=== PATIENT | male | born 1965 | race Caucasian/White ===

== ENCOUNTER 2023-08-01 09:27 | Outpatient (OUT) | payer BC, SELFPAY ==
[2023-08-01 10:02] LABS: Basophils Percent Auto 0.9 % (0.2-2.0); Eosinophils Absolute Auto 0.1 10^3/uL (0.0-0.7); Eosinophils Percent Auto 2.4 % (0.9-7.0); Hematocrit 45.9 % (42.0-54.0); Hemoglobin 16.3 g/dL (14.0-18.0); Lymphocytes Absolute Auto 1.9 10^3/uL (1.2-3.8); Lymphocytes Percent Auto 40.8 % (20.5-60.0); Mean Corpuscular HGB Conc 35.5 g/dL (29.9-35.2); Mean Corpuscular Hemoglobin 31.9 pg (25.9-34.0); Mean Corpuscular Volume 89.8 fL (80.0-94.0); Mean Platelet Volume 11.8 fL (9.5-13.5); Monocytes Absolute Auto 0.5 10^3/uL (0.3-0.8); Monocytes Percent Auto 11.3 % (1.7-12.0); Neutrophils Percent Auto 44.6 % (43.0-75.0); Platelet Count 307 10^3/uL (150-450); Red Blood Count 5.11 10^6/uL (4.70-6.10); Red Cell Distribution Width 12.3 % (11.0-15.0); White Blood Count 4.5 10^3/uL (4.0-11.0)
[2023-08-01 10:11] LABS: Estimated Average Glucose 108 mg/dL; Glycohemoglobin A1C 5.4 % (4.5-6.2)
[2023-08-01 10:40] LABS: Alanine Aminotransferase 83 U/L (16-63); Albumin Globulin Ratio 1.3; Alkaline Phosphatase 49 U/L (46-116); Anion Gap 11.7; Aspartate Amino Transferase 41 U/L (15-37); BUN Creatinine Ratio 12.7; Bilirubin Total 0.8 mg/dL (0.2-1.0); Carbon Dioxide 28.7 mmol/L (21.0-32.0); Chloride 103 mmol/L (98-107); Chol HDL Ratio 2.6; Cholesterol 109 mg/dL (<=200); Estimated GFR (African America >60 (>=60); Estimated GFR (Non-African Ame >60 (>=60); Glucose 99 mg/dL (74-106); HDL Cholesterol 42 mg/dL (40-60); LDL Cholesterol Calculated 48.4 mg/dL; Potassium 4.4 mmol/L (3.5-5.1); Sodium 139 mmol/L (136-145); Thyroid Stimulating Hormone 1.708 uIU/mL (0.358-3.740); Triglycerides 93 mg/dL (<=150); VLDL CHOLESTEROL 18.6 mg/dL
[2023-08-01 11:01] LABS: Prostate Specific Antigen Scrn 1.42 ng/mL (<=4.00)
[2023-08-02 10:12] LABS: Testosterone 524 ng/dL (264-916)
== END 2023-08-01 09:28 | disposition home or self-care (01) ==
LOC: LAB 09:29
PROVIDERS: PCP Family Medicine; Visit Provider Family Medicine
DX: Z00.00 Encounter for general adult medical examination without abnormal findings (principal); Z12.5 Encounter for screening for malignant neoplasm of prostate
CPT/HCPCS: 36415; 80053; 80061; 83036; 83525; 84403; 84436; 84443; 84481; 85025; G0103

== ENCOUNTER 2023-09-11 12:15 | Outpatient (OUT) | payer BC, SELFPAY | END 2023-09-11 12:16 | disposition home or self-care (01) | LOC: PST 12:15 | PROVIDERS: PCP Family Medicine; Visit Provider Surgery | DX: Z01.818 Encounter for other preprocedural examination (principal); Z12.11 Encounter for screening for malignant neoplasm of colon ==

== ENCOUNTER 2023-09-18 09:05 | Day surgery (SDC) | payer BC, SELFPAY ==
--- NOTE | 2023-09-18 | OP_ITS ---
OPERATION DATE: 09/18/2023 PREOPERATIVE DIAGNOSIS: Colorectal screening. POSTOPERATIVE DIAGNOSIS: Redundant colon. PROCEDURE: Colonoscopy to cecum. SURGEON: Cory Matos M.D. ANESTHESIA: Monitored anesthesia care. ESTIMATED BLOOD LOSS: Zero. INDICATIONS AND CONSENT: Patient is a 58-year-old male presents for colorectal screening. Indications, risks, benefits, alternatives of proceeding with colonoscopy were explained extensively to the patient, including the risks of bleeding, colon perforation or anesthetic complications. All of his questions were answered. Informed consent was obtained. PROCEDURE: Patient brought to the operating room, placed in the left lateral decubitus position. Monitored anesthesia care was provided. Rectal exam was performed which showed no masses or blood. The scope was inserted into the anal canal. Under direct visualization was advanced. With the aid of abdominal compression and positional changes, it was advanced to the cecum, where cecal markings were clearly identified. There was noted to be a good prep. Upon withdrawal of the scope, mucosal surfaces were carefully examined. There were no mass lesions or polyps. No inflammatory changes or ulcerations. No significant diverticulosis. The scope was retroflexed in the anal canal. There was no significant hemorrhoidal disease. Scope was then withdrawn. Patient tolerated procedure well, was sent to recovery room in good condition.f/u screening colonoscopy in 10 years, CC: Martin Bell M.D. PAPITO
[2023-09-18 09:25] VITALS: BP 144/89; PULSE 76; RESP 18; TEMP 36.2; O2SAT 99; BMI 34.4
[2023-09-18] MEDS: LACTATED RINGER'S SOLUTION 1,000 ML 50 ML IV (09:26)
[2023-09-18 12:04] VITALS: BP 125/70; PULSE 71; RESP 16; O2SAT 96
[2023-09-18 12:19] VITALS: BP 125/91; PULSE 69; RESP 16; O2SAT 96
== END 2023-09-18 12:35 | disposition home or self-care (01) ==
PROVIDERS: PCP Family Medicine; Visit Provider Surgery
PROC: (CPT 811; principal; 2023-09-18 10:15)
DX: Z12.11 Encounter for screening for malignant neoplasm of colon (principal); Q43.8 Other specified congenital malformations of intestine; K21.9 Gastro-esophageal reflux disease without esophagitis; E66.01 Morbid (severe) obesity due to excess calories; E78.00 Pure hypercholesterolemia, unspecified; K76.0 Fatty (change of) liver, not elsewhere classified; I73.9 Peripheral vascular disease, unspecified; Z79.82 Long term (current) use of aspirin; Z68.41 Body mass index [BMI] 40.0-44.9, adult
CPT/HCPCS: 45378; J2704

== ENCOUNTER 2024-05-22 09:16 | Outpatient (OUT) | payer BC, SELFPAY ==
[2024-05-22 10:06] LABS: Basophils Absolute Auto 0.1 10^3/uL (0.0-0.1); Basophils Percent Auto 1.1 % (0.2-2.0); Eosinophils Absolute Auto 0.1 10^3/uL (0.0-0.7); Eosinophils Percent Auto 2.2 % (0.9-7.0); Hematocrit 46.8 % (42.0-54.0); Immature Granulocytes Abs Auto 0.01 10^3/uL (0.00-0.03); Immature Granulocytes Pct Auto 0.2 % (0.0-0.5); Lymphocytes Absolute Auto 1.8 10^3/uL (1.2-3.8); Lymphocytes Percent Auto 33.2 % (20.5-60.0); Mean Corpuscular HGB Conc 34.2 g/dL (29.9-35.2); Mean Corpuscular Hemoglobin 31.3 pg (25.9-34.0); Mean Corpuscular Volume 91.6 fL (80.0-94.0); Mean Platelet Volume 10.1 fL (9.5-13.5); Monocytes Absolute Auto 0.5 10^3/uL (0.3-0.8); Monocytes Percent Auto 8.9 % (1.7-12.0); Neutrophils Percent Auto 54.4 % (43.0-75.0); Platelet Count 221 10^3/uL (150-450); Red Blood Count 5.11 10^6/uL (4.70-6.10); Red Cell Distribution Width 12.2 % (11.0-15.0); White Blood Count 5.5 10^3/uL (4.0-11.0)
[2024-05-22 10:48] LABS: Alanine Aminotransferase 106 U/L (16-63); Albumin Globulin Ratio 1.2; Alkaline Phosphatase 53 U/L (46-116); Anion Gap 11.5; Aspartate Amino Transferase 80 U/L (15-37); Bilirubin Total 0.8 mg/dL (0.2-1.0); Calcium 9.3 mg/dL (8.5-10.1); Carbon Dioxide 28.5 mmol/L (21.0-32.0); Chloride 103 mmol/L (98-107); Chol HDL Ratio 2.7; Cholesterol 140 mg/dL (<=200); Estimated GFR (African America >60 (>=60); Estimated GFR (Non-African Ame >60 (>=60); Free T3 3.02 pg/mL (2.18-3.98); Globulin 3.4 g/dL; Glucose 112 mg/dL (74-106); HDL Cholesterol 52 mg/dL (40-60); LDL Cholesterol Calculated 70.8 mg/dL; Sodium 138 mmol/L (136-145); Thyroid Stimulating Hormone 2.006 uIU/mL (0.358-3.740); Total Protein 7.4 g/dL (6.4-8.2); Triglycerides 86 mg/dL (<=150); VLDL CHOLESTEROL 17.2 mg/dL
[2024-05-22 11:16] LABS: Prostate Specific Antigen Scrn 1.43 ng/mL (<=4.00)
[2024-05-22 11:50] LABS: Estimated Average Glucose 105 mg/dL; Glycohemoglobin A1C 5.3 % (4.5-6.2)
== END 2024-05-22 09:17 | disposition home or self-care (01) ==
PROVIDERS: PCP Family Medicine; Visit Provider Family Medicine
DX: Z00.00 Encounter for general adult medical examination without abnormal findings (principal); E78.00 Pure hypercholesterolemia, unspecified; R53.83 Other fatigue; Z12.5 Encounter for screening for malignant neoplasm of prostate; Z12.11 Encounter for screening for malignant neoplasm of colon; E11.9 Type 2 diabetes mellitus without complications; I10 Essential (primary) hypertension; E03.9 Hypothyroidism, unspecified
CPT/HCPCS: 36415; 80053; 80061; 83036; 84436; 84443; 84481; 85025; G0103

== ENCOUNTER 2024-06-11 09:18 | Outpatient (OUT) | payer BC, SELFPAY ==
[2024-06-11 10:51] LABS: Alanine Aminotransferase 96 U/L (16-63); Albumin Globulin Ratio 1.3; Albumin Level 4.1 g/dL (3.4-5.0); Alkaline Phosphatase 57 U/L (46-116); Aspartate Amino Transferase 53 U/L (15-37); Bilirubin Total 0.8 mg/dL (0.2-1.0); Calcium 9.5 mg/dL (8.5-10.1); Carbon Dioxide 29.9 mmol/L (21.0-32.0); Chloride 102 mmol/L (98-107); Estimated GFR (African America >60 (>=60); Estimated GFR (Non-African Ame >60 (>=60); Globulin 3.1 g/dL; Glucose 108 mg/dL (74-106); Potassium 4.9 mmol/L (3.5-5.1); Sodium 140 mmol/L (136-145); Total Protein 7.2 g/dL (6.4-8.2)
[2024-06-11 15:00] LABS: Occult Blood Negative
[2024-06-11 15:02] LABS: Internal Control Within Normal Limits
== END 2024-06-11 09:19 | disposition home or self-care (01) ==
LOC: LAB 09:23
PROVIDERS: PCP Family Medicine; Visit Provider Family Medicine
DX: R79.89 Other specified abnormal findings of blood chemistry (principal)
CPT/HCPCS: 36415; 80053; G0328

== ENCOUNTER 2025-05-28 11:25 | Outpatient (OUT) | payer BC, SELFPAY ==
--- OUTSIDE RECORDS SUMMARY | 2025-05-28 11:29 | XMS_ITS | Encounter Summary ---
Author Organization [facility] Address [address] [place] [address] Care Team Providers Care Claims Coordinator Name Role Phone Martin Bell MD Primary Care Provider [phone] No, Referral Unavailable Unavailable Ayo Lovelace MD Unavailable [phone] Castillo Pereira MD Unavailable Source Comments In the event this information is protected by the Federal Confidentiality of Alcohol and Drug AbusePatient Records regulations: The Federal rules restrict any use of the information to criminally investigate or prosecute any alcohol or drug abuse patient.[facility] Encounter Details Date Type Department Care Team (Late st Contact Info) Description 09/21/2020 Get Medical Advice Cardiology [address] [place] [address] Ayo Lovelace MD [address] [place] [address] RE: Visit Follow Up Question Social History Tobacco Use Types Packs/Day Years Used Date Smoking Tobacco: Never Smokeless Tobacco: Never Alcohol Use Standard Drinks/Week Comments Yes 1 (1 standard drink = 0.6 oz pure alcohol) socially; nrdctubc-7-7 cups per day Area Deprivation Index Answer Date Tucker rded National Score (1-100), lower number is lower ri sk Not on file 09/11/2020 State Score (1-10), lower number is lower risk N ot on file 09/11/2020 Data from: https://www.neighborhoodatlas.[facility]/. Last address used for calculation Not on file 09/11/2020 Sex and Gender Information Value Date Recorded Sex Assigned at Male 09/06/2020 8:18 PM EST Legal Sex Male 7:32 AM EST Gender Identity Male 09/06/2020 8:18 PM EST Sexual Orientation Straight 09/06/2020 8: 18 PM EST COVID-19 Exposure Response Date Recorded In the last month, have you been in contact with someone who was confirmed or suspected to have Coronavirus / COVID-19? Unable to assess 09/19/2020 8:08 AM EST documented as of this encounter Functional Status * Are you deaf or do you have serious difficulty hearing? Answer Date of Assessment Author No 09/17/2014 8:15 AM Valentina Roach RN * Are you blind or do you have serious difficulty seeing, even when wearing glasses? Answer Date of Assessment Author No 09/17/2014 8:15 AM Valentina Roach RN * Do you have serious difficulty walking or climbing stairs? Answer Date of Assessment Author No 09/17/2014 8:15 AM Valentina Roach RN * Do you have difficulty dressing or bathing? Answer Date of Assessment Author No 09/17/2014 8:15 AM Valentina Roach RN * Because of a physical, mental, or emotional condition, do you have difficulty doing errands alone such as visiting a doctor's office or shopping? Answer Date of Assessment Author No 09/17/2014 8:15 AM Valentina Roach RN documented as of this encounter Mental Status * Because of a physical, mental, or emotional condition, do you have serious difficulty concentrating, remembering, or making decisions? Answer Entry Date Author No 09/17/2014 8:15 AM Valentina Roach RN documented in this encounter Miscellaneous Notes * Telephone Encounter - Simi West - 09/22/2020 7:48 AM EST Please contact patient regarding Svpplyhart message. documented in this encounter Plan of Treatment Upcoming Encounters Date Type Department Care Team (Late st Contact Info) Description 08/18/2025 8:30 AM EST Procedure Cardiology [address] [place] [address] established EPS patient- web appt req 08/18/2025 9:00 AM EST Office Visit Cardiology [address] [place] [address] Hanna Arevalo APRN.VIDEOGRAPHER [address] [place], [place] [id number] established EPS patient- web appt req 11/30/2025 8:15 AM EST Procedure Cardiology [address] [place] [address] DX CARDIAC EVALUATION 11/30/2025 9:15 AM EST Office Visit Cardiology [address] [place] [address] Leah Manjarrez MD [address] [place] [address] DX H/O AFIB ( SEES DR LOVELACE) documented as of this encounter Visit Diagnoses Not on filedocumented in this encounter Care Teams Claims Coordinator Relationship Specialty Start Date End Date Martin Bell MD PCP - General Family Medicine 08/07/11 No, Referral Referring 08/08/18 Ayo Lovelace MD [address] [place], [place] [id number] Primary Staff Physician Cardiology 12/23/18 Castillo Pereira MD [address] [place] [address] Primary Staff Physician Cardiology 09/12/21 documented as of this encounter
--- OUTSIDE RECORDS SUMMARY | 2025-05-28 11:29 | XMS_ITS | Encounter Summary ---
Author Organization [facility] Address [address] [place] [address] Care Team Providers Care Disability Case Manager Name Role Phone Martin Bell MD Primary Care Provider [phone] No, Referral Unavailable Unavailable Ayo Lovelace MD Unavailable [phone] Castillo Pereira MD Unavailable Source Comments In the event this information is protected by the Federal Confidentiality of Alcohol and Drug AbusePatient Records regulations: The Federal rules restrict any use of the information to criminally investigate or prosecute any alcohol or drug abuse patient.[facility] Encounter Details Date Type Department Care Team (Late st Contact Info) Description 01/29/2023 Patient Msg Cardiology [address] [place] [address] Ayo Lovelace MD [address] [place] [address] Request an Appointment Social History Tobacco Use Types Packs/Day Years Used Date Smoking Tobacco: Never Smokeless Tobacco: Never Alcohol Use Standard Drinks/Week Comments Yes 0 (1 standard drink = 0.6 oz pur e alcohol) 2-3 drink per week Area Deprivation Index Answer Date Tucker rded National Score (1-100), lower number is lower ri sk Not on file 09/11/2020 State Score (1-10), lower number is lower risk N ot on file 09/11/2020 Data from: https://www.neighborhoodatlas.medicine.[facility]/. Last address used for calculation Not on file 09/11/2020 Sex and Gender Information Value Date Recorded Sex Assigned at Male 09/06/2020 8:18 PM EST Legal Sex Male 7:32 AM EST Gender Identity Male 09/06/2020 8:18 PM EST Sexual Orientation Straight 09/06/2020 8: 18 PM EST documented as of this encounter Functional Status * Are you deaf or do you have serious difficulty hearing? Answer Date of Assessment Author No 08/21/2022 9:13 AM Yumi Mccoy RN * Are you blind or do you have serious difficulty seeing, even when wearing glasses? Answer Date of Assessment Author No 08/21/2022 9:13 AM Yumi Mccoy RN * Do you have serious difficulty walking or climbing stairs? Answer Date of Assessment Author No 08/21/2022 9:13 AM Yumi Mccoy RN * Do you have difficulty dressing or bathing? Answer Date of Assessment Author No 08/21/2022 9:13 AM Yumi Mccoy RN * Because of a physical, mental, or emotional condition, do you have difficulty doing errands alone such as visiting a doctor's office or shopping? Answer Date of Assessment Author No 08/21/2022 9:13 AM Yumi Mccoy RN documented as of this encounter Mental Status * Because of a physical, mental, or emotional condition, do you have serious difficulty concentrating, remembering, or making decisions? Answer Entry Date Author No 08/21/2022 9:13 AM Yumi Mccoy RN documented in this encounter Plan of Treatment Upcoming Encounters Date Type Department Care Team (Late st Contact Info) Description 08/18/2025 8:30 AM EST Procedure Cardiology [address] [place] [address] established EPS patient- web appt req 08/18/2025 9:00 AM EST Office Visit Cardiology [address] [place] [phone] Hanna Arevalo APRN.[facility] [address] [place] [address] established EPS patient- web appt req 11/30/2025 8:15 AM EST Procedure Cardiology [address] [place], [place] [id number] DX CARDIAC EVALUATION 11/30/2025 9:15 AM EST Office Visit Cardiology [address] [place], [place] [phone] Leah Manjarrez MD [address] [place] [address] DX H/O AFIB ( SEES DR LOVELACE) documented as of this encounter Visit Diagnoses Not on filedocumented in this encounter Care Teams Disability Case Manager Relationship Specialty Start Date End Date Martin Bell MD PCP - General Family Medicine 08/07/11 No, Referral Referring 08/08/18 Ayo Lovelace MD [address] [place] [address] Primary Staff Physician Cardiology 12/23/18 Castillo Pereira MD [facility] [place] [phone] Primary Staff Physician Cardiology 09/12/21 documented as of this encounter
--- OUTSIDE RECORDS SUMMARY | 2025-05-28 11:29 | XMS_ITS | Encounter Summary ---
Author Organization [facility] Address [address] [place] [address] Care Team Providers Care Supervisor Steffen House Name Role Phone Martin Bell MD Primary Care Provider [phone], Referral Unavailable Unavailable Ayo Lovelace MD Unavailable [phone] Castillo Pereira MD Unavailable Source Comments In the event this information is protected by the Federal Confidentiality of Alcohol and Drug AbusePatient Records regulations: The Federal rules restrict any use of the information to criminally investigate or prosecute any alcohol or drug abuse patient.[facility] Encounter Details Date Type Department Care Team (Late st Contact Info) Description 01/29/2023 Patient Msg Cardiology [address] [place] [address] Hanna Arevalo APRN.AIRCRAFT MOTOR MECHANIC [address] [place] [address] Appointment Cancellation Request Social History Tobacco Use Types Packs/Day Years [...] N ot on file 09/11/2020 Data from: https://www.neighborhoodatlas.medicine.[facility]/. Last address used for calculation Not [...] 08/18/2025 8:30 AM EST Procedure Cardiology [address] [place] [address] established EPS patient- web appt req 08/18/2025 9:00 AM EST Office Visit Cardiology [address] [place] [id number] Hanna Arevalo APRN.AIRCRAFT MOTOR MECHANIC [address] [place] [id number] established EPS patient- web appt req 11/30/2025 8:15 AM EST Procedure Cardiology [address] [place] [id number] DX CARDIAC EVALUATION 11/30/2025 9:15 AM EST Office Visit Cardiology [address] [place] [address] Leah Manjarrez MD [address] [place] [id number] DX H/O AFIB ( SEES DR LOVELACE) documented as of this encounter Visit Diagnoses Not on filedocumented in this encounter Care Teams Supervisor Steffen House Relationship Specialty Start Date End Date Martin Bell MD PCP - General Family Medicine 08/07/11 No, Referral Referring 08/08/18 Ayo Lovelace MD [address] [place] [address] Primary Staff Physician Cardiology 12/23/18 Castillo Pereira MD [facility] [place] [id number] Primary Staff Physician Cardiology 09/12/21 documented as of this encounter
--- OUTSIDE RECORDS SUMMARY | 2025-05-28 11:29 | XMS_ITS | Encounter Summary ---
Author Organization [facility] Address [address] [place] [address] Care Team Providers Care Ged Tutor Name Role Phone Martin Bell MD Primary Care Provider [phone], Referral Unavailable Unavailable Ayo Lovelace MD Unavailable [phone] Ayo Lovelace MD Unavailable [phone] Castillo Pereira MD Unavailable Source Comments In the event this information is protected by the Federal Confidentiality of Alcohol and Drug AbusePatient Records regulations: The Federal rules restrict any use of the information to criminally investigate or prosecute any alcohol or drug abuse patient.[facility] Encounter Details Date Type Department Care Team (Late st Contact Info) Description 03/10/2018 Patient Msg Cardiology [address] [place] [address] Ayo Lovelace MD [address] [place] [address] RE: Appointment Cancellation Request Social History Tobacco Use Types Packs/Day Years Used Date Smoking Tobacco: Never Smokeless Tobacco: Never Alcohol Use Standard Drinks/Week Comments Yes 1 (1 standard drink = 0.6 oz pure alcohol) socially; ufwfscwm-0-6 cups per day Sex and Gender Information Value Date Recorded [...] Valentina Roach RN documented in this encounter Plan of Treatment Upcoming Encounters Date Type Department Care Team (Late st Contact Info) Description 08/18/2025 8:30 AM EST Procedure Cardiology [address] [place] [id number] established EPS patient- web appt req 08/18/2025 9:00 AM EST Office Visit Cardiology [address] [place] [phone] Hanna Arevalo APRN.CHEMICAL ENGRAVER [address] [place] [address] established EPS patient- web appt req 11/30/2025 8:15 AM EST Procedure Cardiology [address] [place] [id number] DX CARDIAC EVALUATION 11/30/2025 9:15 AM EST Office Visit Cardiology [address] [place] [phone] Leah Manjarrez MD [address] [place] [address] DX H/O AFIB ( SEES DR LOVELACE) documented as of this encounter Visit Diagnoses Not on filedocumented in this encounter Care Teams Ged Tutor Relationship Specialty Start Date End Date Martin Bell MD PCP - General Family Medicine 08/07/11 No, Referral Referring 08/08/18 Ayo Lovelace MD [address] [place] [phone] Primary Staff Physician Cardiology 12/23/18 Ayo Lovelace MD [address] [place] [address] Primary Staff Physician Cardiology 12/23/18 Castillo Pereira MD [address] [place] [address] Primary Staff Physician Cardiology 09/12/21 documented as of this encounter
--- OUTSIDE RECORDS SUMMARY | 2025-05-28 11:29 | XMS_ITS | Encounter Summary ---
Author Organization [facility] Address [address] [place] [address] Care Team Providers Care Form Building Supervisor Name Role Phone Martin Bell MD Primary Care Provider [phone], Referral Unavailable Unavailable Ayo Lovelace MD Unavailable [phone] Castillo Pereira MD Unavailable Source Comments In the event this information is protected by the Federal Confidentiality of Alcohol and Drug AbusePatient Records regulations: The Federal rules restrict any use of the information to criminally investigate or prosecute any alcohol or drug abuse patient.[facility] Encounter Details Date Type Department Care Team (Late st Contact Info) Description 01/29/2023 Patient Msg Cardiology [address] [place] [address] Ayo Lovelace MD [address] [place] [address] Request an Appointment Social History [...] N ot on file 09/11/2020 Data from: https://www.neighborhoodatlas.medicine.[facility]/. Last address used for calculation Not [...] 08/18/2025 8:30 AM EST Procedure Cardiology [address] [place] [address] established EPS patient- web appt req 08/18/2025 9:00 AM EST Office Visit Cardiology [address] [place] [phone] Hanna Arevalo APRN.[facility] [address] [place] [address] established EPS patient- web appt req 11/30/2025 8:15 AM EST Procedure Cardiology [address] [place], [place] [phone] DX CARDIAC EVALUATION 11/30/2025 9:15 AM EST Office Visit Cardiology [address] [place], [place] [phone] Leah Manjarrez MD [address] [place] [address] DX H/O AFIB ( SEES DR LOVELACE) documented as of this encounter Visit Diagnoses Not on filedocumented in this encounter Care Teams Form Building Supervisor Relationship Specialty Start Date End Date Martin Bell MD PCP - General Family Medicine 08/07/11 No, Referral Referring 08/08/18 Ayo Lovelace MD [address] [place] [address] Primary Staff Physician Cardiology 12/23/18 Castillo Pereira MD [facility] [place] [phone] Primary Staff Physician Cardiology 09/12/21 documented as of this encounter
--- OUTSIDE RECORDS SUMMARY | 2025-05-28 11:29 | XMS_ITS | Encounter Summary ---
Author Organization [facility] Address [address] [place] [address] Care Team Providers Care Apparatus Lineman Name Role Phone Martin Bell MD Primary Care Provider [phone], Referral Unavailable Unavailable Ayo Lovelace MD Unavailable [phone] Castillo Pereira MD Unavailable Source Comments In the event this information is protected by the Federal Confidentiality of Alcohol and Drug AbusePatient Records regulations: The Federal rules restrict any use of the information to criminally investigate or prosecute any alcohol or drug abuse patient.[facility] Encounter Details Date Type Department Care Team (Late st Contact Info) Description 01/29/2023 Patient Msg Cardiology [address] [place] [address] Provider, Ccf Appointment Cancellation Request Social History Tobacco Use [...] N ot on file 09/11/2020 Data from: https://www.neighborhoodatlas.medicine.[facility]/. Last address used for calculation Not on [...] 08/18/2025 8:30 AM EST Procedure Cardiology [address] [place] [id number] established EPS patient- web appt req 08/18/2025 9:00 AM EST Office Visit Cardiology [address] [place] [address] Hanna Arevalo, RUBEN.SPORTS REPORTER [address] [place] [address] established EPS patient- web appt req 11/30/2025 8:15 AM EST Procedure Cardiology [address] [place] [address] DX CARDIAC EVALUATION 11/30/2025 9:15 AM EST Office Visit Cardiology [address] [place] [phone] Leah Manjarrez MD [address] [place] [address] DX H/O AFIB ( SEES DR LOVELACE) documented as of this encounter Visit Diagnoses Not on filedocumented in this encounter Care Teams Apparatus Lineman Relationship Specialty Start Date End Date Martin Bell MD PCP - General Family Medicine 08/07/11 No, Referral Referring 08/08/18 Ayo Lovelace MD [address] [place] [address] Primary Staff Physician Cardiology 12/23/18 Castillo Pereira MD [address] [place] [address] Primary Staff Physician Cardiology 09/12/21 documented as of this encounter
--- OUTSIDE RECORDS SUMMARY | 2025-05-28 11:29 | XMS_ITS | Encounter Summary ---
Author Organization [facility] Address [address] [place] [address] Care Team Providers Care Fish Straightener Name Role Phone Martin Bell MD Primary Care Provider [phone], Referral Unavailable Unavailable Ayo Lovelace MD Unavailable [phone] Castillo Pereira MD Unavailable Source Comments In the event this information is protected by the Federal Confidentiality of Alcohol and Drug AbusePatient Records regulations: The Federal rules restrict any use of the information to criminally investigate or prosecute any alcohol or drug abuse patient.[facility] Encounter Details Date Type Department Care Team (Late st Contact Info) Description 10/04/2020 Patient Msg Cardiology [address] [place] [address] Hilda Cano APRN.CONDUCTOR/ENGINEER [address] [facility] [place] [address] Echo and stress test results Social History Tobacco Use Types Packs/Day Years Used Date Smoking Tobacco: Never Smokeless Tobacco: Never Alcohol Use Standard Drinks/Week Comments Yes 1 (1 standard drink = 0.6 oz pure alcohol) socially; agatuvwh-4-5 cups per day Area Deprivation Index Answer Date Tucker rded National Score (1-100), lower number is lower ri sk Not on file 09/11/2020 State Score (1-10), lower number is lower risk N ot on file 09/11/2020 Data from: https://www.neighborhoodatlas.[facility]/. Last address used for calculation Not on [...] or suspected to have Coronavirus / COVID-19? No / Unsure 09/29/2020 9:16 AM EST documented as of this encounter [...] 08/18/2025 8:30 AM EST Procedure Cardiology [address] [place] [address] established EPS patient- web appt req 08/18/2025 9:00 AM EST Office Visit Cardiology [address] [place] [address] Hanna Arevalo APRN.CONDUCTOR/ENGINEER [address] [place] [address] established EPS patient- web appt req 11/30/2025 8:15 AM EST Procedure Cardiology [address] [place] [address] DX CARDIAC EVALUATION 11/30/2025 9:15 AM EST Office Visit Cardiology [address] [place] [address] Leah Manjarrez MD [address] [place] [address] DX H/O AFIB ( SEES DR LOVELACE) documented as of this encounter Visit Diagnoses Not on filedocumented in this encounter Care Teams Fish Straightener Relationship Specialty Start Date End Date Martin Bell MD PCP - General Family Medicine 08/07/11 No, Referral Referring 08/08/18 Ayo Lovelace MD [facility] [place] [address] Primary Staff Physician Cardiology 12/23/18 Castillo Pereira MD [facility] [place] [address] Primary Staff Physician Cardiology 09/12/21 documented as of this encounter
--- OUTSIDE RECORDS SUMMARY | 2025-05-28 11:29 | XMS_ITS | Encounter Summary ---
Author Organization [facility] Address [address] [place] [address] Care Team Providers Care Doctor Of Dental Medicine Name Role Phone Martin Bell MD Primary Care Provider [phone], Referral Unavailable Unavailable Ayo Lovelace MD Unavailable [phone] Castillo Pereira MD Unavailable Source Comments In the event this information is protected by the Federal Confidentiality of Alcohol and Drug AbusePatient Records regulations: The Federal rules restrict any use of the information to criminally investigate or prosecute any alcohol or drug abuse patient.[facility] Encounter Details Date Type Department Care Team (Late st Contact Info) Description 06/20/2022 Get Medical Advice Cardiology [address] [place] [address] Ayo Lovelace MD [address] [place] [address] Valentina Social History Tobacco Use Types Packs/Day Years [...] N ot on file 09/11/2020 Data from: https://www.neighborhoodatlas.medicine.[facility]/. Last address used for calculation Not [...] hearing? Answer Date of Assessment Author No 02/01/2022 8:42 PM Janine Franklin RN * Are you blind or do you have serious difficulty seeing, even when wearing glasses? Answer Date of Assessment Author No 02/01/2022 8:42 PM Janine Franklin RN * Do you have serious difficulty walking or climbing stairs? Answer Date of Assessment Author No 02/01/2022 8:42 PM Janine Franklin RN * Do you have difficulty dressing or bathing? Answer Date of Assessment Author No 02/01/2022 8:42 PM Janine Franklin RN * Because of a physical, mental, or emotional condition, do you have difficulty doing errands alone such as visiting a doctor's office or shopping? Answer Date of Assessment Author No 02/01/2022 8:42 PM Jainne Franklin RN documented as of this encounter Mental Status * Because of a physical, mental, or emotional condition, do you have serious difficulty concentrating, remembering, or making decisions? Answer Entry Date Author No 02/01/2022 8:42 PM Janine Franklin RN documented in this encounter Plan of Treatment Upcoming Encounters Date Type Department Care Team (Late st Contact Info) Description 08/18/2025 8:30 AM EST Procedure Cardiology [address] [place] [address] established EPS patient- web appt req 08/18/2025 9:00 AM EST Office Visit Cardiology [address] [place] [address] Hanna Arevalo APRN.COOLING TOWER OPERATOR [address] [place] [address] established EPS patient- web appt req 11/30/2025 8:15 AM EST Procedure Cardiology [address] [place] [phone] DX CARDIAC EVALUATION 11/30/2025 9:15 AM EST Office Visit Cardiology [address] [place] [phone] Leah Manjarrez MD [address] [place] [address] DX H/O AFIB ( SEES DR LOVELACE) documented as of this encounter Visit Diagnoses Not on filedocumented in this encounter Care Teams Doctor Of Dental Medicine Relationship Specialty Start Date End Date Martin Bell MD PCP - General Family Medicine 08/07/11 No, Referral Referring 08/08/18 Ayo Lovelace MD [address] [place] [address] Primary Staff Physician Cardiology 12/23/18 Castillo Pereira MD [address] [place] [address] Primary Staff Physician Cardiology 09/12/21 documented as of this encounter
--- OUTSIDE RECORDS SUMMARY | 2025-05-28 11:29 | XMS_ITS | Encounter Summary ---
Author Organization [facility] Address [address] [place] [address] Care Team Providers Care Cleaner And Preparer Name Role Phone Martin Bell MD Primary Care Provider [phone], Referral Unavailable Unavailable Ayo Lovelace MD Unavailable [phone] Castillo Pereira MD Unavailable Source Comments In the event this information is protected by the Federal Confidentiality of Alcohol and Drug AbusePatient Records regulations: The Federal rules restrict any use of the information to criminally investigate or prosecute any alcohol or drug abuse patient.[facility] Encounter Details Date Type Department Care Team (Late st Contact Info) Description 05/12/2025 Get Medical Advice Cardiology [address] [place] [address] Ayo Lovelace MD [address] [place] [address] Appointment Social History Tobacco Use Types Packs/Day [...] N ot on file 09/11/2020 Data from: https://www.neighborhoodatlas.medicine.[facility]/. Last address used for calculation Not [...] 08/18/2025 8:30 AM EST Procedure Cardiology [address] [place] [address] established EPS patient- web appt req 08/18/2025 9:00 AM EST Office Visit Cardiology [address] [place] [phone] Hanna Arevalo APRN.CHEMISTRY PROFESSOR [address] [place] [address] established EPS patient- web appt req 11/30/2025 8:15 AM EST Procedure Cardiology [address] [place] [id number] DX CARDIAC EVALUATION 11/30/2025 9:15 AM EST Office Visit Cardiology [address] [place] [phone] Leah Manjarrez MD [address] [place] [address] DX H/O AFIB ( SEES DR LOVELACE) documented as of this encounter Goals Goal Patient Goal Type Associated Problems Recent Progress Patient-Stated? Author Blood Pressure < 130/80 Blood Pressure 136/84( 024 2:50 PM EST) No Ayo Lovelace MD documented as of this encounter Visit Diagnoses Not on filedocumented in this encounter Care Teams Cleaner And Preparer Relationship Specialty Start Date End Date Martin Bell MD PCP - General Family Medicine 08/07/11 No, Referral Referring 08/08/18 Ayo Lovelace MD [address] [place] [address] Primary Staff Physician Cardiology 12/23/18 Castillo Pereira MD [address] [place] [address] Primary Staff Physician Cardiology 09/12/21 documented as of this encounter
--- OUTSIDE RECORDS SUMMARY | 2025-05-28 11:29 | XMS_ITS | Encounter Summary ---
Author Organization [facility] Address [address] [place] [address] Care Team Providers Care Job Training Supervisor Name Role Phone Martin Bell MD Primary Care Provider [phone], Referral Unavailable Unavailable Ayo Lovelace MD Unavailable [phone] Ayo Lovelace MD Unavailable [phone] Castillo Pereira MD Unavailable Source Comments In the event this information is protected by the Federal Confidentiality of Alcohol and Drug AbusePatient Records regulations: The Federal rules restrict any use of the information to criminally investigate or prosecute any alcohol or drug abuse patient.[facility] Encounter Details Date Type Department Care Team (Late st Contact Info) Description 03/10/2018 Patient Msg Cardiology [address] [place] [address] Appointment Cancellation Request Social History Tobacco Use Types Packs/Day Years Used Date Smoking Tobacco: Never Smokeless Tobacco: Never Alcohol Use Standard Drinks/Week Comments Yes 1 (1 standard drink = 0.6 oz pure alcohol) socially; lzhsfvnx-7-8 cups per day Sex and Gender Information [...] 08/18/2025 8:30 AM EST Procedure Cardiology [address] [place] [address] established EPS patient- web appt req 08/18/2025 9:00 AM EST Office Visit Cardiology [address] [place] [address] Hanna Arevalo, UNIVERSITY INTERN.REGIONAL SERVICE MANAGER [address] [place] [address] established EPS patient- web appt req 11/30/2025 8:15 AM EST Procedure Cardiology [address] [place] [address] DX CARDIAC EVALUATION 11/30/2025 9:15 AM EST Office Visit Cardiology [address] [place] [address] Leah Manjarrez MD [address] [place] [address] DX H/O AFIB ( SEES DR LOVELACE) documented as of this encounter Visit Diagnoses Not on filedocumented in this encounter Care Teams Job Training Supervisor Relationship Specialty Start Date End Date Martin Bell MD PCP - General Family Medicine 08/07/11 No, Referral Referring 08/08/18 Ayo Lovelace MD [address] [place] [address] Primary Staff Physician Cardiology 12/23/18 [place] [address] [place] [address] Primary Staff Physician Cardiology 12/23/18 Castillo Pereira MD [address] [place] [address] Primary Staff Physician Cardiology 09/12/21 documented as of this encounter
--- OUTSIDE RECORDS SUMMARY | 2025-05-28 11:29 | XMS_ITS | Encounter Summary ---
Author Organization [facility] Address [facility] [place] [address] Care Team Providers Care Backend Developer Name Role Phone Martin Bell MD Primary Care Provider [phone], Referral Unavailable Unavailable Ayo Lovelace MD Unavailable [phone] Castillo Pereira MD Unavailable Source Comments In the event this information is protected by the Federal Confidentiality of Alcohol and Drug AbusePatient Records regulations: The Federal rules restrict any use of the information to criminally investigate or prosecute any alcohol or drug abuse patient.[facility] Reason for Referral * Outpatient Procedure (Routine) - Authorized Specialty Diagnoses / Procedures Referred By Contac t Referred To [facility] Diagnoses Paroxysmal tachycardia, unspecified (HCC) Procedures ECG COMPLETE ECG ROUTINE ECG W/LEAST 12 LDS W/I&R Ayo Lovelace MD [address] [place] [address] Phone: tel: fax: [facility] [address] [address] Referral ID Status Reason Start Date Expiration Date Visits Requested Visits Authorized [id number] Authorized Auto-Generat ed Referral 05/17/2025 05/17/2026 1 1 Encounter Details Date Type Department Care Team (Late st Contact Info) Description 05/17/2025 Orders Only Cardiology [address] [place] [address] Ayo Lovelace MD [address] [place] [address] Paroxysmal tachycardia, unspecified (HCC) (Primary Dx) Social History Tobacco Use Types Packs/Day Years [...] N ot on file 09/11/2020 Data from: https://www.neighborhoodatlas.medicine.[facility]/. Last address used for calculation Not [...] of Assessment Author No 08/21/2022 9:13 AM EST Yumi Ambrose RN * Are you blind or do [...] 08/18/2025 8:30 AM EST Procedure Cardiology [address] [place] [id number] established EPS patient- web appt req 08/18/2025 9:00 AM EST Office Visit Cardiology [address] [place] [address] Hanna Arevalo, GIS TECHNICIAN.DIRECTOR OF REVENUE [address] [place] [address] established EPS patient- web appt req 11/30/2025 8:15 AM EST Procedure Cardiology [address] [place] [address] DX CARDIAC EVALUATION 11/30/2025 9:15 AM EST Office Visit Cardiology [address] [place] [address] Leah Manjarrez MD [address] [place] [address] DX H/O AFIB ( SEES DR LOVELACE) Scheduled Orders Name Type Priority Associated Diagnoses Orde r Schedule ECG COMPLETE ECG Routine Paroxysmal tachycardia, unspecified (HCC) 1 Occurrences starting 05/17/2025 until 05/17/2026 documented as of this encounter Goals Goal Patient Goal Type Associated Problems Recent Progress Patient-Stated? Author Blood Pressure < 130/80 Blood Pressure 136/84( 024 2:50 PM EST) No Ayo Lovelace MD documented as of this encounter Visit Diagnoses Diagnosis Paroxysmal tachycardia, unspecified (HCC)- Primary Paroxysmal tachycardia, unspecified documented in this encounter Care Teams Backend Developer Relationship Specialty Start Date End Date Martin Bell MD PCP - General Family Medicine 08/07/11 No, Referral Referring 08/08/18 Ayo Lovelace MD [address] [place] [address] Primary Staff Physician Cardiology 12/23/18 Castillo Pereira MD [address] [place] [address] Primary Staff Physician Cardiology 09/12/21 documented as of this encounter
--- OUTSIDE RECORDS SUMMARY | 2025-05-28 11:30 | XMS_ITS | Encounter Summary ---
Author Organization [facility] Address [address] [place] [address] Care Team Providers Care Store Hand Name Role Phone Martin Bell MD Primary Care Provider [phone], Referral Unavailable Unavailable Ayo Lovelace MD Unavailable [phone] Castillo Pereira MD Unavailable Source Comments In the event this information is protected by the Federal Confidentiality of Alcohol and Drug AbusePatient Records regulations: The Federal rules restrict any use of the information to criminally investigate or prosecute any alcohol or drug abuse patient.[facility] Encounter Details Date Type Department Care Team (Late st Contact Info) Description 06/02/2024 Get Medical Advice Cardiology [address] [place] [address] Ayo Lovelace MD [address] [place] [address] Stress Test Social History Tobacco Use Types Packs/Day Years [...] N ot on file 09/11/2020 Data from: https://www.neighborhoodatlas.medicine.[facility]/. Last address used for calculation [...] 08/18/2025 8:30 AM EST Procedure Cardiology [address] [place] [address] established EPS patient- web appt req 08/18/2025 9:00 AM EST Office Visit Cardiology [address] [place] [phone] Hanna Arevalo APRN.[facility] [address] [place] [address] established EPS patient- web appt req 11/30/2025 8:15 AM EST Procedure Cardiology [address] [place], [place] [id number] DX CARDIAC EVALUATION 11/30/2025 9:15 AM EST Office Visit Cardiology [address] [place], [place] [phone] Leah Manjarrez MD [address] [place] [address] DX H/O AFIB ( SEES DR LOVELACE) documented as of this encounter Visit Diagnoses Not on filedocumented in this encounter Care Teams Store Hand Relationship Specialty Start Date End Date Martin Bell MD PCP - General Family Medicine 08/07/11 No, Referral Referring 08/08/18 Ayo Lovelace MD [facility] [place] [address] Primary Staff Physician Cardiology 12/23/18 Castillo Pereira MD [facility] [place] [address] Primary Staff Physician Cardiology 09/12/21 documented as of this encounter
--- OUTSIDE RECORDS SUMMARY | 2025-05-28 11:30 | XMS_ITS | Encounter Summary ---
Author Organization [facility] Address [address] [place] [address] Care Team Providers Care Rent And Housing Investigator Name Role Phone Martin Bell MD Primary Care Provider [phone], Referral Unavailable Unavailable Ayo Lovelace MD Unavailable [phone] Castillo Pereira MD Unavailable Source Comments In the event this information is protected by the Federal Confidentiality of Alcohol and Drug AbusePatient Records regulations: The Federal rules restrict any use of the information to criminally investigate or prosecute any alcohol or drug abuse patient.[facility] Encounter Details Date Type Department Care Team (Late st Contact Info) Description 04/10/2022 Patient Msg Cardiology [address] [place] [address] Hanna Arevalo APRN.[employer] HEL[employer] [address] [place] [address] Request an Appointment Social History [...] ot on file 09/11/2020 Data from: https://www.neighborhoodatlas.medicine.[facility]/. Last address used for calculation Not on [...] 02/01/2022 8:42 PM Janine Franklin RN documented as of this encounter [...] 08/18/2025 8:30 AM EST Procedure Cardiology [address] [place] [address] established EPS patient- web appt req 08/18/2025 9:00 AM EST Office Visit Cardiology [address] [phone] Hanna Arevalo APRN.[employer] [address] [place] [id number] established EPS patient- web appt req 11/30/2025 8:15 AM EST Procedure Cardiology [address] [place] [id number] DX CARDIAC EVALUATION 11/30/2025 9:15 AM EST Office Visit Cardiology [address] [phone] Leah Manjarrez MD [address] [place] [id number] DX H/O AFIB ( SEES DR LOVELACE) documented as of this encounter Visit Diagnoses Not on filedocumented in this encounter Care Teams Rent And Housing Investigator Relationship Specialty Start Date End Date Martin Bell MD PCP - General Family Medicine 08/07/11 No, Referral Referring 08/08/18 [place] [address] [place] [address] Primary Staff Physician Cardiology 12/23/18 Castillo Pereira MD [facility] [place] [id number] Primary Staff Physician Cardiology 09/12/21 documented as of this encounter
--- OUTSIDE RECORDS SUMMARY | 2025-05-28 11:30 | XMS_ITS | Clinical Summary ---
Author Organization [facility] Address [address] [place] [place] [address] Care Team Providers Care Project Developer Name Role Phone Unavailable Primary Care Provider Unavailabl e Allergies Active Allergy Reactions Criticality Noted Date Comments Statins 06/19/2022 Medications metoprolol succinate 25 MG tablet XL 25 mg 2 times daily. 05/27/2022 Active esomeprazole [address] capsule Take by mouth. Active AMIOdarone 200 MG tablet Take 2 tablets by mouth daily. 30 tablet 06/20/2022 Active Active Problems Problem Noted Date Diagnosed Date Elevated troponin 06/20/2022 Assessment & Plan (06/20/2022 8:53 AM EDT): Suspect secondary to SVT/Demand Ischemia No complaints of chest pain Monitor TELE Continue BB/ASA Cardiology consult pending Paroxysmal supraventricular tachycardia 06/19/20 Assessment & Plan (06/20/2022 8:54 AM EDT): Patient with noted history of pSVT - S/p Ablation in the past at [facility] S/p Cardioversion/Adenosine in ED Amiodarone gtt per Cardiology recommendations Resume BB therapy Cardiology consult pending Social History Tobacco Use Types Packs/Day Years Used Date Smoking Tobacco: Never Smokeless Tobacco: Never Alcohol Use Standard Drinks/Week Comments Never 0 (1 standard drink = 0.6 oz pur e alcohol) Sex and Gender Information Value Date Recorded Sex Assigned at Not on file Legal Sex Male 6:19 PM EDT Gender Identity Not on file Sexual Orientation Not on file Last Filed Vital Signs Vital Sign Reading Time Taken Comments Blood Pressure 104/72 06/20/2022 2:30 PM EDT Pulse 62 06/20/2022 2:30 PM EDT Temperature 36.4 C (97.5 F) 06/20/2022 11:15 AM EDT Respiratory Rate 26 06/20/2022 2:30 PM EDT Oxygen Saturation 94% 06/20/2022 2:30 PM EDT Inhaled Oxygen Concentration - - Weight 105.5 kg (232 lb 8 oz) 06/19/2022 9:37 PM EDT Height 175.3 cm (5' 9 ) 06/19/2022 9:37 PM EDT Body Mass Index 34.33 06/19/2022 9:37 PM EDT Plan of Treatment Health Maintenance Due Date Last Done Comments HEPATITIS C VIRUS SCREENING 1965 HIV SCREENING DISCUSSION 1980 LIPID SCREENING 2005 COLORECTAL CANCER SCREENING DISCUSSION 2010 PNEUMOCOCCAL VACCINE SERIES (1 of 1 - PCV) 2015 ZOSTER (SHINGLES) VACCINE (1 of 2) 2015 PROSTATE CANCER SCREENING DISCUSSION 2020 COVID-19 VACCINE (3 - 2023- season) 2024 08/20/2021, 12/23/2020 INFLUENZA VACCINE (#1) 2025 , 07/21/2020, 08/28/2019, Additional history exists TETANUS 08/29/2025 08/29/2015 RSV VACCINE (1 - 1-dose 75+ series) 2040 TDAP (ADULT) Completed 08/29/2015 HEP B VACCINE Aged Out No longer jose wolfe based on patient's age to complete this topic [facility] Advance Directives For more information, please contact: [phone] (7:30 AM - 6PM [facility], Saturday-Saturday) * Full Code (Latest Code Status on File) Date Activated Date Inactivated Comments 06/19/2022 7:56 PM
--- OUTSIDE RECORDS SUMMARY | 2025-05-28 11:30 | XMS_ITS | Encounter Summary ---
Author Organization [facility] Address [facility] [place] [address] Care Team Providers Care Oxygen Tank Filler Name Role Phone Martin Bell MD Primary Care Provider [phone], Referral Unavailable Unavailable Ayo Lovelace MD Unavailable [phone] Castillo Pereira MD Unavailable Source Comments In the event this information is protected by the Federal Confidentiality of Alcohol and Drug AbusePatient Records regulations: The Federal rules restrict any use of the information to criminally investigate or prosecute any alcohol or drug abuse patient.[facility] Reason for Referral * Outpatient Procedure (Routine) - Authorized Specialty Diagnoses / Procedures Referred By Contac t Referred To [facility] Diagnoses Paroxysmal tachycardia, unspecified (HCC) Obesity, Class II, BMI 35-39.9 AVNRT (AV abhay re-entry tachycardia) (HCC) Procedures ECG COMPLETE ECG ROUTINE ECG W/LEAST 12 LDS W/I&R Leah Manjarrez MD [address] [place] [address] Phone: tel: fax: [facility] [place] [address] [place] [address] [place] [address] Referral ID Status Reason Start Date Expiration Date Visits Requested Visits Authorized [id number] Authorized Auto-Generat ed Referral 05/24/2025 05/24/2026 1 1 Encounter Details Date Type Department Care Team (Late st Contact Info) Description 05/24/2025 Orders Only Cardiology [address] [phone] Leah Manjarrez MD [address] [place] [phone] Paroxysmal tachycardia, unspecified (HCC) (Primary Dx); Obesity, Class II, BMI 35-39.9; AVNRT (AV abhay re-entry tachycardia) (HCC) Social History Tobacco Use Types Packs/Day Years [...] N ot on file 09/11/2020 Data from: https://www.neighborhoodatlas.medicine.[facility].edu/. Last address used for calculation Not on [...] 08/18/2025 8:30 AM EST Procedure Cardiology [address] [place] [phone] established EPS patient- web appt req 08/18/2025 9:00 AM EST Office Visit Cardiology [address] [phone] Hanna Arevalo, RUBEN.INSPECTOR [employer] [address] [place] [address] established EPS patient- web appt req 11/30/2025 8:15 AM EST Procedure Cardiology [address] [id number] DX CARDIAC EVALUATION 11/30/2025 9:15 AM EST Office Visit Cardiology [address] [place] [address] Leah Manjarrez MD [address] [place] [address] DX H/O AFIB ( SEES DR LOVELACE) Scheduled Orders Name Type Priority Associated Diagnoses Orde r Schedule ECG COMPLETE ECG Routine Paroxysmal tachycardia, unspecified (HCC) Obesity, Class II, BMI 35-39.9 AVNRT (AV abhay re-entry tachycardia) (HCC) 1 Occurrences starting 05/24/2025 until 05/24/2026 documented as of this encounter Goals Goal Patient Goal Type Associated Problems Recent Progress Patient-Stated? Author Blood Pressure < 130/80 Blood Pressure 136/84( 024 2:50 PM EST) No Ayo Lovelace MD documented as of this encounter Visit Diagnoses Diagnosis Paroxysmal tachycardia, unspecified (HCC)- Primary Paroxysmal tachycardia, unspecified Obesity, Class II, BMI 35-39.9 Obesity, unspecified AVNRT (AV abhay re-entry tachycardia) (HCC) Other specified cardiac dysrhythmias documented in this encounter Care Teams Oxygen Tank Filler Relationship Specialty Start Date End Date Martin Bell MD PCP - General Family Medicine 08/07/11 No, Referral Referring 08/08/18 Ayo Lovelace MD [address] [place], [place] [phone] Primary Staff Physician Cardiology 12/23/18 Castillo Pereira MD [address] [place] [address] Primary Staff Physician Cardiology 09/12/21 documented as of this encounter
--- OUTSIDE RECORDS SUMMARY | 2025-05-28 11:30 | XMS_ITS | Encounter Summary ---
Author Organization [facility] Address [address] [place] [address] Care Team Providers Care Battery Service Technician Name Role Phone Martin Bell MD Primary Care Provider [phone], Referral Unavailable Unavailable Ayo Lovelace MD Unavailable [phone] Castillo Pereira MD Unavailable Source Comments In the event this information is protected by the Federal Confidentiality of Alcohol and Drug AbusePatient Records regulations: The Federal rules restrict any use of the information to criminally investigate or prosecute any alcohol or drug abuse patient.[facility] Encounter Details Date Type Department Care Team (Late st Contact Info) Description 10/16/2021 Patient Msg Cardiology [address] [place] [address] Provider, [facility] Upcoming Pre-Op Appointment for 01/31 Social History Tobacco Use Types Packs/Day Years [...] on file 09/11/2020 Data from: https://www.neighborhoodatlas.medicine.[facility]/. Last address used for calculation Not on [...] have Coronavirus / COVID-19? Unable to assess 10/16/2021 2:58 PM EST documented as of this encounter [...] 08/18/2025 8:30 AM EST Procedure Cardiology [address] [place] [address] established EPS patient- web appt req 08/18/2025 9:00 AM EST Office Visit Cardiology [address] [place] [phone] Hanna Arevalo APRN.[facility] [address] [place] [address] established EPS patient- web appt req 11/30/2025 8:15 AM EST Procedure Cardiology [address] [id number] DX CARDIAC EVALUATION 11/30/2025 9:15 AM EST Office Visit Cardiology [address] [phone] Leah Manjarrez MD [address] [place] [address] DX H/O AFIB ( SEES DR LOVELACE) documented as of this encounter Visit Diagnoses Not on filedocumented in this encounter Care Teams Battery Service Technician Relationship Specialty Start Date End Date Martin Bell MD PCP - General Family Medicine 08/07/11 No, Referral Referring 08/08/18 Ayo Lovelace MD [address] [place] [address] Primary Staff Physician Cardiology 12/23/18 Castillo Pereira MD [address] [place] [phone] Primary Staff Physician Cardiology 09/12/21 documented as of this encounter
--- OUTSIDE RECORDS SUMMARY | 2025-05-28 11:30 | XMS_ITS | Encounter Summary ---
Author Organization [facility] Address [address] [place] [address] Care Team Providers Care Welding Pantograph Operator Name Role Phone Martin Bell MD Primary Care Provider [phone], Referral Unavailable Unavailable Ayo Lovelace MD Unavailable [phone] Castillo Pereira MD Unavailable Source Comments In the event this information is protected by the Federal Confidentiality of Alcohol and Drug AbusePatient Records regulations: The Federal rules restrict any use of the information to criminally investigate or prosecute any alcohol or drug abuse patient.[facility] Encounter Details Date Type Department Care Team (Late st Contact Info) Description 05/27/2025 Get Medical Advice Cardiology [address] [place] [address] Ayo Lovelace MD [address] [place] [address] Medication Question Social History Tobacco Use Types Packs/Day [...] N ot on file 09/11/2020 Data from: https://www.neighborhoodatlas.medicine.[facility]/. Last address used for calculation [...] 08/18/2025 8:30 AM EST Procedure Cardiology [address] [place] [address] established EPS patient- web appt req 08/18/2025 9:00 AM EST Office Visit Cardiology [address] [place] [phone] Hanna Arevalo APRN.ASSOCIATE STORE DIRECTOR [address] [place] [address] established EPS patient- web appt req 11/30/2025 8:15 AM EST Procedure Cardiology [address] [place], [place] [phone] DX CARDIAC EVALUATION 11/30/2025 9:15 AM EST Office Visit Cardiology [address] [place], [place] [phone] Leah Manjarrez MD [address] [place] [address] DX H/O AFIB ( SEES DR LOVELACE) documented as of this encounter Goals Goal Patient Goal Type Associated Problems Recent Progress Patient-Stated? Author Blood Pressure < 130/80 Blood Pressure 136/84( 024 2:50 PM EST) No Ayo Lovelace MD documented as of this encounter Visit Diagnoses Not on filedocumented in this encounter Care Teams Welding Pantograph Operator Relationship Specialty Start Date End Date Martin Bell MD PCP - General Family Medicine 08/07/11 No, Referral Referring 08/08/18 Ayo Lovelace MD [address] [place] [address] Primary Staff Physician Cardiology 12/23/18 Castillo Pereira MD [address] [place] [address] Primary Staff Physician Cardiology 09/12/21 documented as of this encounter
--- OUTSIDE RECORDS SUMMARY | 2025-05-28 11:30 | XMS_ITS | Encounter Summary ---
Author Organization [facility] Address [address] [place] [address] Care Team Providers Care Shape Brick Molder Name Role Phone Martin Bell MD Primary Care Provider [phone], Referral Unavailable Unavailable Ayo Lovelace MD Unavailable [phone] Castillo Pereira MD Unavailable Source Comments In the event this information is protected by the Federal Confidentiality of Alcohol and Drug AbusePatient Records regulations: The Federal rules restrict any use of the information to criminally investigate or prosecute any alcohol or drug abuse patient.[facility] Encounter Details Date Type Department Care Team (Late st Contact Info) Description 06/04/2024 Get Medical Advice Cardiology [address] [place] [address] Ayo Lovelace MD [address] [place] [address] Stress test Social History Tobacco Use Types Packs/Day Years [...] N ot on file 09/11/2020 Data from: https://www.neighborhoodatlas.medicine.[facility]/. Last address used for calculation Not [...] 08/18/2025 8:30 AM EST Procedure Cardiology [address] [place] [address] established EPS patient- web appt req 08/18/2025 9:00 AM EST Office Visit Cardiology [address] [place] [phone] Hanna Arevalo APRN.[facility] [address] [place] [address] established EPS patient- web appt req 11/30/2025 8:15 AM EST Procedure Cardiology [address] [place], [place] [phone] DX CARDIAC EVALUATION 11/30/2025 9:15 AM EST Office Visit Cardiology [address] [place], [place] [phone] Leah Manjarrez MD [address] [place] [address] DX H/O AFIB ( SEES DR LOVELACE) documented as of this encounter Visit Diagnoses Not on filedocumented in this encounter Care Teams Shape Brick Molder Relationship Specialty Start Date End Date Martin Bell MD PCP - General Family Medicine 08/07/11 No, Referral Referring 08/08/18 Ayo Lovelace MD [facility] [place] [address] Primary Staff Physician Cardiology 12/23/18 Castillo Pereira MD [facility]0 [place] [address] Primary Staff Physician Cardiology 09/12/21 documented as of this encounter
--- OUTSIDE RECORDS SUMMARY | 2025-05-28 11:30 | XMS_ITS | Clinical Summary ---
Author Organization [facility] Address [facility] [place] [address] Care Team Providers Care Hot Stick Man Name Role Phone Martin Bell MD Primary Care Provider [phone] No, Referral Unavailable Unavailable Ayo Lovelace MD Unavailable [phone] Castillo Pereira MD Unavailable Allergies Active Allergy Reactions Criticality Noted Date Comments Dwenfyb-Ojx-Gxs Reductase Inhibitors Myalgia 12/03/2017 Medications ASPIRIN 81 MG TAB Take one (1) tablet daily . 0 5 Active multivitamins( MULTIPLE VITAMIN TAB) Take one(1) tablet daily. 0 9 Active Fish Oil-DHA-EPA 1,200-144-216 mg cap Take 1 capsule by mouth once daily. 0 1 Active esomeprazole (NEXIUM) 40 mg capsule Take 40 mg by mouth twice daily as needed. Active EVOLOCUMAB (REPATHA SYRINGE SUBCUTANEOUS) Inject 1 Each subcutaneously every 2 weeks. as directed Active Vitamin E, dl, acetate, (VITAMIN E) 100 unit capsule Take 100 Units by mouth once daily. 1 Active cetirizine (ZYRTEC) 10 mg tablet Take 10 mg by mouth once daily. 0 Active metoprolol succinate ER (TOPROL XL) 50 mg 24 hr tablet Take 1 tablet by mouth twice daily. 3 Active Active Problems Problem Noted Date Diagnosed Date Obesity, Class II, BMI 35-39.9 09/02/2023 Obesity (BMI 30.0-34.9) 09/12/2021 Fatigue 09/12/2020 Gastroesophageal reflux disease 09/07/2015 Preop cardiovascular exam 09/07/2015 Atrial tachycardia 08/07/2011 Other joint derangement, not elsewhere classified, shoulder region 07/18/2005 Paroxysmal tachycardia, unspecified Esophageal reflux Palpitations Chest pain Encounters Date Type Department Care Team Description 05/27/2025 Get Medical Advice Cardiology [address] [place] [address] Ayo Lovelace MD Medication Question 05/24/2025 Orders Only Cardiology [address] [place] [id number] Leah Manjarrez MD Paroxysmal tachycardia, unspecified (HCC) (Primary Dx); Obesity, Class II, BMI 35-39.9; AVNRT (AV abhay re-entry tachycardia) (HCC) 05/17/2025 Orders Only Cardiology [address] [place] [address] Ayo Lovelace MD Paroxysmal tachycardia, unspecified (HCC) (Primary Dx) 05/12/2025 Get Medical Advice Cardiology [address] [place] [address] Ayo Lovelace MD Appointment from Last 3 Months Family History Medical History Relation Comments No Known Problems Daughter 1 No Known Problems Daughter 2 COPD Father Coronary Artery Disease Mother No Known Problems Son Relation Status Comments Daughter 1 Alive Daughter 2 Alive Father Half-brother 1 Alive Half-brother 2 Alive Mother Son Alive Social History Tobacco Use Types Packs/Day Years [...] N ot on file 09/11/2020 Data from: https://www.neighborhoodatlas.medicine.[facility].edu/. Last address used for calculation Not on file 09/11/2020 Sex and Gender Information Value Date Recorded Sex Assigned at Male 09/06/2020 8:18 PM EST Legal Sex Male 7:32 AM EST Gender Identity Male 09/06/2020 8:18 PM EST Sexual Orientation Straight 09/06/2020 8: 18 PM EST Last Filed Vital Signs Vital Sign Reading Time Taken Comments Blood Pressure 136/84 08/17/2024 2:50 PM EST Pulse 71 08/17/2024 2:50 PM EST Temperature 36.7 C (98.1 F) 08/21/2022 5:41 AM EST tele battery changed Respiratory Rate 20 08/21/2022 5:41 AM EST Oxygen Saturation 95% 08/21/2022 5:4 1 AM EST Inhaled Oxygen Concentration - - Weight 108 kg (238 lb) 08/17/2024 2:50 PM EST Height 175.3 cm (5' 9 ) 08/17/2024 2:50 PM EST Body Mass Index 35.15 08/17/2024 2:50 PM EST Plan of Treatment Upcoming Encounters Date Type Department Care Team (Late st Contact Info) Description 08/18/2025 8:30 AM EST Procedure Cardiology [address] [place] [id number] established EPS patient- web appt req 08/18/2025 9:00 AM EST Office Visit Cardiology [address] [id number] Hanna Arevalo APRN.RESTAURANT HOST [address] [place] [address] established EPS patient- web appt req 11/30/2025 8:15 AM EST Procedure Cardiology [address] [place] [address] DX CARDIAC EVALUATION 11/30/2025 9:15 AM EST Office Visit Cardiology [address] [place] [address] Leah Manjarrez MD [address] [place] [address] DX H/O AFIB ( SEES DR LOVELACE) Health Maintenance Due Date Last Done Comments Anxiety Screening 1983 Depression Screening [address] Colonography 2010 Cologuard (FIT-DNA) 2010 Fecal Occult Blood 2010 Sigmoidoscopy 2010 Pneumococcal Vaccine: 50+ (1 of 1 - PCV) 2015 Shingrix Vaccine (1 of 2) 2015 Colonoscopy 09/07/2020 09/07/2015, 09/07/2015 Colorectal Cancer Screening 09/07/2020 Influenza Vaccine (#1) 2025 , 08/06/2022, 08/10/2021, Additional history exists Diabetes Screening 08/20/2025 08/20/2022, 1 10/20/2021, 06/19/2022, Additional history exists DTaP,Tdap,Td Vaccine (2 - Td or Tdap) 08/29/2025 08/29/2015 Lipid Screening 12/08/2026 12/08/2021 Prostate Cancer Screening Discussion 10/30/2027 10/30/2022 RSV Vaccine (1 - 1-dose 75+ series) 2040 Hepatitis C Screening Completed 08/10/2015 Goals Goal Patient Goal Type Associated Problems Recent Progress Patient-Stated? Author Blood Pressure < 130/80 Blood Pressure 136/84( 024 2:50 PM EST) No Ayo Lovelace MD Medical Devices Implanted Type Area Blanket Inspector Device Identifier Shelf Expiration Date Model / Serial / Lot Joint - Knee Joint - Knee Bone - Patella Procedures Procedure Name Priority Date/Time Associated Diagnosis Comments BASIC METABOLIC PANEL STAT 08/20/2022 10:00 AM EST COLONOSCOPY SCRN NOT HIGH RISK Routine 09/07/2015 7:06 AM EST Encounter for screening colonoscopy for sla-vbrm-hudm patient HEP C AB IA BLOOD Routine 08/10/2015 10: 23 AM EST Encounter for screening colonoscopy for [id number] patient from Last 3 Months or Most Recently Relevant to Health Maintenance Results * (ABNORMAL) BASIC METABOLIC PNL (08/20/2022 10:00 AM EST) [facility] Glucose 106(H) 74 - 99 mg/dL 08/20/2022 11:05 AM EST [facility] Comment: The [place] Diabetes Association (ADA) provides guidance for cutoff values for fasting glucose and random glucose. The ADA defines fasting as no caloric intake for at least 8 hours. Fasting plasma glucose results between 100 to 125 mg/dL indicate increased risk for diabetes (prediabetes). Fasting plasma glucose results greater than or equal to 126 mg/dL meet the criteria for diagnosis of diabetes. In the absence of unequivocal hyperglycemia, results should be confirmed by repeat testing. In a patient with classic symptoms of hyperglycemia or hyperglycemic crisis, random plasma glucose results greater than or equal to 200 mg/dL meet the criteria for diagnosis of diabetes. Reference: Standards of Medical Care in Diabetes 2016, [place] Diabetes Association. Diabetes Care. 2016.39(Suppl 1). BUN 14 9 - 24 mg/dL 08/20/2022 11:05 AM [facility] Creatinine 0.92 0.73 - 1.22 mg/dL 08/20/2022 11:05 AM [facility] Sodium 140 136 - 144 mmol/L 08/20/2022 11:05 AM [facility] Potassium 08/20/2022 11:05 AM [facility] Comment:Unable to assay due to interference from hemolysis. Suggest reorder as clinically indicated. Chloride 105 97 - 105 mmol/L 08/20/2022 11:05 AM [facility] CO2 24 22 - 30 mmol/L 08/20/2022 11:05 AM [facility] Anion Gap 11 9 - 18 mmol/L 08/20/2022 11:05 AM [facility] Calcium, Total 9.4 8.5 - 10.2 mg/dL 08/20/2022 11:05 AM [facility] Estimated Glomerular Filtration Rate 97 >=60 mL/min/1.7 3m 08/20/2022 11:05 AM [facility] Comment:Estimated Glomerular Filtration Rate (eGFR) is calculated using the 2020 CKD-EPI creatinine equation. This equation utilizes serum creatinine, sex, and age as parameters. The creatinine assay has traceable calibration to isotope dilution- mass spectrometry. Refer to KDIGO guidelines for clinical interpretation. In patients with unstable renal function, e.g. those with acute kidney injury, the eGFR may not accurately reflect actual GFR. Blood BLOOD SPECIMEN / Unknown Venipuncture / Unknown 08/20/2022 10:00 AM EST 08/20/2022 10:07 AM EST us Ayo Lovelace MD LABORATORY Final Result [facility] [address] [facility] [address] [place] [address], [place] * COLONOSCOPY SCRN NOT HIGH RISK (09/07/2015 7:06 AM EST) [employer] [place] [facility] Gastrointestinal Endoscopy Patient Name: Jose Reese Procedure Date: 09/07/2015 7:06 AM Date of : 1965 Admit Type: Outpatient Age: 50 Gender: Male Note Status: Finalized Procedure: Colonoscopy Indications: Screening for colorectal malignant neoplasm Providers: Karthikeyan Leonard MD Patient Profile: This is a 50 year old male. Refer to note in patient chart for documentation of history and physical. Last Colonoscopy: none. The patient's first colonoscopy is today. Referring Physician: Medicines: Midazolam 9 mg IV, Fentanyl 200 micrograms IV Complications: No immediate complications. Requesting Provider: Procedure: Pre-Anesthesia Assessment: - Prior to the procedure, a History and Physical was performed, and patient medications and allergies were reviewed. The patient is competent. The risks and benefits of the procedure and the sedation options and risks were discussed with the patient. All questions were answered and informed consent was obtained. Patient identification and proposed procedure were verified by the physician and the nurse in the pre-procedure area in the procedure room. Mental Status Examination: alert and oriented. Airway Examination: normal oropharyngeal airway and neck mobility. Respiratory Examination: clear to auscultation. CV Examination: normal. Prophylactic Antibiotics: The patient does not require prophylactic antibiotics. Prior Anticoagulants: The patient has taken no previous anticoagulant or antiplatelet agents. ASA Grade Assessment: II - A patient with mild systemic disease. After reviewing the risks and benefits, the patient was deemed in satisfactory condition to undergo the procedure. The anesthesia plan was to use moderate sedation / analgesia (conscious sedation). Immediately prior to administration of medications, the patient was re-assessed for adequacy to receive sedatives. The heart rate, respiratory rate, oxygen saturations, blood pressure, adequacy of pulmonary ventilation, and response to care were monitored throughout the procedure. The physical status of the patient was re-assessed after the procedure. After I obtained informed consent, the scope was passed under direct vision. Throughout the procedure, the patient's blood pressure, pulse, and oxygen saturations were monitored continuously. The Colonoscope was introduced through the anus and advanced to the cecum, identified by appendiceal orifice and ileocecal valve. The colonoscopy was performed without difficulty. The patient tolerated the procedure well. The quality of the bowel preparation was good. The ileocecal valve, appendiceal orifice, and rectum were photographed. Findings: The perianal and digital rectal examinations were normal. A 3 mm polyp was found in the rectum. The polyp was sessile. The polyp was removed with a cold biopsy forceps. Resection and retrieval were complete. Estimated blood loss was minimal. The exam was otherwise normal throughout the examined colon. Impression: - One 3 mm polyp in the rectum. Resected and retrieved. Recommendation: - Await pathology results. - Repeat colonoscopy in 5-10 years for surveillance based on pathology results. - Continue present medications. - Patient has a contact number available for emergencies. The signs and symptoms of potential delayed complications were discussed with the patient. Return to normal activities tomorrow. Written discharge instructions were provided to the patient. - Resume previous diet today. - Return to GI office PRN. Attending Participation: I personally performed the entire procedure. MD Karthikeyan Ruby MD 09/07/2015 7:49:26 AM This report has been signed electronically by Karthikeyan Leonard MD Number of Addenda: 0 Note Initiated On: 09/07/2015 7:06 AM Procedure Start: 7:26:54 AM Procedure End: 7:46:21 AM [facility] Anatomical Region Laterality Modality Other 09/07/2015 7:06 AM EST [facility] Final Result * HEP C AB IA BLOOD (08/10/2015 10:23 AM EST) Hep C Antibody IA Negative Negative 08/10/2015 11:57 PM EST [facility] Blood specimen (specimen) BLOOD SPECIMEN / Unknown 08/10/2015 10:23 AM EST 08/10/2015 10:25 AM EST us [facility] Final R esult [facility] [address] [place] [address] from Last 3 Months or Most Recently Relevant to Health Maintenance Insurance [employer] Member Subscriber Plan / Payer (Ef fective 2012-Present) Name:Jose Reese Relation to Subscriber:Self Name:Jose Reese Payer ID:Not on file Group ID:Not on file Type:O Address: [address] [place] [id number] Care Teams Hot Stick Man Relationship Specialty Start Date End Date Martin Bell MD PCP - General Family Medicine 08/07/11 No, Referral Referring 08/08/18 Ayo Lovelace MD [address] [place] [address] Primary Staff Physician Cardiology 12/23/18 Castillo Pereira MD [address] [place] [address] Primary Staff Physician Cardiology 09/12/21
--- OUTSIDE RECORDS SUMMARY | 2025-05-28 11:30 | XMS_ITS | Encounter Summary ---
Author Organization [facility] Address [address] [place] [address] Care Team Providers Care Program Review Director Name Role Phone Martin Bell MD Primary Care Provider [phone] No, Referral Unavailable Unavailable Ayo Lovelace MD Unavailable [phone] Castillo Pereira MD Unavailable Source Comments In the event this information is protected by the Federal Confidentiality of Alcohol and Drug AbusePatient Records regulations: The Federal rules restrict any use of the information to criminally investigate or prosecute any alcohol or drug abuse patient.[facility] Encounter Details Date Type Department Care Team (Late st Contact Info) Description 02/01/2022 Patient Msg Orthopaedics [address] [place] [address] Tim Escoto PA-C [address] [address] Vitamin D Social History Tobacco Use Types Packs/Day Years [...] N ot on file 09/11/2020 Data from: https://www.neighborhoodatlas.medicine.[facility]/. Last address used for calculation Not on file 09/11/2020 Sex and Gender Information Value Date Recorded Sex Assigned at Male 09/06/2020 8:18 PM EST Legal Sex Male 7:32 AM EST Gender Identity Male 09/06/2020 8:18 PM EST Sexual Orientation Straight 09/06/2020 8: 18 PM EST COVID-19 Exposure Response Date Recorded In the last 10 days, have yo u been in contact with someone who was confirmed or suspected to have Coronavirus/COVID-19? No / Unsure 01/31/2022 11:37 AM EDT documented as of this encounter Functional Status [...] 08/18/2025 8:30 AM EST Procedure Cardiology [address] [place] [address] established EPS patient- web appt req 08/18/2025 9:00 AM EST Office Visit Cardiology [address] [place] [address] Hanna Arevalo APRN.VEHICLE LEASING AND RENTAL MANAGER [address] [place] [address] established EPS patient- web appt req 11/30/2025 8:15 AM EST Procedure Cardiology [address] [place] [address] DX CARDIAC EVALUATION 11/30/2025 9:15 AM EST Office Visit Cardiology [address] [place] [address] Leah Manjarrez MD [address] [place] [address] DX H/O AFIB ( SEES DR LOVELACE) documented as of this encounter Visit Diagnoses Not on filedocumented in this encounter Care Teams Program Review Director Relationship Specialty Start Date End Date Martin Bell MD PCP - General Family Medicine 08/07/11 No, Referral Referring 08/08/18 Ayo Lovelace MD [address] [place] [address] Primary Staff Physician Cardiology 12/23/18 Castillo Pereira MD [facility] [place] [address] Primary Staff Physician Cardiology 09/12/21 documented as of this encounter
--- OUTSIDE RECORDS SUMMARY | 2025-05-28 11:30 | XMS_ITS | Encounter Summary ---
Author Organization [facility] Address [address] [place] [address] Care Team Providers Care Money Market Clerk Name Role Phone Martin Bell MD Primary Care Provider [phone] No, Referral Unavailable Unavailable Ayo Lovelace MD Unavailable [phone] Castillo Pereira MD Unavailable Source Comments In the event this information is protected by the Federal Confidentiality of Alcohol and Drug AbusePatient Records regulations: The Federal rules restrict any use of the information to criminally investigate or prosecute any alcohol or drug abuse patient.[facility] Encounter Details Date Type Department Care Team (Late st Contact Info) Description 09/05/2020 Patient Msg Cardiology [address] [place] [address] Ayo Lovelace MD [address] [place] [address] Request an Appointment Social History Tobacco Use Types Packs/Day Years Used Date Smoking Tobacco: Never Smokeless Tobacco: Never Alcohol Use Standard Drinks/Week Comments Yes 1 (1 standard drink = 0.6 oz pure alcohol) socially; [id number] cups per day Sex and Gender Information [...] have Coronavirus / COVID-19? Unable to assess 09/06/2020 5:20 PM EST documented as of this encounter [...] Assessment Author No 09/17/2014 8:15 AM Valentina Roahc RN documented as of this encounter Mental [...] 08/18/2025 8:30 AM EST Procedure Cardiology [address] [id number] established EPS patient- web appt req 08/18/2025 9:00 AM EST Office Visit Cardiology [address] [place] [id number] Hanna Arevalo, FOLDER AND NOTCHER.BEAD CUTTER [address] [place] [address] established EPS patient- web appt req 11/30/2025 8:15 AM EST Procedure Cardiology [address] [place] [id number] DX CARDIAC EVALUATION 11/30/2025 9:15 AM EST Office Visit Cardiology [address] [place] [address] Leah Manjarrez MD [facility] [place] [id number] DX H/O AFIB ( SEES DR LOVELACE) documented as of this encounter Visit Diagnoses Not on filedocumented in this encounter Care Teams Money Market Clerk Relationship Specialty Start Date End Date Martin Bell MD PCP - General Family Medicine 08/07/11 No, Referral Referring 08/08/18 Ayo Lovelace MD [address] [place], [place] [id number] Primary Staff Physician Cardiology 12/23/18 Castillo Pereira MD [address] [place], [place] [id number] Primary Staff Physician Cardiology 09/12/21 documented as of this encounter
--- OUTSIDE RECORDS SUMMARY | 2025-05-28 11:30 | XMS_ITS | Clinical Summary ---
Author Organization [facility] Address [address], [address] [place] [address] Care Team Providers Care Fur Finisher Tailor Name Role Phone Martin Bell MD Primary Care Provider [phone] Allergies No known active allergies Medications Diltiazem HCl (CARDIZEM PO) Take by mouth. Active Esomeprazole Magnesium (NEXIUM PO) Take by mouth. Active nitroGLYCERIN (NITROSTAT) 0.[address] 0.4 mg under the tongue every 5 minutes as needed for Chest pain. Active acetaminophen (TYLENOL) 500 MG tablet Take 500 mg by mouth every 6 hours as needed for Pain Active Social History Tobacco Use Types Packs/Day Years Used Date Smoking Tobacco: Never Smokeless Tobacco: Never Alcohol Use Standard Drinks/Week Comments Yes 0 (1 standard drink = 0.6 oz pur e alcohol) socially Sex and Gender Information Value Date Recorded Sex Assigned at Not on file Legal Sex Male 5:07 PM EST Gender Identity Not on file Sexual Orientation Not on file Last Filed Vital Signs Vital Sign Reading Time Taken Comments Blood Pressure 124/73 02/08/2020 7:28 PM EDT Pulse 84 02/08/2020 7:28 PM EDT Temperature 38.9 C (102 F) 02/08/2020 7:28 PM EDT Respiratory Rate 16 02/08/2020 7:28 PM EDT Oxygen Saturation 95% 02/08/2020 7:28 PM EDT Inhaled Oxygen Concentration - - Weight 102.1 kg (225 lb) 09/12/2014 9:20 PM EST Height 175.3 cm (5' 9 ) 09/12/2014 9:20 PM EST Body Mass Index 33.23 09/12/2014 9:20 PM EST Plan of Treatment Not on file Insurance BCBS OUT OF STATE Care Teams Fur Finisher Tailor Relationship Specialty Start Date End Date Martin Bell MD [address] [place] [address] PCP - General 11/05/12
--- OUTSIDE RECORDS SUMMARY | 2025-05-28 11:32 | XMS_ITS | CCD ---
Author Organization [facility]iniSy[facility] Care Team Providers Care Germ Drier Name Role Phone EID, ROSEMARIE Unavailable Unavailable EID, ROSEMARIE Unavailable Unavailable PHYSICIAN, DEFAULT Unavailable Unavailable PHYSICIAN, DEFAULT Unavailable Unavailable Destiny Vela Primary Care Provider MD ATTILA PINEDO Attending Unavailable DESTINY VELA Primary Care Unavailable Yesica FRASER, Charlie Crawford Consulting Peggy vailable DESTINY VELA Primary Care Unavailable DESTINY VELA Consulting Unavailable MD ATTILA PINEDO Attending Unavailable MD ATTILA PINEDO Attending Unavailable DESTINY VELA Primary Care Unavailable DESTINY VELA Primary Care Unavailable DESTINY VELA Consulting Unavailable MD ATTILA PINEDO Attending Unavailable Destiny Vela MD Primary Care Provider Destiny Vela MD Primary Care Provider [phone] No, Referral Unavailable Unavailable Israel Rocha MD Unavailable [phone] Castillo Pereira MD Unavailable DESTINY VELA Referring Unavailable DESTINY VELA Primary Care Unavailable DESTINY VELA Referring Unavailable DESTINY VELA Primary Care Unavailable Destiny Vela MD Primary Care Provider [phone] Israel Rocha MD Unavailable [phone] Castillo Pereira MD Unavailable Destiny Vela MD Primary Care Provider Castillo Pereira MD Unavailable REINA GOLD Attending Unavailable REINA GOLD Admitting Unavailable Destiny Vela MD Primary Care Provider [phone] No, Referral Unavailable Unavailable Israel Rocha MD Unavailable 67 Castillo Pereira MD Unavailable DR DESTINY VELA Attending Unavailable DANE, DR DIXON Consulting Unavailable DANE, DR DIXON Primary Care Unavailable DANE, DR DIXON Admitting Unavailable DANE, DR DIXON Primary Care Unavailable DANE, DR DIXON Admitting Unavailable DANE, DR DIXON Attending Unavailable DANE, DR DIXON Primary Care Unavailable RACHEL, DR RENEE Andrews Admitting Unavailable WALLACE, DR RENEE Andrews Attending Unavailable WALLACE, DR RENEE Andrews Consulting Unavailable DANE, DR DIXON Primary Care Unavailable DANE, DR DIXON Admitting Unavailable DANE, DR DIXON Attending Unavailable DANE, DR DIXON Consulting Unavailable DANE, DR DIXON Primary Care Unavailable DANE, DR DIXON Admitting Unavailable DANE, DR DIXON Attending Unavailable Castillo Pereira MD Unavailable No, Referral Unavailable Unavailable Meryl Caldwell Primary Care Physician UnavailMeryl Sesay Unavailable Unavailable Israel Rocha MD Unavailable 67 Castillo Pereira MD Unavailable Cory STEWART Attending Unavailable Destiny Vela Referring Unavailable Cory STEWART Attending Unavailable Meryl Caldwell Primary Care Physician UnavailDestiny Lim MD Primary Care Provider [phone] ISRAEL ROCHA Attending Unavailable DESTINY VELA Primary Care Unavailable DESTINY VELA M Primary Care Unavailable ISRAEL ROCHA Referring Unavailable DESTINY VELA Primary Care Unavailable DESTINY VELA Primary Care Unavailable ISRAEL ROCHA Referring Unavailable Allergies Allergy Classification Reported Allergen(s) Allergy Type Date of Onset Reaction(s) Facility (20 sources) Hmg-Coa Reductase Inhibitors (Statins); Translations: [[id number] REDUCTASE INHIBITORS] Propensity to adverse reactions to drug (disorder) 7 Myalgia [facility] Other [place] Repository (1 source) [address]27,00 Drug allergy (disorder) 9 [facility] Repository (2 sources) Hmg-Coa Reductase Inhibitors (Statins); Translations: [statins] Propensity to adverse reactions to drug (disorder) [facility] Repository (1 source) Erythromycin Drug Allergy [facility] Repository Medications Current Medications Medication Drug Class(es) Dates Sig (Normalized) Sig (Original) acetaminophen 500 mg oral tablet (2 sources) take 1 tablet by mouth every six hours as needed for pain acetaminophen (TYLENOL) 500 MG tablet Take 500 mg by mouth every 6 hours as needed for Pain 0 Active aspirin 81 mg oral tablet (20 sources) Platelet Aggregation Inhibitor, Nonsteroidal Anti-inflammatory Drug Start: 08-15-2005 ASPIRIN 81 MG TAB Take one (1) tablet daily . 0 08/15/2005 Active Comment on above: Take one (1) tablet daily . cetirizine hydrochloride 10 mg oral tablet (20 sources) Histamine-1 Receptor Antagonist Start: 06-07-2020 take 1 tablet by mouth once daily cetirizine (ZYRTEC) 10 mg tablet Take 10 mg by mouth once daily. 06/07/2020 Active Zyrtec oral Comment on above: Take 10 mg by mouth once daily. esomeprazole 40 mg delayed release oral capsule (20 sources) Proton Pump Inhibitor take 1 capsule by mouth every twelve hours as needed esomeprazole (NEXIUM) 40 mg capsule Take 40 mg by mouth twice daily as needed. Active Nexium oral Esomeprazole Mag nesium (NEXIUM PO) Take by mouth. 0 Active Comment on above: Take 40 mg by mouth twice daily as needed. evolocumab (20 sources) PCSK9 Inhibitor EVOLOCUMAB (REPA DINORAH SYRINGE SUBCUTANEOUS) Inject 1 Each subcutaneously every 2 weeks. as directed Active EVOLOCUMAB (REPA DINORAH SYRINGE SUBCUTANEOUS) Inject 1 Each subcutaneously every 2 weeks. as directed 0 Active EVOLOCUMAB (REPA DINORAH SYRINGE SUBCUTANEOUS) Inject subcutaneously every 2 weeks. as directed 0 Suspended EVOLOCUMAB (REPA DINORAH SYRINGE SUBCUTANEOUS) Inject subcutaneously every 2 weeks. as directed 0 Active Comment on above: Inject subcutaneousl y every 2 weeks. as directed Inject 1 Each subcut aneously every 2 weeks. as directed Fish Oil-DHA-EPA 1,200-144-216 mg cap (20 sources) Start: 1 Fish Oil-DHA-EPA 1,200-144-216 mg cap Take 1 capsule by mouth once daily. 0 08/07/2011 Active Comment on above: Take 1 capsule by [facility] once daily. 24 hr metoprolol succinate 50 mg extended release oral tablet (20 sources) beta-Adrenergic Nida Start: 3 take 1 tablet by mouth twice daily metoprolol succinate ER (TOPROL XL) 50 mg 24 hr tablet Take 1 tablet by mouth twice daily. 02/05/2023 Active Start: 06-21-2022 End: 10-26-2022 take 0.5 tablet by mouth twice daily metoprolol succinate ER (TOPROL XL) 50 mg 24 hr tablet Take 0.5 tablets by mouth twice daily. 0 10/26/2022 Active Start: 02-01-2022 End: 06-21-2022 take 1 tablet by mouth once daily metoprolol succinate ER (TOPROL XL) 50 mg 24 hr tablet Take 1 tablet by mouth once daily. 90 tablet 1 02/01/2022 06/21/2022 Discontinued metoprolol succi lesley oral Comment on above: Take 1 tablet by kelly th once daily. Take 0.5 tablets by mouth twice daily. Take 50 mg by mouth twice daily. Take 1 tablet by kelly th twice daily. multivitamins(MULTIPLE VITAMIN TAB) (20 sources) Start: 12-03-2008 multivitamins(MULTIPLE VITAMIN TAB) Take one(1) tablet daily. 0 12/03/2008 Suspended Start: 12-03-2008 multivitamins( MULTIPLE VITAMIN TAB) Take one(1) tablet daily. 0 12/03/2008 Active Comment on above: Take one(1) tablet d aily. nitroglycerin 0.4 mg sublingual tablet (2 sources) Nitrate Vasodilator nitroGLYCERI N (NITROSTAT) 0.[address] 0.4 mg under the tongue every 5 minutes as needed for Chest pain. 0 Active perflutren lipid microspheres 1.3 mL in NaCl (PF) 0.9% 10 mL injection (DEFINITY) (12 sources) Start: 10-16-2021 End: 01-15-2023 perflutren lipid microspheres 1.3 mL in NaCl (PF) 0.9% 10 mL injection (DEFINITY) Start: 09-12-2020 End: 08-25-2021 perflutren lipid microsphere s 1.3 mL in NaCl (PF) 0.9% 10 mL injection (DEFINITY) 125 ml sodium chloride 9 mg/ ml prefilled syringe (12 sources) Start: 10-16-2021 End: 01-15-2023 sodium chloride 0.9 % (flush ) 10 mL (BD POSIFLUSH) Start: 09-12-2020 End: 08-25-2021 sodium chloride 0.9 % (flush ) 10 mL (BD POSIFLUSH) vitamin e 100 unt oral capsule (20 sources) Start: 11-07-2020 take 1 capsule by mouth once daily Vitamin E, dl, acetate, (VITAMIN E) 100 unit capsule Take 100 Units by mouth once daily. 11/07/2020 Active Start: 11-07-2020 Vitamin E, dl, acetate, (VITAMIN E) 100 unit capsule Comment on above: Take 100 Units by [facility] once daily. Completed/Discontinued Medications Medication Drug Class(es) Dates Sig (Normalized) Sig (Original) amiodarone hydrochloride 200 mg oral tablet (9 sources) Antiarrhythmic Start: 06-21-2022 take 1 tablet by mouth twice daily amiodarone (PACERONE) 200 mg tablet Take 1 tablet by mouth twice daily. 0 06/21/2022 Active Comment on above: Take [address] [facility] twice daily. clobetasol propionate 0.5 mg/ml topical cream (1 source) Corticosteroid Start: 01-07-2024 clobetasol 0.05 % topical cream 01/07/2024 Apply thin layer to affected areas on leg twice daily for up to 2 weeks 24 hr dilTIAZem hydrochloride 180 mg extended release oral capsule (10 sources) Calcium Channel Nida Start: 08-07-2011 End: 08-25-2021 take 1 capsule by mouth once daily diltiazem CD (CARTIA XT) 180 mg ORAL 24 hr capsule Take 1 capsule by mouth once daily. 0 08/07/2011 08/25/2021 Discontinued (Dosage adjustment) End: 02-06-2022 take 1 capsule by mouth once daily, then take 1 capsule by mouth every twenty-four hours dilTIAZem CR (TIAZAC,TAZTIA XT) 240 mg 24 hr capsule Take 240 mg by mouth once daily. 0 02/06/2022 Discontinued Diltiazem HCl (C ARDIZEM PO) Take by mouth. 0 Active Comment on above: Take 240 mg by mouth once daily. Take 1 capsule by [facility] once daily. ergocalciferol 1.25 mg oral capsule (19 sources) Provitamin D2 Compound Start: 02-02-20 End: 05-02-20 take 1 capsule by mouth two times weekly ergocalciferol 50,000 unit capsule (VITAMIN D2, DRISDOL) Take 1 capsule by mouth two times a week. 24 capsule 0 02/01/2022 Active Comment on above: Take 1 capsule by [facility] two times a week. Fish Oil-DHA-EPA (FISH OIL) 1,200-144-216 mg ORAL Cap (11 sources) Start: 08-07-20 11 Fish Oil-DHA-EPA (FISH OIL) 1,200-144-216 mg ORAL Cap Take 1 capsule by mouth once daily. 0 08/07/2011 Suspended Start: 08-07-2011 Fish Oil-DHA-E PA (FISH OIL) 1,200-144-216 mg ORAL Cap Take 1 capsule by mouth once daily. 0 08/07/2011 Active Comment on above: Take 1 capsule by [facility] once daily. meloxicam 15 mg oral tablet (11 sources) Nonsteroidal Anti-inflammatory Drug Start: 01-19-20 22 meloxicam (MOBIC) 15 mg tablet mupirocin 0.02 mg/mg topical ointment (3 sources) RNA Synthetase Inhibitor Antibacterial Start: 06-11-20 23 mupirocin topical ointment 2 % 06/11/2023 Apply thin layer to affected areas 2 times daily until healed. ubidecarenone 100 mg oral capsule (1 source) Start: 09-12-20 End: 08-25-20 21 take 1 capsule by mouth once daily coenzyme Q10 (CO Q-10) 100 mg cap capsule Take 1 capsule by mouth once daily. 0 09/12/2020 08/25/2021 Discontinued (Course of therapy completed) Comment on above: Take 1 capsule by [facility] once daily. VITAMIN A ORAL (20 sources) End: 09-02-20 23 take 1 tablet by mouth once daily VITAMIN A ORAL Take 1 tablet by mouth once daily. 0 09/02/2023 Discontinued take 1 tablet by mouth once ines y VITAMIN A ORAL Take 1 tablet by mouth once daily. 0 Active VITAMIN A ORAL T ant 1 tablet by mouth. 0 Suspended VITAMIN A ORAL T ant 1 tablet by mouth. 0 Active Comment on above: Take 1 tablet by kelly th. Take 1 tablet by kelly th once daily. vitamin b12 1 mg oral tablet (20 sources) Vitamin B12 Start: 11-07-2021 End: 09-02-2023 take 1 tablet by mouth once daily cyanocobalamin (VITAMIN B-12) 1,000 mcg tab Take 1,000 mcg by mouth once daily. 0 11/07/2021 09/02/2023 Discontinued Comment on above: Take 1,000 mcg by [facility] once daily. Problems Active Problems Problem Classification Problem Date Documented Date Episodic/Chronic Allergic reactions (4 sources) Other skin changes due to chronic exposure to nonionizing radiation; Translations: [Other specified dermatitis] Onset: 06-11-2023 Episodic Cardiac dysrhythmias (20 sources) Paroxysmal tachycardia; Translations: [Paroxysmal tachycardia, unspecified] Onset: 08-15-2005 08-15-2005 Chronic Cardiac dysrhythmias (20 sources) Palpitations; Translations: [Palpitations] Onset: 06-19-2022 12-03-2017 Episodic Disorders of lipid metabolism (3 sources) Pure hypercholesterolemia, unspecified Chronic Esophageal disorders (20 sources) Gastroesophageal reflux disease; Translations: [Gastro-esophageal reflux disease without esophagitis] Onset: 09-07-2015 08-15-2005 Chronic Nonspecific chest pain (20 sources) Chest pain; Translations: [Chest pain, unspecified] Onset: 06-13-2022 12-03-2017 Episodic Other and unspecified benign neoplasm (7 sources) Other benign neoplasm of skin, unspecified Onset: 06-11-2023 Episodic Other connective tissue disease (1 source) Unspecified disorder of synovium and tendon, left lower leg; Translations: [Unspecified disorder of synovium and tendon, left lower leg] Onset: 03-17-2018 Episodic Other connective tissue disease (1 source) Iliotibial band friction syndrome of left knee; Translations: [Iliotibial band syndrome, left leg] 2023 Episodic Other lower respiratory disease (2 sources) Dyspnea on exertion; Translations: [Other forms of dyspnea] 06-12-2024 Episodic Other non-traumatic joint disorders (20 sources) Joint derangement; Translations: [Other specific joint derangements of unspecified shoulder, not elsewhere classified] Onset: 07-18-2005 07-18-2005 Chronic Other non-traumatic joint disorders (2 sources) Pain in left knee; Translations: [Pain in joint, lower leg] 04-10-2023 Episodic Other nutritional; endocrine; and metabolic disorders (20 sources) Obese class I; Translations: [Obesity, unspecified] Onset: 09-12-2021 09-12-2021 Chronic Other nutritional; endocrine; and metabolic disorders (10 sources) Obese class II; Translations: [Obesity, unspecified] Onset: 09-02-2023 09-02-2023 Chronic Other screening for suspected conditions (not mental disorders or infectious disease) (1 source) Encounter for screening for malignant neoplasm of prostate; Translations: [ENC SCREEN MALIG NEOPLASM PROSTATE] Onset: 10-31-2022 Episodic Residual codes; unclassified (1 source) Pain; Translations: [Pain, unspecified] 07-06-2021 Episodic Unclassified (1 source) AVNRT (AV abhay re-entry tachycardia) (HCC); Translations: [AVNRT (AV abhay re-entry tachycardia) (HCC)] Onset: 08-17-2024 Unclassified (1 source) Obesity, Class II, BMI 35-39.9; Translations: [Obesity, Class II, BMI 35-39.9] Onset: 09-02-2023 Viral infection (1 source) Viral disease; Translations: [Viral syndrome] Episodic Past or Other Problems Problem Classification Problem Date Documented Da te Episodic/Chronic Malaise and fatigue (20 sources) Fatigue; Translations: [Other fatigue] Onset: 09-12-2020 09-12-2020 Episodic Neoplasms of unspecified nature or uncertain behavior (3 sources) Neoplasm of uncertain behavior of skin Onset: 06-11-2023 Episodic Other aftercare (1 source) prison (current) use of aspirin; Translations: [SKILLED NURSING CURRENT USE OF ASPIRIN] Onset: 05-15-2022 Episodic Other aftercare (1 source) Other terminal operations manager (current) drug therapy; Translations: [OTH SKILLED NURSING CURRENT DRUG THERAPY] Onset: 05-15-2022 Episodic Other and unspecified benign neoplasm (3 sources) Hemangioma of skin and subcutaneous tissue Onset: 06-11-2023 Episodic Other and unspecified benign neoplasm (3 sources) Melanocytic nevi of trunk Onset: 06-11-2023 Episodic Other and unspecified benign neoplasm (3 sources) Melanocytic nevi of right upper limb, including shoulder Onset: 06-11-2023 Episodic Other lower respiratory disease (1 source) Dyspnea, unspecified; Translations: [DYSPNEA UNSPECIFIED] Onset: 06-17-2022 Episodic Other lower respiratory disease (1 source) Other forms of dyspnea; Translations: [WILLETT (dyspnea on exertion)] Onset: 06-16-2024 Episodic Other skin disorders (3 sources) Actinic keratosis Onset: 06-11-2023 Episodic Unclassified (1 source) [id number] astIllness_name_2 Unclassified (1 source) [id number] astIllness_name_2 Unclassified (1 source) [id number] astIllness_name_2 Results Test Name Value Interpretation Reference Range Facility CNOVon 08-17-2024 CNOV Office Visit (CARDMN ) JOSE CHA ([id number]) 1965 M Date Time Provider Department 08/17/24 2:15 PM ISRAEL ROCHA During your visit today, we recorded the following information about you: Pulse Blood pressure Weight Height 71/minute 136/84 108 kg 1.753 m Israel Rocha MD 08/19/2024 8:28 AM [facility] [place] [facility] Department of Cardiovascular Medicine SECTION OF CARDIAC PACING and ELECTROPHYSIOLOGY OUTPATIENT VISIT DATE August 17, 2024 OUTPATIENT VISIT TYPE Established CHIEF COMPLAINT: follow up IMPRESSION/PLAN: Jose Cha is a very pleasant male patient with a 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 SVT: Status post ablation for AVNRT in January, and redo ablation for AVNRT and AT in August, He is doing well. He had some palpitations in the first two weeks, but now feels great. Not on AADs. 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 He has a preserved LV function. He was last seen 09/02/2023. NM stress test from 06/2024 showed no ischemia, EF 72% as he has been experiencing sweating more when using elliptical, feeling lethargic during the day, and shoulder aches. He feels well, denies recent palpitations, chest pains, SOB, lightheadedness, dizziness, syncope. REVIEW OF SYSTEMS Negative in detail except as outlined in the HPI. PHYSICIAL EXAM: BP 136/84 Pulse 71 Ht 175.3 cm (5' 9 ) Wt 108 kg (238 lb) BMI 35.15 kg/m? GEN: Awake, alert, no apparent distress HEAD: Normocephalic, atraumatic EYES: Anicteric sclera. Extraocular movements are intact. LUNGS: Non-labored breathing, normal chest wall movement HEART: Regular rhythm, normal rate ABDOMEN: Non-distended EXTREMITIES: No cyanosis clubbing or edema. MUSCULOSKELETAL: No gross deformities. SKIN: No rashes DATA: (The following studies were reviewed personally) PAST MEDICAL HISTORY Diagnosis Date Atrial tachycardia (HCC) AVNRT (AV abhay re-entry tachycardia) (HCC) Chest pain Complication of anesthesia nausea GERD (gastroesophageal reflux disease) HLD (hyperlipidemia) Palpitations Paroxysmal tachycardia, unspecified (HCC) Snoring SVT (supraventricular tachycardia) (HCC) Current Outpatient Medications Medication Sig metoprolol succinate ER (TOPROL XL) 50 mg 24 hr tablet Take 1 tablet by mouth twice daily. Vitamin E, dl, acetate, (VITAMIN E) 100 unit capsule Take 100 Units by mouth once daily. cetirizine (ZYRTEC) 10 mg tablet Take 10 mg by mouth once daily. EVOLOCUMAB (REPATHA SYRINGE SUBCUTANEOUS) Inject 1 Each subcutaneously every 2 weeks. as directed esomeprazole (NEXIUM) 40 mg capsule Take 40 mg by mouth twice daily as needed. Fish Oil-DHA-EPA 1,200-144-216 mg cap Take 1 capsule by mouth once daily. multivitamins(MULTIPLE VITAMIN TAB) Take one(1) tablet daily. ASPIRIN 81 MG TAB Take one (1) tablet daily . No current facility-administered medications for this visit. ALLERGIES: ALLERGIES Allergen Reactions Rojaluy-Lni-Ort Red* Myalgia Social History Tobacco Use Smoking status: Never Smokeless tobacco: Never Vaping Use Vaping status: Never Used Substance Use Topics Alcohol use: Yes Comment: 2-3 drink per week Drug use: No FAMILY HISTORY Problem Relation Age of Onset Coronary Artery Disease Mother COPD Father No Known Problems Son No Known Problems Daughter No Known Problems Daughter I reviewed old records, obtained relevant HPI and PMH from the pt, examined the patient and created the above report. This note was created using computerized concrete mixer operator helper software and may therefore include some concrete mixer operator helper errors including errors in gender and inappropriate words or phrases. I reviewed old records, obtained relevant HPI and PMH from the pt, examined the patient and created the above report. Valentina Wilson RN August 17, 2024 Note to: Primary Care Physician: Destiny Vela [address] [place] [address] Allergies As of Date: 08/17/2024 Noted Allergy Reaction [id number]-[id number]-HMI REDUCTASE INHIBIT*12/03/2017 17 - Myalgia Date Reviewed: 08/17/2024 Reviewed by: Valentina Wilson, EVELIA - Fully Assessed Primary Visit Diagnosis:Paroxysmal tachycardia, unspecified (HCC) [I47.9] Other Visit Diagnosis:AVNRT (AV abhay re-entry tachycardia) ([facility]) [I47.19] Order(s):CARDIOVASCULAR MEDICINE OP FOLLOW UP APPT ORDER [[id number]] Order #: [id number]: 1 FUTURE (more content not included)... Normal [facility] ECG COMPLETEon 08-17-2024 ECG COMPLETE Ventricular Rate : 7 1 BPM Atrial Rate : 71 BPM P-R Interval : 192 ms QRS Duration : 142 ms Q-T Interval : 434 ms QTC Calculation(Bazett) : 471 ms Calculated P Ravena : 49 degrees Calculated R Ravena : 17 degrees Calculated T Ravena : 2 degrees NORMAL SINUS RHYTHM COMPLETE RIGHT BUNDLE BRANCH BLOCK ABNORMAL ECG Confirmed by MD MANJARREZ TAMANNA ([id number]) on 09/16/2024 12:02:44 PM NAME : JOSE CHA PID : [id number] : 1965 Gender : Male Race : ORD : [id number] Procedure Date : Aug 17 2024 13:17:58 Edit Date : Sep 16 2024 12:02:51 Diagnosis: NORMAL SINUS RHYTHM COMPLETE RIGHT BUNDLE BRANCH BLOCK ABNORMAL ECG Confirmed by MD MANJARREZ TAMANNA ([id number]) on 09/16/2024 12:02:44 PM Test Reason : Location : 314 : J14 Overread By : MD MANJARREZ TAMANNA Edited By : MD MANJARREZ TAMANNA Referred By : , Acquired by : RAMOS MUÑOZ [facility] CARDIAC PERF STRESS/EXERC ISEon 06-16-2024 MT CARDIAC PERF STRESS/EXERCISE * * *Final Report* * * DATE OF EXAM: Jun 16 2024 9:41AM [facility] - [place] CARDIAC PERF STRESS/EXERCISE / PROCEDURE REASON: WILLETT (dyspnea on exertion) * * * * Physician Interpretation * * * * Stress Forms Builder Report: [facility] SHANNA-2 Date of service: 06/16/2024 8:18:51 AM Supervising physician: Scott Manjarrez MD PATIENT: Name: MR. JOSE CHA Age: 59 years Gender: M The supervising physician was in the department and immediately available. * * * Final * * * PATIENT: Name: MR. JOSE CHA Age: 59 years Gender: M CONCLUSIONS: 1. SPECT Perfusion Study: Normal. 2. There is no scintigraphic evidence for inducible ischemia. 3. No evidence of scarred myocardium. 4. Left ventricle is normal in size. The left ventricle systolic function is normal. 5. Right ventricle is normal in size. The right ventricle systolic function is normal. 6. This is a low risk scan. Gated Stress FBP Gated Rest FBP LVEF % 72 72 Prior Study Comparison Prior nuclear cardiology exam was performed on 09/29/2020. Nuclear Med Report:1-Day Gated SPECT Myocardial Perfusion with Exercise Stress: Myocardial perfusion imaging was performed at rest 30 to 60 minutes following the IV injection of the radiotracer. One minute prior to peak exercise, the patient was injected IV with the radiotracer. Gated post stress tomographic imaging was performed 10 to 20 minutes later. See administered radiotracer and doses below. [facility] [place] Date of service: 06/16/2024 8:18:51 AM Ordering Physician: ISRAEL ROCHA. Requesting Physician: ISRAEL ROCHA Indication: Dyspnea Fellow: Deon Mark MD Interpreting physician: Scott Manjarrez MD Previous Cardiovascular Interventions: AVNRT ablation (02/01/2022, 08/20/2022) Height: 175.26 cm BSA: 2.30 m? Weight: 108.41 kg BMI: 35.3 kg/m? Imaging Protocol Limitation Reason Diaphragmatic attenuation and Patient motion. CT Dose-Length Product(DLP): 23.0 mGy * cm. CT Dose Reduction Employed: Yes. Exam Type: Rest Stress Radiopharm: Tc-99m Tetrofosmin Tc-99m Tetrofosmin Dosage(mCi): 16 50.2 Atten Correction: performed Stress Agent: Treadmill Resting Blood Press: 130/80 mmHg Image Quality The overall study imaging quality was deemed to be good. The following technical issues were noted: Diaphragmatic attenuation and Patient motion. FINDINGS: Left Ventricle Wall Motion: Stress IR:3D - All segments are normal. Stress IR:3D Stress IR:3D Gated Stress FBP Gated Rest FBP LVEF: 72 % 72 % ED Volume: 111 ml 123 ml ES Volume: 31 ml 34 ml TID: 0.89 Perfusion Findings Stress IR:3D - Summed Score=0 All segments demonstrate normal perfusion. Rest IR:3D - Summed Score=0 All segments demonstrate normal perfusion. Rest IR:3D:SC - Summed Score=0 All segments demonstrate normal perfusion. Stress IR:3D Rest IR:3D Summed Score=0 Summed Score=0 LEFT VENTRICLE The left ventricle is normal in size. Left ventricular systolic function is normal. Right Ventricle The right ventricle is normal in size. Right ventricle systolic function is normal. Stress Test Findings: There is no scintigraphic evidence for inducible ischemia. There is no evidence of scarring. * * * Final * * * NM CTAC Report: [facility] Date of service: 06/16/2024 8:18:51 AM CTAC interpreting physician: Scott Manjarrez MD PATIENT: Name: MR. JOSE CHA Age: 59 years Gender: M 1. Incidental Findings from limited non-diagnostic CTAC: - Coronary calcifications visualized. * * * Final * * * Stress ECG Report: [place] [address] Date of service: 06/16/2024 8:18:51 AM Ordering physician: ISRAEL ROCHA physical medicine specialist: Lia Nava Fountain Jerk: Serena Sun Fellow: Deon Mark MD Interpreting physician: Scott Manjarrez MD Patient name: MR. JOSE CHA Age: 59 years Gender: M Height: 175.26 cm BSA: 2.30 m? Weight: 108.41 kg BMI: 35.3 kg/m? Indication: Dyspnea on exertion, Chest pressure / Chest tightness and Fatigue Stress ECG Conclusion: Conclusion: Normal with exception due to exercise diastolic hypertension Stress ECG Summary: The patient's resting heart rate was 74 bpm and blood pressure was 130/80 mmHg. The patient exercised according to the Luis protocol. The estimated end-exercise MET level achieved using the FRIEND equation * * * was 8.3, which is within the 25th to 50th percent (more content not included)... Normal [facility] Heart Perfusion W multipl e states of exerciseon 06-16-2024 * * *Final Report* * * DATE OF EXAM: Jun 16 2024 9:41AM [facility] 0004 - [place] CARDIAC PERF STRESS/EXERCISE / PROCEDURE REASON: WILLETT (dyspnea on exertion) * * * * Physician Interpretation * * * * Stress Forms Builder Report: [facility] Date of service: 06/16/2024 8:18:51 AM Supervising physician: Scott Manjarrez MD PATIENT: Name: MR. JOSE CHA Age: 59 years Gender: M The supervising physician was in the department and immediately available. * * * Final * * * PATIENT: Name: MR. JOSE CHA Age: 59 years Gender: M CONCLUSIONS: 1. SPECT Perfusion Study: Normal. 2. There is no scintigraphic evidence for inducible ischemia. 3. No evidence of scarred myocardium. 4. Left ventricle is normal in size. The left ventricle systolic function is normal. 5. Right ventricle is normal in size. The right ventricle systolic function is normal. 6. This is a low risk scan. Gated Stress FBP Gated Rest FBP LVEF % 72 72 Prior Study Comparison Prior nuclear cardiology exam was performed on 09/29/2020. Nuclear Med Report:1-Day Gated SPECT Myocardial Perfusion with Exercise Stress: Myocardial perfusion imaging was performed at rest 30 to 60 minutes following the IV injection of the radiotracer. One minute prior to peak exercise, the patient was injected IV with the radiotracer. Gated post stress tomographic imaging was performed 10 to 20 minutes later. See administered radiotracer and doses below. [facility] Date of service: 06/16/2024 8:18:51 AM Ordering Physician: ISRAEL ROCHA. 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 CT Dose-Length Product(DLP): 23.0 mGy * cm. CT Dose Reduction Employed: Yes. Exam Type: Rest Stress Radiopharm: Tc-99m Tetrofosmin Tc-99m Tetrofosmin Dosage(mCi): 16 50.2 Atten Correction: performed Stress Agent: Treadmill Resting Blood Press: 130/80 mmHg Image Quality The overall study imaging quality was deemed to be good. The following technical issues were noted: Diaphragmatic attenuation and Patient motion. FINDINGS: Left Ventricle Wall Motion: Stress IR:3D - All segments are normal. Stress IR:3D Stress IR:3D Gated Stress FBP Gated Rest FBP LVEF: 72 % 72 % ED Volume: 111 ml 123 ml ES Volume: 31 ml 34 ml TID: 0.89 Perfusion Findings Stress IR:3D - Summed Score=0 All segments demonstrate normal perfusion. Rest IR:3D - Summed Score=0 All segments demonstrate normal perfusion. Rest IR:3D:SC - Summed Score=0 All segments demonstrate normal perfusion. Stress IR:3D Rest IR:3D Summed Score=0 Summed Score=0 LEFT VENTRICLE The left ventricle is normal in size. Left ventricular systolic function is normal. Right Ventricle The right ventricle is normal in size. Right ventricle systolic function is normal. Stress Test Findings: There is no scintigraphic evidence for inducible ischemia. There is no evidence of scarring. * * * Final * * * NM CTAC Report: [facility] Date of service: 06/16/2024 8:18:51 AM CTAC interpreting physician: Scott Manjarrez MD PATIENT: Name: MR. JOSE CHA Age: 59 years Gender: M 1. Incidental Findings from limited non-diagnostic CTAC: - Coronary calcifications visualized. * * * Final * * * Stress ECG Report: [facility] Date of service: 06/16/2024 8:18:51 AM Ordering physician: ISRAEL ROCHA physical medicine specialist: Lia Nava Fountain Jerk: Serena Sun Fellow: Deon Mark MD Interpreting physician: Scott Manajrrez MD Patient name: MR. JOSE CHA Age: 59 years Gender: M Height: 175.26 cm BSA: 2.30 m Weight: 108.41 kg BMI: 35.3 kg/m Indication: Dyspnea on exertion, Chest pressure / Chest tightness and Fati (more content not included)... DIVISION OF RADIOLOGY Provider, [facility] - 06/16/2024 * * *Final Report* * * DATE OF EXAM: Jun 16 2024 9:41AM [facility] 0004 - [place] CARDIAC PERF STRESS/EXERCISE / PROCEDURE REASON: IWLLETT (dyspnea on exertion) * * * * Physician Interpretation * * * * Stress Forms Builder Report: [facility] Date of service: 06/16/2024 8:18:51 AM Supervising physician: Scott Manjarrez MD PATIENT: Name: MR. JOSE CHA Age: 59 years Gender: M The supervising physician was in the department and immediately available. * * * Final * * * PATIENT: Name: MR. JOSE CHA Age: 59 years Gender: M CONCLUSIONS: 1. SPECT Perfusion Study: Normal. 2. There is no scintigraphic evidence for inducible ischemia. 3. No evidence of scarred myocardium. 4. Left ventricle is normal in size. The left ventricle systolic function is normal. 5. Right ventricle is normal in size. The right ventricle systolic function is normal. 6. This is a low risk scan. Gated Stress FBP Gated Rest FBP LVEF % 72 72 Prior Study Comparison Prior nuclear cardiology exam was performed on 09/29/2020. Nuclear Med Report:1-Day Gated SPECT Myocardial Perfusion with Exercise Stress: Myocardial perfusion imaging was performed at rest 30 to 60 minutes following the IV injection of the radiotracer. One minute prior to peak exercise, the patient was injected IV with the radiotracer. Gated post stress tomographic imaging was performed 10 to 20 minutes later. See administered radiotracer and doses below. [facility] [place] Date of service: 06/16/2024 8:18:51 AM Ordering Physician: ISRAEL ROCHA. 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 CT Dose-Length Product(DLP): 23.0 mGy * cm. CT Dose Reduction Employed: Yes. Exam Type: Rest Stress Radiopharm: Tc-99m Tetrofosmin Tc-99m Tetrofosmin Dosage(mCi): 16 50.2 Atten Correction: performed Stress Agent: Treadmill Resting Blood Press: 130/80 mmHg Image Quality The overall study imaging quality was deemed to be good. The following technical issues were noted: Diaphragmatic attenuation and Patient motion. FINDINGS: Left Ventricle Wall Motion: Stress IR:3D - All segments are normal. Stress IR:3D Stress IR:3D Gated Stress FBP Gated Rest FBP LVEF: 72 % 72 % ED Volume: 111 ml 123 ml ES Volume: 31 ml 34 ml TID: 0.89 Perfusion Findings Stress IR:3D - Summed Score=0 All segments demonstrate normal perfusion. Rest IR:3D - Summed Score=0 All segments demonstrate normal perfusion. Rest IR:3D:SC - Summed Score=0 All segments demonstrate normal perfusion. Stress IR:3D Rest IR:3D Summed Score=0 Summed Score=0 LEFT VENTRICLE The left ventricle is normal in size. Left ventricular systolic function is normal. Right Ventricle The right ventricle is normal in size. Right ventricle systolic function is normal. Stress Test Findings: There is no scintigraphic evidence for inducible ischemia. There is no evidence of scarring. * * * Final * * * NM CTAC Report: [facility] Date of service: 06/16/2024 8:18:51 AM CTAC interpreting physician: Scott Manjarrez MD PATIENT: Name: MR. JOSE CHA Age: 59 years Gender: M 1. Incidental Findings from limited non-diagnostic CTAC: - Coronary calcifications visualized. * * * Final * * * Stress ECG Report: [facility] Date of service: 06/16/2024 8:18:51 AM Ordering physician: ISRAEL ROCHA physical medicine specialist: Lia Nava Fountain Jerk: Serena Sun Fellow: Deon Mark MD Interpreting physician: Scott Manjarrez MD Patient name: MR. JOSE CHA Age: 59 years Gender: M Height: 175.26 cm BSA: 2.30 m Weight: 108.41 kg BMI: 35.3 kg/m Indication: Dyspnea on exertion, Chest pressure / Chest tightness and Fatigue Stress ECG Conclusion: Conclusion: Normal with exception due to exercise diastolic hypertension Stress ECG Summary: The patient's resting heart rate was 74 bpm and blood pressure was 130/80 mmHg. The patient e (more content not included)... [facility] Radiology Study observation (narrative) [facility] [place] Heart Perfusion W multipl e states of exerciseOrdered By: [facility] Provider on 06-16-2024 [facility] Outside Colonoscopyon 2022 Outside Colonoscopy [id number]#1.00TIFF Normal [facility] Reminderson 09-19-2023 Reminders - From: Viktoria Heart LPN To: N - Clinical; Sent: 09/19/2023 08:55:34 EST Show up: 08/19/2033 07:00:00 EST Subject: colonoscopy recall Due Date/Time: 09/18/2033 07:00:00 EST Reminder/Recall Patient due for screening colonoscopy 09/18/2033. Normal [facility] No Panel Informationon 09-18 Colonoscopy Invalid Interpretation Code [employer] Work Phone: Consent for Procedure/Surger yon 09-05-2023 Consent for Procedure/Surgery [id number]#1.00TIFF [facility] Facesheeton 09-05-2023 Facesheet [id number]#1.00TIFF [facility] Ambulatory Visit Summaryon 1 11-04-2022 Ambulatory Visit Summary JOSE CHA :1965 Visit Date:09/04/2023 Ambulatory Visit Instructions Your Care Team Attending Physician - PAT PONCE, Cory Andrews Primary Care Physician - Destiny Vela MD Referring Physician - Destiny Vela MD This Is Your Medications List Contact prescribing physician if questions or concerns aspirin (aspirin 81 mg Oral EC Tab) cetirizine (cetirizine 10 mg Tab) esomeprazole (esomeprazole 20 mg Dyllan-DR) evolocumab (Repatha SureClick 140 mg/mL subcutaneous solution) metoprolol (metoprolol 50 mg ER Tab) multivitamin (Multi Vitamins oral tablet) omega-3 polyunsaturated fatty acids (Fish Oil) Procedures Performed Arthroplasty of left knee, Arthroscopy of shoulder, Cardiac ablation using fluoroscopy guidance, Closed fracture of left wrist, Colonoscopy, EGD - esophagogastroduodenoscopy. Discharge Vitals Heart Rate (Peripheral) 72 Respiratory Rate 16 Blood Pressure 136/90 Height 175.2 cm Height 69 in Weight 108 kg Weight 237.6 lb BMI 35.18 Medications What How Much When Instructions Unchanged aspirin (aspirin 81 mg Oral EC Tab) 1 Tablets By Mouth Every day Contact prescribing physician if questions or concerns Unchanged cetirizine (cetirizine 10 mg Tab) 1 Tablets By Mouth Every day Contact prescribing physician if questions or concerns Unchanged esomeprazole (esomeprazole 20 mg Cap-DR) 1 Capsules By Mouth Every day Contact prescribing physician if questions or concerns Unchanged evolocumab (Repatha SureClick 140 mg/ mL subcutaneous solution) 140 Milligram Subcutaneous Every other week 0 Refill(s) Contact prescribing physician if questions or concerns Unchanged metoprolol (metoprolol 50 mg ER Tab) 1 Tablets By Mouth 2 times a day Contact prescribing physician if questions or concerns Unchanged multivitamin (Multi Vitamins oral tablet) 1 Tablets By Mouth Every day Contact prescribing physician if questions or concerns Unchanged omega-3 polyunsaturated fatty acids (Fish Oil) Contact prescribing physician if questions or concerns Medications and Immunizations Administered Not Given influenza virus vaccine, inactivated, Patient Refuses Allergies statins (Myalgia) Problems Ongoing - Any problem that you are currently receiving treatment for. Atrial tachycardia BMI 35.0-35.9,adult Gastroesophageal reflux disease Intermittent claudication Morbid obesity Paroxysmal tachycardia Pure hypercholesterolemia Screening for colorectal cancer Steatosis of liver Supraventricular tachycardia Venous varices Patient Survey You may receive a survey via text or e-mail asking about your office visit. Please share your experience with us by completing your survey. We appreciate your feedback and thank you for choosing us for your care. [facility] Insurance Correspondenceon 11-04-2022 Insurance Correspondence [id number]#1.00TIFF [facility] Consultation Noteon 08-07-20 23 Consultation Note [id number]#1.00TIFF [facility] Physician Referralon 023 Physician Referral [id number]#1.00TIFF [facility] No Panel Informationon 06-11 Tobacco smoking status Non-Smoker Invalid Interpretation Code [employer] Work Phone: - Invalid Interpretation Code [employer] Work Phone: [phone] Invalid Interpretation Code [employer] Work Phone: JOSE CHA Invalid Interpretation Code [facility] [employer] Work Phone: XR LEG FRONTAL HIP TO ANKLE MECHANICAL AXISon 2023 [facility] BILIRUBIN CONJUGATED (DIRECT )on 10-30-2022 BILI, CONJUGATED 0.1 mg/dL Normal 0.0-0.2 [facility] Comment on above: Performed By: #### D LEONARDO, FT3, LIPID, TSH, T4, CMP #### [facility] [address] [place] [address] Dr. Adam Royal CBC AUTO DIFFon 10-30-2022 BASO # 0.0 103/ul Normal 0.0-0.1 [facility] Comment on above: Performed By: #### H STROPN, CMP #### [facility] [address] [place] [address] Dr. Adam Royal Basophils/100 WBC (Bld) 0.3 % Normal 0.2-2.0 [facility] Comment on above: Performed By: #### H KARTHIKEYANPN, CMP #### [facility] [address] [place] [address] Dr. Adam Royal EO # 0.1 103/ul Normal 0.0-0.7 [facility] Comment on above: Performed By: #### H STROPN, CMP #### [facility] [address] [place] [address] Dr. Adam Royal Eosinophils/100 WBC (Bld) 1.4 % Normal 0.9-7.0 [facility] Comment on above: Performed By: #### H STROPN, CMP #### [facility] [address] [place] [address] Dr. Adam Royal Erythrocyte distribution width (RBC) [Ratio] 12.5 % Normal 11.0-15.0 [facility] Comment on above: Performed By: #### H STROPN, CMP #### [facility] [address] [place] [address] Dr. Adam Royal Hematocrit (Bld) [Volume fraction] 45.6 % Normal 42.0-54.0 [facility] Comment on above: Performed By: #### H STROPN, CMP #### [facility] [address] [place] [address] [address] Adam Royal Hemoglobin (Bld) [Mass/Vol] 15.6 g/dL Normal 14.0-18.0 [facility] Comment on above: Performed By: #### H STROPN, CMP #### [facility] [address] [place] [address] [address] Adam Royal IG # 0.06 10e3/ul Critically high 0.00-0.03 [facility] Comment on above: Performed By: #### H STROPN, CMP #### [facility] [address] [place] [address] Dr. Adam Royal IG % 0.7 % Critically high 0.0-0.5 [facility] Comment on above: Performed By: #### H STROPN, CMP #### [facility] [address] [place] [address] Dr. Adam Royal LYMPH # 1.6 103/ul Normal 1.2-3.8 [facility] Comment on above: Performed By: #### H STROPN, CMP #### [facility] [address] [place] [address] Dr. Adam Royal Lymphocytes/100 WBC (Bld) 17.9 % Critically low 20.5-60.0 [facility] Comment on above: Performed By: #### H STROPN, CMP #### [facility] [address] [place] [address] Dr. Adam Royal MANUAL DIFF REQ NO Normal [facility] Comment on above: Performed By: #### H STROPN, CMP #### [facility] [address] [place] [address] Dr. Adam Royal MCH (RBC) [Entitic mass] 30.1 pg Normal 25.9-34.0 [facility] Comment on above: Performed By: #### H STROPN, CMP #### [facility] [address] [place] [address] Dr. Adam Royal MCHC (RBC) [Mass/Vol] 34.2 g/dL Normal 29.9-35.2 [facility] Comment on above: Performed By: #### H STROPN, CMP #### [facility] [address] [place] [address] [address] Adam Royal MCV (RBC) [Entitic vol] 87.9 fL Normal 80.0-94.0 [facility] Comment on above: Performed By: #### H STROPN, CMP #### [facility] [address] [place] [address] [address] Adam Royal MONO # 0.5 103/ul Normal 0.3-0.8 [facility] Comment on above: Performed By: #### H STROPN, CMP #### [facility] [address] [place] [address] [address] Adam Royal Monocytes/100 WBC (Bld) 5.7 % Normal 1.7-12.0 [facility] Comment on above: Performed By: #### H STROPN, CMP #### [facility] [address] [place] [address] Dr. Adam Royal NEUT # 6.5 103/ul Normal 1.4-6.5 [facility] Comment on above: Performed By: #### H STROPN, CMP #### [facility] [address] [place] [address] Dr. Adam Royal Neutrophils/100 WBC (Bld) 74.0 % Normal 43.0-75.0 [facility] Comment on above: Performed By: #### H STROPN, CMP #### [facility] [address] [place] [address] Dr. Adam Royla Platelet mean volume (Bld) [Entitic vol] 9.6 fL Normal 9.5-13.5 [facility] Comment on above: Performed By: #### H STROPN, CMP #### [facility] [address] [place] [address] Dr. Adam Royal PLT 269 103/ul Normal 150-450 [facility] Comment on above: Performed By: #### H STROPN, CMP #### [facility] [address] [place] [address] Dr. Adam Royal RBC 5.19 106/ul Normal 4.70-6.10 [facility] Comment on above: Performed By: #### H STROPN, CMP #### [facility] [address] [place] [address] [address] Adam Royal WBC 8.8 103/ul Normal 4.0-11.0 [facility] Comment on above: Performed By: #### H STROPN, CMP #### [facility] [address] [place] [address] [address] Adam Royal FREE T3on 10-30-2022 FREE T3 2.77 pg/mlL Normal 2.18-3.98 [facility] Comment on above: Performed By: #### D LEONARDO, FT3, LIPID, TSH, T4, CMP #### [facility] [address] [place] [address] Dr. Adam Royal GLYCOHEMOGLOBIN A1Con 2022 ADA RECOMMENDATION SEE BELOW Normal [facility] Comment on above: Result Comment: ADA RECOMMENDED LIMIT 4.0 - 6.0 ADA THERAPEUTIC TARGET < 7.0 ACTION SUGGESTED > 7.0 Performed By: #### A 1C #### [facility] [address] [place] [address] Dr. Adam Royal Glucose [Mass/Vol] 117 mg/dL Normal [facility] Comment on above: Performed By: #### A 1C #### [facility] [address] [place] [address] Dr. Adam Royal HbA1c (Bld) [Mass fraction] 5.7 % Normal 4.5-6.2 [facility] Comment on above: Performed By: #### A 1C #### [facility] [address] [place] [address] Dr. Adam Royal LIPID PROFILEon 10-30-2022 CHOL-HDL RATIO NORM SEE BELOW Normal [facility] Comment on above: Result Comment: 3.3 - 4.4 LOW RISK 4.4 - 7.1 AVERAGE RISK 7.1 - 11.0 MODERATE RISK >11.0 HIGH RISK Performed By: #### D LEONARDO, FT3, LIPID, TSH, T4, CMP #### [facility] [address] [place] [address] Dr. Adam Royal Cholesterol [Mass/Vol] 194 mg/dL Normal <=200 [facility] Comment on above: Performed By: #### D LEONARDO, FT3, LIPID, TSH, T4, CMP #### [facility] [address] [address] [address] Adam Royal Cholesterol in HDL [Mass/Vol] 49 mg/dL Normal 40-60 [facility] Comment on above: Performed By: #### D LEONARDO, FT3, LIPID, TSH, T4, CMP #### [facility] [address] [address] [address] Adam Royal Cholesterol in LDL [Mass/Vol] 122.6 mg/dL Normal [facility] Comment on above: Performed By: #### D LEONARDO, FT3, LIPID, TSH, T4, CMP #### [facility] [address] [place] [address] Dr. Adam Royal Cholesterol.total/C holesterol in HDL [Mass ratio] 4.0 {ratio} Normal [facility] Comment on above: Performed By: #### D LEONARDO, FT3, LIPID, TSH, T4, CMP #### [facility] [address] [address] [address] Adam Royal HDL NORMAL > or = 60 mg/dl - LO W CARDIOVASCULAR RISK <40 mg/dl - HIGH CARDIOVASCULAR RISK Normal [facility] Comment on above: Performed By: #### D LEONARDO, FT3, LIPID, TSH, T4, CMP #### [facility] [address] [address] [address] Adam Royal LDL CALC NORMAL SEE BELOW Normal [facility] Comment on above: Result Comment: <100 mg/dl OPTIMAL 100 - 129 mg/dl NEAR OR ABOVE OPTIMAL 130 - 159 mg/dl BORDERLINE HIGH 160 - 189 mg/dl HIGH >190 mg/dl VERY HIGH Performed By: #### D LEONARDO, FT3, LIPID, TSH, T4, CMP #### [facility] [address] [address] [address] Adam Royal Triglyceride [Mass/Vol] 112 mg/dL Normal <=150 [facility] Comment on above: Performed By: #### D LEONARDO, FT3, LIPID, TSH, T4, CMP #### [facility] [address] [place] [address] Dr. Adam Royal VLDL CALC 22.4 mg/dL Normal [facility] Comment on above: Performed By: #### D LEONARDO, FT3, LIPID, TSH, T4, CMP #### [facility] [address] [place] [address] Dr. Adam Royal PROF 14(COMP METB)on 023 Albumin [Mass/Vol] 3.9 g/dL Normal 3.4-5.0 [facility] Comment on above: Performed By: #### D LEONARDO, FT3, LIPID, TSH, T4, CMP #### [facility] [address] [place] [address] Dr. Adam Royal Albumin/Globulin [Mass ratio] 1.0 {ratio} Normal [facility] Comment on above: Performed By: #### D LEONARDO, FT3, LIPID, TSH, T4, CMP #### [facility] [address] [place] [address] Dr. Adam Royal ALP [Catalytic activity/Vol] 62 U/L Normal 46-116 [facility] Comment on above: Performed By: #### D LEONARDO, FT3, LIPID, TSH, T4, CMP #### [facility] [address] [place] [address] Dr. Adam Royal ALT [Catalytic activity/Vol] 43 U/L Normal 16-63 [facility] Comment on above: Performed By: #### D LEONARDO, FT3, LIPID, TSH, T4, CMP #### [facility] [address] [place] [address] Dr. Adam Royal Anion gap [Moles/Vol] 15.0 mmol/L Normal [facility] Comment on above: Performed By: #### D LEONARDO, FT3, LIPID, TSH, T4, CMP #### [facility] [address] [place] [address] Dr. Adam Royal AST [Catalytic activity/Vol] 33 U/L Normal 15-37 [facility] Comment on above: Performed By: #### D LEONARDO, FT3, LIPID, TSH, T4, CMP #### [facility] [address] [place] [address] Dr. Adam Royal Bilirubin [Mass/Vol] 0.4 mg/dL Normal 0.2-1.0 [facility] Comment on above: Performed By: #### D LEONARDO, FT3, LIPID, TSH, T4, CMP #### [facility] [address] [place] [address] Dr. Adam Royal Calcium [Mass/Vol] 9.8 mg/dL Normal 8.5-10.1 [facility] Comment on above: Performed By: #### D LEONARDO, FT3, LIPID, TSH, T4, CMP #### [facility] [address] [place] [address] Dr. Adam Royal Chloride [Moles/Vol] 101 mmol/L Normal 98-107 [facility] Comment on above: Performed By: #### D LEONARDO, FT3, LIPID, TSH, T4, CMP #### [facility] [address] [place] [address] Dr. Adam Royal CO2 [Moles/Vol] 26.8 mmol/L Normal 21.0-32.0 [facility] Comment on above: Performed By: #### D LEONARDO, FT3, LIPID, TSH, T4, CMP #### [facility] [address] [place] [address] Dr. Adam Royal Creatinine [Mass/Vol] 1.01 mg/dL Normal 0.70-1.30 [facility] Comment on above: Performed By: #### D LEONARDO, FT3, LIPID, TSH, T4, CMP #### [facility] [address] [place] [address] Dr. Adam Royal EGFR-AF FRENCH >60 Normal >=60 [facility] Comment on above: Performed By: #### D LEONARDO, FT3, LIPID, TSH, T4, CMP #### [facility] [address] [place] [address] Dr. Adam Royal EGFR-NON AF FRENCH >60 Normal >=60 [facility] Comment on above: Performed By: #### D LEONARDO, FT3, LIPID, TSH, T4, CMP #### [facility] [address] [place] [address] Dr. Adam Royal Globulin (S) [Mass/Vol] 3.9 g/dL Normal [facility] Comment on above: Performed By: #### D LEONARDO, FT3, LIPID, TSH, T4, CMP #### [facility] [address] [place] [address] Dr. Adam Royal Glucose [Mass/Vol] 119 mg/dL Critically high 74-106 [facility] Comment on above: Performed By: #### D LEONARDO, FT3, LIPID, TSH, T4, CMP #### [facility] [address] [place] [address] Dr. Adam Royal Potassium [Moles/Vol] 4.8 mmol/L Normal 3.5-5.1 [facility] Comment on above: Performed By: #### D LEONARDO, FT3, LIPID, TSH, T4, CMP #### [facility] [address] [place] [address] Dr. Adam Royal Protein [Mass/Vol] 7.8 g/dL Normal 6.4-8.2 [facility] Comment on above: Performed By: #### D LEONARDO, FT3, LIPID, TSH, T4, CMP #### [facility] [address] [place] [address] Dr. Adam Royal Sodium [Moles/Vol] 138 mmol/L Normal 136-145 [facility] Comment on above: Performed By: #### D LEONARDO, FT3, LIPID, TSH, T4, CMP #### [facility] [address] [place] [address] Dr. Adam Royal Urea nitrogen [Mass/Vol] 24.0 mg/dL Critically high 7.0-18.0 [facility] Comment on above: Performed By: #### D LEONARDO, FT3, LIPID, TSH, T4, CMP #### [facility] [address] [place] [address] Dr. Adam Royal Urea nitrogen/Creatinine [Mass ratio] 23.8 mg/mg Normal [facility] Comment on above: Performed By: #### D LEONARDO, FT3, LIPID, TSH, T4, CMP #### [facility] [address] [place], [place] [address] Dr. Adam Royal T4on 10-30-2022 T4 [Mass/Vol] 7.00 ug/dL Normal 4.50-12.10 [facility] Comment on above: Performed By: #### D LEONARDO, FT3, LIPID, TSH, T4, CMP #### [facility] [id number] Adam Royal TSHon 10-30-2022 TSH 1.140 uIU/mL Normal 0.358-3.740 [facility] Comment on above: Performed By: #### D LEONARDO, FT3, LIPID, TSH, T4, CMP #### [facility] [address] [address] [address] Adam Royal CBC(NO DIFF)on 06-20-2022 Erythrocyte distribution width (RBC) [Ratio] 13.0 % Normal 11.5-14.5 [facility] Hematocrit (Bld) [Volume fraction] 44.6 % Normal 42.0-52.0 [facility] Hemoglobin (Bld) [Mass/Vol] 15.2 g/dL Normal 14.0-18.0 [facility] MCH (RBC) [Entitic mass] 31.1 pg Normal 26.0-35.0 [facility] MCHC (RBC) [Mass/Vol] 34.2 g/dL Normal 27.0-37.0 [facility] MCV (RBC) [Entitic vol] 90.9 fL Normal 80.0-100.0 [facility] Platelet mean volume (Bld) [Entitic vol] 8.2 fL Normal 7.4-11.0 [facility] Platelets (Bld) [#/Vol] 162 10*3/uL Normal 130.0-400.0 [facility] RBC (Bld) [#/Vol] 4.90 10*6/uL Normal 4.0-6.1 [facility] WBC (Bld) [#/Vol] 6.7 10*3/uL Normal 3.6-11.0 [facility] FREE T4on 06-20-2022 Free T4 [Mass/Vol] 0.92 ng/dL Normal 0.78-2.19 [facility] MAGNESIUMon 06-20-2022 Magnesium [Mass/Vol] 2.1 mg/dL Normal 1.6-2.3 [facility] MRSA SCREENon 06-20-2022 MRSA DNA JOYCE+probe Ql (Unsp spec) Not detected Normal NOT DETECTED [facility] Comment on above: Performed By: #### M RSAST #### [place] [address] STAPH AUREUS SCREEN Not detected Normal NOT DETECTED [facility] Comment on above: Result Comment: Test ing performed at [place] [address] Performed By: #### M RSAST #### [place] [address] RENAL PANEL,FASTINGon 2021 ALBUMIN 4.1 G/dl Normal 3.5-5.0 [facility] Calcium [Mass/Vol] 8.6 mg/dL Normal 8.4-10.2 [facility] Chloride [Moles/Vol] 105 mmol/L Normal 98-107 [facility] Comment on above: Result Comment: Matias monroe note: Triglyceride levels of 600mg/dL or higher may positively bias chloride results by approximately 2.1 mmol CO2 [Moles/Vol] 27 mmol/L Normal 22-30 [facility] Creatinine [Mass/Vol] 1.07 mg/dL Normal 0.7-1.2 [facility] EST. GFR, 92 ml/min/1.73sq.m Normal [facility] EST. GFR,Non 76 ml/min/1.73sq.m [facility] GFR Information Average GFR for 50-5 9 years old = 93. 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 Kidney failure, GFR = <15. The GFR estimate is not adjusted for extreme body surface area or acute process, nor has it been validated for women or ethnic groups other than and . Glucose [Mass/Vol] 113 mg/dL High 70-100 [facility] Comment on above: Result Comment: NORMAL <100 mg/dL PREDIABETES 101-126 mg/dL DIABETES 126 mg/dL or higher PHOSPHOROUS 3.6 MG/DL Normal 2.5-4.5 [facility] Potassium [Moles/Vol] 5.0 mmol/L Normal 3.5-5.1 [facility] Sodium [Moles/Vol] 138 mmol/L Normal 137-145 [facility] Urea nitrogen [Mass/Vol] 17 mg/dL Normal 7-20 [facility] TROPONIN I, HIGH SENSITIVITY on 06-20-2022 TROPONIN I, HIGH SENSITIVITY 91 pg/mL High 0-20 [facility] Comment on above: Result Comment: Indeterminant: >12 to 100 pg/mL female >20 to 100 pg/mL male Indicative of myocardial injury. Serial sampling is recommended, a change of greater than or equal to 20 pg/mL is indicative of acute coronary syndrome. CALLED TO AND READ BACK BY QUANG ON [email or web address] ON 06.20.22 BY CARMEL TSH,REFLEX FREE T4on 022 TSH,REFLEX FREE T4 <0.015 Low 0.46-4.68 [facility] CBCon 06-19-2022 ABSOLUTE BAS 0.0 10*3/uL Normal 0.0-0.2 [facility] Comment on above: Performed By: #### A CBC #### Testing performed at [address] [address] ABSOLUTE EOS 0.20 10*3/uL Normal 0.0-0.7 [facility] Comment on above: Performed By: #### A CBC #### Testing performed at [address] [address] ABSOLUTE NEUTROPHIL COUNT 2.7 10*3/uL Normal 1.4-6.5 [facility] Comment on above: Performed By: #### A CBC #### Testing performed at [address] [address] Basophils/100 WBC (Bld) 1.0 % Normal 0.0-2.0 [facility] Comment on above: Performed By: #### A CBC #### Testing performed at [address] [place] [address] DTYPE AUTO DIFF Normal [facility] Comment on above: Performed By: #### A CBC #### Testing performed at [place] [address] [place] [address] Eosinophils/100 WBC (Bld) 3.5 % Normal 0.0-11.0 [facility] Comment on above: Performed By: #### A CBC #### Testing performed at [address] [address] Lymphocytes (Bld) [#/Vol] 1.40 10*3/uL Normal 1.2-3.4 [facility] Comment on above: Performed By: #### A CBC #### Testing performed at [address] [address] Lymphocytes/100 WBC (Bld) 29.2 % Normal 20.0-55.0 [facility] Comment on above: Performed By: #### A CBC #### Testing performed at [address] [address] Monocytes (Bld) [#/Vol] 0.4 10*3/uL Normal 0.0-0.7 [facility] Comment on above: Performed By: #### A CBC #### Testing performed at [address] [address] Monocytes/100 WBC (Bld) 8.3 % Normal 0.0-10.0 [facility] Comment on above: Performed By: #### A CBC #### Testing performed at [address] [address] Neutrophils/100 WBC (Bld) 58.0 % Normal 37.0-75.0 [facility] Comment on above: Performed By: #### A CBC #### Testing performed at [address] [address] Erythrocyte distribution width (RBC) [Ratio] 12.9 % Normal 11.5-14.5 [facility] Comment on above: Performed By: #### A CBC #### Testing performed at [address] [address] Hematocrit (Bld) [Volume fraction] 43.7 % Normal 42.0-52.0 [facility] Comment on above: Performed By: #### A CBC #### Testing performed at [address] [address] Hemoglobin (Bld) [Mass/Vol] 15.2 g/dL Normal 14.0-18.0 [facility] Comment on above: Performed By: #### A CBC #### Testing performed at [address] [address] MCH (RBC) [Entitic mass] 31.5 pg Normal 26.0-35.0 [facility] Comment on above: Performed By: #### A CBC #### Testing performed at [address] [address] MCHC (RBC) [Mass/Vol] 34.8 g/dL Normal 27.0-37.0 [facility] Comment on above: Performed By: #### A CBC #### Testing performed at [address] [address] MCV (RBC) [Entitic vol] 90.5 fL Normal 80.0-100.0 [facility] Comment on above: Performed By: #### A CBC #### Testing performed at [address] [address] Platelet mean volume (Bld) [Entitic vol] 8.2 fL Normal 7.4-11.0 [facility] Comment on above: Performed By: #### A CBC #### Testing performed at [address] [address] Platelets (Bld) [#/Vol] 165 10*3/uL Normal 130.0-400.0 [facility] Comment on above: Performed By: #### A CBC #### Testing performed at [address] [address] RBC (Bld) [#/Vol] 4.83 10*6/uL Normal 4.0-6.1 [facility] Comment on above: Performed By: #### A CBC #### Testing performed at [address] [address] WBC (Bld) [#/Vol] 4.7 10*3/uL Normal 3.6-11.0 [facility] Comment on above: Performed By: #### A CBC #### Testing performed at [address] [address] CHEM 7 FASTINGon 06-19-2022 Chloride [Moles/Vol] 103 mmol/L Normal 98-107 [facility] Comment on above: Result Comment: Matias monroe note: Triglyceride levels of 600mg/dL or higher may positively bias chloride results by approximately 2.1 mmol Performed By: #### A CBC #### Testing performed at [address] [address] CO2 [Moles/Vol] 28 mmol/L Normal 22-30 [facility] Comment on above: Performed By: #### A CBC #### Testing performed at [address] [address] Creatinine [Mass/Vol] 1.03 mg/dL Normal 0.7-1.2 [facility] Comment on above: Performed By: #### A CBC #### Testing performed at [address] [address] EST. GFR, 96 ml/min/1.73sq.m Normal [facility] Comment on above: Performed By: #### A CBC #### Testing performed at [address] [address] EST. GFR,Non 79 ml/min/1.73sq.m Normal [facility] Comment on above: Performed By: #### A CBC #### Testing performed at [address] [address] GFR Information Average GFR for 50-5 9 years old = 93. 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 Kidney failure, GFR = <15. The GFR estimate is not adjusted for extreme body surface area or acute process, nor has it been validated for women or ethnic groups other than and . Performed By: #### A CBC #### Testing performed at [place] [id number] Glucose [Mass/Vol] 116 mg/dL High 70-100 [facility] Comment on above: Result Comment: NORMAL <100 mg/dL PREDIABETES 101-126 mg/dL DIABETES 126 mg/dL or higher Performed By: #### A CBC #### Testing performed at [place] [id number] Potassium [Moles/Vol] 4.1 mmol/L Normal 3.5-5.1 [facility] Comment on above: Performed By: #### A CBC #### Testing performed at [place] [id number] Sodium [Moles/Vol] 139 mmol/L Normal 137-145 [facility] Comment on above: Performed By: #### A CBC #### Testing performed at [address] [address] Urea nitrogen [Mass/Vol] 18 mg/dL Normal 7-20 [facility] Comment on above: Performed By: #### A CBC #### Testing performed at [address] [address] MAGNESIUMon 06-19-2022 Magnesium [Mass/Vol] 1.7 mg/dL Normal 1.6-2.3 [facility] NOVEL CORONAVIRUSon 06-19-20 22 NARRATIVE This test was perfor med using isothermal JOYCE and has been approved as Emergency Use Authorization (EUA) for the qualitative detection [id number] nucleic acid. Normal [facility] SARS-CoV-2 (COVID-19) RNA JOYCE+probe Ql (Unsp spec) Not detected Normal NOT DETECTED [facility] Comment on above: Result Comment: Nega tive results do not preclude SARS-CoV-2 infection and should not be used as the sole basis for treatment or other patient management decisions. Optimum specimen types and timing for peak viral levels during infections caused by SARS-CoV-2 has not been determined. The possibility of a false negative result should especially be considered if the patient's recent exposures or clinical presentation suggest that SARS-CoV-2 infection is probable, and diagnostic tests for other causes of illness (e.g., other respiratory illness) are negative. Collection of a new specimen and re-testing may be necessary if the patient is critically ill or clinically deteriorating. TROPONIN I, HIGH SENSITIVITY on 06-19-2022 TROPONIN I, HIGH SENSITIVITY 4 pg/mL Normal 0-20 [facility] Comment on above: Result Comment: Indeterminant: >12 to 100 pg/mL female >20 to 100 pg/mL male Indicative of myocardial injury. Serial sampling is recommended, a change of greater than or equal to 20 pg/mL is indicative of acute coronary syndrome. XR CHEST AP PORTABLEon 06-19 XR CHEST AP PORTABLE EXAM: XR CHEST AP PORTABLE HISTORY: Tachycardia COMPARISON: 09/21/2020 TECHNIQUE: AP upright portable view the chest was obtained at 1933 hours. FINDINGS: The heart does not appear significantly enlarged. The trachea is satisfactory. Aorta is normal in caliber. I do not see mediastinal hilar mass or adenopathy. Both hemidiaphragms are well seen. I do not see any large pleural effusion. No major air bronchograms are seen. Minor accentuation of the basilar markings are seen but appears nonspecific. IMPRESSION: 1. There is a minor accentuation of the central zone markings identified but otherwise not definitely identifying any acute chest finding. Normal [facility] CBC AUTO DIFFon 05-12-2022 BASO # 0.1 103/ul Normal 0.0-0.1 [facility] Comment on above: Performed By: #### C BC #### [facility] [address] [place] [address] Dr. Adam Royal Basophils/100 WBC (Bld) 0.9 % Normal 0.2-2.0 [facility] Comment on above: Performed By: #### C BC #### [facility] [address] [place] [address] Dr. Adam Royal EO # 0.2 103/ul Normal 0.0-0.7 [facility] Comment on above: Performed By: #### C BC #### [facility] [address] [place] [address] Dr. Adam Royal Eosinophils/100 WBC (Bld) 2.7 % Normal 0.9-7.0 [facility] Comment on above: Performed By: #### C BC #### [facility] [address] [place] [address] Dr. Adam Royal Erythrocyte distribution width (RBC) [Ratio] 12.7 % Normal 11.0-15.0 [facility] Comment on above: Performed By: #### C BC #### [facility] [address] [place] [address] Dr. Adam Royal Hematocrit (Bld) [Volume fraction] 50.1 % Normal 42.0-54.0 [facility] Comment on above: Performed By: #### C BC #### [facility] [address] [place] [address] Dr. Adam Royal Hemoglobin (Bld) [Mass/Vol] 17.0 g/dL Normal 14.0-18.0 [facility] Comment on above: Performed By: #### C BC #### [facility] [address] [place] [address] Dr. Adam Royal IG # 0.01 10e3/ul Normal 0.00-0.03 [facility] Comment on above: Performed By: #### C BC #### [facility] [address] [place] [address] Dr. Adam Royal IG % 0.2 % Normal 0.0-0.5 [facility] Comment on above: Performed By: #### C BC #### [facility] [address] [place] [address] Dr. Adam Royal LYMPH # 3.2 103/ul Normal 1.2-3.8 [facility] Comment on above: Performed By: #### C BC #### [facility] [address] [place] [address] Dr. Adam Royal Lymphocytes/100 WBC (Bld) 47.3 % Normal 20.5-60.0 [facility] Comment on above: Performed By: #### C BC #### [facility] [address] [place] [address] Dr. Adam Royal MANUAL DIFF REQ NO Normal [facility] Comment on above: Performed By: #### C BC #### [facility] [address] [place] [address] Dr. Adam Royal MCH (RBC) [Entitic mass] 30.6 pg Normal 25.9-34.0 [facility] Comment on above: Performed By: #### C BC #### [facility] [address] [place] [address] Dr. Adam Royal MCHC (RBC) [Mass/Vol] 33.9 g/dL Normal 29.9-35.2 [facility] Comment on above: Performed By: #### C BC #### [facility] [address] [place] [address] Dr. Adam Royal MCV (RBC) [Entitic vol] 90.3 fL Normal 80.0-94.0 [facility] Comment on above: Performed By: #### C BC #### [facility] [address] [place] [address] Dr. Adam Royal MONO # 0.9 103/ul Critically high 0.3-0.8 [facility] Comment on above: Performed By: #### C BC #### [facility] [address] [place] [address] Dr. Adam Royal Monocytes/100 WBC (Bld) 14.1 % Critically high 1.7-12.0 [facility] Comment on above: Performed By: #### C BC #### [facility] [address] [place] [address] Dr. Adam Royal NEUT # 2.3 103/ul Normal 1.4-6.5 [facility] Comment on above: Performed By: #### C BC #### [facility] [address] [place] [address] Dr. Adam Royal Neutrophils/100 WBC (Bld) 34.8 % Critically low 43.0-75.0 [facility] Comment on above: Performed By: #### C BC #### [facility] [address] [place] [address] Dr. Adam Royal Platelet mean volume (Bld) [Entitic vol] 10.0 fL Normal 9.5-13.5 [facility] Comment on above: Performed By: #### C BC #### [facility] [address] [place] [address] Dr. Adam Royal PLT 214 103/ul Normal 150-450 [facility] Comment on above: Performed By: #### C BC #### [facility] [address] [place] [address] Dr. Adam Royal RBC 5.55 106/ul Normal 4.70-6.10 [facility] Comment on above: Performed By: #### C BC #### [facility] [address] [place] [address] Dr. Adam Royal WBC 6.7 103/ul Normal 4.0-11.0 [facility] Comment on above: Performed By: #### C BC #### [facility] [address] [place] [address] Dr. Adam Royal PROF 14(COMP METB)on 022 Albumin [Mass/Vol] 4.1 g/dL Normal 3.4-5.0 [facility] Comment on above: Performed By: #### H MARIE, CMP #### [facility] [address] [place] [address] Dr. Adam Royal Albumin/Globulin [Mass ratio] 1.2 {ratio} Normal [facility] Comment on above: Performed By: #### H MARIE, CMP #### [facility] [address] [place] [address] Dr. Adam Royal ALP [Catalytic activity/Vol] 76 U/L Normal 46-116 [facility] Comment on above: Performed By: #### H STROPN, CMP #### [facility] [address] [address] [address] Adam Royal ALT [Catalytic activity/Vol] 86 U/L Critically high 16-63 [facility] Comment on above: Performed By: #### H STROPN, CMP #### [facility] [address] [address] [address] Adam Royal Anion gap [Moles/Vol] 17.2 mmol/L Normal [facility] Comment on above: Performed By: #### H STROPN, CMP #### [facility] [address] [address] [address] Adam Royal AST [Catalytic activity/Vol] 51 U/L Critically high 15-37 [facility] Comment on above: Performed By: #### H STROPN, CMP #### [facility] [address] [address] [address] Adam Royal Bilirubin [Mass/Vol] 0.3 mg/dL Normal 0.2-1.0 [facility] Comment on above: Performed By: #### H STROPN, CMP #### [facility] [address] [place] [address] Dr. Adam Royal Calcium [Mass/Vol] 9.4 mg/dL Normal 8.5-10.1 [facility] Comment on above: Performed By: #### H STROPN, CMP #### [facility] [address] [address] [address] Adam Royal Chloride [Moles/Vol] 104 mmol/L Normal 98-107 The [facility] Comment on above: Performed By: #### H STROPN, CMP #### [facility] [address] [address] [address] Adam Royal CO2 [Moles/Vol] 25.7 mmol/L Normal 21.0-32.0 [facility] Comment on above: Performed By: #### H STROPN, CMP #### [facility] [address] [address] [address] Adam Royal Creatinine [Mass/Vol] 1.03 mg/dL Normal 0.70-1.30 [facility] Comment on above: Performed By: #### H STROPN, CMP #### [facility] [address] [address] [address] Adam Royal EGFR-AF FRENCH >60 Normal >=60 [facility] Comment on above: Performed By: #### H STROPN, CMP #### [facility] [address] [address] [address] Adam Royal EGFR-NON AF FRENCH >60 Normal >=60 [facility] Comment on above: Performed By: #### H STROPN, CMP #### [facility] [address] [place] [address] Dr. Adam Royal Globulin (S) [Mass/Vol] 3.4 g/dL Normal [facility] Comment on above: Performed By: #### H STROPN, CMP #### [facility] [address] [address] [address] Adam Royal Glucose [Mass/Vol] 118 mg/dL Critically high 74-106 [facility] Comment on above: Performed By: #### H STROPN, CMP #### [facility] [address] [place] [address] Dr. Adam Royal Potassium [Moles/Vol] 3.9 mmol/L Normal 3.5-5.1 [facility] Comment on above: Performed By: #### H STROPN, CMP #### [facility] [address] [place] [address] Dr. Adam Royal Protein [Mass/Vol] 7.5 g/dL Normal 6.4-8.2 [facility] Comment on above: Performed By: #### H STROPN, CMP #### [facility] [address] [place] [address] Dr. Adam Royal Sodium [Moles/Vol] 143 mmol/L Normal 136-145 [facility] Comment on above: Performed By: #### H STROPN, CMP #### [facility] [address] [place] [address] Dr. Adam Royal Urea nitrogen [Mass/Vol] 18.0 mg/dL Normal 7.0-18.0 [facility] Comment on above: Performed By: #### H MARIE, CMP #### [facility] [address] [place] [address] Dr. Adam Royal Urea nitrogen/Creatinine [Mass ratio] 17.5 mg/mg Normal [facility] Comment on above: Performed By: #### H MARIE, CMP #### [facility] [address] [place] [address] Dr. Adam Royal TROPONIN, HIGH SENSITIVITYon 05-12-2022 HSTROP 22.3 pg/mL Normal 4.0-76.1 [facility] Comment on above: Result Comment: CUT- OFF POINTS HAVE BEEN ESTABLISHED BASED ON THE FOURTH UNIVERSAL DEFINITIONS OF MYOCARDIAL INFARCTION. THE UPPER REFERENCE LIMIT (URL) OF TROPONIN, DEFINED THE 99TH PERCENTILE OF cTnI DISTRIBUTION IN A REFERENCE POPULATION, HAS BEEN CONFIRMED THE DECISION THRESHOLD FOR IA DIAGNOSIS. Performed By: #### H MARIE, CMP #### [facility] [address] [place] [address] Dr. Adam Royal Stool PCR [place] 05-01-20 Campylobacter sp PCR NEGATIVE: No Campylobacter spp. (jejuni or coli) DNA Detected Normal [facility] Comment on above: Performed By: #### S TLPCR #### [address] [address] Child Welfare Social Worker: Sandro Ortega MD [facility] [address] [place] [address] [address] [id number] Child Welfare Social Worker: Андрей Conde MD E coli enterotox PCR NEGATIVE: No Enterotoxigenic E. coli (ETEC) Heat-labile and heat-stable (LT/ST) [facility] Comment on above: Result Comment: DNA Detected Performed By: #### S TLPCR #### [address] [address] Child Welfare Social Worker: Sandro Ortega MD [facility] [address] [place] [address] [place] [address] Child Welfare Social Worker: Андрей Conde MD Plesiomonas sp PCR Negative [facility] Comment on above: Performed By: #### S TLPCR #### [facility] [address] [place] [address] Child Welfare Social Worker: Sandro Ortega MD [facility] [address] [place] [address] Dr. [place], [place] [id number] Child Welfare Social Worker: Андрей Conde MD Salmonella sp PCR Negative Normal [facility] Comment on above: Performed By: #### S TLPCR #### [address] [address] Child Welfare Social Worker: Sandro Ortega MD [facility] [address] [place] [address] [place] [address] Child Welfare Social Worker: Андрей Conde MD Shigatoxin gene PCR Negative [facility] Comment on above: Performed By: #### S TLPCR #### [address] [address] Child Welfare Social Worker: Sandro Ortega MD [facility] [address] [place] [address] [place] [address] Child Welfare Social Worker: Андрей Conde MD Shigella sp PCR Negative Normal [facility] Comment on above: Performed By: #### S TLPCR #### [address] [address] Child Welfare Social Worker: Sandro Ortega MD [facility] [address] [place] [address] [place] [address] Child Welfare Social Worker: Андрей Conde MD Vibrio sp PCR NEGATIVE: No Vibrio (V. vulnificus, V, parahaemolyticus and V. cholerae) DNA [facility] Comment on above: Result Comment: Dete cted Performed By: #### S TLPCR #### [address] [address] Child Welfare Social Worker: Sandro Ortega MD [facility] [address] [place] [address] Dr. [place], [place] [phone] Child Welfare Social Worker: Андрей Conde MD Yersinia gene PCR Negative Normal [facility] Comment on above: Performed By: #### S TLPCR #### [address] [address] Child Welfare Social Worker: Sandro Ortega MD [address] [place], [place] [id number] Child Welfare Social Worker: Андрей Conde MD Stool PCR [place] 04-30-20 Specimen Description .FECES Normal [facility] Comment on above: Performed By: #### S TLPCR #### [address] [address] Child Welfare Social Worker: Sandro Ortega MD [address] [place], [place] [id number] Child Welfare Social Worker: Андрйе Conde MD Lipid Profileon 12-09-2021 Cholesterol [Mass/Vol] 145 mg/dL Normal <200 [facility] Comment on above: Result Comment: Cholesterol Guidelines: <200 Desirable 200-240 Borderline >240 Undesirable Performed By: #### L IVP #### [address] [place], [place] [phone] Child Welfare Social Worker: Андрей Conde MD #### LIPR #### [address] [address] Child Welfare Social Worker: Sandro Ortega MD Cholesterol in HDL [Mass/Vol] 44 mg/dL Normal >40 [facility] Comment on above: Result Comment: HDL Guidelines: <40 Undesirable 40-59 Borderline >59 Desirable Performed By: #### L IVP #### [address] [place], [place] [id number] Child Welfare Social Worker: Андрей Conde MD #### LIPR #### [address] [address] Child Welfare Social Worker: Sandro Ortega MD Cholesterol in LDL [Mass/Vol] 70 mg/dL Normal 0-130 [facility] Comment on above: Result Comment: LDL Guidelines: <100 Desirable 100-129 Near to/above Desirable 130-159 Borderline >159 Undesirable Direct (measured) LDL and calculated LDL are not interchangeable tests. Performed By: #### L IVP #### [facility] [address] [place], [place] [phone] Child Welfare Social Worker: Андрей Conde MD #### LIPR #### [address] [place], [place] [phone] Child Welfare Social Worker: Sandro Ortega MD Cholesterol.total/C holesterol in HDL [Mass ratio] 3.3 {ratio} Normal <5 [facility] Comment on above: Performed By: #### L IVP #### [facility] [address] [place] [address] Child Welfare Social Worker: Андрей Conde MD #### LIPR #### [address] [place], [place] 1474008 Child Welfare Social Worker: Sandro Ortega MD Triglyceride [Mass/Vol] 156 mg/dL High <150 [facility] Comment on above: Result Comment: Triglyceride Guidelines: <150 Desirable 150-199 Borderline 200-499 High >499 Very high Based on AHA Guidelines for fasting triglyceride, July 2012. Performed By: #### L IVP #### [facility] [address] [place] [address] [place] [address] Child Welfare Social Worker: Андрей Conde MD #### LIPR #### [address] [address] [place], [place] [phone] Child Welfare Social Worker: Sandro Ortega MD Hepatic Function Panelon Albumin [Mass/Vol] 4.7 g/dL 3.5 - 5.2 g/dL [facility] Albumin/Globulin [Mass ratio] 2.2 {ratio} [facility] ALP (Bld) [Catalytic activity/Vol] 66 U/L 40 - 129 U/L [facility] ALT [Catalytic activity/Vol] 44 U/L High 5 - 41 U/L [facility] AST [Catalytic activity/Vol] 31 U/L <40 [facility] Bilirubin [Mass/Vol] 0.56 mg/dL 0.3 - 1.2 mg/dL [facility] Bilirubin, Indirect Can not be calculated 0.00 - 1.00 mg/dL [facility] Bilirubin.indirect [Mass/Vol] mg/dL <0.31 mg/dL [facility] Free PSA/Total PSA [Mass fraction] 6.8 g/dL 6.4 - 8.3 g/dL [facility] Interpretation and review of laboratory results Abnormal [facility] Liver Profileon 12-08-2021 Albumin [Mass/Vol] 4.7 g/dL Normal 3.5-5.2 [facility] Comment on above: Performed By: #### L IVP #### [facility] [address] [place], [place] [phone] Child Welfare Social Worker: Андрей Conde MD #### LIPR #### [address] [place], [place] [phone] Child Welfare Social Worker: Sandro Ortega MD Albumin/Glob Ratio 2.2 Normal 1.0-2.5 [facility] Comment on above: Performed By: #### L IVP #### [facility] [address] [place], [place] [phone] Child Welfare Social Worker: Андрей Conde MD #### LIPR #### [facility] [address] [place] [address] Child Welfare Social Worker: Sandro Ortega MD Alkaline Phos 66 U/L Normal 40-129 [facility] Comment on above: Performed By: #### L IVP #### [facility] [address] [place], [place] [phone] Child Welfare Social Worker: Андрей Conde MD #### LIPR #### [facility] [address] [place], [place] [phone] Child Welfare Social Worker: Sandro Ortega MD ALT [Catalytic activity/Vol] 44 U/L High 5-41 [facility] Comment on above: Performed By: #### L IVP #### [facility] [address] [place], [place] [phone] Child Welfare Social Worker: Андрей Conde MD #### LIPR #### [address] [address] Child Welfare Social Worker: Sandro Ortega MD AST [Catalytic activity/Vol] 31 U/L Normal <40 [facility] Comment on above: Performed By: #### L IVP #### [facility] [address] [place], [place] [phone] Child Welfare Social Worker: Андрей Conde MD #### LIPR #### [address] [address] Child Welfare Social Worker: Sandro Ortega MD Bilirubin [Mass/Vol] 0.56 mg/dL Normal 0.3-1.2 [facility] Comment on above: Performed By: #### L IVP #### [facility] [address] [place] [address] Child Welfare Social Worker: Андрей Conde MD #### LIPR #### [address] [address] Child Welfare Social Worker: Sandro Ortega MD Bilirubin, Indirect Can not be calculated Normal 0.00- 1.00 [facility] Comment on above: Performed By: #### L IVP #### [facility] [address] [place] [address] Child Welfare Social Worker: Андрей Conde MD #### LIPR #### [address] [address] Child Welfare Social Worker: Sandro Ortega MD Bilirubin.indirect [Mass/Vol] mg/dL Normal <0.31 [facility] Comment on above: Performed By: #### L IVP #### [facility] [address] [place], [place] [phone] Child Welfare Social Worker: Андрей Conde MD #### LIPR #### [facility] [address] [place] [address] Child Welfare Social Worker: Sandro Ortega MD Protein [Mass/Vol] 6.8 g/dL Normal 6.4-8.3 [facility] Comment on above: Performed By: #### L IVP #### [facility] [address] [place], [place] [phone] Child Welfare Social Worker: Андрей Conde MD #### LIPR #### [facility] [address] [place], [place] [address]49[address] Child Welfare Social Worker: Sandro Ortega MD XR Knee 1 or 2 Views Lefton 09-16-2021 XR Knee 1 or 2 Views Left EXAM: XR Knee 1 or 2 Views Left HISTORY: Other (please specify) COMPARISON: 05/31/2021 TECHNIQUE: AP and lateral views FINDINGS: Satisfactory alignment and positioning of the prosthetic components of the total knee arthroplasty. There is fluid and gas in the anterior joint. There are no acute osseous findings. IMPRESSION: Expected postoperative appearance. Final Dictated by: Kodak Cruz MD Dictated DT/TM: 09/16/2021 5:52 pm Signed by: Kodak Cruz MD Signed (Electronic Signature): 09/16/2021 5:53 pm (If Report Is Signed, Electronically Signed in Other Vendor System) [facility] Comment on above: Order Comment: AP & Lateral, Portable in PACU Operative Reporton Operative Report DATE OF SURGERY: 07/27 PRE-OP DIAGNOSIS: Left knee primary osteoarthritis POST-OP DIAGNOSIS: Same PROCEDURE: Left total knee arthroplasty SURGEON: Attila Pinedo M.D. ACTIVITIES LEADER: Last Robert ([place]k was needed for help with positioning of the extremity, retraction of soft tissues, instrumentation, and wound closure.) ANESTHESIA: Spinal with NELLIE COMPLICATIONS: None EBL: 100 mL TOURNIQUET TIME: 29 minutes at 250 mm Hg DISPOSITION: Stable to the recovery room IMPLANTS: [employer] size 7 left Legion CR Oxinium femur, size 6 left tibia, 9 mm CR High Flex XLPE polyethylene, 38 mm oval patellar button. INDICATIONS: Patient presented with chronic, progressive knee pain that failed to improve with non-surgical measures. Patient had pain that limited quality of life and elected to undergo total knee replacement. Informed consent was obtained following discussion of risks and benefits. DESCRIPTION OF PROCEDURE: The patient was identified in the preoperative holding area. With the patient's agreement, the operative knee was marked as for the site of surgery. The patient was taken to the operating room and placed supine on the operating room table. General anesthesia was induced. Prophylactic IV antibiotics were administered. A well-padded tourniquet was applied to the patient's operative thigh. The operative extremity was then prepped and draped in the usual sterile fashion. Preoperative timeout was taken to ensure the proper patient, surgical site and procedure. After all parties in agreement, we began by creating a longitudinal incision over the anterior aspect of the knee. Sharp dissection was carried down through the skin and subcutaneous fat. Hemostasis was secured with electrocautery. Medial parapatellar arthrotomy was then created. A portion of the fat pad was excised to allow for lateral visualization. The ACL was then excised. The intramedullary canal of the femur was then opened distally and the intramedullary alignment milly was placed. The distal femoral cutting block was then secured to the distal femur in 5 degrees valgus and the distal femoral cut was completed with soft tissue retractors in place. The PCL retractor was placed behind the tibia. Collateral retractors were placed medially and laterally. The extramedullary alignment milly for the proximal tibial cutting guide was then applied to the tibia. The tibial cutting guide was then secured to the proximal tibia matching the patient's hoopa slope and perpendicular to the longitudinal axis of the tibia in the coronal plane. The proximal tibial cut was then completed with soft tissue retractors in place. The patient was then brought out to extension. The knee was provisionally balanced in the coronal plane using extension blocks. Alignment imlly was used to confirm coronal plane alignment. The knee was then placed in 90 degrees of flexion and the flexion gap was balanced using soft-tissue tension, Eusebio's line and the transepicondylar axis as references. Drill holes were made through the sizing guide and the femur was sized. The posterior reference cutting block was then applied and the distal femoral cuts were then completed with soft tissue retractors in place. The medial and lateral menisci were then removed along with osteophytes from the posterior condyle. The appropriately-sized tibial trial was then pinned into place and the femoral trial was implanted. Polyethylene trial was then placed within the knee joint. The patient was able to reach full extension to gravity flexion to 130 degrees. The knee was well-balanced in flexion, mid-flexion and extension. We then cut and prepared the patella, leaving a minimum thickness of 14 mm. The trial button was then placed. The patient was again taken through full range of motion. The knee was noted to be well-balanced. There was no patellar maltracking. The extremity was then exsanguinated with an Esmarch bandage and the tourniquet was inflated. We then completed preparation of the femur and tibia. The knee was copiously irrigated with sterile saline impregnated with Ancef and gentamicin antibiotic. Local anesthetic solution was then injected around the posterior capsule and into the periosteum around the femur. Cement was then mixed on the back table under vacuum pressurization. The tibial, femoral and patellar components were then cemented into place, and the knee was held in extension with a polyethylene trial in place as the cement cured. Remaining solution of local anesthetic was then injected along anterior arthrotomy and subcutaneously along the incision. After the cement hardened the knee was again taken through range of motion. The patient was noted to have full extension, flexion to greater than 130 degrees. The knee was well-balanced throughout motion. Therefore, the final polyethylene component was placed within the knee joint. The tourniquet was then released. Hemostasis was secured with electrocautery. The knee was again copiously irrigated. T (more content not included)... Normal [facility] CoV2 Agon 09-14-2021 Employed in healthcare? Unknown [facility] Comment on above: Performed By: #### C [id number] #### [place] [address] Group care resident? Unknown [facility] Comment on above: Performed By: #### C [id number] #### [address] [id number] In ICU? No Normal [facility] Comment on above: Performed By: #### C [id number] #### [address] [address] status? Not Applicable Normal [facility] Comment on above: Performed By: #### C [id number] #### [address] [address] SARS-CoV-2 (COVID-19) RNA JOYCE+probe Ql (Unsp spec) Negative Normal Negative [facility] Comment on above: Result Comment: Nega tive results from patients with symptom onset outside of one to six days should be treated as presumptive. A false-negative test result may occur if the level of viral antigen in a sample is below the detection limit of the test or if the sample was collected or transported improperly; therefore, a negative test result does not eliminate the possibility of SARS-CoV-2 infection. Negative results should not be used as the sole basis for treatment or patient management decisions, including infection control decisions. Negative results should be considered in the context of a patient?s recent exposures, history and the presence of clinical signs and symptoms consistent with COVID-19. ADDITIONAL INFORMATION: Testing performed on the [employer] [facility] using the SARS-CoV-2 Antigen test. Results are for the identification of SARS-CoV-2 nucleocapsid antigen. The VITROS SARS-CoV-2 Antigen test can detect both viable and non-viable SARS-CoV-2 material. The VITROS SARS-CoV-2 Antigen test performance depends on antigen load and may not correlate with other diagnostic methods performed on the same specimen. The performance of this test has not been evaluated for use in patients without signs and symptoms of respiratory infection. Test results should be considered in the context of all available clinical and diagnostic information, including patient history and other test results. In the [place], the VITROS SARS-CoV-2 Antigen test is only for use under the Food and Drug Administration?s Emergency Use Authorization. HCP Fact Sheet: https://www.fda.gov/media/736211/download Patient Fact Sheet: https://www.fda.gov/media/007698/download Performed By: #### C [id number] #### [address] [place] [address] SARS-CoV-2 (COVID-19) RNA JOYCE+probe Ql (Unsp spec) No Normal [facility] Comment on above: Performed By: #### C [id number] #### [address] [address] SARS-CoV-2 (COVID-19) RNA JOYCE+probe Ql (Unsp spec) Unknown Normal [facility] Comment on above: Performed By: #### C [id number] #### [address] [address] Symptomatic as defined by CDC? No Normal [facility] Comment on above: Performed By: #### C [id number] #### [address] [address] .eGFRon 09-06-2021 eGFR AA >60 Normal >=60 [facility] Comment on above: Result Comment: See comment. Performed By: #### E GFR #### [address] [address] eGFR Non-AA >60 Normal >=60 [facility] Comment on above: Result Comment: Stag es of Chronic Kidney Disease GFR Stage 3a Mild to moderate loss of kidney function 59 to 45 Stage 3b Moderate to severe loss of kidney function 44 to 33 Stage 4 Severe loss of kidney function 29 to 15 Stage 5 Kidney failure Less than 15 GFR calculated using the CKD-EPI Creatinine Equation (2009): eGFR = 141 X min(SCr/?, 1)? X max(SCr /?, 1)-1.209 X 0.993Age X 1.018 [if female] X 1.159 [if Black] Abbreviations/Units: eGFR (estimated glomerular filtration rate) = mL/min/1.73 m2 SCr (standardized serum creatinine) = mg/dL ? = 0.7 (females) or 0.9 (males) ? = -0.329 (females) or -0.411 (males) min = indicates the minimum of SCr/? or 1 max = indicates the maximum of SCr/? or 1 age = years Performed By: #### E GFR #### [address] [address] Basic Metabolic Profileon Anion gap [Moles/Vol] 12 mmol/L Normal 7-17 [facility] Comment on above: Performed By: #### C [id number] #### [address] [address] Calcium [Mass/Vol] 9.5 mg/dL Normal 8.5-10.3 [facility] Comment on above: Performed By: #### C [id number] #### [address] [address] Chloride [Moles/Vol] 100 mmol/L Normal 98-110 [facility] Comment on above: Performed By: #### C [id number] #### [address] [address] CO2 [Moles/Vol] 29 mmol/L Normal 22-32 [facility] Comment on above: Performed By: #### C [id number] #### [address] [address] Creatinine [Mass/Vol] 1.02 mg/dL Normal 0.61-1.24 [facility] Comment on above: Performed By: #### C [id number] #### [address] [address] Glucose [Mass/Vol] 104 mg/dL High 70-99 [facility] Comment on above: Performed By: #### C [id number] #### [address] [address] Potassium [Moles/Vol] 4.4 mmol/L Normal 3.4-4.8 [facility] Comment on above: Performed By: #### C [id number] #### [address] [address] Sodium [Moles/Vol] 137 mmol/L Normal 133-142 [facility] Comment on above: Performed By: #### C [id number] #### [address] [address] Urea nitrogen [Mass/Vol] 18 mg/dL Normal 8-26 [facility] Comment on above: Performed By: #### C [id number] #### [address] [address] Urea nitrogen/Creatinine [Mass ratio] 17.6 mg/mg Normal 10.0-20.0 [facility] Inc Comment on above: Performed By: #### C D:[id number] #### [address] [address] CBC w/ Diffon 09-06-2021 Erythrocyte distribution width (RBC) [Ratio] 12.8 % Normal 11.6-14.8 [facility] Comment on above: Performed By: #### C BC #### [address] [address] Hematocrit (Bld) [Volume fraction] 49.3 % Normal 41.0-53.0 [facility] Comment on above: Performed By: #### C BC #### [address] [address] Hemoglobin (Bld) [Mass/Vol] 16.8 g/dL Normal 13.5-17.5 [facility] Comment on above: Performed By: #### C BC #### [address] [address] MCH (RBC) [Entitic mass] 31.3 pg Normal 27.0-35.0 [facility] Comment on above: Performed By: #### C BC #### [address] [address] MCHC 34.0 % Normal 31.0-37.0 [facility] Comment on above: Performed By: #### C BC #### [address] [address] MCV (RBC) [Entitic vol] 92.0 fL Normal 80.0-100.0 [facility] Comment on above: Performed By: #### C BC #### [address] [address] Platelet 203 x10*3/mcL Normal 150-350 [facility] Comment on above: Performed By: #### C BC #### [address] [address] Platelet mean volume (Bld) [Entitic vol] 7.9 fL Normal 6.7-10.6 [facility] Comment on above: Performed By: #### C BC #### [address] [address] RBC 5.36 x10*6/mcL Normal 4.30-5.80 [facility] Comment on above: Performed By: #### C BC #### [address] [address] WBC 4.7 x10*3/mcL Normal 4.5-11.0 [facility] Comment on above: Performed By: #### C BC #### [address] [address] Diff Autoon 09-06-2021 Baso Absolute 0.1 x10*3/mcL Normal 0.0-0.2 [facility] Comment on above: Performed By: #### . Automated Diff #### [address] [address] Basophils/100 WBC (Bld) 1.1 % Normal 0.0-1.2 [facility] Comment on above: Performed By: #### . Automated Diff #### [address] [address] Eos Absolute 0.1 x10*3/mcL Normal 0.0-0.4 [facility] Comment on above: Performed By: #### . Automated Diff #### [address] [address] Eosinophils/100 WBC (Bld) 3.0 % Normal 0.0-6.1 [facility] Comment on above: Performed By: #### . Automated Diff #### [address] [place] [address] Lymph Absolute 1.8 x10*3/mcL Normal 1.0-4.8 [facility] Comment on above: Performed By: #### . Automated Diff #### [address] [address] Lymphocytes/100 WBC (Bld) 38.6 % Normal 27.2-40.8 [facility] Comment on above: Performed By: #### . Automated Diff #### [place] [id number] [place] Absolute 0.6 x10*3/mcL Normal 0.3-1.1 [facility] Comment on above: Performed By: #### . Automated Diff #### [address] [address] Monocytes/100 WBC (Bld) 12.2 % Normal 4.7-13.9 [facility] Comment on above: Performed By: #### . Automated Diff #### [address] [address] Neutro Absolute 2.1 x10*3/mcL Normal 1.8-7.7 [facility] Comment on above: Performed By: #### . Automated Diff #### [place] [id number] Neutro Auto 45.1 % Low 47.2-70.8 [facility] Comment on above: Performed By: #### . Automated Diff #### [address] [address] MRSA, PCRon 09-06-2021 Methicillin Resistant Staph aurus(MRSA) Negative Normal [facility] Comment on above: Result Comment: The CepFST21 Xpert MRSA Assay is a qualitative in vitro diagnostic test designed for rapid detection of Methicillin-Resistant Staphylococcus aureus (MRSA) from nasal swabs in patients at risk for nasal colonization.The test utilizes automated real-time polymerase chain reaction (PCR) to detect MRSA DNA,because the detection of MRSA is dependent on the number of organisms present. A positive test result does not necessarily indicate the presence of viable organism. It is however,presumptive for the presence of MRSA.Test results might be affected by concurrent antibiotic therapy. Therefore, therapeutic success or failure cannot be assessed using this test because DNA might persist following antimicrobial therapy. Mutations or polymorphisms in primer or probe binding regions may affect detection of new or unknown MRSA variants resulting in a false negative result. Results from the Xpert MRSA Assay should be interpreted in conjunction with other laboratory and clinical data available to the clinician. Performed By: #### M [facility] #### [facility] [address] [place] [address] No Panel Informationon 07-06 [facility] XR knee LT 2Von 06-05-2021 XR knee LT 2V [facility] [place] [address] [place] [address] XRay Report Signed Patient: Jose Cha MR#: [id number] 5 : 1965 Acct:[id number] Age/Sex: 56 / M ADM Date: 06/05/21 [place] [facility] [place] Type: [facility] Attending Dr: Israel Arevalo MD Ordering Provider: Israel Arevalo MD Date of Service: 06/05/21 XR/XR knee LT 2V: Acute pain of left knee Copies to: Israel Arevalo MD 2 views LEFT knee plain film COMPARISON:None HISTORY:LEFT knee pain for months. Moderate suprapatellar joint effusion noted. No fracture or dislocation. Medial compartment joint space narrowing. 1 cm medial femoral osteochondral defect present. Marginal spurring. The vascular clips. XR/XR knee LT 2V IMPRESSION:Medial compartment degeneration with medial femoral condyle osteochondral defect. Moderate suprapatellar effusion. Impression dictated by: Wicho Martinez M.D.06/05/2021 4:13 PM Dictation Location: [place] [address] Transcribed By: [facility] 06/05/21 1613 Dictated By: Wicho Martinez DO 06/05/21 1608 Signed By: 06/05/21 1613 [facility] XR CHEST PORTABLEon 02-08-20 20 No acute abnormality. [facility] [place] [place] EXAMINATION: ONE XRA Y VIEW OF THE CHEST 02/08/2020 8:11 pm COMPARISON: 09/12/2014 HISTORY: ORDERING SYSTEM PROVIDED HISTORY: cough, fever TECHNOLOGIST PROVIDED HISTORY: cough, fever FINDINGS: Trachea is essentially midline. No lung infiltrate or consolidation. No pneumothorax or pleural effusion. Heart size is normal. [facility] Incoming R adiant Results From [facility]Pacs - 02/08/2020 8:19 PM EDT EXAMINATION: ONE XRAY VIEW OF THE CHEST 02/08/2020 8:11 pm COMPARISON: 09/12/2014 HISTORY: ORDERING SYSTEM PROVIDED HISTORY: cough, fever TECHNOLOGIST PROVIDED HISTORY: cough, fever FINDINGS: Trachea is essentially midline. No lung infiltrate or consolidation. No pneumothorax or pleural effusion. Heart size is normal. IMPRESSION: No acute abnormality. [facility] VU AVENDANO ANES Veronica 03-17-2018 ANES POST HNO ID: [id number] thor: Charu Damonervice: AnesthesiologyAuthor Type: AnesthesiologistType: Anesthesia PostOpFiled: 03/17/2018 2:33 PMNote Text:POST ANESTHESIA EVALUATION NOTESERVICE DATE: 03/17/2018SERVICE TIME: 2:33 PMDOB: 1965Vitals: 03/17/1814Temp: 36.6 ?C (97.9 ?F) 36 ?C (96.8 ?F) 03/17/1814BP: 142/91 143/85 163/85 03/17/1814Pulse: 84 92 90 03/17/1814Resp: 16 20 18 03/17/1814SpO2: 98% 96% 96%Validated Vital Signs: YesPOST ANES STATUS: No apparent anesthetic complications. The patient isappropriately hydrated with stable respiratory and cardiovascular status.Patient has safe and adequate airway control. The patient has appropriatepain relief and no significant post operative nausea or vomiting. Thepatient has achieved baseline mental status.Further assessment by Anesthesia Service: NoneOther Remarks:SIGNATURE: Charu Sin MD PATIENT NAME: Jose ChaDATE: March 17, 2018 : 2:33 PM PAGER/CONTACT #: Chelsi [facility] ANEMarisol PREOPon 03-17-2018 ANES PREOP HNO ID: [id number] thor: Charu NiBeaver Valley Hospitalervice: AnesthesiologyAuthor Type: AnesthesiologistType: Anesthesia PreOpFiled: 03/17/2018 11:01 AMNote Text:REGIONAL ANESTHESIOLOGY DAY OF SURGERY NOTEPATIENT NAME: Jose MooreN: [id number]: 1965Procedure(s) (LRB):RELEASE TENDON EXTREMITY LOWER (Left)Surgeon(s):Rosemarie EidEstimated body mass index is 33.52 kg/m? as calculated from the following: Height as of 03/11/18: 175.3 cm (5' 9 ). Weight as of this encounter: 103 kg (227 lb).ASA Class: 2Adequate NPO status: YesAllergies:ALLERGIESAller gen Reactions- Fiqbgwq-Vez-Spy Red* MyalgiaAirway Assessment: MP 2; Neck ROM: Full ROM without neurologic symptoms;Airway Evaluation: Whyte PresentDentition: Teeth intactSymptoms of Sleep Apnea: DeniesMost recent lab results:Hemoglobin 16.4 08/10/2015Hematocrit 47.7 08/10/2015Potassium 4.5 08/10/2015Platelet Count 209 08/10/2015Creatinine 1.07 08/10/2015EKG:Diagnosis:NORM AL SINUS RHYTHMNONSPECIFIC INTRAVENTRICULAR CONDUCTION DELAYABNORMAL ECG?Vitals: 055BP: 142/91Pulse: 84Resp: 16Temp: 36.6 ?C (97.9 ?F)TempSrc: Temporal ArterySpO2: 98%Weight: 103 kg (227 lb)Previous Anesthesia: No history of adverse event Family history ofanesthetic problems: NoneAdditional Physical Exam:Lungs: Lungs clear to auscultation. Good diaphragmatic excursion.Cardiac: Normal S1 and S2; no rubs, no murmurs and no gallopsAdditional pertinent findings: N/AOther Medical Problems/ Important Considerations:Denies chest pain and SOB with exertion.Chronic Beta Nida medication administered within 24 hours: N/AAnesthetic risks, benefits, alternatives, personnel and consent discussed:YesPatient agrees to proceed: YesBlood Products: Not anticipated for this procedureAnesthetic Plan: General ETT; Standard ASA MonitorsPain Management Plan: Parenteral or Oral and Peripheral Nerve BlockEPIC Chart ReviewACTIVE PROBLEM LISTOther Joint Derangement, Not Elsewhere Classified, Shoulder RegionParoxysmal Tachycardia, Unspecified (Hcc)Esophageal RefluxSvt (Supraventricular Tachycardia) (Hcc)Gastroesophageal reflux diseaseEncounter for screening colonoscopy for rql-lezn-hteq patientPalpitationsChest PainPAST MEDICAL HISTORYDiagnosis Date- Arrhythmia SVT- Chest pain- Complication of anesthesia nausea- Esophageal reflux- Palpitations- Paroxysmal tachycardia, unspecified (HCC)- Snoring- SVT (supraventricular tachycardia) (HCC)PAST SURGICAL HISTORYProcedure Laterality Date- COLONOSCOPY 09/07/15 /Rpt in 5 years- EGD 09/07/15 Dr. Leonard- HERNIA REPAIR HX- PAST SURGICAL HISTORY OF 2005 [facility]- PAST SURGICAL HISTORY OF L leg vein stripping- REPAIR ROTATOR CUFF,ACUTE 08/24/05 right shoulder arthroscopy, labrum tearFAMILY HISTORYProblem Relation Age of Onset- COPD Father- Coronary Artery Disease MotherSocial History:Social HistorySubstance Use Topics- Smoking status: Never Smoker- Smokeless tobacco: Never Used- Alcohol use 1.5 oz/week 1 Cans of Beer (12oz) per week Comment: socially; dtybggmy-2-4 cups per dayNo current facility-administered medications on file prior to encounter.Current Outpatient Prescriptions on File Prior to Encounter:EVOLOCUMAB (REPATHA SYRINGE SUBCUTANEOUS) Inject subcutaneously every 2weeks. as directedesomeprazole (NEXIUM) 40 mg capsule Take 40 mg by mouth twice daily asneeded.diltiazem CD (CARTIA XT) 180 mg ORAL 24 hr capsule Take 1 capsule by mouthonce daily.Fish Oil-DHA-EPA (FISH OIL) 1,200-144-216 mg ORAL Cap Take 1 capsule bymouth once daily.multivitamins(MULTIPL E VITAMIN TAB) Take one(1) tablet daily.ASPIRIN 81 MG TAB Take one (1) tablet daily .Inpatient medications reviewed in [facility].I have interviewed and examined the patient. I have reviewed the medicalrecord and/or the pre-anesthesia evaluation, pertinent labs, and testresults.Significant changes in the patient's condition since the History andPhysical, not otherwise documented in primary service progress notes: [facility] contains updated information obtained within 48 hours ofSurgery/Procedure.SIGNATU RE: Charu Sin MD PATIENT NAME: Jose KhanTE: March 17, 2018 : 10:59 AM PAGER/CONTACT #: [facility] BRIEF OP NOTon 03-17-2018 BRIEF OP NOT HNO ID: [id number] thor: Rosemarie Damon: PodiatryAuthor Type: PhysicianType: Brief Op NoteFiled: 03/17/2018 1:52 PMNote Text:PODIATRIC SURGERYBRIEF OPERATIVE / PROCEDURE NOTELOG ID: [id number]/Procedure Date: 03/17/2018Incision/Procedure Start Time: 12:42 PMIncision Close/Procedure End Time: 1:33 PMSurgeon(s)/Proceduralist( s) and Fountain Jerk(s):Surgeon(s) and Role: * Rosemarie Eid - Primary * Kodak Bates - Resident - AssistingProcedure(s): Open debridement of Achilles tendon with Tenex andapplication of PRP, Left foot.Anesthesia: GeneralFindings: Consistent with pre-operative diagnosisEstimated Blood Loss: Less than 5 mlsSpecimens: NoneComplications: NonePre-Op/Pre-Procedure Diagnosis: Unspecified disorder of synovium andtendon, left lower leg [M67.962]Post-Op/Post-Proce dure Diagnosis: Unspecified disorder of synovium andtendon, left lower leg [M67.962]SIGNATURE: Rosemarie Eid DPM PATIENT NAME: Jose KhanTE: March 17, 2018 : 1:51 PM PAGER/CONTACT #:[phone] (Electronic Parts Salesperson Resident) [facility] HISTORY PHYSICALon 8 HISTORY PHYSICAL HNO ID: [id number] thor: Kodak Tenorio: PodiatryAuthor Type: ResidentType: HANDPFiled: 03/17/2018 11:31 AMNote Text:PODIATRIC HISTORY AND PHYSICAL UPDATEEVALUATION DATE: 03/17/2018EVALUATION TIME: 11:30 AMThe documented History and Physical (completed in the past 30 days) hasbeen reviewed and the patient had a confirmatory musculoskeletal examperformed. The contents of the pre-operative assesment accurately reflectthe patient's condition with the following additions or revisions sincethe HANDP was completed:No changes.This HANDP can be found in the record dated 03/11/18.SIGNATURE: Kodak Bates, DPM PGY-II PATIENT NAME: Jose ChaDATE: March 17, 2018 : 11:30 AM [facility] NURSING PROGon 03-17-2018 NURSING PROG HNO ID: [id number] thor: Denia (Rn) DUNIA Coronaervice: NursingAuthor Type: Registered NurseType: Nursing Progress NoteFiled: 03/18/2018 12:45 PMNote Text:Nursing Progress Note Topic of Note:Post op phone callCharjose [id number] doing well. NWB LLE. Nerve block still working, starting to feel likefoot is falling asleep . Pt started taking pain meds.Pt states breathing feels good. Using incentive spirometry every hours upto 2000 now. Yesterday pt was only able to get to 1500 with a lot ofeffort.This note was completed by: Denia Corona RN [facility] INR Coag RelTime (Bld) HNO ID: [id number]: Kayla (Rn) DUNIA Myerservice: NursingAuthor Type: Registered NurseType: Nursing Progress NoteFiled: 03/17/2018 4:01 PMNote Text:Pt doing well/no complaints of pain, no GI complaints, taking po well,noted vss with pox remaining 91-93 %, with home instructions pt and wifeinstructed in IS use, demonstrating easily, lungs are clear t/o did Shayyr Saurabh on pt pox trend as it were, Dr. Wiley also examined , lungsclear. Spoke to pt and on resp status and home instructions/ ptremains alert/appropriate, denies any pain or SOB, follow with home goinginstructions. Also noting pain block care as well./ Normal [facility] OPERATIVE NOon 03-17-2018 OPERATIVE NO HNO ID: [id number] thor: Rosemarie Damon: PodiatryAuthor Type: PhysicianType: Operative ReportFiled: 03/18/2018 7:54 AMNote Text:PODIATRIC SURGERYOPERATIVE REPORTLOG ID: [id number]/Procedure Date: 03/17/2018Incision/Procedure Start Time: 12:42 PMIncision Close/Procedure End Time: 1:33 PMSurgeon(s)/Proceduralist( s) and Fountain Jerk(s):Surgeon(s) and Role: * Rosemarie Eid - Primary * Kodak (Res) Walker - Resident - AssistingNo Additional StaffProcedure(s): Open debridement of Achilles tendon with Tenex andapplication of PRP, Left foot.Anesthesia: GeneralPre-Op/Pre-Procedure Diagnosis: Unspecified disorder of synovium andtendon, left lower leg [M67.962]Post-Op/Post-Proce dure Diagnosis: Unspecified disorder of synovium andtendon, left lower leg [M67.962]Estimated Blood Loss: Less than 5mLHemostasis: Thigh tourniquet @ 300mmHgSpecimens: NoneImplantable Devices: NoneDrains: NoneComplications: NoneOPERATIVE PROCEDUREINDICATIONS: Please see the previous progress note. All risks, benefits,complications and alternatives of the procedure were discussed in fullwith the patient. The patient appears to understand and wishes to proceed.Consent was signed and placed in the patient's chart. No guarantees weregiven. Patient has exhausted prior conservative care therapies of physicaltherapy, anti-inflammatories, and boot immobilization.PROCEDURE:Af ter having received preoperative antibiotics and anticoagulant therapy,the patient was taken to the operating room and placed on the table in aprone position, where he underwent successful general anesthesia. Blooddraw was performed for PRP to be used later in the case. A thightourniquet was applied. The leg was prepped and draped in the usualsterile manner. Tourniquet was inflated to 300mmHg.Attention was directed to the posterior calf and Achilles tendon of theleft leg, where palpable hypertrophy was appreciated approximately 4cmfrom the insertion. An approximately 2 cm slightly medialized incision wasmade directly overlying this area, first sharply and then bluntly.Bleeders cauterized where appropriate. Dissection was carried down to thelevel of visible paratenon, and a centralized linear incision was madethrough this. Dissection was completed bluntly to gently separate theparatenon from underlying Achilles tendon. Once the Achilles tendon wasidentified, it was palpated and noted to be generally fibrotic andmoderately calcific at the area of visible hypertrophy. The Tenexultrasound probe was used to identify areas of intra-substance thickening.The Tenex probe was then inserted parallel to the fibers of the Achillestendon and used per log peeler's guidelines for a total of five minutes.This instrumentation was successful at debridement of intra-substancefibrosis and able to remove some bulk of the hypertrophied portion of theAchilles tendon. Following use of the Tenex, there was still appreciablebulk in an anterior-posterior direction and decision was made to reducethis sharply with a #15 blade on the anterior aspect of the Achillestendon. Approximately 10% of the A-P diameter of the Achilles was debulkedin this manner in the area of appreciable hypertrophy. Following, theAchilles was palpably flush along it's entire length posteriorly.The surgical site was then irrigated with copious amounts of saline. Theparatenon was closed with 3-0 Vicryl. Following this, 3cc of PPP wasapplied along the Achilles. Few subcutaneous interrupted sutures were thenplaced also with 3-0 Vicryl, and subcuticular closure was performed withrunning 4-0 monocryl followed by overlying simple interrupted sutures with4-0 nylon. The tourniquet was then deflated and capillary refill time wasappreicated to all incision edges and digits, and no active bleeding wasseen. A total of 3cc of PRP was injected into the Achilles underlying theskin closure. Dry sterile dressing and a well-padded posterior splint inslight equinus was applied.The patient tolerated the procedure well and without complications. Aftera period of postoperative monitoring, the patient will be discharged homeper same-day criteria with instructions for post operative care and rxpain medication. The patient will follow-up in a period of one week orless should any problems or questions arise. The prognosis forpostoperative healing is very good. All emergency contact numbers andresident pager numbers have been made available to the patient should anyproblems or questions arise.Rosemarie Eid DPM, AACFASSIGNATURE: Rosemarie Eid DPM PATIENT NAME: Jose ChaDATE: March 17, 2018 : 1:49 PM PAGER/CONTACT #:[phone] (Electronic Parts Salesperson Resident) [facility] PROGRESSon 03-17-2018 PROGRESS HNO ID: [id number] thor: Kodak BatesService: PodiatryAuthor Type: ResidentType: Progress NotesFiled: 03/17/2018 11:30 AMNote Text:PODIATRIC PRE-OPERATIVE NOTESERVICE DATE: 03/17/2018SERVICE TIME: 11:30 AMDIAGNOSIS:I. Achilles tendinopathy, left.PROCEDURE(S):I. Achilles tendon debridement using Tenex and application of PRP, left.Consent on chart: YesLABS:CBC:WBC 4.68 08/10/2015Hemoglobin 16.4 08/10/2015Hematocrit 47.7 08/10/2015Platelet Count 209 08/10/2015CMP:Sodium 139 08/10/2015Potassium 4.5 08/10/2015BUN 16 08/10/2015Creatinine 1.07 08/10/2015Glucose 102 08/10/2015COAGS:No results found for this basename: aptt,inrURINALYSIS:No results found for this basename:uket,nitrites,spgr ,uprot,leukest,uwbc,ubacter iaType AND cross: NoMedical Clearance: YesCXR/EK/23 ECG, no CXRMedications/Preop Antibiotics: AncefALLERGIESAllergen Reactions- Rqdlral-Lmt-Fxe Red* MyalgiaSurgical site identified: YesNPO: YesIV Fluids: Per anesthesiaRisks and benefits, complications, treatment options, expected outcome andrehabilitation explained, patient understands. All questions wereentertained and answered. Patient wishes to proceed with aboveprocedure(s).SIGNATURE : Kodak Bates DPM PGY-II PATIENT NAME: Jose ChaDATE: March 17, 2018 : 11:30 AM [facility] NURSING PROGon 03-13-2018 NURSING PROG HNO ID: [id number] thor: Archana Sears, RNService: NeurosurgeryAuthor Type: Registered NurseType: Nursing Progress NoteFiled: 03/13/2018 10:06 AMNote Text:PACC Nurse Progress NoteHistory AND Physical:PACC Visit Date: 6-0-40O[place]ypdu HANDP Date: N/AED visit Date: N/AOutside HANDP Scanned Date: N/ALabs Within Last 6 Months:N/AImaging Within Last 12 Months:N/ACardiac Testing:EKG in last 12 Months: Yes: Date: 12-03-17, Comment: epicBMI Percentile (PEDS):N/ARisk Assessment:N/AAnesthesia Review:N/ANarrative:N/APre- op Considerations:N/AChart Check:Gustavo Sears RNJunpablo 2017 10:05 AM [facility] HOSPon 03-05-2018 HOSP Patient:Shamir Cha WMRN: Height:5' 9 (1.753 m)Weight:227 lb (102.967 kg)Outpatient Medications as of 03/17/18:EVOLOCUMAB (REPATHA SYRINGE SUBCUTANEOUS)esomeprazole (NEXIUM) 40 mg capsulediltiazem CD (CARTIA XT) 180 mg ORAL 24 hr capsuleFish Oil-DHA-EPA (FISH OIL) 1,200-144-216 mg ORAL Capmultivitamins(MULTIPLE VITAMIN TAB)ASPIRIN 81 MG TABAdmission/Clinic Administered Medications as of 03/17/18:lactated ringers infusionlidocaine 10 mg/mL (1 %) 1-2 mg injection (XYLOCAINE)lactated ringers infusionceFAZolin iv piggyback 2 g in D5W (iso-osmotic) 100 mL (ANCEF)Problem List:Other joint derangement, not elsewhere classified, shoulder region [M24.819]Paroxysmal tachycardia, unspecified (HCC) [I47.9]Esophageal reflux [K21.9]SVT (supraventricular tachycardia) (HCC) [I47.1]Gastroesophageal reflux disease [K21.9]Encounter for screening colonoscopy for tls-foav-nqps patient [Z12.11]Palpitations [R00.2]Chest pain [R07.9]Allergies:Statins-Hm g-Coa Reductase InhibitorsDate Verified: 03/17/18Lab ValuesNo results within the last 30 days for the following basenames: K,HCTProgress Notes ():Archana Sears, RN, RN 03/13/2018 10:06 AM SignedPACC Nurse Progress NoteHistory AND Physical:PACC Visit Date: 3-5-01Jblwpfez HANDP Date: N/AED visit Date: N/AOutside HANDP Scanned Date: N/ALabs Within Last 6 Months:N/AImaging Within Last 12 Months:N/ACardiac Testing:EKG in last 12 Months: Yes: Date: 12-03-17, Comment: epicBMI Percentile (PEDS):N/ARisk Assessment:N/AAnesthesia Review:N/ANarrative:N/APre- op Considerations:N/AChart Check:Gustavo Sears RNJune 2017 10:05 Talia Bates DPM 03/17/2018 11:31 AM Cosign Needed AddendumPODIATRIC HISTORY AND PHYSICAL UPDATEEVALUATION DATE: 03/17/2018EVALUATION TIME: 11:30 AMThe documented History and Physical (completed in the past 30 days) has beenreviewed and the patient had a confirmatory musculoskeletal exam performed. Thecontents of the pre-operative assesment accurately reflect the patient'scondition with the following additions or revisions since the HANDP was completed:No changes.This HANDP can be found in the record dated 03/11/18.SIGNATURE: Kodak Bates DPM PGY-II PATIENT NAME: Jose ChaDATE: March 17, 2018 : 11:30 AMPrevious Aaron Bates DPM 03/17/2018 11:30 AM Cosign Needed AddendumPODIATRIC PRE-OPERATIVE NOTESERVICE DATE: 03/17/2018SERVICE TIME: 11:30 AMDIAGNOSIS:I. Achilles tendinopathy, left.PROCEDURE(S):I. Achilles tendon debridement using Tenex and application of PRP, left.Consent on chart: YesLABS:CBC:WBC 4.68 08/10/2015Hemoglobin 16.4 08/10/2015Hematocrit 47.7 08/10/2015Platelet Count 209 08/10/2015CMP:Sodium 139 08/10/2015Potassium 4.5 08/10/2015BUN 16 08/10/2015Creatinine 1.07 08/10/2015Glucose 102 08/10/2015COAGS:No results found for this basename: aptt,inrURINALYSIS:No results found for this basename:uket,nitrites,spgr ,uprot,leukest,uwbc,ubacter iaType AND cross: NoMedical Clearance: YesCXR/EK/23 ECG, no CXRMedications/Preop Antibiotics: AncefALLERGIESAllergen Reactions- Ltzadvz-Plm-Woe Red* MyalgiaSurgical site identified: YesNPO: YesIV Fluids: Per anesthesiaRisks and benefits, complications, treatment options, expected outcome andrehabilitation explained, patient understands. All questions were entertainedand answered. Patient wishes to proceed with above procedure(s).SIGNATURE: Kodak Bates DPM PGY-II PATIENT NAME: Jose ChaDATE: March 17, 2018 : 11:30 AMPrevious Luis Daniel Sin MD 03/17/2018 11:01 AM SignedREGIONAL ANESTHESIOLOGY DAY OF SURGERY NOTEPATIENT NAME: Jose GoodmanRN: [id number]: 1965Procedure(s) (LRB):RELEASE TENDON EXTREMITY LOWER (Left)Surgeon(s):Rosemarie Mohanated body mass index is 33.52 kg/m? as calculated from the following: Height as of 03/11/18: 175.3 cm (5' 9 ). Weight as of this encounter: 103 kg (227 lb).ASA Class: 2Adequate NPO status: YesAllergies:ALLERGIESAller gen Reactions- Jsuydtm-Slc-Utm Red* MyalgiaAirway Assessment: MP 2; Neck ROM: Full ROM without neurologic symptoms; AirwayEvaluation: Whyte PresentDentition: Teeth intactSymptoms of Sleep Apnea: DeniesMost recent lab results:Hemoglobin 16.4 08/10/2015Hematocrit 47.7 08/10/2015Potassium 4.5 08/10/2015Platelet Count 209 08/10/2015Creatinine 1.07 08/10/2015EKG:Diagnosis:NORM AL SINUS RHYTHMNONSPECIFIC INTRAVENTRICULAR CONDUCTION DELAYABNORMAL ECG?Vitals: 055BP: 142/91Pulse: 84Resp: 16Temp: 36.6 ?C (97.9 ?F)TempSrc: Temporal ArterySpO2: 98%Weight: 103 kg (227 lb)Previous Anesthesia: No history of adverse event Family history of anestheticproblems: NoneAdditional Physical Exam:Lungs: Lungs clear to auscultation. Good diaphragmatic excursion.Cardiac: Normal S1 and S2; no rubs, no murmurs and no gallopsAdditional pertinent findings: N/AOther Medical Problems/ Important Considerations:Denies chest pain and SOB with exertion.Chronic Beta Nida medication administered within 24 hours: N/AAnesthetic risks, benefits, alternatives, personnel and consent discussed: YesPatient agrees to proceed: YesBlood Products: Not anticipated for this procedureAnesthetic Plan: General ETT; Standard ASA MonitorsPain Management Plan: Parenteral or Oral and Peripheral Nerve BlockEPIC Chart ReviewACTIVE PROBLEM LISTOther Joint Derangement, Not Elsewhere Classified, Shoulder RegionParoxysmal Tachycardia, Unspecified (Hcc)Esophageal RefluxSvt (Supraventricular Tachycardia) (Hcc)Gastroesophageal reflux diseaseEncounter for screening colonoscopy for cpy-tahg-kxmg patientPalpitationsChest PainPAST MEDICAL HISTORYDiagnosis Date- Arrhythmia SVT- Chest pain- Complication of anesthesia nausea- Esophageal reflux- Palpitations- Paroxysmal tachycardia, unspecified (HCC)- Snoring- SVT (supraventricular tachycardia) (HCC)PAST SURGICAL HISTORYProcedure Laterality Date- COLONOSCOPY 09/07/15 /Rpt in 5 years- EGD 09/07/15 Dr. Leonard- HERNIA REPAIR HX- PAST SURGICAL HISTORY OF 2005 RI- PAST SURGICAL HISTORY OF L leg vein stripping- REPAIR ROTATOR CUFF,ACUTE 08/24/05 right shoulder arthroscopy, labrum tearFAMILY HISTORYProblem Relation Age of Onset- COPD Father- Coronary Artery Disease MotherSocial History:Social HistorySubstance Use Topics- Smoking status: Never Smoker- Smokeless tobacco: Never Used- Alcohol use 1.5 oz/week 1 Cans of Beer (12oz) per week Comment: socially; yuoehprc-1-5 cups per dayNo current facility-administered medications on file prior to encounter.Current Outpatient Prescriptions on File Prior to Encounter:EVOLOCUMAB (REPATHA SYRINGE SUBCUTANEOUS) Inject subcutaneously every 2 weeks.as directedesomeprazole (NEXIUM) 40 mg capsule Take 40 mg by mouth twice daily as needed.diltiazem CD (CARTIA XT) 180 mg ORAL 24 hr capsule Take 1 capsule by mouth oncedaily.Fish Oil-DHA-EPA (FISH OIL) 1,200-144-216 mg ORAL Cap Take 1 capsule by mouthonce daily.multivitamins(MULTIPL E VITAMIN TAB) Take one(1) tablet daily.ASPIRIN 81 MG TAB Take one (1) tablet daily .Inpatient medications reviewed in [facility].I have interviewed and examined the patient. I have reviewed the medical recordand/or the pre-anesthesia evaluation, pertinent labs, and test results.Significant changes in the patient's condition since the History and Physical,not otherwise documented in primary service progress notes: NoThis contains updated information obtained within 48 hours of Surgery/Procedure.SIGNATURE : Charu Sin MD PATIENT NAME: Jose ChaDATE: March 17, 2018 : 10:59 AM PAGER/CONTACT #: [facility] Vital Signs Date Time Vital Sign Value Performing Clinician Pascuali bhaskar 08-17-2024 14:50-0500 Body height 175.3 cm Israel Rocha MD Work Phone: [facility] 08-17-2024 14:50-0500 Body mass index (BMI) [Ratio] 35.15 kg/m2 Israel Rocha MD Work Phone: [facility] 08-17-2024 14:50-0500 Body weight 107.96 kg Israel Rocha MD Work Phone: [facility] 08-17-2024 14:50-0500 Diastolic blood pressure 84 mm[Hg] Israel Rocha MD Work Phone: [facility] 08-17-2024 14:50-0500 Heart rate 71 /min Israel Rocha MD Work Phone: [facility] 08-17-2024 14:50-0500 Systolic blood pressure 136 mm[Hg] Israel Rocha MD Work Phone: [facility] 09-02-2023 09:02-0500 Body height 175.3 cm Israel Rocha MD Work Phone: [facility] 09-02-2023 09:02-0500 Body weight 108.41 kg Israel Rocha MD Work Phone: [facility] 09-02-2023 09:02-0500 Diastolic blood pressure 76 mm[Hg] Israel Rocha MD Work Phone: [facility] 09-02-2023 09:02-0500 Heart rate 65 /min Israel Rocha MD Work Phone: [facility] 09-02-2023 09:02-0500 Systolic blood pressure 128 mm[Hg] Israel Rocha MD Work Phone: [facility] 10-26-2022 10:22-0500 Body height 175.3 cm Israel Rocha MD Work Phone: [facility] 10-26-2022 10:22-0500 Body weight 106.59 kg Israel Rocha MD Work Phone: [facility] 10-26-2022 10:22-0500 Diastolic blood pressure 78 mm[Hg] Israel Rocha MD Work Phone: [facility] 10-26-2022 10:22-0500 Heart rate 61 /min Israel Rocha MD Work Phone: [facility] 10-26-2022 10:22-0500 Systolic blood pressure 128 mm[Hg] Israel Rocha MD Work Phone: [facility] 01-31-2022 14:14-0400 Body height 175.3 cm Hanna Mickey NUCLEAR MEDICINE PHYSICIAN.SUPERVISOR DENTURE DEPARTMENT Work Phone: [facility] 01-31-2022 14:14-0400 Body weight 102.97 kg Hanna Mickey NUCLEAR MEDICINE PHYSICIAN.SUPERVISOR DENTURE DEPARTMENT Work Phone: [facility] 01-31-2022 14:14-0400 Diastolic blood pressure 98 mm[Hg] Hanna Mickey NUCLEAR MEDICINE PHYSICIAN.SUPERVISOR DENTURE DEPARTMENT Work Phone: [facility] 01-31-2022 14:14-0400 Heart rate 80 /min Hanna Mickey NUCLEAR MEDICINE PHYSICIAN.SUPERVISOR DENTURE DEPARTMENT Work Phone: [facility] 01-31-2022 14:14-0400 Systolic blood pressure 156 mm[Hg] Hanna Mickey APRN.CNP Work Phone: [facility] 02-08-2020 19:28-0400 Body Temperature 102 [degF] Rosemarie VegaLavish Skate [facility] [place] 02-08-2020 19:28-0400 BP Diastolic 73 mm[Hg] Rosemarie VegaLavish Skate [facility] [place] , [place] 02-08-2020 19:28-0400 BP Systolic 124 mm[Hg] [facility] , [place] 02-08-2020 19:28-0400 Pulse (Heart Rate) 84 /min Rosemarie Lucky Pai [facility], [place] 02-08-2020 19:28-0400 Pulse Oximetry 95 % Rosemarie VegaLavish [employer] [facility] , [place] 02-08-2020 19:28-0400 Respiratory Rate 16 /min Rosemarie VegaLavish Skate [facility] Encounters Encounter Date Encounter Type Care Provider Facility Start: 05-24-2025 End: 05-24-2025 Orders Only Leah Manjarrez MD Work Phone: Cardiology Comment on above: Paroxysmal tachycard ia, unspecified (HCC) (Primary Dx); Obesity, Class II, BMI 35-39.9; AVNRT (AV abhay re-entry tachycardia) (HCC) Start: 05-17-2025 End: 05-17-2025 Orders Only Israel Rocha MD Work Phone: Cardiology Comment on above: Paroxysmal tachycard ia, unspecified (HCC) (Primary Dx) Start: 08-17-2024 End: 08-17-2024 Patient encounter procedure Israel Rocha MD Work Phone: Cardiology Comment on above: Paroxysmal tachycard ia, unspecified (HCC) (Primary Dx); AVNRT (AV abhay re-entry tachycardia) (HCC) Start: 08-17-2024 End: 08-17-2024 ambulatory ISRAEL ROCHA Facility:[facility] Start: 06-16-2024 End: 06-16-2024 ambulatory DESTINY VELA Facility:[facility] Start: 06-16-2024 End: 06-16-2024 Subsequent hospital visit by physician Card Injection Molecular Imaging Comment on above: WILLETT (dyspnea on exer tion) [R06.09] Start: 06-12-2024 End: 06-12-2024 Orders Only Israel Rocha MD Work Phone: Cardiology Comment on above: WILLETT (dyspnea on exer tion) (Primary Dx) Start: 06-04-2024 End: 06-04-2024 Orders Only Israel Rocha MD Work Phone: Cardiology Comment on above: Atrial tachycardia ( HCC) (Primary Dx); Paroxysmal tachycardia, unspecified (HCC); Chest pain, unspecified type Start: 01-07-2024 Office outpatient vi sit 15 minutes Meryl Caldwell Other [facility] Office Start: 09-18-2023 End: 09-19-2023 ambulatory Cory STEWART Facility:CD:[id number] Start: 09-04-2023 End: 09-05-2023 ambulatory Cory STEWART Facility:[facility] Start: 09-02-2023 End: 09-02-2023 Patient encounter procedure Israel Rocha MD Work Phone: Cardiology Comment on above: Paroxysmal tachycard ia, unspecified (HCC) (Primary Dx); Obesity, Class II, BMI 35-39.9 Start: 08-08-2023 ambulatory Cory MADRIDL Facility:[facility] Start: 08-01-2023 ambulatory Cory STEWART Facility:[facility] Start: 06-11-2023 Office outpatient ne w 20 minutes Meryl Caldwell Other [facility] Office Start: 2023 End: 2023 Patient encounter procedure Karthikeyan Cano DO Work Phone: Orthopaedics Comment on above: Left knee pain, unsp ecified chronicity (Primary Dx); Status post knee surgery; Iliotibial band syndrome of left side Start: 02-06-2023 Orders Only Israel barfield MD Work Phone: Cardiology Comment on above: SVT (supraventricula r tachycardia) (HCC) (Primary Dx) Start: 02-05-2023 End: 02-05-2023 ambulatory Arrhythm[facility] Monitoring [facility] Work Phone: Cardiology Comment on above: Event (14 days Zio) Start: 10-31-2022 Encounter for genera l adult medical examination without abnormal findings DR DESTINY VELA [facility] Start: 10-30-2022 End: 10-31-[address] DESTINY VELA Facility:[facility] Start: 10-30-2022 End: 10-31-2022 Encounter for general adult medical examination without abnormal findings DR DESTINY VELA Facility:[facility] Start: 10-26-2022 End: 10-26-2022 Patient encounter procedure Israel Rocha MD Work Phone: Cardiology Comment on above: 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) (Primary Dx); Atrial tachycardia (HCC); Palpitations Start: 09-06-2022 Orders Only Hilda Motley nd NUCLEAR MEDICINE PHYSICIAN.SUPERVISOR DENTURE DEPARTMENT Work Phone: Cardiology Comment on above: SVT (supraventricula r tachycardia) (HCC) (Primary Dx) Start: 08-17-2022 ambulatory Emily manjarrez Comment on above: Patient Education Start: 07-15-2022 ambulatory Israel barfield MD Work Phone: Cardiology Comment on above: Ablation Start: 07-11-2022 Orders Only Israel barfield MD Work Phone: Cardiology Comment on above: SVT (supraventricula r tachycardia) (HCC) (Primary Dx) Covid SelfCheck Inst ructions Prior to Surgery Start: 07-02-2022 Telephone encounter Israel thao MD Work Phone: Cardiology Comment on above: Received Outside Med [facility] Records Start: 06-29-2022 Telephone encounter Israel thao MD Work Phone: Cardiology Comment on above: Schedule Surgery (SV T RFA) Start: 06-26-2022 End: 06-26-2022 ambulatory Israel Rocha MD Work Phone: Cardiology Comment on above: SVT (supraventricula r tachycardia) (HCC) (Primary Dx) Start: 06-26-2022 End: 06-26-2022 Telemedicine consultation with patient Israel Rocha MD Work Phone: [facility] Start: 06-26-2022 Telephone encounter Israel thao MD Work Phone: Cardiology Comment on above: Received Outside Med ical Records Start: 06-25-[address] DESTINY VELA Facility :[facility] Start: 06-21-2022 ambulatory Israel barfield MD Work Phone: Cardiology Comment on above: Valentina H Start: 06-20-2022 ambulatory Israel barfield MD Work Phone: Cardiology Comment on above: SVT (2) Start: 06-19-2022 End: 06-20-2022 ambulatory Israel Rocha MD Work Phone: Cardiology Comment on above: SVT / Monika Start: 06-13-2022 End: 06-14-2022 ambulatory Israel Rocha MD Work Phone: Cardiology Comment on above: Palpitations Start: 06-12-2022 ambulatory Israel barfield MD Work Phone: Cardiology Comment on above: Palpitations Start: 05-14-2022 ambulatory Israel barfield MD Work Phone: [facility] Start: 05-14-2022 Patient encounter procedure Israel Rocha MD Work Phone: Cardiology Comment on above: Appointment Valentina Start: 05-12-2022 End: 05-12-[address] DESTINY VELA Facility:[facility] Start: 04-30-2022 End: 05-01-2022 ambulatory DESTINY VELA [facility] Start: 04-18-2022 Orders Only Israel barfield MD Work Phone: Cardiology Comment on above: SVT (supraventricula r tachycardia) (HCC) (Primary Dx) Start: 04-12-2022 ambulatory Israel barfield MD Work Phone: Cardiology Comment on above: Medication Interacti on Start: 02-19-2022 Orders Only Hilda Motley nd NUCLEAR MEDICINE PHYSICIAN.SUPERVISOR DENTURE DEPARTMENT Work Phone: Cardiology Comment on above: SVT (supraventricula r tachycardia) (HCC) (Primary Dx) Start: 02-06-2022 ambulatory Israel barfield MD Work Phone: Cardiology Comment on above: Diltiazem CR Dilitazem CR Start: 02-05-2022 ambulatory Israel barfield MD Work Phone: Cardiology Comment on above: After Ablation Start: 02-02-2022 Telephone encounter Israel thao MD Work Phone: Cardiology Comment on above: Post Dc Program Call - Needs Attn Start: 02-01-2022 Orders Only Tim Escoto PA-C Work Phone: Orthopaedics Start: 01-31-2022 End: 01-31-2022 Patient encounter procedure Hanna Arevalo NUCLEAR MEDICINE PHYSICIAN.SUPERVISOR DENTURE DEPARTMENT Work Phone: Cardiology Comment on above: SVT (supraventricula r tachycardia) (HCC) (Primary Dx); Palpitations Start: 01-31-2022 ambulatory Emily Toussaint RN [facility] Comment on above: Patient Education Start: 12-15-[address] DESTINY VELA Facility : Start: 12-08-2021 End: 12-09-2021 ambulatory DESTINY VELA [facility] Start: 12-08-2021 End: 12-08-2021 Subsequent hospital visit by physician Destiny Vela MD Work Phone: [facility] Start: 09-15-2021 End: 09-15-2021 ambulatory MD ATTILA ASTUDILLO SHAHIDA Facility:[facility] Start: 09-14-2021 End: 09-15-2021 ambulatory DESTINY VELA Facility:[facility] Start: 09-12-2021 Patient encounter status Emily Toussaint RN [facility] Work Phone: Start: 09-08-2021 End: 09-09-2021 ambulatory MD ATTILA ASTUDILLO SHAHIDA Facility:[facility] Start: 09-06-2021 End: 09-07-2021 ambulatory DESTINY VELA Facility:[facility] Start: 07-06-2021 End: 07-06-2021 Subsequent hospital visit by physician Xr [facility] Comment on above: Pain [R52] Start: 02-08-2020 End: 02-08-2020 Emergency department patient visit Rosemarie Vega Work Phone: [facility] Comment on above: Viral syndrome (Prim teo Dx) Start: 03-17-2018 Ambulatory ROSEMARIE PRATT [facility] Start: 07-01-2017 End: 07-02-2017 Ambulatory DEFAULT PHYSICIAN Facility:[facility] Procedures Date Procedure Procedure Detail Performing Clinician Start: 06-16-2024 Myocardial spect multiple studies Israel Rocha MD Work Phone: Start: 01-07-2024 Docrev cur meds by e lig clin Meryl Caldwell Start: 06-11-2023 Docrev cur meds by e lig clin [facility] Start: 10-30-[address] MANDI VELA Comment on above: Performed By: #### H STROPN, CMP #### [facility] [address] [address] [address] Adam Royal Start: 12-08-2021 Hepatic function panel Destiny Vela MD Work Phone: Start: 12-08-2021 Lipid 1996 panel - S sandrita or Plasma Israel Rocha MD Work Phone: Start: 07-06-2021 Radiologic exam knee complete 4/more views Karthikeyan Cano DO Work Phone: Start: 02-08-2020 Radiologic exam ches t single view Rosemarie Vega Work Phone: Start: 02-08-2020 Ecg routine ecg w/le ast 12 lds w/i&r Rosemarie Vega Work Phone: Start: 09-07-2015 Colonoscopy Emily Ra scan RN History of operative procedure on knee Status post knee surgery Karthikeyan Cano DO Work Phone: Plan of Treatment Date Care Activity Detail Author Start: 2040 RSV Vaccine (1 - 1-d ose 75+ series) RSV Vaccine (1 - 1-dose 75+ series) [facility] Start: 10-30-2027 PROSTATE CANCER SCREENING DISCUSSION PROSTATE CANCER SCREENING DISCUSSION [facility] Start: 10-30-2027 Prostate specific antigen measurement Prostate Cancer Screening Discussion [facility] Start: 12-08-2026 Lipid 1996 panel - S sandrita or Plasma Lipid Screening [facility] Start: 12-08-2026 Lipid panel Lipid Screening [facility] Start: 11-30-2025 End: 11-30-2025 Patient encounter procedure 11/30/2025 9:15 AM EST Office Visit Cardiology [address] [place] [address] Leah Manjarrez MD [address] [place], [place] [id number] DX H/O AFIB ( SEES DR ROCHA) Cardiology Comment on above: DX H/O AFIB ( SEES Mirian ROCHA) Start: 11-30-2025 End: 11-30-2025 ambulatory 11/30/2025 8:15 AM EST Procedure Cardiology [address] [id number] DX CARDIAC EVALUATION Cardiology Comment on above: DX CARDIAC EVALUATIO N Start: 08-29-2025 DTaP/Tdap/Td vaccine (2 - Td or Tdap) DTaP/Tdap/Td vaccine (2 - Td or Tdap) [facility] Start: 08-29-2025 Urine microalbumin profile DTaP,Tdap,Td Vaccine (2 - Td or Tdap) [facility] Start: 08-20-2025 DIABETES SCREEN DIABETES SCREEN [facility] Start: 08-20-2025 Diabetes Screening Diabetes Screenin g [facility] Start: 08-18-2025 End: 08-18-2025 Patient encounter procedure 08/18/2025 9:00 AM EST Office Visit Cardiology [address] [place] [address] Hanna Arevalo APRN.SUPERVISOR DENTURE DEPARTMENT [address] [place] [address] established EPS patient- web appt req Cardiology Comment on above: established EPS bhupinder ent- web appt req Start: 08-18-2025 End: 08-18-2025 ambulatory 08/18/2025 8:30 AM EST Procedure Cardiology [address] [id number] established EPS patient- web appt req Cardiology Comment on above: established EPS bhupinder ent- web appt req Start: 06-07-2025 Influenza vaccination Influenza Vacc ine (#1) [facility] Start: 01-31-2025 DIABETES SCREEN DIABETES SCREEN [facility] Start: 08-17-2024 End: 08-17-2024 Patient encounter procedure 08/17/2024 2:15 PM EST Office Visit Cardiology [address] [id number] Israel Rocha MD [address] [place] [address] Dx: SVT (supraventricular tachycardia) Cardiology Comment on above: Dx: SVT (supraventri cular tachycardia) Start: 08-17-2024 End: 08-17-2024 ambulatory 08/17/2024 1:15 PM EST Results Only Cardiology [address] [place] [address] Dx: SVT (supraventricular tachycardia) Cardiology Comment on above: Dx: SVT (supraventri cular tachycardia) Start: 06-16-2024 End: 06-16-2024 Patient encounter procedure Molecular Imaging Comment on above: Dx: WILLETT (dyspnea on exertion) [R06.09] Start: 06-07-2024 Covid-19 Vaccine () Covid-19 Vaccine () [facility] Start: 06-07-2024 Covid-19 Vaccine () Covid-19 Vaccine () [facility] Start: 06-07-2024 Influenza vaccination Influenza Vacc ine (#1) [facility] Start: 06-07-2023 Covid-19 Vaccine () Covid-19 Vaccine () [facility] Start: 09-01-2023 Influenza vaccination C [facility] Start: 10-07-2022 DEPRESSION ASSESSMENT DEPRESSION ASS ESSMENT [facility] Start: 06-07-2022 Influenza vaccination INFLUENZA (#1) [facility] Start: 12-18-2021 COVID-19 VACCINE (3 - Booster for Edwin series) COVID-19 VACCINE (3 - Booster for Edwin series) [facility] Start: 10-15-2021 COVID-19 VACCINE (3 - Booster for Edwin series) COVID-19 VACCINE (3 - Booster for Edwin series) [facility] Start: 10-07-2021 DEPRESSION ASSESSMENT [facility] Start: 06-07-2021 Influenza vaccination Flu vaccine (# 1) [facility] Start: 09-07-2020 Colonoscopy COLONOSCOPY [facility] Start: 09-07-2020 COLORECTAL CANCER SCREENING COLORECTAL CANCER SCREENING [facility] Start: 09-07-2020 Screening for malign ant neoplasm of colon [facility] Start: 06-07-2020 Influenza vaccination Flu vacc ine (Season Ended) [place], [place] Start: 2020 PROSTATE CANCER SCREENING DISCUSSION PROSTATE CANCER SCREENING DISCUSSION [facility] Start: 05-14-2018 Lipid panel Lipid screen [facility] Start: 2015 Pneumococcal Vaccine : 50+ (1 of 1 - PCV) Pneumococcal Vaccine: 50+ (1 of 1 - PCV) [facility] Start: 2015 Screening for malign ant neoplasm of colon Colon cancer screen colonoscopy [place], [place] Start: 2015 Shingles Vaccine (1 of 2) Shingles Vaccine (1 of 2) [facility] Start: 2015 SHINGRIX VACCINE (1 of 2) SHINGRIX VACCINE (1 of 2) [facility] Start: 2010 COLOGUARD (FIT-DNA) COLOGUARD (FIT-D NA) [facility] Start: [address] COLONOGRAPHY [facility] Start: 2010 FECAL OCCULT BLOOD FECAL OCCULT BLOO D [facility] Start: 2010 Screening for malign ant neoplasm of colon [facility] Start: 2010 SIGMOIDOSCOPY SIGMOIDOSCOPY [facility] Start: 2000 Lipid 1996 panel - S sandrita or Plasma Lipid Screening [facility] Start: 2000 LIPID SCREEN LIPID SCREEN [facility] Start: 1984 DTaP/Tdap/Td vaccine (1 - Tdap) DTaP/Tdap/Td vaccine (1 - Tdap) [place], [place] Start: 1984 Urine microalbumin profile DTAP,TDAP,TD (1 - Tdap) [facility] Start: 1983 Anxiety Screening Anxiety Screening [facility] Start: 1983 Depression Screening Depression Scre ening [facility] Start: 1983 HIV SCREENING HIV SCREENING [facility] Start: 1983 HIV screening HIV Screening [facility] Start: 1980 HIV screening HIV screen [facility] Start: 1977 Adult depression screening assessment DEPRESSION SCREENING [facility] Start: 1977 Depression Screen Depression Screen [facility] Start: 1970 COVID-19 Vaccine (1) COVID-19 Vaccin e (1) [facility] Start: 1965 HEPATITIS B (1 of 3 - 3-dose series) HEPATITIS B (1 of 3 - 3-dose series) [facility] Start: 1965 Hepatitis B Vaccine (1 of 3 - 3-dose series) Hepatitis B Vaccine (1 of 3 - 3-dose series) [facility] Start: 1965 Hepatitis C screening Hepatitis C sc reen [facility] End: 02-08-2020 COVID-19 COVID-19 Lab Routine One Time for 1 Occurrences starting 02/08/2020 until 02/08/2020 [place], [place] Comment on above: One Time for 1 Occur rences starting 02/08/2020 until 02/08/2020 COVID-19 COVID-19 Lab STA T 02/08/2020 8:36 PM EDT [place] End: 02-19-2023 ECG COMPLETE ECG COMPLETE ECG Routine SVT (supraventricular tachycardia) (HCC) 1 Occurrences starting 02/19/2022 until 02/19/2023 [facility] Work Phone: Comment on above: 1 Occurrences starti ng 02/19/2022 until 02/19/2023 End: 04-18-2023 ECG COMPLETE ECG COMPLETE ECG Routine SVT (supraventricular tachycardia) (HCC) 1 Occurrences starting 04/18/2022 until 04/18/2023 [facility] Work Phone: Comment on above: 1 Occurrences starti ng 04/18/2022 until 04/18/2023 End: 09-06-2023 ECG COMPLETE ECG COMPLETE ECG Routine SVT (supraventricular tachycardia) (HCC) 1 Occurrences starting 09/06/2022 until 09/06/2023 [facility] Work Phone: Comment on above: 1 Occurrences starti ng 09/06/2022 until 09/06/2023 End: 02-07-2024 ECG COMPLETE ECG COMPLETE ECG Routine SVT (supraventricular tachycardia) (HCC) 1 Occurrences starting 02/06/2023 until 02/07/2024 [facility] Work Phone: Comment on above: 1 Occurrences starti ng 02/06/2023 until 02/07/2024 End: 09-02-2024 ECG COMPLETE ECG COMPLETE ECG Routine Paroxysmal tachycardia, unspecified (HCC) Obesity, Class II, BMI 35-39.9 1 Occurrences starting 09/02/2023 until 09/02/2024 [facility] Work Phone: Comment on above: 1 Occurrences starti ng 09/02/2023 until 09/02/2024 End: 05-17-2026 ECG COMPLETE ECG COMPLETE ECG Routine Paroxysmal tachycardia, unspecified (HCC) 1 Occurrences starting 05/17/2025 until 05/17/2026 [facility] Work Phone: Comment on above: 1 Occurrences starti ng 05/17/2025 until 05/17/2026 End: 05-24-2026 ECG COMPLETE ECG COMPLETE ECG Routine Paroxysmal tachycardia, unspecified (HCC) Obesity, Class II, BMI 35-39.9 AVNRT (AV abhay re-entry tachycardia) (HCC) 1 Occurrences starting 05/24/2025 until 05/24/2026 [facility] Work Phone: Comment on above: 1 Occurrences starti ng 05/24/2025 until 05/24/2026 EKG 12 Lead EKG 12 Lead ECG Routine 02/08/2020 7:54 PM EDT [facility] [place], [place] End: 12-08-2021 Lipid panel [facility] Work Phone: Comment on above: Once for 1 Occurrenc es starting 12/08/2021 until 12/08/2021 End: 07-12-2025 NM Heart Perfusion W multiple states of exercise NM CARDIAC PERF STRESS/EXERCISE Radiology Routine WILLETT (dyspnea on exertion) 1 Occurrences starting 06/12/2024 until 07/12/2025 [facility] Work Phone: Comment on above: 1 Occurrences starti ng 06/12/2024 until 07/12/2025 SARS-CoV-2 (COVID-19 ) RNA [Presence] in Respiratory specimen by JOYCE with probe detection SELF CHECK COVID Microbiology Routine SVT (supraventricular tachycardia) (HCC) Ordered: 07/11/2022 [facility] Work Phone: Comment on above: Ordered: 07/11/2022 [facility] Immunizations Immunization Date Immunization Notes Care Provider [facility] 07-24-2024 influenza virus vacc ine, unspecified formulation Israel Rocha MD Work Phone: [facility] 08-06-2022 influenza virus vacc ine, unspecified formulation Xr Twin [facility] Payers Date Payer Category Payer [facility] BLUE ACCE SS PPO [id number] 2020 Unknown [employer] BLUE ACCE SS PPO [id number] 2020-Present [phone] [address] [place] [address] PPO [id number] 2014 Unknown [employer] [address] xxxxxxxxxxxx 2014-Present [phone] [address] [place] [address] xxxxxxxxxxxx [id number] 2012 Unknown 1965 Unknown [id number] [id number]. 196 1965 Unknown [id number] 2.16.840.1.719709.3.579.2. 196 1965 Unknown [id number] 2.16.840.1.415652.3.579.2. 196 1965 Unknown [id number] 2.16840.1.999437.3.579.2. 196 1965 Unknown [id number] 2.16.840.1.610164.3.579.2. 173 1965 Unknown [id number] 2.16.840.1.776609.3.579.2. 173 1965 Unknown [id number] 2.16.840.1.487930.3.579.2. 983 1965 Unknown [id number] 2.16.840.1.305794.3.579.2. 593 1965 Unknown [id number] 2.16.840.1.256792.3.579.2. 593 1965 Unknown [id number] 2.16.840.1.061035.3.579.2. 593 1965 Unknown [id number] 2.16.840.1.492292.3.579.2. 593 1965 Unknown [id number] 2.16.840.1.855066.3.579.2. 593 1965 Unknown [id number] 2.16.840.1.290086.3.579.2. 727 1965 Unknown [id number] 2.16.840.1.222248.3.579.2. 727 1965 Unknown [id number] 2.16.840.1.798501.3.579.2. 727 1965 Unknown [id number] 2.16.840.1.888221.3.579.2. 727 1959 Self-pay [id number] 1959 Unknown [id number]. [id number] Unknown [id number] Social History Date Type Detail Facility Start: 09-12-2014 End: 02-08-2020 Tobacco smoking status NHIS Never smoker [place] Start: 02-08-2020 End: 08-17-2024 Alcohol intake Current drinker of alcohol (finding) [place] Start: 09-12-2014 Alcohol Comment socially [place] Start: 1965 Sex Assigned At Not on file [place] Start: 01-30-2022 End: 04-18-2022 Exposure to SARS-CoV-2 (event) Unable to assess [place] Start: 09-12-2014 Tobacco use and exposure Smokeless tobacco non-user [facility] Work Phone: Start: 09-12-2021 History SDOH Alcohol Comment 2-3 drink per week [facility] Start: 1965 Sex Assigned At Male [facility] Start: 01-21-2022 End: 08-20-2022 Exposure to SARS-CoV-2 (event) Not sure [facility] Start: 09-11-2020 End: 10-26-2022 History of Social function [facility] Start: 09-11-2020 End: 10-26-2022 Tobacco use panel [facility] Start: 09-07-2012 National Score (1-100), lower number is lower risk Not on file [facility] Start: 09-06-2020 Gender identity Identifies as male gender (finding) [facility] Start: 09-06-2020 Sexual orientation Heterosexual (finding) [facility] Start: *Tob[facility] [employer] Start: 12-03-2017 Alcohol Comment socially; atyuncqy-4-4 cups per day [facility] Goals Date Patient Goal Desired Activity /State Personal health goal Functional Status Date Assessment Result Facility 08-21-2022 Are you deaf, or do you have serious difficulty hearing No 08/21/2022 9:13 AM Yumi Mccoy RN No [facility] 08-21-2022 Are you blind, or do you have serious difficulty seeing, even when wearing glasses No 08/21/2022 9:13 AM Yumi Mccoy RN [facility] 08-21-2022 Do you have serious difficulty walking or climbing stairs No 08/21/2022 9:13 AM Yumi Mccoy RN [facility] 08-21-2022 Do you have difficul ty dressing or bathing No 08/21/2022 9:13 AM Yumi Mccoy RN [facility] 08-21-2022 Because of a physica l, mental, or emotional condition, do you have difficulty doing errands alone such as visiting a physician's office or shopping No 08/21/2022 9:13 AM uYmi Mccoy RN [facility] Mental Status Date Assessment Result Facility 08-21-2022 Because of a physica l, mental, or emotional condition, do you have serious difficulty concentrating, remembering, or making decisions No 08/21/2022 9:13 AM Yumi Mccoy RN No [facility] Clinical Notes 07-06-2021 to 08-17-2024 Israel Rocha MD - 08/17/2024 2:19 PM Mario Dyson RT(R) - 06/16/2024 8:00 AM Israel Nicole MD - 09/02/2023 8:43 AM Karthikeyan Worthy DO - 2023 8:32 AM EDT Note Date & Type Note Facility 08-17-2024 Note HNO ID: [id number] Author: ISRAEL ROCHA MD Service: ? 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 SVT: Status post ablation for AVNRT in January, and redo ablation for AVNRT and AT in August, He is doing well. He had some palpitations in the first two weeks, but now feels great. Not on AADs. 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 He has a preserved LV function. He was last seen 09/02/2023. NM stress test from 06/2024 showed no ischemia, EF 72% as he has been experiencing sweating more when using elliptical, feeling lethargic during the day, and shoulder aches. He feels well, denies recent palpitations, chest pains, SOB, lightheadedness, dizziness, syncope. REVIEW OF SYSTEMS Negative in detail except as outlined in the HPI. PHYSICIAL EXAM: BP 136/84 Pulse 71 Ht 175.3 cm (5' 9 ) Wt 108 kg (238 lb) BMI 35.15 kg/m? GEN: Awake, alert, no apparent distress HEAD: Normocephalic, atraumatic EYES: Anicteric sclera. Extraocular movements are intact. LUNGS: Non-labored breathing, normal chest wall movement HEART: Regular rhythm, normal rate ABDOMEN: Non-distended EXTREMITIES: No cyanosis clubbing or edema. MUSCULOSKELETAL: No gross deformities. SKIN: No rashes DATA: (The following studies were reviewed personally) PAST MEDICAL HISTORY Diagnosis Date Atrial tachycardia (HCC) AVNRT (AV abhay re-entry tachycardia) (HCC) Chest pain Complication of anesthesia nausea GERD (gastroesophageal reflux disease) HLD (hyperlipidemia) Palpitations Paroxysmal tachycardia, unspecified (HCC) Snoring SVT (supraventricular tachycardia) (HCC) Current Outpatient Medications Medication Sig metoprolol succinate ER (TOPROL XL) 50 mg 24 hr tablet Take 1 tablet by mouth twice daily. Vitamin E, dl, acetate, (VITAMIN E) 100 unit capsule Take 100 Units by mouth once daily. cetirizine (ZYRTEC) 10 mg tablet Take 10 mg by mouth once daily. EVOLOCUMAB (REPATHA SYRINGE SUBCUTANEOUS) Inject 1 Each subcutaneously every 2 weeks. as directed esomeprazole (NEXIUM) 40 mg capsule Take 40 mg by mouth twice daily as needed. Fish Oil-DHA-EPA 1,200-144-216 mg cap Take 1 capsule by mouth once daily. multivitamins(MULTIPLE VITAMIN TAB) Take one(1) tablet daily. ASPIRIN 81 MG TAB Take one (1) tablet daily . No current facility-administered medications for this visit. ALLERGIES: ALLERGIES Allergen Reactions Lgqbzds-Afx-Vuq Red* Myalgia Social History Tobacco Use Smoking status: Never Smokeless tobacco: Never Vaping Use Vaping status: Never Used Substance Use Topics Alcohol use: Yes Comment: 2-3 drink per week Drug use: No FAMILY HISTORY Problem Relation Age of Onset Coronary Artery Disease Mother COPD Father No Known Problems Son No Known Problems Daughter No Known Problems Daughter I reviewed old records, obtained relevant HPI and PMH from the pt, examined the patient and created the above report. This note was created using computerized concrete mixer operator helper software and may therefore include some concrete mixer operator helper errors including errors in gender and inappropriate words or phrases. I reviewed old records, obtained relevant HPI and PMH from the pt, examined the patient and created the above report. Valentina Wilson RN August 17, 2024 Note to: Primary Care Physician: Destiny Vela [address] [place] [address] [facility] 08-17-2024 History of Present illness Narrative Images from the original note were not included. 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 SVT: Status post ablation for AVNRT in January, and redo ablation for AVNRT and AT in August, He is doing well. He had some palpitations in the first two weeks, but now feels great. Not on AADs. 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 He has a preserved LV function. He was last seen 09/02/2023. NM stress test from 06/2024 showed no ischemia, EF 72% as he has been experiencing sweating more when using elliptical, feeling lethargic during the day, and shoulder aches. He feels well, denies recent palpitations, chest pains, SOB, lightheadedness, dizziness, syncope. REVIEW OF SYSTEMS Negative in detail except as outlined in the HPI. PHYSICIAL EXAM: BP 136/84 Pulse 71 Ht 175.3 cm (5' 9 ) Wt 108 kg (238 lb) BMI 35.15 kg/m GEN: Awake, alert, no apparent distress HEAD: Normocephalic, atraumatic EYES: Anicteric sclera. Extraocular movements are intact. LUNGS: Non-labored breathing, normal chest wall movement HEART: Regular rhythm, normal rate ABDOMEN: Non-distended EXTREMITIES: No cyanosis clubbing or edema. MUSCULOSKELETAL: No gross deformities. SKIN: No rashes DATA: (The following studies were reviewed personally) PAST MEDICAL HISTORY Diagnosis Date Atrial tachycardia (HCC) AVNRT (AV abhay re-entry tachycardia) (HCC) Chest pain Complication of anesthesia nausea GERD (gastroesophageal reflux disease) HLD (hyperlipidemia) Palpitations Paroxysmal tachycardia, unspecified (HCC) Snoring SVT (supraventricular tachycardia) (HCC) Current Outpatient Medications Medication Sig metoprolol succinate ER (TOPROL XL) 50 mg 24 hr tablet Take 1 tablet by mouth twice daily. Vitamin E, dl, acetate, (VITAMIN E) 100 unit capsule Take 100 Units by mouth once daily. cetirizine (ZYRTEC) 10 mg tablet Take 10 mg by mouth once daily. EVOLOCUMAB (REPATHA SYRINGE SUBCUTANEOUS) Inject 1 Each subcutaneously every 2 weeks. as directed esomeprazole (NEXIUM) 40 mg capsule Take 40 mg by mouth twice daily as needed. Fish Oil-DHA-EPA 1,200-144-216 mg cap Take 1 capsule by mouth once daily. multivitamins(MULTIPLE VITAMIN TAB) Take one(1) tablet daily. ASPIRIN 81 MG TAB Take one (1) tablet daily . No current facility-administered medications for this visit. ALLERGIES: ALLERGIES Allergen Reactions Imulqnt-Mlh-Lmc Red* Myalgia Social History Tobacco Use Smoking status: Never Smokeless tobacco: Never Vaping Use Vaping status: Never Used Substance Use Topics Alcohol use: Yes Comment: 2-3 drink per week Drug use: No FAMILY HISTORY Problem Relation Age of Onset Coronary Artery Disease Mother COPD Father No Known Problems Son No Known Problems Daughter No Known Problems Daughter I reviewed old records, obtained relevant HPI and PMH from the pt, examined the patient and created the above report. This note was created using computerized concrete mixer operator helper software and may therefore include some concrete mixer operator helper errors including errors in gender and inappropriate words or phrases. I reviewed old records, obtained relevant HPI and PMH from the pt, examined the patient and created the above report. Valentina Wilson RN August 17, 2024 Note to: Primary Care Physician: Destiny Vela [facility] [place] [address] documented in this encounter [facility] 06-16-2024 History of Present illness Narrative RADIOLOGY SERVICE PROGRESS NOTE SERVICE DATE: 06/16/2024 SERVICE TIME: 8:05 AM PATIENT IDENTITY VERIFICATION COMPLETED USING TWO (2) STANDARD IDENTIFIERS: Name and Date of confirmed by patient verbally FALL SCREENING: Has the patient had 2 falls in the last year or 1 fall with injury or currently using an Ambulatory Assistive Device (Walker, Cane, Wheelchair, Crutches, etc.)? No PATIENT GENDER DATA: .male ALLERGIES: Reviewed and unchanged MEDICATIONS REVIEWED: No PATIENT RELEVANT IMPLANT DATA REVIEWED: Not Applicable PATIENT PRESENTS WITH AN IMPLANTABLE OR ATTACHED HUMIDIFIER ATTENDANT: No CREATININE: Creatinine Date Value Ref Range Status 08/20/2022 1.01 0.73 - 1.22 mg/dL Final 08/20/2022 0.92 0.73 - 1.22 mg/dL Final 01/31/2022 0.93 0.73 - 1.22 mg/dL Final Estimated Glomerular Filtration Rate Date Value Ref Range Status 08/20/2022 87 >=60 mL/min/1.73m Final Comment: Estimated Glomerular Filtration Rate (eGFR) is calculated using the 2020 CKD-EPI creatinine equation. This equation utilizes serum creatinine, sex, and age as parameters. The creatinine assay has traceable calibration to isotope dilution-mass spectrometry. Refer to KDIGO guidelines for clinical interpretation. In patients with unstable renal function, e.g. those with acute kidney injury, the eGFR may not accurately reflect actual GFR. eGFR- Date Value Ref Range Status 08/10/2015 >60 Final P.O.C.T. RESULTS: N/A June 16, [address] PERFORMED: No IV SITE: Ambulatory: A peripheral IV was started in the Right antecubital site with a Angio cath: 22 gauge. POST EXAM PIV STATUS: Discontinued PROCEDURE TYPE: NM Stress: 16.0 mCi [id number] was administered IV for Rest Imaging at 805 by ifrah. 50.2 mCi [id number] was administered IV for Stress Imaging at 0911 by woodrow. ADMINISTRATION TIME: 805 PATIENT DISCHARGED TO: Ambulatory patient, left [place] department area. A Diagnostic radioactive procedure has taken place, with no further precautions necessary other than routine body substance precautions. More information regarding radiation safety can be found using this link: [email or web address] %[email or web address] SIGNATURE: RT Danny(Juliana) PATIENT NAME: Jose Cha DATE: June 16, 2024 TIME: 8:05 AM PAGER/CONTACT #: documented in this encounter [facility] 06-16-2024 Note HNO ID: [id number] Author: EMA, MARIO, RT(R) Service: ? Author Type: Technologist Type: Progress Notes Filed: 06/16/2024 09:12 Note Text: RADIOLOGY SERVICE PROGRESS NOTE SERVICE DATE: 06/16/2024 SERVICE TIME: 8:05 AM PATIENT IDENTITY VERIFICATION COMPLETED USING TWO (2) STANDARD IDENTIFIERS: Name and Date of confirmed by patient verbally FALL SCREENING: Has the patient had 2 falls in the last year or 1 fall with injury or currently using an Ambulatory Assistive Device (Walker, Cane, Wheelchair, Crutches, etc.)? No PATIENT GENDER DATA: .male ALLERGIES: Reviewed and unchanged MEDICATIONS REVIEWED: No PATIENT RELEVANT IMPLANT DATA REVIEWED: Not Applicable PATIENT PRESENTS WITH AN IMPLANTABLE OR ATTACHED HUMIDIFIER ATTENDANT: No CREATININE: Creatinine Date Value Ref Range Status 08/20/2022 1.01 0.73 - 1.22 mg/dL Final 08/20/2022 0.92 0.73 - 1.22 mg/dL Final 01/31/2022 0.93 0.73 - 1.22 mg/dL Final Estimated Glomerular Filtration Rate Date Value Ref Range Status 08/20/2022 87 >=60 mL/min/1.73m? Final Comment: Estimated Glomerular Filtration Rate (eGFR) is calculated using the 2020 CKD-EPI creatinine equation. This equation utilizes serum creatinine, sex, and age as parameters. The creatinine assay has traceable calibration to isotope dilution-mass spectrometry. Refer to KDIGO guidelines for clinical interpretation. In patients with unstable renal function, e.g. those with acute kidney injury, the eGFR may not accurately reflect actual GFR. eGFR- Date Value Ref Range Status 08/10/2015 >60 Final P.O.C.T. RESULTS: N/A June 16, [address] PERFORMED: No IV SITE: Ambulatory: A peripheral IV was started in the Right antecubital site with a Angio cath: 22 gauge. POST EXAM PIV STATUS: Discontinued PROCEDURE TYPE: NM Stress: 16.0 mCi [id number] was administered IV for Rest Imaging at 805 by ifrah. 50.2 mCi [id number]-Nfymles was administered IV for Stress Imaging at 0911 by woodrow. ADMINISTRATION TIME: 805 PATIENT DISCHARGED TO: Ambulatory patient, left [place] department area. A Diagnostic radioactive procedure has taken place, with no further precautions necessary other than routine body substance precautions. More information regarding radiation safety can be found using this link: [email or web address] 20Diagnostic%20Nuclear%20Medicine% 20Procedures.[email or web address] SIGNATURE: RT Danny(R) PATIENT NAME: Jose Cha DATE: June 16, 2024 TIME: 8:05 AM PAGER/CONTACT #: [facility] 09-04-2023 Note Chief Complaint consultation for colonoscopy HPI Staff 58 year old male presents on consultation from Dr. Vela for screening colonoscopy. Denies abdominal or rectal pain. No rectal bleeding or change in bowel habits. Denies nausea or vomiting. No unexplained weight loss. Last colonoscopy completed greater than 10 years ago for GI complaints; normal per patient. No known family history of colon cancer. History of Present Illness 58 yo male with h/o atrial tachycardia, hypercholesterolemia; GERD, claudication, referred for colorectal screening; denies change in bms or blood in stools; no abdominal complaints; on baby asa daily, no NSAID use, no SBE prophylaxis; no abdominal operations, last colonoscopy 18 years ago, reportedly wnl; no fmhx of GI malignancy or IBD; no tobacco use. Review of Systems PHQ Score Initial Depression Screen Score: 0 SCORE ROS - Provider Constitutional: no fever, no sweats, no weight loss. Eyes: no glasses, no blurred vision, no visual loss. ENMT: no dentures, no hoarseness, no swallowing difficulties, no hearing loss, no ear infection(s), no nose bleeds. Cardiovascular: normal blood pressure, no chest pain, regular heartbeat, no heart murmur. Respiratory: no shortness of breath, no cough, no asthma, no wheezing. Gastrointestinal: no nausea, no vomiting, no diarrhea, no constipation, no blood in stool, no change in bowel habits, no abdominal pain, no hepatitis. Genitourinary: no kidney stones, no urine infection, no dysuria. Musculoskeletal: no pain, no weakness. Skin: no changing moles, no rash, no skin lumps. Neurologic: no seizures, no epilepsy, no headache. Psychiatric: no emotional or psychiatric problem. Heme/Lymph: no bleeding problems, no anemia, no blood clots, no transfusions. Allergy/Immunologic: no swollen lymph nodes/glands, no IV drug abuse. Other: Additional ROS info: Except as noted in the above Review of Systems and in the History of Present Illness, all other systems have been reviewed and are negative or noncontributory. Physical Exam Vitals & Measurements HR: 72(Peripheral) RR: 16 BP: 136/90 HT: 69 in HT: 175.2 cm WT: 108 kg WT: 237.6 lb BMI: 35.18 HEENT: normal conjunctiva, sclera clear, no scleral icterus, EOM intact, PERRLA, oral mucosa moist without lesions. Neck: trachea midline, no mass, symmetric, no thyromegaly or nodules, no adenopathy Respiratory: lungs CTA, respirations non labored. Cardiovascular: regular rate and rhythm, no murmur, no pedal edema or varicosities. Gastrointestinal: obese, soft, non distended, no tenderness, no masses, no palpable hernias, diastasis recti no, no hepatosplenomegaly; normal bs Lymphatic: no cervical adenopathy, no supraclavicular adenopathy. Musculoskeletal: normal gait, digits and nails without infection, nodes, cyanosis, clubbing. Skin: no rashes, no lesions, no ulcers, no subcutaneous nodules, induration. Psychiatric/Neuro: oriented to time, place, person, judgement normal, affect appropriate for age, insight intact, no focal deficits. Tests: , review of old records completed , Discussed surgical options, risks, and possible complications with patient. Assessment/Plan 1. Screening for malignant neoplasm of colon (Z12.11: Encounter for screening for malignant neoplasm of colon) plan colonoscopy under anesthesia, informed consent obtained. Follow-up No qualifying data available Problem List/Past Medical History Ongoing Atrial tachycardia BMI 35.0-35.9,adult Gastroesophageal reflux disease Intermittent claudication Morbid obesity Paroxysmal tachycardia Pure hypercholesterolemia Screening for colorectal cancer Screening for malignant neoplasm of colon Steatosis of liver Supraventricular tachycardia Venous varices Historical No qualifying data Procedure/Surgical History Arthroplasty of left knee, Arthroscopy of shoulder, Cardiac ablation using fluoroscopy guidance, Closed fracture of left wrist, Colonoscopy, EGD - esophagogastroduodenoscopy. Medications aspirin 81 mg Oral EC Tab, 81 mg= 1 tab(s), Oral, Daily cetirizine 10 mg Tab, 10 mg= 1 tab(s), Oral, Daily esomeprazole 20 mg Cap-DR, 20 mg= 1 cap(s), Oral, Daily Fish Oil metoprolol 50 mg ER Tab, 50 mg= 1 tab(s), Oral, BID Multi Vitamins oral tablet, 1 tab(s), Oral, Daily Repatha SureClick 140 mg/mL subcutaneous solution, 140 mg, SubCutaneous, q2wk Allergies statins (Myalgia) Social History Alcohol Current, Beer, Wine, 1-2 times per week, 09/04/2023 Substance Abuse - Denies Substance Abuse, 09/04/2023 Tobacco Never (less than 100 in lifetime) Tobacco Use:. Never Smokeless Tobacco Use:., 09/04/2023 Family History Heart disease: Mother and Father. Leukemia: Brother. Immunizations Vaccine Date Status Comments influenza virus vaccine, inactivated - Not Given Patient Refuses influenza virus vaccine, inactivated 08/06/2022 Recorded SARS-CoV-2 (COVID-19) mRNA BNT-162b2 vax 08/20/2021 Recorded 2023-08-21: TPV50 (more content not included)... [facility] Comment on above: Result Comment: Elec tronically Signed By: PAT PONCE, Cory [email or web address]\Date and Time Signed: 09/04/23 15:00 EST 09-02-2023 History of Present illness Narrative Images from the original note were not included. 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 SVT: Status post ablation for AVNRT in January, and redo ablation for AVNRT and AT in August, He is doing well. He had some palpitations in the first two weeks, but now feels great. Not on AADs. RBBB: Stable HPI: The patient reports he is doing well. He did try to come off of metoprolol recently. When he did, he experienced some palpitations and chest tightness. This did not go away after several days so he resumed the metoprolol and all symptoms resolved. He is doing well with metoprolol. He experiences just mild fatigue while on it but this has been tolerable. He does sedate that he sleeps better while on metoprolol. 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 He was last seen 02/05/2023 by DUAL RATE DEALER, monitor was unrevealing. He has a preserved LV function. He has been feeling well, he tried to cut back slightly on BB and began to note chest aches, resumed and symptoms resolved. He denies recent palpitations, chest pains, SOB, lightheadedness, dizziness, syncope. He is overall fatigued with BB, does exercise daily with elliptical and weight lifting. 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 Leonard HERNIA REPAIR HX OPEN REPAIR OF ROTATOR CUFF ACUTE 08/24/2005 right shoulder arthroscopy, labrum tear PAST SURGICAL HISTORY OF 2005 [facility] PAST SURGICAL HISTORY OF L leg vein stripping SOCIAL HISTORY Social History Tobacco Use Smoking status: Never Smokeless tobacco: Never Vaping Use Vaping Use: Never used Substance Use Topics Alcohol use: Yes Comment: 2-3 drink per week Drug use: No FAMILY HISTORY Problem Relation Age of Onset Coronary Artery Disease Mother COPD Father No Known Problems Son No Known Problems Daughter No Known Problems Daughter ALLERGIES: ALLERGIES Allergen Reactions Grfekvx-Trc-Fkf Red* Myalgia MEDICATIONS: metoprolol succinate ER (TOPROL XL) 50 mg 24 hr tablet Take 1 tablet by mouth twice daily. Vitamin E, dl, acetate, (VITAMIN E) 100 unit capsule Take 100 Units by mouth once daily. cetirizine (ZYRTEC) 10 mg tablet Take 10 mg by mouth once daily. EVOLOCUMAB (REPATHA SYRINGE SUBCUTANEOUS) Inject 1 Each subcutaneously every 2 weeks. as directed esomeprazole (NEXIUM) 40 mg capsule Take 40 mg by mouth twice daily as needed. Fish Oil-DHA-EPA 1,200-144-216 mg cap Take 1 capsule by mouth once daily. multivitamins(MULTIPLE VITAMIN TAB) Take one(1) tablet daily. ASPIRIN 81 MG TAB Take one (1) tablet daily . Valentina Wilson RN PHYSICAL EXAMINATION: BP 128/76 Pulse 65 Ht 175.3 cm (5' 9 ) Wt 108.4 kg (239 lb) BMI 35.29 kg/m Physical Exam Constitutional: Appearance: Normal appearance. He is well-developed. HENT: Head: Normocephalic and atraumatic. Eyes: General: No scleral icterus. Neck: Vascular: No JVD. Cardiovascular: Rate and Rhythm: Normal rate and regular rhythm. Pulmonary: Effort: Pulmonary effort is normal. Musculoskeletal: General: No deformity. Skin: General: Skin is warm and dry. DATA: (The following studies were reviewed personally) EKG TODAY FOLLOW UP: No follow-ups on file. This note was created using computerized concrete mixer operator helper software and may therefore include some concrete mixer operator helper errors including errors in gender and inappropriate words or phrases. I reviewed old records, obtained relevant HPI and PMH from the pt, examined the patient and created the above report. Israel Rcoha MD September 02, 2023 Note to: Primary Care Physician Destiny Vela [address] [place] [address] documented in this encounter [facility] 2023 History of Present illness Narrative CONSULT ORTHOPAEDIC: KNEE PRIMARY CARE PHYSICIAN: Destiny Vela MD REFERRING PROVIDER: No referring provider defined for this encounter. ASSESSMENT & PLAN Impression: Patient has well fixed left total knee arthroplasty components however he is symptomatic at the distal IT band where he is having some friction and crepitus over the lateral femoral condyle and lateral tibial tray. He also has some subtle flexion laxity that may contribute to his symptoms when his knee is flexed. We discussed with him doing focal physical therapy to work on IT band syndrome. If physical therapy fails to alleviate his symptoms, we could consider intra-articular IT band release with modular poly swap in 6 months however this would subject him to increased risk of infection and this condition would be better addressed with nonoperative measures. Would not recommend full component revision. After discussion with Jose Cha, continued non-operative management of physical therapy was chosen. The patient has been ordered: Physical therapy CONSULTS: Patient does not require consults for optimization at this time. ACTIVE PROBLEM LIST Other Joint Derangement, Not Elsewhere Classified, Shoulder Region Paroxysmal Tachycardia, Unspecified (Hcc) Esophageal Reflux Atrial Tachycardia (Hcc) Gastroesophageal reflux disease Preop Cardiovascular Exam Palpitations Chest Pain Fatigue Obesity (Bmi 30.0-34.9) SUBJECTIVE CHIEF COMPLAINT: Knee Pain HPI: Jose Cha is a 58 year old patient here for evaluation and management of left knee pain. The patient was seen by Dr. Cano in 2020 and was scheduled for left knee replacement however he ended up getting left knee replacement done by a local surgeon in [facility] due to travel times. The patient reports that ever since surgery he has had a sensation of grinding and pain over the lateral aspect of his knee. He reports this does cause him issues that required a steroid taper as well as anti-inflammatories over the last year and a half. He is currently not on anti-inflammatories due to interactions with his cardiac medications. His knee pain is not debilitating but it is annoying to him and causes him to alter his gait. He feels it with every cycle of range of motion of the knee. He denies any fevers chills or night sweats and had no wound complications postoperatively. REVIEW OF SYSTEMS: PAIN ASSESSMENT: See HPI. MUSCULOSKELETAL: See HPI. Risk Factors for Total Joint Arthroplasty (TJA) Obesity Moderate Risk High: BMI > 40 Moderate: BMI 30-40 Normal: BMI < 30 Diabetes normal High: A1C > 8 Moderate: A1C 7-8 Normal: A1C < 7 Smoking normal High: Current smoker Normal: Non smoker Anemia normal High: Hgb < 13 (men) N/A: Hgb >= 13 (men) Nutritional Status normal High: Alb<3.4, or prealb<15, or serum transferrin<200, or total lymphocyte count<1500 Normal: normal labs COPD normal High: dx of COPD Normal: no dx of COPD MRSA normal High: dx of MRSA or positive lab test Normal: no MRSA CKD normal High: eGFR<60 Moderate: eGFR 60-89 Normal: eGFR>90 Hx of DVT / PE normal High: dx of DVT / PE Normal: no dx of DVT / PE Narcotics Use normal High:NarxCare >=300 Moderate: 100-299 Normal: 0-99 REGINA normal High: dx of REGINA N/A: no dx of REGINA Coagulation normal High:PT Sec>13, or PT INR>1.3, or APTT>32.4, or Plt ct<150k Moderate: on anticoag but none of the above Normal: none Obesity: weight management recommended BMI Readings from Last 3 Encounters: 02/05/23 : 34.41 kg/m 10/26/22 : 34.70 kg/m 08/21/22 : 33.65 kg/m Other Risk Factors None PAST MEDICAL HISTORY Diagnosis Date Atrial tachycardia (HCC) AVNRT (AV abhay re-entry tachycardia) (HCC) Chest pain Complication of anesthesia nausea GERD (gastroesophageal reflux disease) HLD (hyperlipidemia) Palpitations Paroxysmal tachycardia, unspecified (HCC) Snoring SVT (supraventricular tachycardia) (HCC) PAST SURGICAL HISTORY Procedure Laterality Date CATHETER, ABLATION 01/2022 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 Leonard HERNIA REPAIR HX OPEN REPAIR OF ROTATOR CUFF ACUTE 08/24/2005 right shoulder arthroscopy, labrum tear PAST SURGICAL HISTORY OF 2005 [facility] PAST SURGICAL HISTORY OF L leg vein stripping FAMILY HISTORY Problem Relation Age of Onset Coronary Artery Disease Mother COPD Father No Known Problems Son No Known Problems Daughter No Known Problems Daughter Social History Tobacco Use Smoking status: Never Smokeless tobacco: Never Vaping Use Vaping Use: Never used Substance Use Topics Alcohol use: Yes Comment: 2-3 drink per week Drug use: No ALLERGIES: Kdeevnj-Obq-Viw Reductase Inhibitors MEDICATIONS: metoprolol succinate ER (TOPROL XL) 50 mg 24 hr tablet Take 1 tablet by mouth twice daily. Vitamin E, dl, acetate, (VITAMIN E) 100 unit capsule Take 100 Units by mouth once daily. cetirizine (ZYRTEC) 10 mg tablet Take 10 mg by mouth once daily. cyanocobalamin (VITAMIN B-12) 1,000 mcg tab Take 1,000 mcg by mouth once daily. VITAMIN A ORAL Take 1 tablet by mouth once daily. EVOLOCUMAB (REPATHA SYRINGE SUBCUTANEOUS) Inject 1 Each subcutaneously every 2 weeks. as directed esomeprazole (NEXIUM) 40 mg capsule Take 40 mg by mouth twice daily as needed. Fish Oil-DHA-EPA 1,200-144-216 mg cap Take 1 capsule by mouth once daily. multivitamins(MULTIPLE VITAMIN TAB) Take one(1) tablet daily. ASPIRIN 81 MG TAB Take one (1) tablet daily . PHYSICAL EXAM: There were no vitals taken for this visit. All other systems deferred. GENERAL: Obese HABITUS: Obese GAIT: Antalgic to the left KNEE EXAM: Left: Alignment: Neutral Range of motion is 0 degrees in extension and 130 degrees of flexion. Extension La degrees Pain with ROM: No Effusion: None Tender to the palpation of lateral femoral condyle with crepitus over the distal IT band through passive range of motion Pain with patellar compression: No Stability: Anterior/Posterior stable and Varus/Valgus stable but with some increased laxity in flexion Hip Exam: flexion to 100+ degrees, full extension, internal/external rotation adequate and no pain with log roll Neurovascular Status: Sensation Intact and Moves foot and ankle up & down DATA: Diagnostic tests reviewed for today's visit: Radiographs of the left knee demonstrate Wallace [employer] Nephew components that seem to be well aligned. There is no evidence of loosening. His tibial tray is slightly translated lateral relative to the tibial plateau The following conditions were addressed during the office visit today: Obesity - Weight management strategies were discussed including diet and exercise. A Consult to Weight Management will be completed to follow up on the plan of care. SIGNATURE: Karthikeyan Cano DO PATIENT NAME: Jose Cha DATE: 2023 TIME: 8:45 AM documented in this encounter [facility] 02-05-2023 History of Present illness Narrative EVENT MONITOR DISPOSABLE PATCH INSTRUCTIONS Patient Name: Jose Cha Clinic Number: [id number] Skin prepped and cleansed with alcohol Patch secured to prepped area Monitor Activated Serial #: [id number] Patient Instructed: Prescribed order timeframe Bathing guidelines Usage of event button and diary documentation Return of monitor at the end of prescribed order Call with problems [phone] or [phone]. [phone] Patient expresses a good understanding of instructions HERNANDEZ BRIGGSG Tech documented in this encounter [facility] 10-26-2022 History of Present illness Narrative Images from the original note were not included. 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 SVT: Status post ablation for AVNRT in January, and redo ablation for AVNRT and AT in August, He is doing well. He had some palpitations in the first two weeks, but now feels great. Not on AADs. HPI: On 08/20/22 he underwent repeat EP study and ablation of AV abhay reentrant tachycardia and atrial tachycardia. He had palpitations and tachycardia in the 2 weeks post ablation that has since gone away. He denies recent palpitations, chest pains, SOB, lightheadedness, dizziness, syncope. NURSING INTAKE HISTORY: He has a past history of HPL, HTN, SVT s/p slow pathway modification 01/2022. Notably had bel atrial tachycardia during prior EP study; however, due to proximity to the phrenic nerve this was not ablated. PAST MEDICAL HISTORY Diagnosis Date Atrial tachycardia (HCC) AVNRT (AV abhay re-entry tachycardia) (HCC) Chest pain Complication of anesthesia nausea GERD (gastroesophageal reflux disease) HLD (hyperlipidemia) Palpitations Paroxysmal tachycardia, unspecified (HCC) Snoring SVT (supraventricular tachycardia) (HCC) PAST SURGICAL HISTORY Procedure Laterality Date CATHETER, ABLATION 01/2022 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 Leonard HERNIA REPAIR HX OPEN REPAIR OF ROTATOR CUFF ACUTE 08/24/2005 right shoulder arthroscopy, labrum tear PAST SURGICAL HISTORY OF 2006 [facility] PAST SURGICAL HISTORY OF L leg vein stripping SOCIAL HISTORY Social History Tobacco Use Smoking status: Never Smokeless tobacco: Never Vaping Use Vaping Use: Never used Substance Use Topics Alcohol use: Yes Comment: 2-3 drink per week Drug use: No FAMILY HISTORY Problem Relation Age of Onset Coronary Artery Disease Mother COPD Father No Known Problems Son No Known Problems Daughter No Known Problems Daughter ALLERGIES: ALLERGIES Allergen Reactions Rrjlxwt-Gam-Alr Red* Myalgia MEDICATIONS: metoprolol succinate ER (TOPROL XL) 50 mg 24 hr tablet Take 50 mg by mouth twice daily. Vitamin E, dl, acetate, (VITAMIN E) 100 unit capsule Take 100 Units by mouth once daily. cetirizine (ZYRTEC) 10 mg tablet Take 10 mg by mouth once daily. cyanocobalamin (VITAMIN B-12) 1,000 mcg tab Take 1,000 mcg by mouth once daily. VITAMIN A ORAL Take 1 tablet by mouth once daily. EVOLOCUMAB (REPATHA SYRINGE SUBCUTANEOUS) Inject 1 Each subcutaneously every 2 weeks. as directed esomeprazole (NEXIUM) 40 mg capsule Take 40 mg by mouth twice daily as needed. Fish Oil-DHA-EPA 1,200-144-216 mg cap Take 1 capsule by mouth once daily. multivitamins(MULTIPLE VITAMIN TAB) Take one(1) tablet daily. ASPIRIN 81 MG TAB Take one (1) tablet daily . Valentina Wilson RN PHYSICAL EXAMINATION: BP 128/78 Pulse 61 Ht 175.3 cm (5' 9 ) Wt 106.6 kg (235 lb) BMI 34.70 kg/m Physical Exam Constitutional: Appearance: Normal appearance. He is well-developed. HENT: Head: Normocephalic and atraumatic. Eyes: General: No scleral icterus. Neck: Vascular: No JVD. Cardiovascular: Rate and Rhythm: Normal rate and regular rhythm. Pulmonary: Effort: Pulmonary effort is normal. Musculoskeletal: General: No deformity. Skin: General: Skin is warm and dry. DATA: (The following studies were reviewed personally) Last ECHO Result Conclusion ECHO Collected: 01/31/2022 12:20 PM (Final result) Impression: CONCLUSIONS: - Exam indication: Palpitations - The left ventricle is normal in size. Left ventricular systolic function is normal. - The right ventricle is normal in size. Right ventricular systolic function is normal. - Mild bordering moderate aortic insufficiency. Pressure half time ~ 358ms. - Mild mitral and tricuspid regurgitation. - Exam was compared with the prior echocardiographic exam performed on 09/29/2020. AI appears more prominent today, particularly on parasternal imaging. * * * Final * * * EKG TODAY FOLLOW UP: No follow-ups on file. This note was created using computerized concrete mixer operator helper software and may therefore include some concrete mixer operator helper errors including errors in gender and inappropriate words or phrases. I reviewed old records, obtained relevant HPI and PMH from the pt, examined the patient and created the above report. Israel Rocha MD November 01, 2022 Note to: Destiny Vela MD [address] [place] [address] documented in this encounter [facility] 08-17-2022 Nurse Note THE FOLLOWING WAS EVALUATED Motivation To Learn: Eager Family/Significant Other Support: Unable to assess - Family not present Cognitive Ability: Alert and oriented Patient Learns Best By: Individual Instruction The Following Influencing Factors Were Barriers To This Education Session: None The Following Physical Limitations Were Barriers To This Education Session: None Instruction Provided To: Patient Procedure: Electrophysiology Study Radio Frequency Ablation Pre-procedure information reviewed: Patient ID verified Procedure verified Physician verified Explanation of procedure Sedation level during procedure medication instructions from EP lab request Hold Metoprolol the night prior and morning of the procedure Travel instructions/restrictions Scheduling information Possible same day discharge versus overnight hospital stay Check out time Family waiting area Physician contact with family after procedure Post Procedure Expectations reviewed: Inpatient hospital stay Post procedure antiarrhythmics and anticoagulation will be discussed with Physician, nurse practitioner or Physician pharmaceutical assistant upon discharge Instructions for transmitting EKG to Monitoring Center 3 month follow up instructions Contact number for information and questions Patient Evaluation: Verbalizes understanding Follow Up Plan: Follow up as directed by . Supplemental Material Given: Written Material Patient education regarding radiation exposure. Instructed By Emily Toussaint RN. In Department of CARDIOLOGY. documented in this encounter [facility] 07-02-2022 Miscellaneous Notes Received outside records - uploaded to ep shared drive Appointment on 10/26/2022 Last appointment with this provider 06/29/2022 Last OV in this dept 01/31/2022 Makayla Silva documented in this encounter [facility] 06-29-2022 Miscellaneous Notes The date of 08/20/[address] Rocha offered & accepted by patient's . Instructed to hold Metoprolol the night prior and morning of procedure. Pt will need Labs and Covid prior to procedure. Emily Toussaint RN ----- Message from Israel Rocha MD sent at 06/27/2022 7:29 PM EDT ----- Patient: Jose Cha EP Lab Procedure requested: Ablations SVT ablation CPT 49705 Anticoagulation Status: Not anticoagulated Requesting Physician: Israel Rocha IV, MD Procedural Physician: Israel Rocha IV, MD Date of last H&P or Date of upcoming H&P: 06/27/22 Indications for procedure: PSVT Procedure time frame: Patient convenience Current Meds: Current Outpatient Medications: metoprolol succinate ER (TOPROL XL) 50 mg 24 hr tablet amiodarone (PACERONE) 200 mg tablet ergocalciferol 50,000 unit capsule (VITAMIN D2, DRISDOL) Vitamin E, dl, acetate, (VITAMIN E) 100 unit capsule cetirizine (ZYRTEC) 10 mg tablet cyanocobalamin (VITAMIN B-12) 1,000 mcg tab VITAMIN A ORAL EVOLOCUMAB (REPATHA SYRINGE SUBCUTANEOUS) esomeprazole (NEXIUM) 40 mg capsule Fish Oil-DHA-EPA 1,200-144-216 mg cap multivitamins(MULTIPLE VITAMIN TAB) ASPIRIN 81 MG TAB MD input Section Potential Research Patient: No General anesthesia needed: No Moderate anesthesia needed: No Patient a candidate of same day discharge: Yes Mapping Ablation:Biosense Wheat (CARTO) CT Scan needed pre-procedure: No ECHO needed pre-procedure:None Anticoagulation: N/A Stop Antiarrhythmic: No Stop Beta Nida/ Calcium Channel Nida: Yes metoprolol tartrate/ Lopressor night prior and morning of procedure ASA: N/A Additional instructions:None Irsael Rocha MD June 27, 2022 7:29 PM documented in this encounter [facility] 06-26-2022 History of Present illness Narrative [facility] [place] Department of Cardiovascular Medicine VIRTUAL VIDEO VISIT ESTABLISHED OUTPATIENT VISIT SERVICE DATE: 06/26/2022 Patient: Jose Cha SERVICE TIME: 3:44 PM : 1965 This is a virtual video visit. It required patient-provider interaction for the medical decision making as documented below. Jose Cha has consented to this video encounter. Jose Cha is a 57 year old male seen for follow up. CHIEF COMPLAINT: follow up IMPRESSION/PLAN: Jose Cha is a very pleasant male patient with a 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 SVT: Status post ablation for AVNRT in January,. He is doing well. He also had an atrial tachycardia from the high bel terminalis which was very close to the phrenic nerve. That was not ablated. He has had recurrences of SVT requiring ER visits and DC cardioversion. We discussed treatment options as well as goals of therapy. I recommended repeat EP study to define the SVT that is causing the current problems. If we have a recurrence of his AVNRT we should be able to address that with catheter ablation. If atrial tachycardia is again seen, we will plan to remap it, but if close to the phrenic nerve, we would not ablate and instead pursue antiarrhythmic therapy. He was started on amiodarone during his recent ER visit but is having considerable side effects. I recommended that he discontinue that and double his metoprolol dose about 4 to 5 days after stopping amiodarone if his heart rates are above 60 bpm. HPI: He has had several recurrences of SVT with rapid heart rates approaching 200 bpm since his ablation. Review of outside records shows a very regular SVT. He required DC cardioversion during the last ER visit but has responded to adenosine in the past including a visit 6 weeks ago. Unfortunately, with the cardioversion he was still awake. He was started on amiodarone with a loading oral dose but has been having considerable side effects including nausea and diarrhea. HISTORY OF PRESENT ILLNESS Jose Cha is a 57 year old male with a past history of AVNRT status post ablation in January, and atrial tachycardia which was unable to be ablated secondary 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 He was last seen virtually 06/06/2022. He has been experiencing palpitations, was seen by local physician. He had an episode of SVT 06/19/22 that failed to convert with Adenosine and he was cardioverted. He was treated with IV Amiodarone, then discharged on Amiodarone and BB adjusted. PAST MEDICAL HISTORY Diagnosis Date Arrhythmia SVT Chest pain Complication of anesthesia nausea GERD (gastroesophageal reflux disease) HLD (hyperlipidemia) Palpitations Paroxysmal tachycardia, unspecified (HCC) Snoring SVT (supraventricular tachycardia) (HCC) PAST SURGICAL HISTORY Procedure Laterality Date CATHETER, ABLATION 01/2022 AVNRT status post ablation in January, and atrial tachycardia which was unable to be ablated secondary to proximity to the phrenic nerve on the high bel terminalis COLONOSCOPY 09/07/2015 /Rpt in 5 years EGD 09/07/2015 Dr. Leonard HERNIA REPAIR HX OPEN REPAIR OF ROTATOR CUFF ACUTE 08/24/2005 right shoulder arthroscopy, labrum tear PAST SURGICAL HISTORY OF 2005 [place] PAST SURGICAL HISTORY OF L leg vein stripping FAMILY HISTORY Problem Relation Age of Onset Coronary Artery Disease Mother COPD Father No Known Problems Son No Known Problems Daughter No Known Problems Daughter Social History Tobacco Use Smoking status: Never Smokeless tobacco: Never Vaping Use Vaping Use: Never used Substance Use Topics Alcohol use: Yes Comment: 2-3 drink per week Drug use: No ALLERGIES Allergen Reactions Qmbaxvu-Dnw-Kyg Red* Myalgia CURRENT MEDICATIONS metoprolol succinate ER (TOPROL XL) 50 mg 24 hr tablet Take 0.5 tablets by mouth twice daily. amiodarone (PACERONE) 200 mg tablet Take 1 tablet by mouth twice daily. ergocalciferol 50,000 unit capsule (VITAMIN D2, DRISDOL) Take 1 capsule by mouth two times a week. Vitamin E, dl, acetate, (VITAMIN E) 100 unit capsule Take 100 Units by mouth once daily. cetirizine (ZYRTEC) 10 mg tablet Take 10 mg by mouth once daily. cyanocobalamin (VITAMIN B-12) 1,000 mcg tab Take 1,000 mcg by mouth once daily. VITAMIN A ORAL Take 1 tablet by mouth once daily. EVOLOCUMAB (REPATHA SYRINGE SUBCUTANEOUS) Inject 1 Each subcutaneously every 2 weeks. as directed esomeprazole (NEXIUM) 40 mg capsule Take 40 mg by mouth twice daily as needed. Fish Oil-DHA-EPA 1,200-144-216 mg cap Take 1 capsule by mouth once daily. multivitamins(MULTIPLE VITAMIN TAB) Take one(1) tablet daily. ASPIRIN 81 MG TAB Take one (1) tablet daily . PHYSICAL EXAMINATION: VIDEO EXAM: (if completed, performed via video enabled technology) GENERAL: alert and appropriate, in no distress, well-hydrated, well nourished, and happy, smiling, interactive SKIN: no rash noted HEAD: normocephalic, no abnormality or lesion noted EYES: no injection and visual acuity is grossly normal I personally spent 25 minutes in total time involved in the management and care of this patient. Valentina Wilson RN June 26, 2022 3:35 PM documented in this encounter [facility] 06-26-2022 Miscellaneous Notes Outside medical records received- uploaded in the [employer] shared drive. Appointment on 06/26/2022 Last appointment on 06/06/2022 Meg Elizondo documented in this encounter [facility] 05-17-2022 Miscellaneous Notes Images from the original note were not included. Israel Rocha MD You 2 days ago Let's have him try splitting the metop and taking bid. TC Please contact patient regarding MyChart message. documented in this encounter [facility] 02-06-2022 Miscellaneous Notes . documented in this encounter [facility] 02-02-2022 Miscellaneous Notes [facility] Contact Center Inbound Phone Encounter DATE of SERVICE: 02/02/2022 TIME of SERVICE: 6:11 PM Status: Non-urgent, needs attention Service/Provider: EP/ROSIO Rocha IV, M.D. Reason for call: Follow-up Appointment Contact information: [phone] Resolution: Sent to [employer] Comments: Pt wants to know when/if he needs to follow up with Dr Rocha? Please call to discuss. Cherelle Arzate RN Date of Resolution: 02/02/2022 Time of Resolution 6:11 PM documented in this encounter [facility] 01-31-2022 Nurse Note THE FOLLOWING WAS EVALUATED Motivation To Learn: Interested Family/Significant Other Support: Unable to assess - Family not present Cognitive Ability: Alert and oriented Patient Learns Best By: Individual Instruction The Following Influencing Factors Were Barriers To This Education Session: None The Following Physical Limitations Were Barriers To This Education Session: None Instruction Provided To: Patient Procedure: Electrophysiology Study Pre-procedure information reviewed: Patient ID verified Procedure verified Physician verified Explanation of procedure Sedation level during procedure medication instructions from EP lab request Hold Diltiazem x 2 days Travel instructions/restrictions Scheduling information Possible same day discharge versus overnight hospital stay Check out time Family waiting area Physician contact with family after procedure Post Procedure Expectations reviewed: Inpatient hospital stay Post procedure antiarrhythmics and anticoagulation will be discussed with Physician, nurse practitioner or Physician pharmaceutical assistant upon discharge Instructions for transmitting EKG to Monitoring Center 3 month follow up instructions Contact number for information and questions Patient Evaluation: Verbalizes understanding Follow Up Plan: Follow up as directed by MD. Supplemental Material Given: Written Material Patient education regarding radiation exposure. Instructed By Emily Toussaint RN. In Department of CARDIOLOGY. documented in this encounter [facility] 01-31-2022 Instructions Hanna Arevalo APRN.JERRI - 01/31/2022 2:05 PM EDT You may take all your regular medications the day prior to the procedure except for Diltiazem. Nothing to eat or drink from midnight the night prior to the procedure You can take Nexium with a Small sip of water. Arrive at 11 am to J1-1 the day of the procedure then proceed to J2-1 for your procedure. If you experience groin pain, oozing, or growing hematoma, you should notify the office. For one week after the procedure 10 lbs lifting, pushing, pulling restriction. No regular exercise for one week, then start slow back into exercise program. documented in this encounter [facility] 01-31-2022 History of Present illness Narrative Images from the original note were not included. [facility] [place] [facility] Department of Cardiovascular Medicine SECTION OF CARDIAC PACING and ELECTROPHYSIOLOGY OUTPATIENT VISIT DATE January 31, 2022 OUTPATIENT VISIT TYPE ESTABLISHED PRIMARY CARE PHYSICIAN: Destiny Vela MD [address] [place] [address] REFERRING PHYSICIAN: Israel Rocha [address] [place] [facility] [address] CHIEF COMPLAINT: Palpitations and SVT HISTORY OF PRESENT ILLNESS: Mr. Cha is a 56 year old male who presents today for follow-up visit for SVT. Patient is established with Dr. Rocha, seen last in 08/2021 virtually. Mr. Cha has past medical history of HLD, GERD, and SVT managed on Diltiazem and vagal maneuvers. In September patient had SVT episode. ECG was reviewed by Dr. Rocha- SVT with RBBB, possibly AFL. He had at least 6 episodes of SVT since the last visit. Patient is scheduled for EP study and ablation on 02/01/2022. He denies chest pain, shortness of breath, orthopnea, cough, edema, palpitations, PND, lightheadedness or syncope. PAST CARDIAC HISTORY: PAST MEDICAL HISTORY Diagnosis Date Arrhythmia SVT Chest pain Complication of anesthesia nausea GERD (gastroesophageal reflux disease) HLD (hyperlipidemia) Palpitations Paroxysmal tachycardia, unspecified (HCC) Snoring SVT (supraventricular tachycardia) (HCC) PAST SURGICAL HISTORY Procedure Laterality Date COLONOSCOPY 09/07/15 /Rpt in 5 years EGD 09/07/15 Dr. Leonard HERNIA REPAIR HX PAST SURGICAL HISTORY OF 2005 [facility] PAST SURGICAL HISTORY OF L leg vein stripping REPAIR ROTATOR CUFF,ACUTE 08/24/05 right shoulder arthroscopy, labrum tear SOCIAL HISTORY Social History Tobacco Use Smoking status: Never Smoker Smokeless tobacco: Never Used Substance Use Topics Alcohol use: Yes Comment: 2-3 drink per week Drug use: No FAMILY HISTORY Problem Relation Age of Onset Coronary Artery Disease Mother COPD Father No Known Problems Son No Known Problems Daughter No Known Problems Daughter ALLERGIES: ALLERGIES Allergen Reactions Bjsgvmg-Vmm-Xdp Red* Myalgia MEDICATIONS: VITAMIN A ORAL Take 1 tablet by mouth. dilTIAZem CR (TIAZAC,TAZTIA XT) 240 mg 24 hr capsule Take 240 mg by mouth once daily. EVOLOCUMAB (REPATHA SYRINGE SUBCUTANEOUS) Inject subcutaneously every 2 weeks. as directed esomeprazole (NEXIUM) 40 mg capsule Take 40 mg by mouth twice daily as needed. Fish Oil-DHA-EPA (FISH OIL) 1,200-144-216 mg ORAL Cap Take 1 capsule by mouth once daily. multivitamins(MULTIPLE VITAMIN TAB) Take one(1) tablet daily. ASPIRIN 81 MG TAB Take one (1) tablet daily . REVIEW OF SYSTEMS: General, constitutional: Weight loss or gain- No, Fever or chills-No, Weakness-No, Trouble sleeping-No. Head, Eyes, Ears, Mouth: Headache, head injury-No, Glasses or contact lenses-No, Pain-No, Impaired vision-No, Decreased hearing-No, Ringing in ears-No, Nose bleeds-No, Dental difficulties-No, Bleeding gums-No, Dentures-No. Neck: Swelling-No, Pain-No, Stiffness-No. Respiratory: Cough-No, Spitting up blood-No, Shortness of breath-No, Wheezing or asthma-No. Musculoskeletal: Muscle or joint pain or stiffness-No, Joint swelling-No. Gastrointestinal: Difficulty swallowing-No, Heartburn-No, Change in bowel habits-No, Blood in stool, Dark black stools-No. Neurological/Psychiatric: Weakness, paralysis-No, Numbness-No, Tingling-No, Tremor-No, Nervousness or anxiety-No, Depressed mood-No, Memory loss-No. Skin: Rash-No, Itching-No. Hematological: Easy bruising-No, Easy bleeding-No. Endocrine: Heat or cold intolerance-No, Excessive sweating-No, Frequent urination-No, Frequent thirst-No. PHYSICAL EXAMINATION: BP 156/98 Pulse 80 Ht 175.3 cm (5' 9 ) Wt 103 kg (227 lb) BMI 33.52 kg/m General: Well appearing, in no acute distress, speaking in complete sentences. Neck: No jugular venous distention, no carotid bruits, carotids have a normal upstroke, no palpable thyromegaly. Lungs: Clear to auscultation bilaterally, no wheezing or rhonchi. Heart: Regular rhythm, PMI not displaced, S1, S2 normal, no S3, no S4, no heaves, no rub and no murmur. Abdomen: Soft, nontender, bowel sounds normal, no palpable organomegaly, no bruits. Extremities: No peripheral edema . Grade 2/4 distal pulses bilaterally. Neuro: Oriented to person, place and time, alert, cooperative, gait coordinated. CARDIOVASCULAR MEDICINE TESTING: Component Latest Ref Rng & Units 01/31/2022 WBC 3.70 - 11.00 k/uL 4.98 RBC 4.20 - 6.00 m/uL 5.32 Hemoglobin 13.0 - 17.0 g/dL 15.8 Hematocrit 39.0 - 51.0 % 46.4 MCV 80.0 - 100.0 fL 87.2 MCH 26.0 - 34.0 pg 29.7 MCHC 30.5 - 36.0 g/dL 34.1 RDW-CV 11.5 - 15.0 % 13.3 Platelet Count 150 - 400 k/uL 218 MPV 9.0 - 12.7 fL 10.4 Absolute nRBC <0.01 k/uL <0.01 Last EKG Result Conclusion ECG COMPLETE Collected: 01/31/2022 11:41 AM (Preliminary result) Impression: NORMAL SINUS RHYTHM COMPLETE RIGHT BUNDLE BRANCH BLOCK ABNORMAL ECG Complete Results TTE 01/31/22 CONCLUSIONS: - Exam indication: Palpitations - The left ventricle is normal in size. Left ventricular systolic function is normal. - The right ventricle is normal in size. Right ventricular systolic function is normal. - Mild bordering moderate aortic insufficiency. Pressure half time ~ 358ms. - Mild mitral and tricuspid regurgitation. - Exam was compared with the prior echocardiographic exam performed on 09/29/2020. AI appears more prominent today, particularly on parasternal imaging. IMPRESSION: Mr. Cha is a 56 year old male who presents today for follow-up visit for SVT. Patient is established with Dr. Rocha, seen last in 08/2021 virtually. Past medical history of HLD, GERD, and SVT. History of SVT-previously only had one SVT episode in 1-2 years. Lately has had multiple episodes,. Able to convert with vagal maneuvers and at times had to get Adenosine in ED. He is managed with Diltiazem. In September patient had SVT episode. ECG was reviewed by Dr. Rocha- SHAWN with RBBB, possibly AFL. Patient is scheduled for EP study and ablation on 02/01/2022. Procedure was discussed And questions answered. We reviewed expectation after the procedure: If you experience groin pain, oozing, or growing hematoma, you should notify the office. For one week after the procedure 10 lbs lifting, pushing, pulling restriction. No regular exercise for one week, then start slow back into exercise program. PLAN AND RECOMMENDATIONS: EP study and ablation on 02/01/[address] Rocha. You may take all your regular medications the day prior to the procedure except for Diltiazem. Nothing to eat or drink from midnight the night prior to the procedure You can take Nexium with a Small sip of water. Arrive at 11 am to J1-1 the day of the procedure then proceed to J2-1 for your procedure. Follow up 6-8 weeks post ablation. CONTACT INFORMATION: Hanna Arevalo APRN.CNP documented in this encounter [facility] 07-06-2021 History of Present illness Narrative Radiology Service Progress Note PATIENT NAME: Jose Cha DATE OF SERVICE: July 06, 2021 TIME: 9:07 AM PATIENT IDENTITY VERIFICATION COMPLETED USING TWO (2) IDENTIFIERS: Name and Date of confirmed by patient verbally. FALL SCREENING: Has the patient had 2 falls in the last year or 1 fall with injury or currently using an Ambulatory Assistive Device (Walker, Cane, Wheelchair, Crutches, etc.)? Yes, Patient High Risk for Falls What interventions were put in place to prevent falls during this visit? Increased Observations by Caregivers PATIENT GENDER DATA: Male PATIENT RELEVANT IMPLANT DATA REVIEWED: Not Applicable RADIOLOGY DEPARTMENT: General X-ray: Exam(s) Completed: Lower Extremity X-Ray(s): Knee, AP / Lat / Tunne / Merchant Left and Wt. Bearing and Leg Length PERIPHERAL IV DATA: Not applicable SIGNED BY: Luisana Ross July 06, 2021 9:07 AM documented in this encounter [facility] Evaluation note Diagnosis SVT (supraventricular tachycardia) (HCC)- Primary Other specified cardiac dysrhythmias Palpitations SVT (supraventricular tachycardia) (HCC) Other specified cardiac dysrhythmias [facility] Diagnosis SVT (supraventricular tachycardia) (HCC)- Primary Other specified cardiac dysrhythmias [facility] Diagnosis SVT (supraventricular tachycardia) (HCC)- Primary Other specified cardiac dysrhythmias [facility] Diagnosis SVT (supraventricular tachycardia) (HCC)- Primary Other specified cardiac dysrhythmias [facility] Diagnosis SVT (supraventricular tachycardia) (HCC)- Primary Other specified cardiac dysrhythmias [facility]T (supraventricular tachycardia) (HCC)- Primary Other specified cardiac dysrhythmias [facility] Diagnosis 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 Other specified cardiac dysrhythmias Atrial tachycardia (HCC) Other specified cardiac dysrhythmias Palpitations [facility] Diagnosis SVT (supraventricular tachycardia) (HCC)- Primary Other specified cardiac dysrhythmias [facility] Diagnosis SVT (supraventricular tachycardia) (HCC)- Primary Other specified cardiac dysrhythmias [facility] Diagnosis Left knee pain, unspecified chronicity- Primary Status post knee surgery Other postprocedural status Iliotibial band syndrome of left side Other disorder of muscle, ligament, and fascia [facility] Diagnosis Pain Generalized pain Left knee pain, unspecified chronicity [facility] Diagnosis Paroxysmal tachycardia, unspecified (HCC)- Primary Paroxysmal tachycardia, unspecified Obesity, Class II, BMI 35-39.9 Obesity, unspecified [facility] Diagnosis Atrial tachycardia (HCC)- Primary Other specified cardiac dysrhythmias Paroxysmal tachycardia, unspecified (HCC) Paroxysmal tachycardia, unspecified Chest pain, unspecified type documented in this encounter [facility] note* Diagnosis WILLETT (dyspnea on exertion)- Primary Other dyspnea and respiratory abnormality documented in this encounter [facility] note* Diagnosis WILLETT (dyspnea on exertion) Other dyspnea and respiratory abnormality documented in this encounter [facility] note* Diagnosis Paroxysmal tachycardia, unspecified (HCC)- Primary Paroxysmal tachycardia, unspecified AVNRT (AV abhay re-entry tachycardia) (HCC) Other specified cardiac dysrhythmias documented in this encounter [facility] note* Diagnosis Paroxysmal tachycardia, unspecified (HCC)- Primary Paroxysmal tachycardia, unspecified documented in this encounter [facility] note* Diagnosis Paroxysmal tachycardia, unspecified (HCC)- Primary Paroxysmal tachycardia, unspecified Obesity, Class II, BMI 35-39.9 Obesity, unspecified AVNRT (AV abhay re-entry tachycardia) (HCC) Other specified cardiac dysrhythmias documented in this encounter [facility] for referral (narrative)* Outpatient Procedure (Routine) - Pending Review Specialty Diagnoses / Procedures Referred By Contac t Referred To Contact [facility] Diagnoses SVT (supraventricular tachycardia) (HCC) Procedures ECG COMPLETE ECG ROUTINE ECG W/LEAST 12 LDS W/I&R Hilda Cano APRN.CNP [address] [facility] [place] [address] [facility] [place] [address] [place] [address] Referral ID Status Reason Start Date Expiration Date Visits Requested Visits Authorized [id number] Pending Review Auto-Generat ed Referral 02/19/2022 02/19/2023 1 1 [facility] for referral (narrative)* Outpatient Procedure (Routine) - Authorized Specialty Diagnoses / Procedures Referred By Contac t Referred To Contact [facility] Diagnoses SVT (supraventricular tachycardia) (HCC) Procedures ECG COMPLETE ECG ROUTINE ECG W/LEAST 12 LDS W/I&R Israel Rocha MD [address] [place] [address] [facility] [address] [place] [address] Referral ID Status Reason Start Date Expiration Date Visits Requested Visits Authorized [id number] Authorized Auto-Generat ed Referral 04/18/2022 04/18/2023 1 1 [facility] for referral (narrative)* Outpatient Procedure (Routine) - Pending Review Specialty Diagnoses / Procedures Referred By Contac t Referred To Contact [facility] Diagnoses SVT (supraventricular tachycardia) (HCC) Procedures ECG COMPLETE ECG ROUTINE ECG W/LEAST 12 LDS W/I&R Hilda Cano APRN.CNP [address] [place] [address] [facility] [place] [address] [place] [address] Referral ID Status Reason Start Date Expiration Date Visits Requested Visits Authorized [id number] Pending Review Auto-Generat ed Referral 09/06/2022 09/06/2023 1 1 [facility] for referral (narrative)* Outpatient Procedure (Routine) - Authorized Specialty Diagnoses / Procedures Referred By Contac t Referred To Contact [facility] Diagnoses SVT (supraventricular tachycardia) (HCC) Procedures ECG COMPLETE ECG ROUTINE ECG W/LEAST 12 LDS W/I&R Israel Rocha MD [address] [place] [address] [facility] [address] [place] [address] Referral ID Status Reason Start Date Expiration Date Visits Requested Visits Authorized [id number] Authorized Auto-Generat ed Referral 02/06/2023 02/06/2024 1 1 [facility] for referral (narrative)* Diagnostic Procedure Only (Routine) - Closed Specialty Diagnoses / Procedures Referred By Contac t Referred To Contact [facility] IMAGING Diagnoses Left knee pain, unspecified chronicity Procedures XR LEG FRONTAL HIP TO ANKLE MECHANICAL AXIS BONE LENGTH STUDIES Karthikeyan Cano, DO [address] [place] [address] [place] [address] Referral ID Status Reason Start Date Expiration Date V isits Requested Visits Authorized [id number] Closed Auto-Generate d Referral 06/30/2021 07/30/2022 1 1 * Diagnostic Procedure Only (Routine) - Closed Specialty Diagnoses / Procedures Referred By Contac t Referred To Contact XR IMAGING Diagnoses Pain Procedures XR KNEE GENERAL 4V AP BOTH/PA BOTH/LAT/MERC LT KNEE AP-WGT/LAT/MERCHANT Karthikeyan Cano DO [address] [place] [address] [place] [address] Referral ID Status Reason Start Date Expiration Date V isits Requested Visits Authorized [id number] Closed Auto-Generate d Referral 06/29/2021 07/29/2022 1 1 [facility] for referral (narrative)* Outpatient Procedure (Routine) - Pending Review Specialty Diagnoses / Procedures Referred By Waltac t Referred To Contact [facility] Diagnoses Paroxysmal tachycardia, unspecified (HCC) Obesity, Class II, BMI 35-39.9 Procedures ECG COMPLETE ECG ROUTINE ECG W/LEAST 12 LDS W/I&R Israel Rocha MD [address] [place] [address] [facility] [address] [place], [place] [id number] Referral ID Status Reason Start Date Expiration Date Visits Requested Visits Authorized [id number] Pending Review Auto-Generat ed Referral 3 09/01/2024 1 1 * Transition of Care (Routine) - Ref Not Required Specialty Diagnoses / Procedures Referred By Contac t Referred To Contact Procedures CARDIOVASCULAR MEDICINE OP FOLLOW UP APPT ORDER Israel Rocha MD [address] [place] [address] Referral ID Status Reason Start Date Expiration Date Visits Requested Visits Authorized [id number] Ref Not Required PCP Requested Referral 3 09/01/2024 1 1 [facility] for referral (narrative)* Diagnostic Procedure Only (Routine) - Authorized Specialty Diagnoses / Procedures Referred By Yaw la Referred To Contact [facility]LECULAR [facility] FUNCTIONAL IMAGING Diagnoses WILLETT (dyspnea on exertion) Procedures NM CARDIAC PERF STRESS/EXERCISE MYOCARDIAL SPECT MULTIPLE STUDIES Israel Rocha MD [address] [id number] Molecular & Functional Imaging [address] [place] [address] Referral ID Status Reason Start Date Expiration Date Visits Requested Visits Authorized [id number] Authorized Auto-Generat ed Referral 06/16/2024 10/06/2024 2 2 [facility] for referral (narrative)* Diagnostic Procedure Only (Routine) - Closed Specialty Diagnoses / Procedures Referred By Yaw la Referred To Contact [facility]LECULAR [facility] FUNCTIONAL IMAGING Diagnoses WILLETT (dyspnea on exertion) Procedures NM CARDIAC PERF STRESS/EXERCISE MYOCARDIAL SPECT MULTIPLE STUDIES Israel Rocha MD [address] [id number] Molecular & Functional Imaging [address] [place] [address] Referral ID Status Reason Start Date Expiration Date V isits Requested Visits Authorized [id number] Closed Auto-Generate d Referral 06/16/2024 10/06/2024 2 2 [facility] Summary Purpose Family History No Family History Records FoundNo Family History Records FoundNo Family History Records FoundNo Family History Records FoundNo Family History Records FoundNo Family History Records FoundNo Family History Records FoundNo Family History Records FoundNo Family History Records Found Advance Directives Documents on File Type Date Recorded Patient Lamp Cleaner Street Light Expl anation Advance Directives and Living Will Power of Academic Affairs Coordinator Documents on File Type Date Recorded Patient Lamp Cleaner Street Light Expl anation ACP-Advance Directive ACP-Power of Academic Affairs Coordinator Documents on File Type Date Recorded Patient Lamp Cleaner Street Light Expl anation Advance Directive(s) 01/29/2022 9:41 AM JOYCE DOBSON WILL Documents on File Type Date Recorded Patient Lamp Cleaner Street Light Expl anation Advance Directive(s) 01/29/2022 9:41 AM JOYCE DOBSON WILL Discharge Instructions * Instructions* Rosemarie Vega, DO - 02/[birth year]2020 Return to the Emergency Department immediately if you develop worsening shortness of breath, fatigue, chest pain, or passing out. Follow up with your primary care doctor by calling the office tomorrow Prevention steps for People with confirmed or suspected COVID-19 (including persons under investigation) who do not needto be hospitalized and People with confirmed COVID-19 who were hospitalized and determined to be medically stable to go home Your healthcare provider and public health staff will evaluate whether you can be cared for at home. If it is determined that you do not need to be hospitalized and can be isolated at home, you will be monitored by staff from your local or state health department. You should follow the prevention steps below until a healthcare provider or local or state health department says you can return to your normal activities. Stay home except to get medical care People who are mildly ill with COVID-19 are able to isolate at home during their illness. You should restrict activities outside your home, except for getting medical care. Do not go to work, school,or public areas. Avoid using public transportation, ride-sharing, or taxis. Separate yourself from other people and animals in your home People: As much as possible, you should stay in a specific room and away from other people in your home. Also, you should use a separate bathroom, if available. Animals: You should restrict contact with pets and other animals while you are sick with COVID-19, just like you would around other people. Although there have not been reports of pets or other animals becoming sick with COVID-19, it is still recommended that people sick with COVID-19 limit contactwith animals until more information is known about the virus. When possible, have another member ofyour household care for your animals while you are sick. If you are sick with COVID-19, avoid contact with your pet, including petting, snuggling, being kissed or licked, and sharing food. If you must care for your pet or be around animals while you are sick, wash your hands before and after you interact with pets and wear a facemask. See COVID-19 and Animals for more information. Call ahead before visiting your doctor If you have a medical appointment, call the healthcare provider and tell them that you have or may have COVID-19. This will help the healthcare provider s office take steps to keep other people from getting infected or exposed. Wear a facemask You should wear a facemask when you are around other people (e.g., sharing a room or vehicle) or pets and before you enter a healthcare provider s office. If you are not able to wear a facemask (for example, because it causes trouble breathing), then people who live with you should not stay in the same room with you, or they should wear a facemask if they enter your room. Cover your coughs and sneezes Cover your mouth and nose with a tissue when you cough or sneeze. Throw used tissues in a lined trash can. Immediately wash your hands with soap and water for at least 20 seconds or, if soap and water are not available, clean your hands with an alcohol-based hand assistant research scientist that contains at least 60% alcohol. Clean your hands often Wash your hands often with soap and water for at least 20 seconds, especially after blowing your nose, coughing, or sneezing; going to the bathroom; and before eating or preparing food. If soap and water are not readily available, use an alcohol-based hand assistant research scientist with at least 60% alcohol, covering all surfaces of your hands and rubbing them together until they feel dry. Soap and water are the best option if hands are visibly dirty. Avoid touching your eyes, nose, and mouth with unwashed hands. Avoid sharing personal household items You should not share dishes, drinking glasses, cups, eating utensils, towels, or bedding with otherpeople or pets in your home. After using these items, they should be washed thoroughly with soap and water. Clean all high-touch surfaces everyday High touch surfaces include counters, tabletops, doorknobs, bathroom fixtures, toilets, phones, keyboards, tablets, and bedside tables. Also, clean any surfaces that may have blood, stool, or body fluids on them. Use a household cleaning spray or wipe, according to the label instructions. Labels contain instructions for safe and effective use of the cleaning product including precautions you should take when applying the product, such as wearing gloves and making sure you have good ventilation during use of the product. Monitor your symptoms Seek prompt medical attention if your illness is worsening (e.g., difficulty breathing). Before seeking care, call your healthcare provider and tell them that you have, or are being evaluated for, COVID-19. Put on a facemask before you enter the facility. These steps will help the healthcare provider s office to keep other people in the office or waiting room from getting infected or exposed. Askyour healthcare provider to call the local or [facility] health department. Persons who are placed underactive monitoring or facilitated self- monitoring should follow instructions provided by their localhealth department or occupational health professionals, as appropriate. When working with your local health department check their available hours. If you have a medical emergency and need to call 911, notify the dispatch personnel that you have, or are being evaluated for COVID-19. If possible, put on a facemask before emergency medical services arrive. Discontinuing home isolation Patients with confirmed COVID-19 should remain under home isolation precautions until the risk of secondary transmission to others is thought to be low. The decision to discontinue home isolation precautions should be made on a [id number] basis, in consultation with healthcare providers and [facility] health departments. https://www.cdc.gov/coronavirus/2019-ncov/hcp/vksbsjpn-mmvfozu-ajxcvp.htmlReg[facility] departments: Luke [phone] Webster [phone] Uri [phone] Neisha [phone] Pacheco [phone] Cayey [phone] Brayden [phone] Greg [phone] Willie [phone] Posey [phone] documented in this encounter Assessments Diagnosis Viral syndrome Unspecified viral infection, in conditions classified elsewhere and of unspecified site Reason for Referral Specialty Diagnoses / Procedures Referred By Contac t Referred To Contact [facility] Diagnoses Status post knee surgery Iliotibial band syndrome of left side Procedures CONSULT TO PHYSICAL THERAPY PHYSICAL THERAPY EVALUATION HIGH COMPLEX 45 MINS Karthikeyan Cano, [address] [place] [address] [facility] [address] [address] Referral ID Status Reason Start Date Expiration Date Visits Requested Visits Authorized [id number] Pending Review Auto-Generat ed Referral 2023 04/24/2024 1 1 Specialty Diagnoses / Procedures Referred By Contac t Referred To Contact XR IMAGING Diagnoses Left knee pain, unspecified chronicity Procedures XR LEG FRONTAL HIP TO ANKLE MECHANICAL AXIS BONE LENGTH STUDIES Karthikeyan Cano, [address] [place] [address] Xr Imaging Referral ID Status Reason Start Date Expiration Date V isits Requested Visits Authorized [id number] Closed Auto-Generate d Referral 04/10/2023 05/09/2024 1 1 Specialty Diagnoses / Procedures Referred By Contac t Referred To Contact [facility] Procedures CARDIOVASCULAR MEDICINE OP FOLLOW UP APPT ORDER Israel Rocha MD [address] [place] [address] [facility] [address] [address] Referral ID Status Reason Start Date Expiration Date Visits Requested Visits Authorized [id number] Ref Not Required PCP Requested Referral 11/15/2025 1 1 Additional Source Comments (unrecognized sect ion and content) No Status Records FoundNo Status Records FoundNo Status Records FoundNo Status Records FoundNo Status Records FoundNo Status Records FoundNo Status Records FoundNo Status Records FoundNo Status Records Found INFORMATION SOURCE (unrecogn ized section and content) DATE CREATED AUTHOR 03/25/2018 [facility] DATE CREATED AUTHOR AUTHOR'S ORGANIZ ATION 04/02/2018 [facility] DATE CREATED AUTHOR AUTHOR'S ORGANIZ ATION 09/17/2021 [facility] DATE CREATED AUTHOR AUTHOR'S ORGANIZ ATION 10/30/2021 [facility] DATE CREATED AUTHOR AUTHOR'S ORGANIZ ATION 05/01/2022 [facility] DATE CREATED AUTHOR AUTHOR'S ORGANIZ ATION 08/24/2022 [facility] DATE CREATED AUTHOR AUTHOR'S ORGANIZ ATION 10/31/2022 [facility] DATE CREATED AUTHOR AUTHOR'S ORGANIZ ATION 09/24/2023 Vincent Nascimento [facility] DATE CREATED AUTHOR AUTHOR'S ORGANIZ ATION 09/19/2024 [facility] Reason for Visit (unrecogniz ed section and content) Reason Comments Fever symptoms started yes terday Cough Shortness of Breath Reason Comments Patient Education Reason Comments Palpitations SVT Reason Comments Post Dc Program Call - Needs Attn Reason Comments Received Outside Medical Records Reason Comments Arrhythmia Reason Comments Schedule Surgery SVT RFA Reason Comments Event 14 days Zio Reason Comments Swelling Pain on the outside of the knee Knee Pain Pain on the outside of the knee Reason Comments Radio Gen RMP Specialty Diagnoses / Procedures Referred By Contac t Referred To Contact XR IMAGING Diagnoses Pain Procedures XR KNEE GENERAL 4V AP BOTH/PA BOTH/LAT/MERC LT KNEE AP-WGT/LAT/MERCHANT Karthikeyan Cano, DO [address] [place] [address] [place] [address] Referral ID Status Reason Start Date Expiration Date V isits Requested Visits Authorized [id number] Closed Auto-Generate d Referral 06/29/2021 07/29/2022 1 1 Reason Comments Radiology NM Specialty Diagnoses / Procedures Referred By Contac t Referred To Contact [facility]CULAR [facility] FUN[facility] Diagnoses WILLETT (dyspnea on exertion) Procedures NM CARDIAC PERF STRESS/EXERCISE MYOCARDIAL SPECT MULTIPLE STUDIES Israel Rocha MD [address] [place] [address] Molecular & Functional Imaging [address] [place] [address] Referral ID Status Reason Start Date Expiration Date V isits Requested Visits Authorized [id number] Closed Auto-Generate d Referral 06/16/2024 10/06/2024 2 2 Care Teams (unrecognized sec tion and content) Germ Drier Relationship Specialty Start Date End Date Destiny Veal MD [address] [id number] PCP - General 11/05/12 Germ Drier Relationship Specialty Start Date End Date Destiny Vela MD PCP - General Family Practice 08/07/11 No, Referral Referring 08/08/18 [place] [address] [place] [address] Primary Staff Physician Cardiology 12/23/18 [place] [address] [place] [address] Primary Staff Physician Cardiology 09/12/21 Germ Drier Relationship Specialty Start Date End Date Destiny Vela MD PCP - General Family Practice 08/07/11 No, Referral Referring 08/08/18 [place] [address] [place] [address] Primary Staff Physician Cardiology 12/23/18 Castillo Pereira MD [address] [place] [address] Primary Staff Physician Cardiology 09/12/21 Germ Drier Relationship Specialty Start Date End Date Destiny Vela MD PCP - General Family Practice 08/07/11 No, Referral Referring 08/08/18 [place] [address] [place] [address] Primary Staff Physician Cardiology 12/23/18 Castillo Pereira MD [address] [place] [address] Primary Staff Physician Cardiology 09/12/21 Germ Drier Relationship Specialty Start Date End Date Destiny Vela MD PCP - General Family Practice 08/07/11 No, Referral Referring 08/08/18 Israel Rocha MD [address] [place] [address] Primary Staff Physician Cardiology 12/23/18 Castillo Pereira MD [address] [place] [address] Primary Staff Physician Cardiology 09/12/21 Germ Drier Relationship Specialty Start Date End Date Destiny Vela MD PCP - General Family Practice 08/07/11 No, Referral Referring 08/08/18 Israel Rocha MD [address] [place] [address] Primary Staff Physician Cardiology 12/23/18 Castillo Pereira MD [address] [place] [address]1241 Primary Staff Physician Cardiology 09/12/21 Germ Drier Relationship Specialty Start Date End Date Destiny Vela MD PCP - General Family Practice 08/07/11 No, Referral Referring 08/08/18 [place] [address] [place] [address] Primary Staff Physician Cardiology 12/23/18 [place] [address] [place] [address]68 Primary Staff Physician Cardiology 09/12/21 Germ Drier Relationship Specialty Start Date End Date Destiny Vela MD PCP - General Family Practice 08/07/11 No, Referral Referring 08/08/18 Israel Rocha MD [address] [place] [address]24 Primary Staff Physician Cardiology 12/23/18 Castillo Pereira MD [address] [place] [address] 73393 Primary Staff Physician Cardiology 09/12/21 Germ Drier Relationship Specialty Start Date End Date Destiny Vela MD PCP - General Family Practice 08/07/11 No, Referral Referring 08/08/18 Israel Rocha MD [address] [place] [address] 12088 Primary Staff Physician Cardiology 12/23/18 Castillo Pereira MD [address] [place] [address]455 Primary Staff Physician Cardiology 09/12/21 Germ Drier Relationship Specialty Start Date End Date Destiny Vela MD PCP - General Family Practice 08/07/11 No, Referral Referring 08/08/18 Israel Rocha MD [address] [place] [address] 27835 Primary Staff Physician Cardiology 12/23/18 [place] [address] [place] [address] 59698 Primary Staff Physician Cardiology 09/12/21 Germ Drier Relationship Specialty Start Date End Date Destiny Vela MD PCP - General Family Practice 08/07/11 No, Referral Referring 08/08/18 Israel Rocha MD [address] [place] [address]329 Primary Staff Physician Cardiology 12/23/18 Castillo Pereira MD [address] [place] [address] Primary Staff Physician Cardiology 09/12/21 Germ Drier Relationship Specialty Start Date End Date Destiny Vela MD PCP - General Family Practice 08/07/11 No, Referral Referring 08/08/18 Israel Rocha MD [address] [place] [address]7615 Primary Staff Physician Cardiology 12/23/18 Castillo Pereira MD [address] [place] [address] 76813 Primary Staff Physician Cardiology 09/12/21 Germ Drier Relationship Specialty Start Date End Date Destiny Vela MD PCP - General Family Medicine 08/07/11 No, Referral Referring 08/08/18 Israel Rocha MD [address] [place] [address]3319 Primary Staff Physician Cardiology 12/23/18 Castillo Pereira MD [address] [place] [address] 36484 Primary Staff Physician Cardiology 09/12/21 Germ Drier Relationship Specialty Start Date End Date Destiny Vela MD PCP - General Family Medicine 08/07/11 No, Referral Referring 08/08/18 [place] [address] [place] [address] Primary Staff Physician Cardiology 12/23/18 [place] [address] [place] [address] 26248 Primary Staff Physician Cardiology 09/12/21 Germ Drier Relationship Specialty Start Date End Date Destiny Vela MD PCP - General Family Medicine 08/07/11 No, Referral Referring 08/08/18 [place] [address] [place] [address] Primary Staff Physician Cardiology 12/23/18 Castillo Pereira MD [address] [place] [address] 64389 Primary Staff Physician Cardiology 09/12/21 Germ Drier Relationship Specialty Start Date End Date Destiny Vela MD PCP - General Family Medicine 08/07/11 No, Referral Referring 08/08/18 Israel Rocha MD [address] [place] [address]5824 Primary Staff Physician Cardiology 12/23/18 Castillo Pereira MD [address] [place] [address] 41208 Primary Staff Physician Cardiology 09/12/21 Germ Drier Relationship Specialty Start Date End Date Destiny Vela MD PCP - General Family Medicine 08/07/11 No, Referral Referring 08/08/18 [place] [address] [place] [address]78 Primary Staff Physician Cardiology 12/23/18 [place] [address] [place] [address] Primary Staff Physician Cardiology 09/12/21 Germ Drier Relationship Specialty Start Date End Date Destiny Vela MD PCP - General Family Medicine 08/07/11 No, Referral Referring 08/08/18 [place] [address] [place] [address] Primary Staff Physician Cardiology 12/23/18 [place] [address] [place] [address]87 Primary Staff Physician Cardiology 09/12/21 Germ Drier Relationship Specialty Start Date End Date Destiny Vela MD PCP - General Family Medicine 08/07/11 No, Referral Referring 08/08/18 [place] [address] [place] [address] Primary Staff Physician Cardiology 12/23/18 [place] [address] [place] [address] 88796 Primary Staff Physician Cardiology 09/12/21 Germ Drier Relationship Specialty Start Date End Date Destiny Vela MD PCP - General Family Medicine 08/07/11 No, Referral Referring 08/08/18 [place] [address] [place] [address] Primary Staff Physician Cardiology 12/23/18 [place] [address] [place] [address] 56971 Primary Staff Physician Cardiology 09/12/21 Germ Drier Relationship Specialty Start Date End Date Destiny Vela MD PCP - General Family Medicine 08/07/11 No, Referral Referring 08/08/18 [place] [address] [place] [address] Primary Staff Physician Cardiology 12/23/18 [place] [address] [place] [address]10 Primary Staff Physician Cardiology 09/12/21 Germ Drier Relationship Specialty Start Date End Date Destiny Vela MD PCP - General Family Medicine 08/07/11 No, Referral Referring 08/08/18 Israel Rocha MD [address] [place] [address] Primary Staff Physician Cardiology 12/23/18 Castillo Pereira MD [address] [place] [address] Primary Staff Physician Cardiology 09/12/21 Germ Drier Relationship Specialty Start Date End Date Destiny Vela MD PCP - General Family Medicine 08/07/11 No, Referral Referring 08/08/18 Israel Rocha MD [address] [place] [address] Primary Staff Physician Cardiology 12/23/18 Castillo Pereira MD [address] [place] [address] Primary Staff Physician Cardiology 09/12/21 Germ Drier Relationship Specialty Start Date End Date Destiny Vela MD PCP - General Family Medicine 08/07/11 No, Referral Referring 08/08/18 Israel Rocha MD [address] [place] [address] Primary Staff Physician Cardiology 12/23/18 Germ Drier Relationship Specialty Start Date End Date Destiny Vela MD PCP - General Family Medicine 08/07/11 No, Referral Referring 08/08/18 Israel Rocha MD [address] [place] [address] Primary Staff Physician Cardiology 12/23/18 Castillo Pereira MD [address] [place] [address] Primary Staff Physician Cardiology 09/12/21 Germ Drier Relationship Specialty Start Date End Date Destiny Vela MD PCP - General Family Medicine 08/07/11 No, Referral Referring 08/08/18 Israel Rocha MD [address] [place] [address] Primary Staff Physician Cardiology 12/23/18 Castillo Pereira MD [address] [place] [address] Primary Staff Physician Cardiology 09/12/21 Germ Drier Relationship Specialty Start Date End Date Destiny Vela MD PCP - General Family Medicine 08/07/11 No, Referral Referring 08/08/18 Israel Rocha MD [address] [place] [address] Primary Staff Physician Cardiology 12/23/18 Castillo Pereira MD [address] [place] [address] Primary Staff Physician Cardiology 09/12/21 Germ Drier Relationship Specialty Start Date End Date Destiny Vela MD PCP - General Family Medicine 08/07/11 No, Referral Referring 08/08/18 Israel Rocha MD [address] [place] [address] Primary Staff Physician Cardiology 12/23/18 Castillo Pereira MD [address] [place] [address] Primary Staff Physician Cardiology 09/12/21 Germ Drier Relationship Specialty Start Date End Date Destiny Vela MD PCP - General Family Medicine 08/07/11 No, Referral Referring 08/08/18 Israel Rocha MD [address] [place] [address] Primary Staff Physician Cardiology 12/23/18 Castillo Pereira MD [address] [place] [address] Primary Staff Physician Cardiology 09/12/21 Source Comments (unrecognize d section and content) In the event this informatio n is protected by the Federal Confidentiality of Alcohol and Drug Abuse Patient Records regulations: The Federal rules restrict any use of the information to criminally investigate or prosecute any alcohol or drug abuse patient.[facility] SouthIn the event this information is protected by the Federal Confidentiality of Alcohol and Drug Abuse Patient Records regulations: The Federal rules restrict any use of the information to criminally investigate or prosecute any alcohol or drug abuse patient.[facility] SouthIn the event this information is protected by the Federal Confidentiality of Alcohol and Drug Abuse Patient Records regulations: The Federal rules restrict any use of the information to criminally investigate or prosecute any alcohol or drug abuse patient.[facility]In the event this information is protected by the Federal Confidentiality of Alcohol and Drug Abuse Patient Records regulations: The Federal rules restrict any use of the information to criminally investigate or prosecute any alcohol or drug abuse patient.[facility] SouthIn the event this information is protected by the Federal Confidentiality of Alcohol and Drug Abuse Patient Records regulations: The Federal rules restrict any use of the information to criminally investigate or prosecute any alcohol or drug abuse patient.[facility] SouthIn the event this information is protected by the Federal Confidentiality of Alcohol and Drug Abuse Patient Records regulations: The Federal rules restrict any use of the information to criminally investigate or prosecute any alcohol or drug abuse patient.[facility] SouthIn the event this information is protected by the Federal Confidentiality of Alcohol and Drug Abuse Patient Records regulations: The Federal rules restrict any use of the information to criminally investigate or prosecute any alcohol or drug abuse patient.[facility] SouthIn the event this information is protected by the Federal Confidentiality of Alcohol and Drug Abuse Patient Records regulations: The Federal rules restrict any use of the information to criminally investigate or prosecute any alcohol or drug abuse patient.[facility] SouthIn the event this information is protected by the Federal Confidentiality of Alcohol and Drug Abuse Patient Records regulations: The Federal rules restrict any use of the information to criminally investigate or prosecute any alcohol or drug abuse patient.[facility] SouthIn the event this information is protected by the Federal Confidentiality of Alcohol and Drug Abuse Patient Records regulations: The Federal rules restrict any use of the information to criminally investigate or prosecute any alcohol or drug abuse patient.[facility] SouthIn the event this information is protected by the Federal Confidentiality of Alcohol and Drug Abuse Patient Records regulations: The Federal rules restrict any use of the information to criminally investigate or prosecute any alcohol or drug abuse patient.[facility] SouthIn the event this information is protected by the Federal Confidentiality of Alcohol and Drug Abuse Patient Records regulations: The Federal rules restrict any use of the information to criminally investigate or prosecute any alcohol or drug abuse patient.[facility] SouthIn the event this information is protected by the Federal Confidentiality of Alcohol and Drug Abuse Patient Records regulations: The Federal rules restrict any use of the information to criminally investigate or prosecute any alcohol or drug abuse patient.[facility] SouthIn the event this information is protected by the Federal Confidentiality of Alcohol and Drug Abuse Patient Records regulations: The Federal rules restrict any use of the information to criminally investigate or prosecute any alcohol or drug abuse patient.[facility] SouthIn the event this information is protected by the Federal Confidentiality of Alcohol and Drug Abuse Patient Records regulations: The Federal rules restrict any use of the information to criminally investigate or prosecute any alcohol or drug abuse patient.[facility] SouthIn the event this information is protected by the Federal Confidentiality of Alcohol and Drug Abuse Patient Records regulations: The Federal rules restrict any use of the information to criminally investigate or prosecute any alcohol or drug abuse patient.[facility] SouthIn the event this information is protected by the Federal Confidentiality of Alcohol and Drug Abuse Patient Records regulations: The Federal rules restrict any use of the information to criminally investigate or prosecute any alcohol or drug abuse patient.[facility] SouthIn the event this information is protected by the Federal Confidentiality of Alcohol and Drug Abuse Patient Records regulations: The Federal rules restrict any use of the information to criminally investigate or prosecute any alcohol or drug abuse patient.[facility] SouthIn the event this information is protected by the Federal Confidentiality of Alcohol and Drug Abuse Patient Records regulations: The Federal rules restrict any use of the information to criminally investigate or prosecute any alcohol or drug abuse patient.[facility] SouthIn the event this information is protected by the Federal Confidentiality of Alcohol and Drug Abuse Patient Records regulations: The Federal rules restrict any use of the information to criminally investigate or prosecute any alcohol or drug abuse patient.[facility] SouthIn the event this information is protected by the Federal Confidentiality of Alcohol and Drug Abuse Patient Records regulations: The Federal rules restrict any use of the information to criminally investigate or prosecute any alcohol or drug abuse patient.[facility] SouthIn the event this information is protected by the Federal Confidentiality of Alcohol and Drug Abuse Patient Records regulations: The Federal rules restrict any use of the information to criminally investigate or prosecute any alcohol or drug abuse patient.[facility] SouthIn the event this information is protected by the Federal Confidentiality of Alcohol and Drug Abuse Patient Records regulations: The Federal rules restrict any use of the information to criminally investigate or prosecute any alcohol or drug abuse patient.[facility] SouthIn the event this information is protected by the Federal Confidentiality of Alcohol and Drug Abuse Patient Records regulations: The Federal rules restrict any use of the information to criminally investigate or prosecute any alcohol or drug abuse patient.[facility] SouthIn the event this information is protected by the Federal Confidentiality of Alcohol and Drug Abuse Patient Records regulations: The Federal rules restrict any use of the information to criminally investigate or prosecute any alcohol or drug abuse patient.[facility]In the event this information is protected by the Federal Confidentiality of Alcohol and Drug Abuse Patient Records regulations: The Federal rules restrict any use of the information to criminally investigate or prosecute any alcohol or drug abuse patient.[facility]In the event this information is protected by the Federal Confidentiality of Alcohol and Drug Abuse Patient Records regulations: The Federal rules restrict any use of the information to criminally investigate or prosecute any alcohol or drug abuse patient.[facility]In the event this information is protected by the Federal Confidentiality of Alcohol and Drug Abuse Patient Records regulations: The Federal rules restrict any use of the information to criminally investigate or prosecute any alcohol or drug abuse patient.[facility]In the event this information is protected by the Federal Confidentiality of Alcohol and Drug Abuse Patient Records regulations: The Federal rules restrict any use of the information to criminally investigate or prosecute any alcohol or drug abuse patient.[facility] SouthIn the event this information is protected by the Federal Confidentiality of Alcohol and Drug Abuse Patient Records regulations: The Federal rules restrict any use of the information to criminally investigate or prosecute any alcohol or drug abuse patient.[facility] SouthIn the event this information is protected by the Federal Confidentiality of Alcohol and Drug Abuse Patient Records regulations: The Federal rules restrict any use of the information to criminally investigate or prosecute any alcohol or drug abuse patient.[facility] SouthIn the event this information is protected by the Federal Confidentiality of Alcohol and Drug Abuse Patient Records regulations: The Federal rules restrict any use of the information to criminally investigate or prosecute any alcohol or drug abuse patient.[facility] SouthIn the event this information is protected by the Federal Confidentiality of Alcohol and Drug Abuse Patient Records regulations: The Federal rules restrict any use of the information to criminally investigate or prosecute any alcohol or drug abuse patient.[facility] SouthIn the event this information is protected by the Federal Confidentiality of Alcohol and Drug Abuse Patient Records regulations: The Federal rules restrict any use of the information to criminally investigate or prosecute any alcohol or drug abuse patient.[facility] SouthIn the event this information is protected by the Federal Confidentiality of Alcohol and Drug Abuse Patient Records regulations: The Federal rules restrict any use of the information to criminally investigate or prosecute any alcohol or drug abuse patient.[facility] SouthIn the event this information is protected by the Federal Confidentiality of Alcohol and Drug Abuse Patient Records regulations: The Federal rules restrict any use of the information to criminally investigate or prosecute any alcohol or drug abuse patient.[facility] SouthIn the event this information is protected by the Federal Confidentiality of Alcohol and Drug Abuse Patient Records regulations: The Federal rules restrict any use of the information to criminally investigate or prosecute any alcohol or drug abuse patient.[facility] SouthIn the event this information is protected by the Federal Confidentiality of Alcohol and Drug Abuse Patient Records regulations: The Federal rules restrict any use of the information to criminally investigate or prosecute any alcohol or drug abuse patient.[facility] FOR RECORDS PERTAINING TO PATIENTS WHO ARE OR HAVE BEEN ENROLLED IN A CHEMICAL DEPENDENCY/SUBSTANCEABUSE PROGRAM, SOME INFORMATION MAY BE OMITTED. This clinical summary was aggregated from multiple sources. Caution should be exercised in using it in the provision of clinical care. This summary normalizes information from multiple sources, and as a consequence, information in this document may materially change the coding, format and clinical context of patient data. In addition, data may be omitted in some cases. CLINICAL DECISIONS SHOULD BE BASED ON THE PRIMARY CLINICAL RECORDS. [facility]. provides no warranty or guarantee of the accuracy or completeness of information in this document.
[2025-05-28 12:19] LABS: Alanine Aminotransferase 98 U/L (16-63); Albumin Globulin Ratio 1.2; Albumin Level 4.4 g/dL (3.4-5.0); Alkaline Phosphatase 62 U/L (46-116); Anion Gap 11.5; Aspartate Amino Transferase 45 U/L (15-37); Blood Urea Nitrogen 22.0 mg/dL (7.0-18.0); Calcium 9.2 mg/dL (8.5-10.1); Carbon Dioxide 29.5 mmol/L (21.0-32.0); Chloride 103 mmol/L (98-107); Cholesterol 221 mg/dL (<=200); Estimated GFR (African America >60 (>=60 mL/min/1.73m^2); Estimated GFR (Non-African Ame >60 (>=60 mL/min/1.73m^2); Free T3 2.35 pg/mL (2.18-3.98); Globulin 3.6 g/dL; Glucose 106 mg/dL (74-106); HDL Cholesterol 43 mg/dL (40-60); Potassium 5.0 mmol/L (3.5-5.1); Sodium 139 mmol/L (136-145); Thyroid Stimulating Hormone 2.015 uIU/mL (0.358-3.740); Total Protein 8.0 g/dL (6.4-8.2); Triglycerides 192 mg/dL (<=150); VLDL CHOLESTEROL 38.4 mg/dL
[2025-05-28 12:24] LABS: Hematocrit 48.5 % (42.0-54.0); Hemoglobin 16.8 g/dL (14.0-18.0); Immature Granulocytes Abs Auto 0.04 10^3/uL (0.00-0.03); Immature Granulocytes Pct Auto 0.8 % (0.0-0.5); Lymphocytes Absolute Auto 1.9 10^3/uL (1.2-3.8); Mean Corpuscular HGB Conc 34.6 g/dL (29.9-35.2); Mean Corpuscular Hemoglobin 31.6 pg (25.9-34.0); Mean Corpuscular Volume 91.2 fL (80.0-94.0); Platelet Count 206 10^3/uL (150-450); Red Blood Count 5.32 10^6/uL (4.70-6.10); White Blood Count 4.8 10^3/uL (4.0-11.0)
== END 2025-05-28 11:26 | disposition home or self-care (01) ==
LOC: LAB 11:27
PROVIDERS: PCP Family Medicine; Visit Provider Family Medicine
DX: Z00.00 Encounter for general adult medical examination without abnormal findings (principal); Z12.5 Encounter for screening for malignant neoplasm of prostate
CPT/HCPCS: 36415; 80053; 80061; 83036; 84436; 84443; 84481; 85025; G0103

== ENCOUNTER 2025-05-31 02:46 | Emergency (ER) | payer BC, SELFPAY ==
--- OUTSIDE RECORDS SUMMARY | 2025-05-28 06:15 | XMS_ITS ---
Author Organization The [facility] in [place] Address [address] [place] [address] Care Team Providers Care Census Taker Name Role Phone Johnny Bell Primary Care Provider [phone] Allergies Allergen (clinical drug ingredient) Drug/Non Drug Allergy documented on EMR Reaction Allergy Type Onset Date Status Substance with 7-guuoqoq-1-methylgluta ryl-coenzyme A reductase inhibitor mechanism of action (substance) Statins Myalgia Drug Allergy Active REASON FOR VISIT Presents to office with for Wellness Medications Medication SIG (Take, Route, Frequency, Duration) Notes Start Date End Date Status Esomeprazole Magnesium 20 MG 1 capsule Orally twice daily for 30 days Active Metoprolol Succinate ER 50 MG 1 tablet Orally tid for 90 days 1 in am and 2 at hs Active Praluent 150 MG/ML Inject 300mg Subcuta neous ever 4 weeks for 90 days 04/27/2025 Active ALPRAZolam 0.25 MG 1 tablet Orally Twic e a day 05/28/2025 Active tiZANidine HCl 4 MG 2 tabs Orally qhs fo r 30 days 09/10/2024 Active Diclofenac Sodium 75 MG 1 tablet as need ed Orally Twice a day for 30 days 09/10/2024 Active Cetirizine HCl 10 MG TAKE ONE TABLET BY MOUTH DAILY for 90 Active Social History Tobacco Use: Social History Observation Description Date Details (start date - stop date) Never Smoker NA - NA Tobacco Use/Smoking Question Answer Notes Patient is a nonsmoker AUDIT-C (Standard) Question Answer Notes Did you have a drink containing alcohol in the p ast year? No Points 0 Interpretation Negative Vital Signs Weight 240.0 lbs 05/28/2025 Height 69 in 05/28/2025 Blood pressure systolic 148 mm Hg 05/28/20 25 Blood pressure diastolic 96 mm Hg 025 BMI 35.44 kg/m2 05/28/2025 Procedures Procedure Date Ordered Date Performed Result Body Sit e Sleep study - Diagnostic Polysonogram 05/28/2025 N/A Encounters Encounter Location Date Provider Diagnosis [facility] [address] [place] [address] 05/28/2025 Johnny Bell Well adult Z00.00 an d Fatigue R53.83 Assessments Encounter Date Diagnosis (ICD Code) Assessment Notes Treatment Notes Treatment Clinical Notes Section Notes 05/28/2025 Well adult (ICD-10 - Z00.00) 05/28/2025 Fatigue (ICD-10 - R53.83) Plan Of Treatment Medication Medication Name Sig Start Date Stop Date Notes Metoprolol Succinate ER 50 MG 1 tablet O rally tid for 90 days ALPRAZolam 0.25 MG 1 tablet Orally Twice a day 05/28/2025 Pending Test Test Name Order Date HEMOGLOBIN A1C (GLYCO) 05/28/2025 LIPID PANEL (CHOL/TRIG/HDL/LDL) 05/28/20 25 Sleep study - Diagnostic Polysonogram THYROID PANEL (T4/TSH/FREE T3) PSA, SCREENING 05/28/2025 CMP (COMP MET AYALA) w/eGFR CKD-EPI 2024 CBC WITH DIFF 05/28/2025 Progress Notes * Jose REESEDOB:1965 (60 yo M)Acc No.[id number]:05/28/2025 UNLOCKED PROGRESS NOTE Progress Note Patient: Jose KERNS Provider: Mirian Bell (TOMAS)MD :1965 A ge:60 Y S ex:Male Date:05/28/2025 Address:[address] [place], [place] [id number] Check In:10:07 AM ESTCheck O ut:11:10 AM EST Subjective: * Chief Complaints: * 1 . Presents to office with for Wellness. * HPI: G eneral: HTN bp - some worl stress - BP up at home - disucssed cafeine and salt had episode f chest p ain -. * ROS: E ENT: hearing changes d enies. v isual changes d enies.?non-healing mouth sores d enies. s wollen glands or neck lumps d enies. h oarseness d enies. s ore throat d enies. d ifficulty swallowing d enies. n ose bleeds d enies. n maye congestion d enies. e ar ache d enies. e ar discharge?denies. r inging in ears d enies. l ight sensitivity d enies. e ye pain d enies. b lurring d enies. e ye irritation d enies. d ouble vision d enies.?vision loss d enies. G eneral/Constitutional: Sweats: D enies. F atigue d enies. S leep problems d enies. A norexia d enies. M alaise d enies. W eight loss d enies.?Fatigue or Weakness d enies. F ever or Chills d enies. C ardiovascular: Shortness of Breath w/lying flat d enies. L ightheadedness/dizziness d enies. C hest tightness/ heavy pressure d enies. S welling of legs, ankles, or feet d enies. W aking up with shortness of breath d enies. C hest pain denies. P alpitations d enies. W eight gain d enies. R espiratory: Chronic or frequent cough d enies. C oughing up blood?denies. D ifficulty breathing d enies. P roductive cough d enies. S noring?denies. S hortness of breath that awakens from sleep (PND) d enies. C hest pain d enies. S putum production d enies. W heezing d enies. M usculoskeletal: Joint pain d enies. J oint Fluid d enies. B ack pain d enies. K nee pain d enies. N melina pain d enies. J oint Stiffness d enies. M uscle cramps d enies. W eakness of muscles d enies. A rthritis d enies. M uscle aches d enies. P ain in shoulder(s) d enies. S wollen joints d enies. * Medical History: O steoarthritis, Over weight, Hypercholesteremia, Fatty liver, Claudication, Low back pain, Supraventricular tachycardia, Varicose veins, GERD (gastroesophageal reflux disease), Degenerative disc disease, lumbar. * Surgical History: L eft TKA 09/2021, SVT Ablation 11/06/21. * Family History: F ather: , diagnosed with Unspecified heart disease. M other: , diagnosed with Unspecified heart disease. B rother(s): alive, leukemia, diagnosed with Other malignant neoplasm of unspecified site. S on(s): alive. D melly(s): alive. 3 brother(s) . 1 son(s) , 2 daughter(s) - healthy. . Brothers: 1 , 2 Living. * Social History: T obacco Use: T obacco Use/Smoking P atient is a n onsmoker D rug/Alcohol: A ANNA-C (Standard) D id you have a drink containing alcohol in the past year? N o P oints 0 I nterpretation N egative * Medications: T aking ALPRAZolam 0.25 MG Tablet 1 tablet Orally Twice a day , Taking Cetirizine HCl 10 MG Tablet TAKE ONE TABLET BY MOUTH DAILY , Taking Diclofenac Sodium 75 MG Tablet Delayed Release 1 tablet as needed Orally Twice a day , Taking Esomeprazole Magnesium 20 MG Capsule Delayed Release 1 capsule Orally twice daily , Taking Metoprolol Succinate ER 50 MG Tablet Extended Release 24 Hour 1 tablet Orally twice daily , Taking Praluent(Alirocumab) 150 MG/ML Solution Auto-injector Inject 300mg Subcutaneous ever 4 weeks , Taking tiZANidine HCl 4 MG Tablet 2 tabs Orally qhs , Medication List reviewed and reconciled with the patient * Allergies: S tatins: Myalgia. Objective: * Vitals: W t:240.0lbs, Ht: 69 in, BP:148/96mm Hg, BMI:35.44Index, Ht-cm: 175.26 cm, Wt-k.86 kg. * Examination: P hysical Exam: GENERAL: w ell developed, well nourished, in no acute distress. HEAD: n ormocephalic/atraumatic. EYES: p upils equal, round and reactive to light, conjunctivae and sclerae normal. EARS: n o deformity or lesion of external ear, canals and TM appear normal bilaterally, TM's intact, not inflamed with normal light reflex, hearing grossly normal to conversational speech. NOSE: n o deformity, discharge, inflammation, or lesions.? MOUTH: m ucous membranes moist, normal oropharynx and posterior pharynx without lesions or exudates, tongue normal, dentition normal. NECK: n melina supple, no masses or palpable cervical nodes, trachea midline, thyroid without nodules, masses, tenderness, or enlargement. CHEST: n o chest wall deformity, no chest wall tenderness.? LUNGS: n ormal respiratory effort and clear to auscultation, no wheezes, rales, or rhonchi, good air exchange. CARDIO: r egular rate and rhythm, normal S1 and S2, nor murmur, rub, or gallop. PULSES: n ormal capillary refill. ABDOMEN: s oft, non-distended, non-tender, no masses. MUSCULOSKELETAL: n o deformity or scoliosis noted, normal range of motion, joints normal, no erythema, edema, effusion, or ecchymosis. EXTREMITY: n o clubbing, cyanosis, edema, or deformity with normal ROM in both upper and lower bilateral extremities. NEUROLOGIC: g rossly normal. SKIN: n o rashes, ulcerations, or suspicious lesions. LYMPH NODES: n o cervical adenopathy, nodes normal. MENTAL STATUS: a lert and oriented x3, normal mood and affect. Assessment: * Assessment: 1. W ell adult - Z00.00 (Primary) 2 . F atigue - R53.83 Plan: * Treatment: * Preventive Medicine: Screenings/Counseling: B [place] ACTION PLAN Above Normal BMI Follow-up D ietary management education, guidance, and counseling See treatment section of progress note for complete details of management plan. * * Electronic signature of Johnny Bell MD, [phone] on 05/31/2025 at 03:07 AM EDT Sign off status: Pending Visit Status: C BENSON (Check Out) * Provider: Mirian Bell (TTC)MD Date: 0 05/28/2025 Generated for Printi ng/Faxing/eTransmitting on: 0 05/31/2025 03:07 AM EDT History and Physical Notes * HPI (History of Present Illness) Category Sub-Category Detail Notes Category Not es General HTN bp - some worl stress - BP up at home - disucssed cafeine and salt had episode f chest p ain - Examination Category Sub-Category Detail Notes Category Not es Physical Exam GENERAL: well developed, well nourished, in no acute distress HEAD: normocephalic/atraum atic EYES: pupils equal, round and reactive to light, conjunctivae and sclerae normal EARS: no deformity or lesi on of external ear, canals and TM appear normal bilaterally, TM's intact, not inflamed with normal light reflex, hearing grossly normal to conversational speech NOSE: no deformity, discha rge, inflammation, or lesions MOUTH: mucous membranes sandra st, normal oropharynx and posterior pharynx without lesions or exudates, tongue normal, dentition normal NECK: neck supple, no mass es or palpable cervical nodes, trachea midline, thyroid without nodules, masses, tenderness, or enlargement CHEST: no chest wall deform ity, no chest wall tenderness LUNGS: normal respiratory e ffort and clear to auscultation, no wheezes, rales, or rhonchi, good air exchange CARDIO: regular rate and rhy thm, normal S1 and S2, nor murmur, rub, or gallop PULSES: normal capillary ref ill ABDOMEN: soft, non-distended, non-tender, no masses RECTAL: MUSCULOSKELETAL: no deformity or scol iosis noted, normal range of motion, joints normal, no erythema, edema, effusion, or ecchymosis EXTREMITY: no clubbing, cyanosi s, edema, or deformity with normal ROM in both upper and lower bilateral extremities NEUROLOGIC: grossly normal SKIN: no rashes, ulceratio ns, or suspicious lesions LYMPH NODES: no cervical adenopat hy, nodes normal MENTAL STATUS: alert and oriented x 3, normal mood and affect
--- OUTSIDE RECORDS SUMMARY | 2025-05-28 06:52 | XMS_ITS ---
Author Organization The [facility] in [place] Address [address] [place] [address] Care Team Providers Care Pewter Finisher Name Role Phone Johnny Bell Primary Care Provider REASON FOR VISIT stress test Procedures Procedure Date Ordered Date Performed Result Body Sit e CARDIO Stress Test - Cardiolite 05/28/2025 N/A Encounters Encounter Location Date Provider Diagnosis [facility] [address] [place] [address] 05/28/2025 Johnny Bell Chest pain R07.9 and Diaphoresis R61 Assessments Encounter Date Diagnosis (ICD Code) Assessment Notes Treatment Notes Treatment Clinical Notes Section Notes 05/28/2025 Chest pain (ICD-10 - R07.9) 05/28/2025 Diaphoresis (ICD-10 - R61) Plan Of Treatment Pending Test Test Name Order Date CARDIO Stress Test - Cardiolite 05/28/20 Progress Notes * REESEJose COBURNDOB:1965 (60 yo M)Acc No.[id number]:05/28/2025 Patient: Jose KERNS :1965 A ge:60 Y S ex:Male Address:[address] [place] [address], [id number] Subjective: * Chief Complaints: * S tress test * Medical History: * Surgical History: * Hospitalization/Major Diagno stic Procedure: * Medications: Objective: * Vitals: * Physical Examination: Assessment: * Assessment: 1. C hest pain - R07.9 (Primary) 2 . D iaphoresis - R61 Plan: * Treatment: 2. D iaphoresis P rocedure: CARDIO Stress Test - Cardiolite * Procedure Codes: * true * Date: Generated for Sharda miranda/Catarino/[place] on: 0 05/31/2025 03:08 AM EDT
--- OUTSIDE RECORDS SUMMARY | 2025-05-28 08:31 | XMS_ITS ---
Author Organization The [facility] in [place] Address [address] [place] [address] Care Team Providers Care Electrical Inspector Name Role Phone Johnny Bell Primary Care Provider REASON FOR VISIT labs Encounters Encounter Location Date Provider Diagnosis [facility] [address] [place] [address] 05/28/2025 Johnny Bell Plan Of Treatment No Information Progress Notes * REESEJose COBURNDOB:1965 (60 yo M)Acc No.[id number]:05/28/2025 Patient: Jose KERNS :1965 A ge:60 Y S ex:Male Address:[address] [place] [phone] * true * Date: Generated for Oscari ruth/Orestesg/eTransmitting on: 0 05/31/2025 03:08 AM EDT
[2025-05-31] VITALS (26 sets, daily range): BP systolic 123–182; BP diastolic 59–99; PULSE 55–74; TEMP 36.8; O2SAT 92–100; BMI 34.4
--- NOTE | 2025-05-31 02:55 | ECG_ITS ---
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
--- OUTSIDE RECORDS SUMMARY | 2025-05-31 03:07 | XMS_ITS | Encounter Summary ---
Author Organization [facility] Address [address] [place] [address] Care Team Providers Care Career Center Advisor Name Role Phone Martin Bell MD Primary Care Provider [phone], Referral Unavailable Unavailable Ayo Lovelace MD Unavailable [phone] Ayo Lovelace MD Unavailable [phone] Castillo Pereira MD Unavailable Source Comments In the event this information is protected by the Federal Confidentiality of Alcohol and Drug AbusePatient Records regulations: The Federal rules restrict any use of the information to criminally investigate or prosecute any alcohol or drug abuse patient.[facility] Encounter Details Date Type Department Care Team (Late st Contact Info) Description 03/10/2018 Patient Msg Cardiology [address] [place] [address] Ayo Lovelace MD [address] [place] [address] RE: Appointment Cancellation Request Social History Tobacco Use Types Packs/Day Years Used Date Smoking Tobacco: Never Smokeless Tobacco: Never Alcohol Use Standard Drinks/Week Comments Yes 1 (1 standard drink = 0.6 oz pure alcohol) socially; yrtisova-8-3 cups per day Sex and Gender Information [...] 08/18/2025 8:30 AM EST Procedure Cardiology [address] [id number] established EPS patient- web appt req 08/18/2025 9:00 AM EST Office Visit Cardiology [address] [id number] Hanna Arevalo APRN.SUPERVISOR REMELT [address] [place] [address] established EPS patient- web appt req 11/30/2025 8:15 AM EST Procedure Cardiology [address] [id number] DX CARDIAC EVALUATION 11/30/2025 9:15 AM EST Office Visit Cardiology [address] [id number] Leah Manjarrez MD [address] [place] [address] DX H/O AFIB ( SEES DR LOVELACE) documented as of this encounter Visit Diagnoses Not on filedocumented in this encounter Care Teams Career Center Advisor Relationship Specialty Start Date End Date Martin Bell MD PCP - General Family Medicine 08/07/11 No, Referral Referring 08/08/18 Ayo Lovelace MD [address] [place] [id number] Primary Staff Physician Cardiology 12/23/18 Ayo Lovelace MD [address] [place] [address] Primary Staff Physician Cardiology 12/23/18 Castillo Pereira MD [address] [place] [address] Primary Staff Physician Cardiology 09/12/21 documented as of this encounter
--- OUTSIDE RECORDS SUMMARY | 2025-05-31 03:08 | XMS_ITS | Clinical Summary ---
Author Organization [facility] Address [address] [place] [address] Care Team Providers Care Automatic Pilot Mechanic Name Role Phone Unavailable Primary Care Provider Unavailabl e Social History Tobacco Use Types Packs/Day Years Used Date Smoking Tobacco: Never Assessed Sex and Gender Information Value Date Recorded Sex Assigned at Not on file Legal Sex Male 8:15 PM EDT Gender Identity Not on file Sexual Orientation Not on file Last Filed Vital Signs Vital Sign Reading Time Taken Comments Blood Pressure 134/98 11/27/2017 12:00 PM EST Pulse - - Temperature - - Respiratory Rate - - Oxygen Saturation - - Inhaled Oxygen Concentration - - Weight 104 kg (230 lb) 12/25/2017 12:00 PM EDT Height 177.8 cm (5' 10 ) 12/25/2017 12:00 PM EDT Body Mass Index 33 12/25/2017 12:00 PM EDT Plan of Treatment Not on file
--- OUTSIDE RECORDS SUMMARY | 2025-05-31 03:08 | XMS_ITS | Encounter Summary ---
Author Organization [facility] Address [facility] [place] [address] Care Team Providers Care Internet Specialist Name Role Phone Martin Bell MD Primary Care Provider [phone], Referral Unavailable Unavailable Ayo Lovelace MD Unavailable [phone] Castillo Pereira MD Unavailable Source Comments In the event this information is protected by the Federal Confidentiality of Alcohol and Drug AbusePatient Records regulations: The Federal rules restrict any use of the information to criminally investigate or prosecute any alcohol or drug abuse patient.[facility] Reason for Referral * Outpatient Procedure (Routine) - Authorized Specialty Diagnoses / Procedures Referred By Contac t Referred To [facility] Diagnoses Paroxysmal tachycardia, unspecified (HCC) Procedures ECG COMPLETE ECG ROUTINE ECG W/LEAST 12 LDS W/I&R Ayo Lovelace MD [address] [place] [id number] Phone: tel: fax: [facility] [address] [address] Referral ID Status Reason Start Date Expiration Date Visits Requested Visits Authorized [id number] Authorized Auto-Generat ed Referral 05/17/2025 05/17/2026 1 1 Encounter Details Date Type Department Care Team (Late st Contact Info) Description 05/17/2025 Orders Only Cardiology [address] [place] [address] Ayo Lovelace MD [address] [place] [address] Paroxysmal tachycardia, unspecified (HCC) (Primary [...] N ot on file 09/11/2020 Data from: [email or web address] Last address used for calculation [...] 08/18/2025 8:30 AM EST Procedure Cardiology [address] [id number] established EPS patient- web appt req 08/18/2025 9:00 AM EST Office Visit Cardiology [address] [place] [address] Hanna Arevalo, MICROFILM TECHNICIAN.TREE DRILLER [address] [place] [address] established EPS patient- web appt req 11/30/2025 8:15 AM EST Procedure Cardiology [address] [place] [address] DX CARDIAC EVALUATION 11/30/2025 9:15 AM EST Office Visit Cardiology [address] [place] [address] Leah Manjarrez MD [address] [place] [address] DX H/O AFIB ( SEES DR LOVELACE) [...] unspecified documented in this encounter Care Teams Internet Specialist Relationship Specialty Start Date End Date Martin Bell MD PCP - General Family Medicine 08/07/11 No, Referral Referring 08/08/18 Ayo Lovelace MD [address] [place] [address] Primary Staff Physician Cardiology 12/23/18 Castillo Pereira MD [address] [place] [address] Primary Staff Physician Cardiology 09/12/21 documented as of this encounter
--- OUTSIDE RECORDS SUMMARY | 2025-05-31 03:08 | XMS_ITS | Encounter Summary ---
Author Organization [facility] Address [address] [place] [address] Care Team Providers Care In Store Marketer Name Role Phone Martin Bell MD Primary Care Provider [phone], Referral Unavailable Unavailable Ayo Lovelace MD Unavailable [phone] Castillo Pereira MD Unavailable Source Comments In the event this information is protected by the Federal Confidentiality of Alcohol and Drug AbusePatient Records regulations: The Federal rules restrict any use of the information to criminally investigate or prosecute any alcohol or drug abuse patient.[facility] Encounter Details Date Type Department Care Team (Late st Contact Info) Description 09/05/2020 Patient Msg Cardiology [address] [place] [address] Ayo Lovelace MD [address] [place] [address] Request an Appointment Social History Tobacco Use Types Packs/Day Years Used Date Smoking Tobacco: Never Smokeless Tobacco: Never Alcohol Use Standard Drinks/Week Comments Yes 1 (1 standard drink = 0.6 oz pure alcohol) socially; miennalf-6-2 cups per day Sex and Gender Information [...] 08/18/2025 8:30 AM EST Procedure Cardiology [address] [phone] established EPS patient- web appt req 08/18/2025 9:00 AM EST Office Visit Cardiology [address] [phone] Hanna Arevalo, LIQUID SUGAR MELTER.SCRAP KETTLE TENDER [address] [place] [address] established EPS patient- web appt req 11/30/2025 8:15 AM EST Procedure Cardiology [address] [id number] DX CARDIAC EVALUATION 11/30/2025 9:15 AM EST Office Visit Cardiology [address] [phone] Leah Manjarrez MD [facility] [place] [id number] DX H/O AFIB ( SEES DR LOVELACE) documented as of this encounter Visit Diagnoses Not on filedocumented in this encounter Care Teams In Store Marketer Relationship Specialty Start Date End Date Martin Bell MD PCP - General Family Medicine 08/07/11 No, Referral Referring 08/08/18 Aoy Lovelace MD [address] [place], [place] [phone] Primary Staff Physician Cardiology 12/23/18 Castillo Pereira MD [address] [place], [place] [id number] Primary Staff Physician Cardiology 09/12/21 documented as of this encounter
--- OUTSIDE RECORDS SUMMARY | 2025-05-31 03:08 | XMS_ITS | Encounter Summary ---
Author Organization [facility] Address [address] [place] [address] Care Team Providers Care Rails Developer Name Role Phone Martin Bell MD Primary Care Provider [phone], Referral Unavailable Unavailable Ayo oLvelace MD Unavailable [phone] Castillo Pereira MD Unavailable Source Comments In the event this information is protected by the Federal Confidentiality of Alcohol and Drug AbusePatient Records regulations: The Federal rules restrict any use of the information to criminally investigate or prosecute any alcohol or drug abuse patient.[facility] Encounter Details Date Type Department Care Team (Late st Contact Info) Description 04/10/2022 Patient Msg Cardiology [address] [place] [address] Hanna Arevalo APRN.YARN BLEACHING MACHINE OPERATOR [address] [place] [address] Request an Appointment Social History [...] N ot on file 09/11/2020 Data from: [email or web address] Last address used for calculation Not on [...] 08/18/2025 8:30 AM EST Procedure Cardiology [address] [place] [address] established EPS patient- web appt req 08/18/2025 9:00 AM EST Office Visit Cardiology [address] [phone] Hanna Arevalo APRN.YARN BLEACHING MACHINE OPERATOR [address] [place] [phone] established EPS patient- web appt req 11/30/2025 8:15 AM EST Procedure Cardiology [address] [id number] DX CARDIAC EVALUATION 11/30/2025 9:15 AM EST Office Visit Cardiology [address] [phone] Leah Manjarrez MD [address] [place] [phone] DX H/O AFIB ( SEES DR LOVELACE) documented as of this encounter Visit Diagnoses Not on filedocumented in this encounter Care Teams Rails Developer Relationship Specialty Start Date End Date Martin Bell MD PCP - General Family Medicine 08/07/11 No, Referral Referring 08/08/18 [place] [address] [place] [address] Primary Staff Physician Cardiology 12/23/18 Castillo Pereira MD [facility] [place] [id number] Primary Staff Physician Cardiology 09/12/21 documented as of this encounter
--- OUTSIDE RECORDS SUMMARY | 2025-05-31 03:08 | XMS_ITS | Encounter Summary ---
Author Organization [facility] Address [address] [place] [address] Care Team Providers Care Policy Writer Typist Name Role Phone Martin Bell MD Primary Care Provider [phone], Referral Unavailable Unavailable Ayo Lovelace MD Unavailable [phone] Castillo Pereira MD Unavailable Source Comments In the event this information is protected by the Federal Confidentiality of Alcohol and Drug AbusePatient Records regulations: The Federal rules restrict any use of the information to criminally investigate or prosecute any alcohol or drug abuse patient.[facility] Encounter Details Date Type Department Care Team (Late st Contact Info) Description 02/01/2022 Patient Msg Orthopaedics [address] [place] [address] Tim Escoto PA-C [address] [address] Vitamin D Social History Tobacco [...] N ot on file 09/11/2020 Data from: https://www.neighborhoodatlas.medicine.[facility]/. Last address used for [...] 08/18/2025 8:30 AM EST Procedure Cardiology [address] [place] [address] established EPS patient- web appt req 08/18/2025 9:00 AM EST Office Visit Cardiology [address] [place] [address] Hanna Arevalo APRN.OPTICIAN APPRENTICE DISPENSING [address] [place] [address] established EPS patient- web appt req 11/30/2025 8:15 AM EST Procedure Cardiology [address] [place] [address] DX CARDIAC EVALUATION 11/30/2025 9:15 AM EST Office Visit Cardiology [address] [place] [address] Leah Manjarrez MD [address] [place] [address] DX H/O AFIB ( SEES DR LOVELACE) documented as of this encounter Visit Diagnoses Not on filedocumented in this encounter Care Teams Policy Writer Typist Relationship Specialty Start Date End Date Martin Bell MD PCP - General Family Medicine 08/07/11 No, Referral Referring 08/08/18 Ayo Lovelace MD [address] [place] [address] Primary Staff Physician Cardiology 12/23/18 Castillo Pereira MD [facility] [place] [address] Primary Staff Physician Cardiology 09/12/21 documented as of this encounter
--- OUTSIDE RECORDS SUMMARY | 2025-05-31 03:08 | XMS_ITS | Encounter Summary ---
Author Organization [facility] Address [address] [place] [address] Care Team Providers Care Dog Barber Name Role Phone Martin Bell MD Primary Care Provider [phone], Referral Unavailable Unavailable Ayo Lovelace MD Unavailable [phone] Castillo Pereira MD Unavailable Source Comments In the event this information is protected by the Federal Confidentiality of Alcohol and Drug AbusePatient Records regulations: The Federal rules restrict any use of the information to criminally investigate or prosecute any alcohol or drug abuse patient.[facility] Encounter Details Date Type Department Care Team (Late st Contact Info) Description 06/04/2024 Get Medical Advice Cardiology [address] [place] [address] Ayo Lovelace MD [address] [place] [address] Stress test Social History Tobacco Use Types Packs/Day Years Used Date Smoking Tobacco: Never Smokeless Tobacco: Never Alcohol Use Standard Drinks/Week Comments Yes 0 (1 standard drink = 0.6 oz pur e alcohol) 2-3 drink per week Area Deprivation Index Answer Date Tucekr rded National Score (1-100), lower number is lower ri sk Not on file 09/11/2020 State Score (1-10), lower number is lower risk N ot on file 09/11/2020 Data from: https://www.neighborhoodatlas.medicine.[facility]/. Last address used for calculation Not on [...] 08/18/2025 8:30 AM EST Procedure Cardiology [address] [place] [address] established EPS patient- web appt req 08/18/2025 9:00 AM EST Office Visit Cardiology [address] [place] [phone] Hanna Arevalo APRN.[facility] [address] [place] [address] established EPS patient- web appt req 11/30/2025 8:15 AM EST Procedure Cardiology [address] [place], [place] [id number] DX CARDIAC EVALUATION 11/30/2025 9:15 AM EST Office Visit Cardiology [address] [place], [place] [id number] eLah Manjarrez MD [address] [place] [address] DX H/O AFIB ( SEES DR LOVELACE) documented as of this encounter Visit Diagnoses Not on filedocumented in this encounter Care Teams Dog Barber Relationship Specialty Start Date End Date Martin Bell MD PCP - General Family Medicine 08/07/11 No, Referral Referring 08/08/18 Ayo Lovelace MD [facility] [place] [address] Primary Staff Physician Cardiology 12/23/18 Castillo Pereira MD [facility] [place] [address] Primary Staff Physician Cardiology 09/12/21 documented as of this encounter
--- OUTSIDE RECORDS SUMMARY | 2025-05-31 03:08 | XMS_ITS | Encounter Summary ---
Author Organization [facility] Address [address] [place] [address] Care Team Providers Care Senior Market Research Analyst Name Role Phone Martin Bell MD Primary Care Provider [phone], Referral Unavailable Unavailable Ayo Lovelace MD Unavailable [phone] Castillo Pereira MD Unavailable Source Comments In the event this information is protected by the Federal Confidentiality of Alcohol and Drug AbusePatient Records regulations: The Federal rules restrict any use of the information to criminally investigate or prosecute any alcohol or drug abuse patient.[facility] Encounter Details Date Type Department Care Team (Late st Contact Info) Description 05/27/2025 Get Medical Advice Cardiology [address] [place] [address] Ayo Lovelace MD [address] [place] [address] Medication Question Social History Tobacco [...] N ot on file 09/11/2020 Data from: https://www.neighborhoodatlas.medicine.[facility]/. Last address used for calculation Not on [...] 08/18/2025 8:30 AM EST Procedure Cardiology [address] [place] [address] established EPS patient- web appt req 08/18/2025 9:00 AM EST Office Visit Cardiology [address] [place] [phone] Hanna Arevalo APRN.CARPENTER ASSISTANT [address] [place] [address] established EPS patient- web appt req 11/30/2025 8:15 AM EST Procedure Cardiology [address] [place], [place] [phone] DX CARDIAC EVALUATION 11/30/2025 9:15 AM EST Office Visit Cardiology [address] [place], [place] [phone] Leah Manjarrez MD [address] [place] [address] DX H/O AFIB ( SEES DR LOVELACE) documented as of this encounter Goals Goal Patient Goal Type Associated Problems Recent Progress Patient-Stated? Author Blood Pressure < 130/80 Blood Pressure 136/84( 024 2:50 PM EST) No Ayo Lovelace MD documented as of this encounter Visit Diagnoses Not on filedocumented in this encounter Care Teams Senior Market Research Analyst Relationship Specialty Start Date End Date Martin Bell MD PCP - General Family Medicine 08/07/11 No, Referral Referring 08/08/18 Ayo Lovelace MD [address] [place] [address] Primary Staff Physician Cardiology 12/23/18 Castillo Pereira MD [address] [place] [address] Primary Staff Physician Cardiology 09/12/21 documented as of this encounter
--- OUTSIDE RECORDS SUMMARY | 2025-05-31 03:08 | XMS_ITS | Encounter Summary ---
Author Organization [facility] Address [address] [place] [address] Care Team Providers Care Finance Analyst Name Role Phone Martin Bell MD Primary Care Provider [phone], Referral Unavailable Unavailable Ayo Lovelace MD Unavailable [phone] Ayo Lovelace MD Unavailable [phone] Castillo Pereira MD Unavailable Source Comments In the event this information is protected by the Federal Confidentiality of Alcohol and Drug AbusePatient Records regulations: The Federal rules restrict any use of the information to criminally investigate or prosecute any alcohol or drug abuse patient.[facility] Encounter Details Date Type Department Care Team (Late st Contact Info) Description 03/10/2018 Patient Msg Cardiology [address] [place] [address] Appointment Cancellation Request Social History Tobacco Use Types Packs/Day Years Used Date Smoking Tobacco: Never Smokeless Tobacco: Never Alcohol Use Standard Drinks/Week Comments Yes 1 (1 standard drink = 0.6 oz pure alcohol) socially; [id number]-[id number] cups per day Sex and Gender Information [...] 08/18/2025 8:30 AM EST Procedure Cardiology [address] [place] [address] established EPS patient- web appt req 08/18/2025 9:00 AM EST Office Visit Cardiology [address] [place] [address] Hanna Arevalo, SERVICE AGENT.SCREENING NURSE [address] [place] [address] established EPS patient- web appt req 11/30/2025 8:15 AM EST Procedure Cardiology [address] [place] [address] DX CARDIAC EVALUATION 11/30/2025 9:15 AM EST Office Visit Cardiology [address] [place] [address] Leah Manjarrez MD [address] [place] [address] DX H/O AFIB ( SEES DR LOVELACE) documented as of this encounter Visit Diagnoses Not on filedocumented in this encounter Care Teams Finance Analyst Relationship Specialty Start Date End Date Martin Bell MD PCP - General Family Medicine 08/07/11 No, Referral Referring 08/08/18 Ayo Lovelace MD [address] [place] [address] Primary Staff Physician Cardiology 12/23/18 [place] [address] [place] [address] Primary Staff Physician Cardiology 12/23/18 Castillo Pereira MD [address] [place] [address] Primary Staff Physician Cardiology 09/12/21 documented as of this encounter
--- OUTSIDE RECORDS SUMMARY | 2025-05-31 03:08 | XMS_ITS | Clinical Summary ---
Author Organization [facility] Address [address] [address] Care Team Providers Care Unhairing Machine Operator Name Role Phone Unavailable Primary Care Provider [...] - S/p Ablation in the past at [facility] S/p Cardioversion/Adenosine in ED Amiodarone gtt [...] patient's age to complete this topic [facility] Advance Directives For more information, please contact: [phone] (7:30 AM - 6PM [facility], Saturday-Saturday) * Full Code (Latest Code Status on File) Date Activated Date Inactivated Comments 06/19/2022 7:56 PM
--- OUTSIDE RECORDS SUMMARY | 2025-05-31 03:08 | XMS_ITS | Encounter Summary ---
Author Organization [facility] Address [address] [place] [address] Care Team Providers Care Physician Coding Specialist Name Role Phone Martin Bell MD Primary Care Provider [phone], Referral Unavailable Unavailable Ayo Lovelace MD Unavailable [phone] Castillo Pereira MD Unavailable Source Comments In the event this information is protected by the Federal Confidentiality of Alcohol and Drug AbusePatient Records regulations: The Federal rules restrict any use of the information to criminally investigate or prosecute any alcohol or drug abuse patient.[facility] Encounter Details Date Type Department Care Team (Late st Contact Info) Description 01/29/2023 Patient Msg Cardiology [address] [place] [address] Hanna Arevalo APRN.[employer] [address] [place] [address] Appointment Cancellation Request Social History [...] N ot on file 09/11/2020 Data from: https://www.neighborhoodatlas.medicine.[facility]/. Last address used for calculation Not [...] 08/18/2025 8:30 AM EST Procedure Cardiology [address] [place] [address] established EPS patient- web appt req 08/18/2025 9:00 AM EST Office Visit Cardiology [address] [place] [phone] Hanna Arevalo APRN.[employer] [address] [place] [id number] established EPS patient- web appt req 11/30/2025 8:15 AM EST Procedure Cardiology [address] [place] [id number] DX CARDIAC EVALUATION 11/30/2025 9:15 AM EST Office Visit Cardiology [address] [place] [address] Leah Manjarrez MD [address] [place] [id number] DX H/O AFIB ( SEES DR LOVELACE) documented as of this encounter Visit Diagnoses Not on filedocumented in this encounter Care Teams Physician Coding Specialist Relationship Specialty Start Date End Date Martin Bell MD PCP - General Family Medicine 08/07/11 No, Referral Referring 08/08/18 Ayo Lovelace MD [address] [place] [address] Primary Staff Physician Cardiology 12/23/18 Castillo Pereira MD [facility] [place] [id number] Primary Staff Physician Cardiology 09/12/21 documented as of this encounter
--- OUTSIDE RECORDS SUMMARY | 2025-05-31 03:08 | XMS_ITS | CCD ---
Author Organization [facility] CliniSymd Care Team Providers Care Dairy Scientist Name Role Phone EID, ROSEMARIE Unavailable Unavailable EID, ROSEMARIE Unavailable Unavailable PHYSICIAN, DEFAULT Unavailable Unavailable PHYSICIAN, DEFAULT Unavailable Unavailable Destiny Vela Primary Care Provider [phone] MD ATTILA PINEDO Attending Unavailable DESTINY VELA [...] Referral Unavailable Unavailable Israel Rocha MD Unavailable [phone] Castillo Pereira MD Unavailable DESTINY VELA Referring Unavailable DESTINY VELA Primary Care Unavailable DESTINY VELA Referring Unavailable DESTINY VELA Primary Care Unavailable Destiny Vela MD Primary Care Provider [phone] Israel Rocha MD Unavailable Castillo Pereira MD Unavailable Destiny Vela MD [...] Physician UnavailDestiny Lim MD Primary Care Provider [phone] ISRAEL ROCHA Attending Unavailable DESTINY VELA Primary Care Unavailable DESTINY VELA M Primary Care Unavailable ISRAEL ROCHA Referring Unavailable DESTINY VELA Primary Care Unavailable DESTINY VELA Primary Care Unavailable ISRAEL ROCHA Referring Unavailable Allergies Allergy Classification Reported Allergen(s) Allergy Type Date of Onset Reaction(s) Facility (20 sources) Hmg-Coa Reductase Inhibitors (Statins); Translations: [[id number] REDUCTASE INHIBITORS] Propensity to adverse reactions to drug (disorder) 7 Myalgia [facility] Other [place] Repository (1 source) [address],00 Drug allergy (disorder) 9 [facility] Repository (2 sources) Hmg-Coa Reductase Inhibitors (Statins); Translations: [statins] Propensity to adverse reactions to drug (disorder) [facility] Repository (1 source) Erythromycin Drug Allergy [facility] Repository Medications Current Medications Medication Drug Class(es) [...] Comment on above: Take 1 capsule by [facility] once daily. 24 hr metoprolol succinate 50 [...] Comment on above: Take 100 Units by [facility] once daily. Completed/Discontinued Medications Medication Drug Class(es) Dates Sig (Normalized) Sig (Original) amiodarone hydrochloride 200 mg oral tablet (9 sources) Antiarrhythmic Start: 06-21-2022 take 1 tablet by mouth twice daily amiodarone (PACERONE) 200 mg tablet Take 1 tablet by mouth twice daily. 0 06/21/2022 Active Comment on above: Take 1 tablet by [place] twice daily. clobetasol propionate 0.5 mg/ml topical [...] mouth once daily. Take 1 capsule by [facility] once daily. ergocalciferol 1.25 mg oral capsule (19 sources) Provitamin D2 Compound Start: 02-02-20 End: 05-02-20 take 1 capsule by mouth two times weekly ergocalciferol 50,000 unit capsule (VITAMIN D2, DRISDOL) Take 1 capsule by mouth two times a week. 24 capsule 0 02/01/2022 Active Comment on above: Take 1 capsule by [facility] two times a week. Fish Oil-DHA-EPA (FISH OIL) 1,200-144-216 mg ORAL Cap (11 sources) Start: 08-07-20 11 Fish Oil-DHA-EPA (FISH OIL) 1,200-144-216 mg ORAL Cap Take 1 capsule by mouth once daily. 0 08/07/2011 Suspended Start: 08-07-2011 Fish Oil-DHA-E PA (FISH OIL) 1,200-144-216 mg ORAL Cap Take 1 capsule by mouth once daily. 0 08/07/2011 Active Comment on above: Take 1 capsule by [facility] once daily. meloxicam 15 mg oral tablet [...] Comment on above: Take 1 capsule by [facility] once daily. VITAMIN A ORAL (20 sources) [...] on above: Take 1,000 mcg by mo [facility] once daily. Problems Active Problems Problem Classification [...] Onset: 06-11-2023 Episodic Other aftercare (1 source) senior living (current) use of aspirin; Translations: [JAIL CURRENT USE OF ASPIRIN] Onset: 05-15-2022 Episodic Other aftercare (1 source) Other computer terminal operator (current) drug therapy; Translations: [OTH JAIL CURRENT DRUG THERAPY] Onset: 05-15-2022 Episodic Other [...] [id number] astIllness_name_2 Unclassified (1 source) [id number] astIllness_name_2 Unclassified (1 source) [id number] astIllness_name_2 Results Test Name Value Interpretation Reference Range Facility CNOVon 08-17-2024 CNOV Office Visit (CARDMN ) JOSE CHA ([id number]) 1965 M Date Time Provider Department 08/17/24 2:15 PM ISRAEL ROCHA During your visit today, we recorded the following information about you: Pulse Blood pressure Weight Height 71/minute 136/84 108 kg 1.753 m Israel Rocha MD 08/19/2024 8:28 AM [facility] [place] [facility] Department of Cardiovascular Medicine SECTION [...] for this visit. ALLERGIES: ALLERGIES Allergen Reactions Kjskgwb-Tsk-Fop Red* Myalgia Social History Tobacco Use Smoking [...] report. This note was created using computerized linotype operator software and may therefore include some linotype operator errors including errors in gender and inappropriate words or phrases. I reviewed old records, obtained relevant HPI and PMH from the pt, examined the patient and created the above report. 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 Normal [facility] ECG COMPLETEon 08-17-2024 ECG COMPLETE Ventricular Rate : 7 1 BPM Atrial Rate : 71 BPM P-R Interval : 192 ms QRS Duration : 142 ms Q-T Interval : 434 ms QTC Calculation(Bazett) : 471 ms Calculated P Cotter : 49 degrees Calculated R Cotter : 17 degrees Calculated T Cotter : 2 degrees NORMAL SINUS RHYTHM COMPLETE RIGHT BUNDLE BRANCH BLOCK ABNORMAL ECG Confirmed by MD MANJARREZ TAMANNA ([id number]) on 09/16/2024 12:02:44 PM NAME : JOSE CHA PID : [id number] : 1965 Gender : Male Race : ORD : [id number] Procedure Date : Aug 17 2024 13:17:58 Edit Date : Sep 16 2024 12:02:51 Diagnosis: NORMAL SINUS RHYTHM COMPLETE RIGHT BUNDLE BRANCH BLOCK ABNORMAL ECG Confirmed by MD MANJARREZ TAMANNA ([id number]) on 09/16/2024 12:02:44 PM Test Reason : Location : 314 : J14 Overread By : MD MANJARREZ TAMANNA Edited By : MD MANJARREZ TAMANNA Referred By : , Acquired by : RAMOS MUÑOZ [facility] CARDIAC PERF STRESS/EXERC ISEon 06-16-2024 CA CARDIAC PERF STRESS/EXERCISE * * *Final Report* * * DATE OF EXAM: Jun 16 2024 9:41AM [facility] 0004 - [place] CARDIAC PERF STRESS/EXERCISE / PROCEDURE REASON: WILLETT (dyspnea on exertion) * * * * Physician Interpretation * * * * Stress Cabinetmaker Supervisor Report: [facility] SHANNA-2 Date of service: 06/16/2024 8:18:51 AM [...] See administered radiotracer and doses below. Main [place] Date of service: 06/16/2024 8:18:51 AM Ordering [...] Final * * * NM CTAC Report: [facility] Date of service: 06/16/2024 8:18:51 AM CTAC interpreting physician: Scott Manjarrez MD PATIENT: Name: MR. JOSE CHA Age: 59 years Gender: M 1. Incidental Findings from limited non-diagnostic CTAC: - Coronary calcifications visualized. * * * Final * * * Stress ECG Report: [place] [id number] Date of service: 06/16/2024 8:18:51 AM Ordering physician: ISRAEL ROCHA customer sales specialist: Lia Nava Form Designer: Serena Sun Fellow: Deon Mark MD Interpreting [...] 50th percent (more content not included)... Normal [facility] Heart Perfusion W multipl e states of exerciseon 06-16-2024 * * *Final Report* * * DATE OF EXAM: Jun 16 2024 9:41AM [facility] 0004 - [place] CARDIAC PERF STRESS/EXERCISE / PROCEDURE REASON: WILLETT (dyspnea on exertion) * * * * Physician Interpretation * * * * Stress Cabinetmaker Supervisor Report: [facility] Date of service: 06/16/2024 8:18:51 AM Supervising [...] See administered radiotracer and doses below. Main [place] Date of service: 06/16/2024 8:18:51 AM Ordering [...] Final * * * NM CTAC Report: [facility] Date of service: 06/16/2024 8:18:51 AM CTAC interpreting physician: Scott Manjarrez MD PATIENT: Name: MR. JOSE CHA Age: 59 years Gender: M 1. Incidental Findings from limited non-diagnostic CTAC: - Coronary calcifications visualized. * * * Final * * * Stress ECG Report: [facility] SHANNA-2 Date of service: 06/16/2024 8:18:51 AM Ordering physician: ISRAEL ROCHA customer sales specialist: Lia Nava Form Designer: Sreena Sun Fellow: Deon Mark MD Interpreting physician: Scott Manjarrez MD Patient name: MR. JOSE CHA Age: 59 years Gender: M Height: 175.26 cm BSA: 2.30 m Weight: 108.41 kg BMI: 35.3 kg/m Indication: Dyspnea on exertion, Chest pressure / Chest tightness and Fati (more content not included)... DIVISION OF RADIOLOGY Provider, [facility] - 06/16/2024 * * *Final Report* * * DATE OF EXAM: Jun 16 2024 9:41AM [facility] 0004 - [place] CARDIAC PERF STRESS/EXERCISE / PROCEDURE REASON: WILLETT (dyspnea on exertion) * * * * Physician Interpretation * * * * Stress Cabinetmaker Supervisor Report: [facility] Date of service: 06/16/2024 8:18:51 AM Supervising [...] See administered radiotracer and doses below. Main [place] Date of service: 06/16/2024 8:18:51 AM Ordering [...] Final * * * NM CTAC Report: [facility] Date of service: 06/16/2024 8:18:51 AM CTAC interpreting physician: Scott Manjarrez MD PATIENT: Name: MR. JOSE CHA Age: 59 years Gender: M 1. Incidental Findings from limited non-diagnostic CTAC: - Coronary calcifications visualized. * * * Final * * * Stress ECG Report: [facility] Date of service: 06/16/2024 8:18:51 AM Ordering physician: ISRAEL ROCHA customer sales specialist: Lia Nava Form Designer: Serena Sun Fellow: Deon Mark MD Interpreting [...] The patient e (more content not included)... [facility] Radiology Study observation (narrative) [facility] NM Heart Perfusion W multipl e states of exerciseOrdered By: Ccf Provider on 06-16-2024 [facility] Outside Colonoscopyon 2022 Outside Colonoscopy [id number]#1.00TIFF Normal [facility] Reminderson 09-19-2023 Reminders - From: Viktoria Heart LPN To: N - Clinical; Sent: 09/19/2023 08:55:34 EST Show up: 08/19/2033 07:00:00 EST Subject: colonoscopy recall Due Date/Time: 09/18/2033 07:00:00 EST Reminder/Recall Patient due for screening colonoscopy 09/18/2033. Normal [facility] No Panel Informationon 09-18 Colonoscopy Invalid Interpretation Code [employer] Work Phone: Consent for Procedure/Surger yon 09-05-2023 Consent for Procedure/Surgery [id number]#1.00TIFF [facility] Facesheeton 09-05-2023 Facesheet [id number]#1.00TIFF [facility] Ambulatory Visit Summaryon 1 11-04-2022 Ambulatory Visit Summary JOSE CHA :1965 Visit Date:09/04/2023 Ambulatory Visit Instructions Your Care Team Attending Physician - PAT PONCE, Coyr Andrews Primary Care Physician - Destiny Vela [...] you for choosing us for your care. [facility] Insurance Correspondenceon 11-04-2022 Insurance Correspondence [id number]#1.00TIFF [facility] Consultation Noteon 08-07-20 23 Consultation Note [id number]#1.00TIFF [facility] Physician Referralon 023 Physician Referral [id number]#1.00TIFF [facility] No Panel Informationon 06-11 Tobacco smoking status Non-Smoker Invalid Interpretation Code [facility] Work Phone: - Invalid Interpretation Code [facility] Work Phone: [phone] Invalid Interpretation Code [facility] Work Phone: JOSE CHA Invalid Interpretation Code [facility] Work Phone: XR LEG FRONTAL HIP TO ANKLE MECHANICAL AXISon 2023 [facility] BILIRUBIN CONJUGATED (DIRECT )on 10-30-2022 BILI, CONJUGATED 0.1 mg/dL Normal 0.0-0.2 [facility] Comment on above: Performed By: #### D LEONARDO, FT3, LIPID, TSH, T4, CMP #### [facility] [address] [place] [address] Dr. Adam Royal CBC AUTO DIFFon 10-30-2022 BASO # 0.0 103/ul Normal 0.0-0.[address] [facility] Comment on above: Performed By: #### H STROPN, CMP #### [facility] [address] [place] [address] Dr. Adam Royal Basophils/100 WBC (Bld) 0.3 % Normal 0.2-2.0 [facility] Comment on above: Performed By: #### H KARTHIKEYANPN, CMP #### [facility] [address] [place] [address] Dr. Adam Royal EO # 0.1 103/ul Normal 0.0-0.[address] [facility] Comment on above: Performed By: #### H STROPN, CMP #### [facility] [address] [place] [address] Dr. Adam Royal Eosinophils/100 WBC (Bld) 1.4 % Normal 0.9-7.0 [facility] Comment on above: Performed By: #### H STROPN, CMP #### [facility] [address] [place] [address] Dr. Adam Royal Erythrocyte distribution width (RBC) [Ratio] 12.5 % Normal 11.0-15.[address] [facility] Comment on above: Performed By: #### H STROPN, CMP #### [facility] [address] [place] [address] Dr. Adam Royal Hematocrit (Bld) [Volume fraction] 45.6 % Normal 42.0-54.[address] [facility] Comment on above: Performed By: #### H STROPN, CMP #### [facility] [address] [place] [address] [address] Adam Royal Hemoglobin (Bld) [Mass/Vol] 15.6 g/dL Normal 14.0-18.0 [facility] Comment on above: Performed By: #### H STROPN, CMP #### [facility] [address] [place] [address] [address] Adam Royal IG # 0.06 10e3/ul Critically high 0.00-0.[address] [facility] Comment on above: Performed By: #### H STROPN, CMP #### [facility] [address] [place] [address] Dr. Adam Royal IG % 0.7 % Critically high 0.0-0.5 [facility] Comment on above: Performed By: #### H STROPN, CMP #### [facility] [address] [place] [address] Dr. Adam Royal LYMPH # 1.6 103/ul Normal 1.2-3.8 [facility] Comment on above: Performed By: #### H STROPN, CMP #### [facility] [address] [place] [address] Dr. Adam Roayl Lymphocytes/100 WBC (Bld) 17.9 % Critically low 20.5-60.0 [facility] Comment on above: Performed By: #### H STROPN, CMP #### [facility] [address] [place] [address] Dr. Adam Royal MANUAL DIFF REQ NO Normal [facility] Comment on above: Performed By: #### H STROPN, CMP #### [facility] [address] [place] [address] Dr. Adam Royal MCH (RBC) [Entitic mass] 30.1 pg Normal 25.9-34.0 [facility] Comment on above: Performed By: #### H STROPN, CMP #### [facility] [address] [place] [address] Dr. Adam Royal MCHC (RBC) [Mass/Vol] 34.2 g/dL Normal 29.9-35.2 [facility] Comment on above: Performed By: #### H STROPN, CMP #### [facility] [address] [place] [address] [address] Adam Royal MCV (RBC) [Entitic vol] 87.9 fL Normal 80.0-94.0 [facility] Comment on above: Performed By: #### H STROPN, CMP #### [facility] [address] [place] [address] [address] Adam Royal MONO # 0.5 103/ul Normal 0.3-0.[address] [facility] Comment on above: Performed By: #### H STROPN, CMP #### [facility] [address] [place] [address] [address] Adam Royal Monocytes/100 WBC (Bld) 5.7 % Normal 1.7-12.0 [facility] Comment on above: Performed By: #### H STROPN, CMP #### [facility] [address] [place] [address] Dr. Adam Royal NEUT # 6.5 103/ul Normal 1.4-6.5 [facility] Comment on above: Performed By: #### H STROPN, CMP #### [facility] [address] [place] [address] Dr. Adam Royal Neutrophils/100 WBC (Bld) 74.0 % Normal 43.0-75.0 [facility] Comment on above: Performed By: #### H STROPN, CMP #### [facility] [address] [place] [address] Dr. Adam Royal Platelet mean volume (Bld) [Entitic vol] 9.6 fL Normal 9.5-13.[address] [facility] Comment on above: Performed By: #### H STROPN, CMP #### [facility] [address] [place] [address] Dr. Adam Royal PLT 269 103/ul Normal 150-[address] [facility] Comment on above: Performed By: #### H STROPN, CMP #### [facility] [address] [place] [address] Dr. Adam Royal RBC 5.19 106/ul Normal 4.70-6.[address] [facility] Comment on above: Performed By: #### H STROPN, CMP #### [facility] [address] [place] [address] [address] Adam Royal WBC 8.8 103/ul Normal 4.0-11.0 [facility] Comment on above: Performed By: #### H STROPN, CMP #### [facility] [address] [place] [address] [address] Adam Royal FREE T3on 10-30-2022 FREE T3 2.77 pg/mlL Normal 2.18-3.98 [facility] Comment on above: Performed By: #### D LEONARDO, FT3, LIPID, TSH, T4, CMP #### [facility] [address] [place] [address] Dr. Adam Royal GLYCOHEMOGLOBIN A1Con 2022 ADA RECOMMENDATION SEE BELOW Normal [facility] Comment on above: Result Comment: ADA RECOMMENDED LIMIT 4.0 - 6.0 ADA THERAPEUTIC TARGET < 7.0 ACTION SUGGESTED > 7.0 Performed By: #### A 1C #### [facility] [address] [place] [address] Dr. Adam Royal Glucose [Mass/Vol] 117 mg/dL Normal [facility] Comment on above: Performed By: #### A 1C #### [facility] [address] [place] [address] Dr. Adam Royal HbA1c (Bld) [Mass fraction] 5.7 % Normal 4.5-6.2 [facility] Comment on above: Performed By: #### A 1C #### [facility] [address] [place] [address] Dr. Adam Royal LIPID PROFILEon 10-30-2022 CHOL-HDL RATIO NORM SEE BELOW Normal [facility] Comment on above: Result Comment: 3.3 - 4.4 LOW RISK 4.4 - 7.1 AVERAGE RISK 7.1 - 11.0 MODERATE RISK >11.0 HIGH RISK Performed By: #### D LEONARDO, FT3, LIPID, TSH, T4, CMP #### [facility] [address] [place] [address] Dr. Adam Royal Cholesterol [Mass/Vol] 194 mg/dL Normal <=200 [facility] Comment on above: Performed By: #### D LEONARDO, FT3, LIPID, TSH, T4, CMP #### [facility] [address] [place] [address] [address] Adam Royal Cholesterol in HDL [Mass/Vol] 49 mg/dL Normal 40-60 [facility] Comment on above: Performed By: #### D LEONARDO, FT3, LIPID, TSH, T4, CMP #### [facility] [address] [place] [address] [address] Adam Royal Cholesterol in LDL [Mass/Vol] 122.6 mg/dL Normal [facility] Comment on above: Performed By: #### D LEONARDO, FT3, LIPID, TSH, T4, CMP #### [facility] [address] [place] [address] Dr. Adam Royal Cholesterol.total/C holesterol in HDL [Mass ratio] 4.0 {ratio} Normal [facility] Comment on above: Performed By: #### D LEONARDO, FT3, LIPID, TSH, T4, CMP #### [facility] [address] [place] [address] [address] Adam Royal HDL NORMAL > or = 60 mg/dl - LO W CARDIOVASCULAR RISK <40 mg/dl - HIGH CARDIOVASCULAR RISK Normal [facility] Comment on above: Performed By: #### D LEONARDO, FT3, LIPID, TSH, T4, CMP #### [facility] [address] [place] [address] [address] Adam Royal LDL CALC NORMAL SEE BELOW Normal [facility] Comment on above: Result Comment: <100 mg/dl OPTIMAL 100 - 129 mg/dl NEAR OR ABOVE OPTIMAL 130 - 159 mg/dl BORDERLINE HIGH 160 - 189 mg/dl HIGH >190 mg/dl VERY HIGH Performed By: #### D LEONARDO, FT3, LIPID, TSH, T4, CMP #### [facility] [address] [place] [address] [address] Adam Royal Triglyceride [Mass/Vol] 112 mg/dL Normal <=150 [facility] Comment on above: Performed By: #### D LEONARDO, FT3, LIPID, TSH, T4, CMP #### [facility] [address] [place] [address] Dr. Adam Royal VLDL CALC 22.4 mg/dL Normal [facility] Comment on above: Performed By: #### D LEONARDO, FT3, LIPID, TSH, T4, CMP #### [facility] [address] [place] [address] Dr. Adam Royal PROF 14(COMP METB)on 023 Albumin [Mass/Vol] 3.9 g/dL Normal 3.4-5.0 [facility] Comment on above: Performed By: #### D LEONARDO, FT3, LIPID, TSH, T4, CMP #### [facility] [address] [place] [address] Dr. Adam Royal Albumin/Globulin [Mass ratio] 1.0 {ratio} Normal [facility] Comment on above: Performed By: #### D LEONARDO, FT3, LIPID, TSH, T4, CMP #### [facility] [address] [place] [address] Dr. Adam Royal ALP [Catalytic activity/Vol] 62 U/L Normal 46-116 [facility] Comment on above: Performed By: #### D LEONARDO, FT3, LIPID, TSH, T4, CMP #### [facility] [address] [place] [address] Dr. Adam Royal ALT [Catalytic activity/Vol] 43 U/L Normal 16-63 [facility] Comment on above: Performed By: #### D LEONARDO, FT3, LIPID, TSH, T4, CMP #### [facility] [address] [place] [address] Dr. Adam Royal Anion gap [Moles/Vol] 15.0 mmol/L Normal [facility] Comment on above: Performed By: #### D LEONARDO, FT3, LIPID, TSH, T4, CMP #### [facility] [address] [place] [address] Dr. Adam Royal AST [Catalytic activity/Vol] 33 U/L Normal 15-37 [facility] Comment on above: Performed By: #### D LEONARDO, FT3, LIPID, TSH, T4, CMP #### [facility] [address] [place] [address] Dr. Adam Royal Bilirubin [Mass/Vol] 0.4 mg/dL Normal 0.2-1.0 [facility] Comment on above: Performed By: #### D LEONARDO, FT3, LIPID, TSH, T4, CMP #### [facility] [address] [place] [address] Dr. Adam Royal Calcium [Mass/Vol] 9.8 mg/dL Normal 8.5-10.1 [facility] Comment on above: Performed By: #### D LEONARDO, FT3, LIPID, TSH, T4, CMP #### [facility] [address] [place] [address] Dr. Adam Royal Chloride [Moles/Vol] 101 mmol/L Normal 98-107 [facility] Comment on above: Performed By: #### D LEONARDO, FT3, LIPID, TSH, T4, CMP #### [facility] [address] [place] [address] Dr. Adam Royal CO2 [Moles/Vol] 26.8 mmol/L Normal 21.0-32.0 [facility] Comment on above: Performed By: #### D LEONARDO, FT3, LIPID, TSH, T4, CMP #### [facility] [address] [place] [address] Dr. Adam Royal Creatinine [Mass/Vol] 1.01 mg/dL Normal 0.70-1.30 [facility] Comment on above: Performed By: #### D LEONARDO, FT3, LIPID, TSH, T4, CMP #### [facility] [address] [place] [address] Dr. Adam Royal EGFR-AF BOLIVIAN >60 Normal >=60 [facility] Comment on above: Performed By: #### D LEONARDO, FT3, LIPID, TSH, T4, CMP #### [facility] [address] [place] [address] Dr. Adam Royal EGFR-NON AF BOLIVIAN >60 Normal >=60 [facility] Comment on above: Performed By: #### D LEONARDO, FT3, LIPID, TSH, T4, CMP #### [facility] [address] [place] [address] Dr. Adam Royal Globulin (S) [Mass/Vol] 3.9 g/dL Normal [facility] Comment on above: Performed By: #### D LEONARDO, FT3, LIPID, TSH, T4, CMP #### [facility] [facility] [address] [place] [address] Dr. Adam Royal Glucose [Mass/Vol] 119 mg/dL Critically high 74-106 T [facility] Comment on above: Performed By: #### D LEONARDO, FT3, LIPID, TSH, T4, CMP #### [facility] [address] [place] [address] Dr. Adam Royal Potassium [Moles/Vol] 4.8 mmol/L Normal 3.5-5.1 [facility] Comment on above: Performed By: #### D LEONARDO, FT3, LIPID, TSH, T4, CMP #### [facility] [address] [place] [address] Dr. Adam Royal Protein [Mass/Vol] 7.8 g/dL Normal 6.4-8.2 [facility] Comment on above: Performed By: #### D LEONARDO, FT3, LIPID, TSH, T4, CMP #### [facility] [address] [place] [address] Dr. Adam Royal Sodium [Moles/Vol] 138 mmol/L Normal 136-145 [facility] Comment on above: Performed By: #### D LEONARDO, FT3, LIPID, TSH, T4, CMP #### [facility] [address] [place] [address] Dr. Adam Royal Urea nitrogen [Mass/Vol] 24.0 mg/dL Critically high 7.0-18.0 [facility] Comment on above: Performed By: #### D LEONARDO, FT3, LIPID, TSH, T4, CMP #### [facility] [address] [place] [address] Dr. Adam Royal Urea nitrogen/Creatinine [Mass ratio] 23.8 mg/mg Normal [facility] Comment on above: Performed By: #### D LEONARDO, FT3, LIPID, TSH, T4, CMP #### [facility] [address] [place], [place] [address] Dr. Adam Royal T4on 10-30-2022 T4 [Mass/Vol] 7.00 ug/dL Normal 4.50-12.10 [facility] Comment on above: Performed By: #### D LEONARDO, FT3, LIPID, TSH, T4, CMP #### [facility] [address] [id number] Adam Royal TSHon 10-30-2022 TSH 1.140 uIU/mL Normal 0.358-3.740 [facility] Comment on above: Performed By: #### D LEONARDO, FT3, LIPID, TSH, T4, CMP #### [facility] [address] [place] [address] [address] Adam Royal CBC(NO DIFF)on 06-20-2022 Erythrocyte distribution width (RBC) [Ratio] 13.0 % Normal 11.5-14.5 [facility] Hematocrit (Bld) [Volume fraction] 44.6 % Normal 42.0-52.0 [facility] Hemoglobin (Bld) [Mass/Vol] 15.2 g/dL Normal 14.0-18.0 [facility] MCH (RBC) [Entitic mass] 31.1 pg Normal 26.0-35.0 [facility] MCHC (RBC) [Mass/Vol] 34.2 g/dL Normal 27.0-37.0 [facility] MCV (RBC) [Entitic vol] 90.9 fL Normal 80.0-100.0 [facility] Platelet mean volume (Bld) [Entitic vol] 8.2 fL Normal 7.4-11.0 [facility] Platelets (Bld) [#/Vol] 162 10*3/uL Normal 130.0-400.0 [facility] RBC (Bld) [#/Vol] 4.90 10*6/uL Normal 4.0-6.1 [facility] WBC (Bld) [#/Vol] 6.7 10*3/uL Normal 3.6-11.0 [facility] FREE T4on 06-20-2022 Free T4 [Mass/Vol] 0.92 ng/dL Normal 0.78-2.19 [facility] MAGNESIUMon 06-20-2022 Magnesium [Mass/Vol] 2.1 mg/dL Normal 1.6-2.3 [facility] MRSA SCREENon 06-20-2022 MRSA DNA JOYCE+probe Ql (Unsp spec) Not detected Normal NOT DETECTED [facility] Comment on above: Performed By: #### M RSAST #### [place] [address] STAPH AUREUS SCREEN Not detected Normal NOT DETECTED [facility] Comment on above: Result Comment: Test ing performed at [place] [address] Performed By: #### M RSAST #### [place] [address] RENAL PANEL,FASTINGon 2021 ALBUMIN 4.1 G/dl Normal 3.5-5.0 [facility] Calcium [Mass/Vol] 8.6 mg/dL Normal 8.4-10.2 [facility] Chloride [Moles/Vol] 105 mmol/L Normal 98-107 [facility] Comment on above: Result Comment: Matias monroe note: Triglyceride levels of 600mg/dL or higher may positively bias chloride results by approximately 2.1 mmol CO2 [Moles/Vol] 27 mmol/L Normal 22-30 [facility] Creatinine [Mass/Vol] 1.07 mg/dL Normal 0.7-1.2 [facility] EST. GFR, 92 ml/min/1.73sq.m Normal [facility] EST. GFR,Non 76 ml/min/1.73sq.m [facility] GFR Information Average GFR for 50-5 9 years old = 93. Normal [facility] Comment on above: Result Comment: Bridge Maintainer jacky Kidney disease, GFR = <60. Kidney failure, GFR = <15. The GFR estimate is not adjusted for extreme body surface area or acute process, nor has it been validated for women or ethnic groups other than and . Glucose [Mass/Vol] 113 mg/dL High 70-100 [facility] Comment on above: Result Comment: NORMAL <100 mg/dL PREDIABETES 101-126 mg/dL DIABETES 126 mg/dL or higher PHOSPHOROUS 3.6 MG/DL Normal 2.5-4.5 [facility] Potassium [Moles/Vol] 5.0 mmol/L Normal 3.5-5.1 [facility] Sodium [Moles/Vol] 138 mmol/L Normal 137-145 [facility] Urea nitrogen [Mass/Vol] 17 mg/dL Normal 7-20 [facility] TROPONIN I, HIGH SENSITIVITY on 06-20-2022 TROPONIN I, HIGH SENSITIVITY 91 pg/mL High 0-20 [facility] Comment on above: Result Comment: Indeterminant: [...] 022 TSH,REFLEX FREE T4 <0.015 Low 0.46-4.68 [facility] CBCon 06-19-2022 ABSOLUTE BAS 0.0 10*3/uL Normal 0.0-0.2 [facility] Comment on above: Performed By: #### A CBC #### Testing performed at [address] [address] ABSOLUTE EOS 0.20 10*3/uL Normal 0.0-0.7 [facility] Comment on above: Performed By: #### A CBC #### Testing performed at [address] [address] ABSOLUTE NEUTROPHIL COUNT 2.7 10*3/uL Normal 1.4-6.5 [facility] Comment on above: Performed By: #### A CBC #### Testing performed at [address] [address] Basophils/100 WBC (Bld) 1.0 % Normal 0.0-2.0 [facility] Comment on above: Performed By: #### A CBC #### Testing performed at [place] [address] [place] [address] DTYPE AUTO DIFF Normal [facility] Comment on above: Performed By: #### A CBC #### Testing performed at [place] [address] [place] [address] Eosinophils/100 WBC (Bld) 3.5 % Normal 0.0-11.0 [facility] Comment on above: Performed By: #### A CBC #### Testing performed at [address] [address] Lymphocytes (Bld) [#/Vol] 1.40 10*3/uL Normal 1.2-3.4 [facility] Comment on above: Performed By: #### A CBC #### Testing performed at [address] [address] Lymphocytes/100 WBC (Bld) 29.2 % Normal 20.0-55.0 [facility] Comment on above: Performed By: #### A CBC #### Testing performed at [address] [address] Monocytes (Bld) [#/Vol] 0.4 10*3/uL Normal 0.0-0.7 [facility] Comment on above: Performed By: #### A CBC #### Testing performed at [address] [address] Monocytes/100 WBC (Bld) 8.3 % Normal 0.0-10.0 [facility] Comment on above: Performed By: #### A CBC #### Testing performed at [address] [address] Neutrophils/100 WBC (Bld) 58.0 % Normal 37.0-75.0 [facility] Comment on above: Performed By: #### A CBC #### Testing performed at [address] [address] Erythrocyte distribution width (RBC) [Ratio] 12.9 % Normal 11.5-14.5 [facility] Comment on above: Performed By: #### A CBC #### Testing performed at [address] [address] Hematocrit (Bld) [Volume fraction] 43.7 % Normal 42.0-52.0 [facility] Comment on above: Performed By: #### A CBC #### Testing performed at [address] [address] Hemoglobin (Bld) [Mass/Vol] 15.2 g/dL Normal 14.0-18.0 [facility] Comment on above: Performed By: #### A CBC #### Testing performed at [address] [address] MCH (RBC) [Entitic mass] 31.5 pg Normal 26.0-35.0 [facility] Comment on above: Performed By: #### A CBC #### Testing performed at [address] [address] MCHC (RBC) [Mass/Vol] 34.8 g/dL Normal 27.0-37.0 [facility] Comment on above: Performed By: #### A CBC #### Testing performed at [address] [address] MCV (RBC) [Entitic vol] 90.5 fL Normal 80.0-100.0 [facility] Comment on above: Performed By: #### A CBC #### Testing performed at [address] [address] Platelet mean volume (Bld) [Entitic vol] 8.2 fL Normal 7.4-11.0 [facility] Comment on above: Performed By: #### A CBC #### Testing performed at [address] [address] Platelets (Bld) [#/Vol] 165 10*3/uL Normal 130.0-400.0 [facility] Comment on above: Performed By: #### A CBC #### Testing performed at [address] [address] RBC (Bld) [#/Vol] 4.83 10*6/uL Normal 4.0-6.1 [facility] Comment on above: Performed By: #### A CBC #### Testing performed at [address] [address] WBC (Bld) [#/Vol] 4.7 10*3/uL Normal 3.6-11.0 [facility] Comment on above: Performed By: #### A CBC #### Testing performed at [address] [address] CHEM 7 FASTINGon 06-19-2022 Chloride [Moles/Vol] 103 mmol/L Normal 98-107 [facility] Comment on above: Result Comment: Matias monroe note: Triglyceride levels of 600mg/dL or higher may positively bias chloride results by approximately 2.1 mmol Performed By: #### A CBC #### Testing performed at [address] [address] CO2 [Moles/Vol] 28 mmol/L Normal 22-30 [facility] Comment on above: Performed By: #### A CBC #### Testing performed at [address] [address] Creatinine [Mass/Vol] 1.03 mg/dL Normal 0.7-1.2 [facility] Comment on above: Performed By: #### A CBC #### Testing performed at [address] [address] EST. GFR, 96 ml/min/1.73sq.m Normal [facility] Comment on above: Performed By: #### A CBC #### Testing performed at [address] [address] EST. GFR,Non 79 ml/min/1.73sq.m Normal [facility] Comment on above: Performed By: #### A CBC #### Testing performed at [address] [address] GFR Information Average GFR for 50-5 9 years old = 93. Normal [facility] Comment on above: Result Comment: Bridge Maintainer jacky Kidney disease, GFR = <60. Kidney failure, GFR = <15. The GFR estimate is not adjusted for extreme body surface area or acute process, nor has it been validated for women or ethnic groups other than and . Performed By: #### A CBC #### Testing performed at [place] [id number] Glucose [Mass/Vol] 116 mg/dL High 70-100 [facility] Comment on above: Result Comment: NORMAL <100 mg/dL PREDIABETES 101-126 mg/dL DIABETES 126 mg/dL or higher Performed By: #### A CBC #### Testing performed at [place] [id number] Potassium [Moles/Vol] 4.1 mmol/L Normal 3.5-5.1 [facility] Comment on above: Performed By: #### A CBC #### Testing performed at [place] [id number] Sodium [Moles/Vol] 139 mmol/L Normal 137-145 [facility] Comment on above: Performed By: #### A CBC #### Testing performed at [address] [address] Urea nitrogen [Mass/Vol] 18 mg/dL Normal 7-20 [facility] Comment on above: Performed By: #### A CBC #### Testing performed at [address] [address] MAGNESIUMon 06-19-2022 Magnesium [Mass/Vol] 1.7 mg/dL Normal 1.6-2.3 [facility] NOVEL CORONAVIRUSon 06-19-20 22 NARRATIVE This test was perfor med using isothermal JOYCE and has been approved as Emergency Use Authorization (EUA) for the qualitative detection [id number] nucleic acid. Normal [facility] SARS-CoV-2 (COVID-19) RNA JOYCE+probe Ql (Unsp spec) Not detected Normal NOT DETECTED [facility] Comment on above: Result Comment: Nega [...] I, HIGH SENSITIVITY 4 pg/mL Normal 0-20 [facility] Comment on above: Result Comment: Indeterminant: [...] definitely identifying any acute chest finding. Normal [facility] CBC AUTO DIFFon 05-12-2022 BASO # 0.1 103/ul Normal 0.0-0.[address] [facility] Comment on above: Performed By: #### C BC #### [facility] [address] [place] [address] Dr. Adam Royal Basophils/100 WBC (Bld) 0.9 % Normal 0.2-2.0 [facility] Comment on above: Performed By: #### C BC #### [facility] [address] [place] [address] Dr. Adam Royal EO # 0.2 103/ul Normal 0.0-0.[address] [facility] Comment on above: Performed By: #### C BC #### [facility] [address] [place] [address] Dr. Adam Royal Eosinophils/100 WBC (Bld) 2.7 % Normal 0.9-7.0 [facility] Comment on above: Performed By: #### C BC #### [facility] [address] [place] [address] Dr. Adam Royal Erythrocyte distribution width (RBC) [Ratio] 12.7 % Normal 11.0-15.0 [facility] Comment on above: Performed By: #### C BC #### [facility] [address] [place] [address] Dr. Adam Royal Hematocrit (Bld) [Volume fraction] 50.1 % Normal 42.0-54.0 [facility] Comment on above: Performed By: #### C BC #### [facility] [address] [place] [address] Dr. Adam Royal Hemoglobin (Bld) [Mass/Vol] 17.0 g/dL Normal 14.0-18.0 [facility] Comment on above: Performed By: #### C BC #### [facility] [address] [place] [address] Dr. Adam Royal IG # 0.01 10e3/ul Normal 0.00-0.[address] [facility] Comment on above: Performed By: #### C BC #### [facility] [address] [place] [address] Dr. Adam Royal IG % 0.2 % Normal 0.0-0.[address] [facility] Comment on above: Performed By: #### C BC #### [facility] [address] [place] [address] Dr. Adam Royal LYMPH # 3.2 103/ul Normal 1.2-3.[address] [facility] Comment on above: Performed By: #### C BC #### [facility] [address] [place] [address] Dr. Adam Royal Lymphocytes/100 WBC (Bld) 47.3 % Normal 20.5-60.0 [facility] Comment on above: Performed By: #### C BC #### [facility] [address] [place] [address] Dr. Adam Royal MANUAL DIFF REQ NO Normal [facility] Comment on above: Performed By: #### C BC #### [facility] [address] [place] [address] Dr. Adam Royal MCH (RBC) [Entitic mass] 30.6 pg Normal 25.9-34.0 [facility] Comment on above: Performed By: #### C BC #### [facility] [address] [place] [address] Dr. Adam Royal MCHC (RBC) [Mass/Vol] 33.9 g/dL Normal 29.9-35.[address] [facility] Comment on above: Performed By: #### C BC #### [facility] [address] [place] [address] Dr. Adam Royal MCV (RBC) [Entitic vol] 90.3 fL Normal 80.0-94.[address] [facility] Comment on above: Performed By: #### C BC #### [facility] [address] [place] [address] Dr. Adam Royal MONO # 0.9 103/ul Critically high 0.3-0.8 [facility] Comment on above: Performed By: #### C BC #### [facility] [address] [place] [address] Dr. Adam Royal Monocytes/100 WBC (Bld) 14.1 % Critically high 1.7-12.0 [facility] Comment on above: Performed By: #### C BC #### [facility] [address] [place] [address] Dr. Adam Royal NEUT # 2.3 103/ul Normal 1.4-6.5 [facility] Comment on above: Performed By: #### C BC #### [facility] [address] [place] [address] Dr. Adam Royal Neutrophils/100 WBC (Bld) 34.8 % Critically low 43.0-75.0 [facility] Comment on above: Performed By: #### C BC #### [facility] [address] [place] [address] Dr. Adam Royal Platelet mean volume (Bld) [Entitic vol] 10.0 fL Normal 9.5-13.5 [facility] Comment on above: Performed By: #### C BC #### [facility] [address] [place] [address] Dr. Adam Royal PLT 214 103/ul Normal 150-450 [facility] Comment on above: Performed By: #### C BC #### [facility] [address] [place] [address] Dr. Adam Royal RBC 5.55 106/ul Normal 4.70-6.10 [facility] Comment on above: Performed By: #### C BC #### [facility] [address] [place] [address] Dr. Adam Royal WBC 6.7 103/ul Normal 4.0-11.0 [facility] Comment on above: Performed By: #### C BC #### [facility] [address] [place] [address] Dr. Adam Royal PROF 14(COMP METB)on 022 Albumin [Mass/Vol] 4.1 g/dL Normal 3.4-5.0 [facility] Comment on above: Performed By: #### H MARIE, CMP #### [facility] [address] [place] [address] Dr. Adam Royal Albumin/Globulin [Mass ratio] 1.2 {ratio} Normal [facility] Comment on above: Performed By: #### H MARIE, CMP #### [facility] [address] [place] [address] Dr. Adam Royal ALP [Catalytic activity/Vol] 76 U/L Normal 46-116 [facility] Comment on above: Performed By: #### H STROPN, CMP #### [facility] [address] [place] [address] [address] Adam Royal ALT [Catalytic activity/Vol] 86 U/L Critically high 16-63 [facility] Comment on above: Performed By: #### H STROPN, CMP #### [facility] [address] [place] [address] [address] Aadm Royla Anion gap [Moles/Vol] 17.2 mmol/L Normal [facility] Comment on above: Performed By: #### H STROPN, CMP #### [facility] [address] [place] [address] [address] Adam Royal AST [Catalytic activity/Vol] 51 U/L Critically high 15-37 [facility] Comment on above: Performed By: #### H STROPN, CMP #### [facility] [address] [place] [address] [address] Adam Royal Bilirubin [Mass/Vol] 0.3 mg/dL Normal 0.2-1.0 [facility] Comment on above: Performed By: #### H STROPN, CMP #### [facility] [address] [place] [address] Dr. Adam Royal Calcium [Mass/Vol] 9.4 mg/dL Normal 8.5-10.1 [facility] Comment on above: Performed By: #### H STROPN, CMP #### [facility] [address] [place] [address] [address] Adam Royal Chloride [Moles/Vol] 104 mmol/L Normal 98-[address] [facility] Comment on above: Performed By: #### H STROPN, CMP #### [facility] [address] [place] [address] [address] Adam Royal CO2 [Moles/Vol] 25.7 mmol/L Normal 21.0-32.0 [facility] Comment on above: Performed By: #### H STROPN, CMP #### [facility] [address] [place] [address] [address] Adam Royal Creatinine [Mass/Vol] 1.03 mg/dL Normal 0.70-1.30 [facility] Comment on above: Performed By: #### H STROPN, CMP #### [facility] [address] [place] [address] [address] Adam Royal EGFR-AF BOLIVIAN >60 Normal >=60 [facility] Comment on above: Performed By: #### H STROPN, CMP #### [facility] [address] [place] [address] [address] Adam Royal EGFR-NON AF BOLIVIAN >60 Normal >=60 [facility] Comment on above: Performed By: #### H STROPN, CMP #### [facility] [address] [place] [address] Dr. Adam Royal Globulin (S) [Mass/Vol] 3.4 g/dL Normal [facility] Comment on above: Performed By: #### H STROPN, CMP #### [facility] [address] [place] [address] [address] Adam Royal Glucose [Mass/Vol] 118 mg/dL Critically high 74-106 [facility] Comment on above: Performed By: #### H STROPN, CMP #### [facility] [address] [place] [address] Dr. Adam Royal Potassium [Moles/Vol] 3.9 mmol/L Normal 3.5-5.1 [facility] Comment on above: Performed By: #### H STROPN, CMP #### [facility] [address] [place] [address] Dr. Adam Royal Protein [Mass/Vol] 7.5 g/dL Normal 6.4-8.2 [facility] Comment on above: Performed By: #### H STROPN, CMP #### [facility] [address] [place] [address] Dr. Adam Royal Sodium [Moles/Vol] 143 mmol/L Normal 136-145 [facility] Comment on above: Performed By: #### H STROPN, CMP #### [facility] [address] [place] [address] Dr. Adam Royal Urea nitrogen [Mass/Vol] 18.0 mg/dL Normal 7.0-18.0 [facility] Comment on above: Performed By: #### H MARIE, CMP #### [facility] [address] [place] [address] Dr. Adam Royal Urea nitrogen/Creatinine [Mass ratio] 17.5 mg/mg Normal [facility] Comment on above: Performed By: #### H MARIE, CMP #### [facility] [address] [place] [address] Dr. Adam Royal TROPONIN, HIGH SENSITIVITYon 05-12-2022 HSTROP 22.3 pg/mL Normal 4.0-76.1 [facility] Comment on above: Result Comment: CUT- OFF POINTS HAVE BEEN ESTABLISHED BASED ON THE FOURTH UNIVERSAL DEFINITIONS OF MYOCARDIAL INFARCTION. THE UPPER REFERENCE LIMIT (URL) OF TROPONIN, DEFINED THE 99TH PERCENTILE OF cTnI DISTRIBUTION IN A REFERENCE POPULATION, HAS BEEN CONFIRMED THE DECISION THRESHOLD FOR SC DIAGNOSIS. Performed By: #### H MARIE, CMP #### [facility] [address] [place] [address] Dr. Adam Royal Stool PCR [place] 05-01-20 Campylobacter sp PCR NEGATIVE: No Campylobacter spp. (jejuni or coli) DNA Detected Normal [facility] Comment on above: Performed By: #### S TLPCR #### [address] [address] Hebrew Professor: Sandro Ortega MD [facility] [address] [place] [address] [place] [id number] Hebrew Professor: Андрей Conde MD E coli enterotox PCR NEGATIVE: No Enterotoxigenic E. coli (ETEC) Heat-labile and heat-stable (LT/ST) Normal [facility] Comment on above: Result Comment: DNA Detected Performed By: #### S TLPCR #### [address] [address] Hebrew Professor: Sandro Ortega MD [facility] [address] [place] [address] [place] [address] Hebrew Professor: Андрей Conde MD Plesiomonas sp PCR Negative [facility] Comment on above: Performed By: #### S TLPCR #### [facility] [address] [place] [address] Hebrew Professor: Sandro Ortega MD [facility] [address] [place] [address] Dr. [place], [place] [id number] Hebrew Professor: Андрей Conde MD Salmonella sp PCR Negative Normal [facility] Comment on above: Performed By: #### S TLPCR #### [address] [address] Hebrew Professor: Sandro Ortega MD [facility] [address] [place] [address] [place] [address] Hebrew Professor: Андрей Conde MD Shigatoxin gene PCR Negative [facility] Comment on above: Performed By: #### S TLPCR #### [address] [address] Hebrew Professor: Sandro Ortega MD [facility] [address] [place] [address] [place] [address] Hebrew Professor: Андрей Conde MD Shigella sp PCR Negative Normal [facility] Comment on above: Performed By: #### S TLPCR #### [address] [address] Hebrew Professor: Sandro Ortega MD [facility] [address] [place] [address] [place] [address] Hebrew Professor: Андрей Conde MD Vibrio sp PCR NEGATIVE: No Vibrio (V. vulnificus, V, parahaemolyticus and V. cholerae) DNA [facility] Comment on above: Result Comment: Dete cted Performed By: #### S TLPCR #### [address] [address] Hebrew Professor: Sandro Ortega MD [facility] [address] [place] [address] Dr. [place], [place] [id number] Hebrew Professor: Андрей Conde MD Yersinia gene PCR Negative Normal [facility] Comment on above: Performed By: #### S TLPCR #### [address] [address] Hebrew Professor: Sandro Ortega MD [address] [place], [place] [id number] Hebrew Professor: Андрей Conde MD Stool PCR [place] 04-30-20 Specimen Description .FECES Normal [facility] Comment on above: Performed By: #### S TLPCR #### [address] [address] Hebrew Professor: Sandro Ortega MD [address] [place], [place] [id number] Hebrew Professor: Андрей Conde MD Lipid Profileon 12-09-2021 Cholesterol [Mass/Vol] 145 mg/dL Normal <200 [facility] Comment on above: Result Comment: Cholesterol Guidelines: <200 Desirable 200-240 Borderline >240 Undesirable Performed By: #### L IVP #### [address] [place], [place] [id number] Hebrew Professor: Андрей Conde MD #### LIPR #### [address] [address] Hebrew Professor: Sandro Ortega MD Cholesterol in HDL [Mass/Vol] 44 mg/dL Normal >40 [facility] Comment on above: Result Comment: HDL Guidelines: <40 Undesirable 40-59 Borderline >59 Desirable Performed By: #### L IVP #### [address] [place], [place] [address] Hebrew Professor: Андрей Conde MD #### LIPR #### [address] [address] Hebrew Professor: Sandro Ortega MD Cholesterol in LDL [Mass/Vol] 70 mg/dL Normal 0-130 [facility] Comment on above: Result Comment: LDL Guidelines: <100 Desirable 100-129 Near to/above Desirable 130-159 Borderline >159 Undesirable Direct (measured) LDL and calculated LDL are not interchangeable tests. Performed By: #### L IVP #### [facility] [address] [place], [place] [id number] Hebrew Professor: Андрей Conde MD #### LIPR #### [address] [place], [place] 08[address] Hebrew Professor: Sandro Ortega MD Cholesterol.total/C holesterol in HDL [Mass ratio] 3.3 {ratio} Normal <5 [facility] Comment on above: Performed By: #### L IVP #### [facility] [address] [place] [place] [address] Hebrew Professor: Андрей Conde MD #### LIPR #### [address] [place], [place] 2118208 Hebrew Professor: Sandro Ortega MD Triglyceride [Mass/Vol] 156 mg/dL High <150 [facility] Comment on above: Result Comment: Triglyceride Guidelines: <150 Desirable 150-199 Borderline 200-499 High >499 Very high Based on AHA Guidelines for fasting triglyceride, July 2012. Performed By: #### L IVP #### [facility] [address] [place] [address] [place] [address] Hebrew Professor: Андрей Conde MD #### LIPR #### [address] [place], [place] 5232708 Hebrew Professor: Sandro Ortega MD Hepatic Function Panelon Albumin [Mass/Vol] 4.7 g/dL 3.5 - 5.2 g/dL [facility] Albumin/Globulin [Mass ratio] 2.2 {ratio} [facility] ALP (Bld) [Catalytic activity/Vol] 66 U/L 40 - 129 U/L [facility] ALT [Catalytic activity/Vol] 44 U/L High 5 - 41 U/L [facility] AST [Catalytic activity/Vol] 31 U/L <40 [facility] Bilirubin [Mass/Vol] 0.56 mg/dL 0.3 - 1.2 mg/dL [facility] Bilirubin, Indirect Can not be calculated 0.00 - 1.00 mg/dL [facility] Bilirubin.indirect [Mass/Vol] mg/dL <0.31 mg/dL [facility] Free PSA/Total PSA [Mass fraction] 6.8 g/dL 6.4 - 8.3 g/dL [facility] Interpretation and review of laboratory results Abnormal [facility] Liver Profileon 12-08-2021 Albumin [Mass/Vol] 4.7 g/dL Normal 3.5-5.2 [facility] Comment on above: Performed By: #### L IVP #### [facility] [address] [place], [place] 3345[address] Hebrew Professor: Андрей Conde MD #### LIPR #### [address] [place], [place] 13[address]408 Hebrew Professor: Sandro Ortega MD Albumin/Glob Ratio 2.2 Normal 1.0-2.5 [facility] Comment on above: Performed By: #### L IVP #### [facility] [address] [place], [place] 205[address]83 Hebrew Professor: Андрей Conde MD #### LIPR #### [facility] [address] [place] [address] Hebrew Professor: Sandro Ortega MD Alkaline Phos 66 U/L Normal 40-129 [facility] Comment on above: Performed By: #### L IVP #### [facility] [address] [place], [place] 4216483 Hebrew Professor: Андрей Coned MD #### LIPR #### [facility] [address] [place], [place] 4770508 Hebrew Professor: Sandro Ortega MD ALT [Catalytic activity/Vol] 44 U/L High 5-41 [facility] Comment on above: Performed By: #### L IVP #### [facility] [address] [place], [place] 9[address]83 Hebrew Professor: Андрей Conde MD #### LIPR #### [address] [address] Hebrew Professor: Sandro Ortega MD AST [Catalytic activity/Vol] 31 U/L Normal <40 [facility] Comment on above: Performed By: #### L IVP #### [facility] [address] [place], [place] 6177[address] Hebrew Professor: Андрей Conde MD #### LIPR #### [address] [address] Hebrew Professor: Sandro Ortega MD Bilirubin [Mass/Vol] 0.56 mg/dL Normal 0.3-1.2 [facility] Comment on above: Performed By: #### L IVP #### [facility] [address] [place] [address] Hebrew Professor: Андрей Conde MD #### LIPR #### [address] [address] Hebrew Professor: Sandro Ortega MD Bilirubin, Indirect Can not be calculated Normal 0.00- 1.00 [facility] Comment on above: Performed By: #### L IVP #### [facility] [address] [place] [address] Hebrew Professor: Андрей Conde MD #### LIPR #### [address] [address] Hebrew Professor: Sandro Ortega MD Bilirubin.indirect [Mass/Vol] mg/dL Normal <0.31 [facility] Comment on above: Performed By: #### L IVP #### [facility] [address] [place], [place] [address] Hebrew Professor: Андрей Conde MD #### LIPR #### [facility] [address] [place] [address] Hebrew Professor: Sandro Ortega MD Protein [Mass/Vol] 6.8 g/dL Normal 6.4-8.3 [facility] Comment on above: Performed By: #### L IVP #### [facility] [address] [place], [place] 7[address]83 Hebrew Professor: Андрей Conde MD #### LIPR #### [facility] [address] [place], [place] 8400208 Hebrew Professor: Sandro Ortega MD XR Knee 1 or [...] Signed, Electronically Signed in Other Vendor System) [facility] Comment on above: Order Comment: AP & Lateral, Portable in PACU Operative Reporton Operative Report DATE OF SURGERY: 07/27 PRE-OP DIAGNOSIS: Left knee primary osteoarthritis POST-OP DIAGNOSIS: Same PROCEDURE: Left total knee arthroplasty SURGEON: Attila Pinedo M.D. FOREST ECOLOGIST: Last Robert (Form Designer was needed for help with positioning of [...] to the proximal tibia matching the patient's cocopah slope and perpendicular to the longitudinal axis of the tibia in the coronal plane. The proximal tibial cut was then completed with soft tissue retractors in place. The patient was then brought out to extension. The knee was provisionally balanced in the coronal plane using extension blocks. Alignment milly was used to confirm coronal plane alignment. [...] irrigated. T (more content not included)... Normal [facility] CoV2 Agon 09-14-2021 Employed in healthcare? Unknown [facility] Comment on above: Performed By: #### C D:[id number] #### [place] [address] Group care resident? Unknown [facility] Comment on above: Performed By: #### C D:[id number] #### [place] [address] In ICU? No Normal [facility] Comment on above: Performed By: #### C D:[id number] #### [address] [address] status? Not Applicable Normal [facility] Comment on above: Performed By: #### C D:[id number] #### [address] [address] SARS-CoV-2 (COVID-19) RNA JOYCE+probe Ql (Unsp spec) Negative Normal Negative [facility] Comment on above: Result Comment: Nega tive [...] COVID-19. ADDITIONAL INFORMATION: Testing performed on the Bahus 3600 using the SARS-CoV-2 Antigen test. Results [...] Administration?s Emergency Use Authorization. HCP Fact Sheet: https://www.fda.gov/media/632808/download Patient Fact Sheet: https://www.fda.gov/media/819786/download Performed By: #### C D:[id number] #### [address] [place] [address] SARS-CoV-2 (COVID-19) RNA JOYCE+probe Ql (Unsp spec) No Normal [facility] Comment on above: Performed By: #### C D:[id number] #### [address] [address] SARS-CoV-2 (COVID-19) RNA JOYCE+probe Ql (Unsp spec) Unknown Normal [facility] Comment on above: Performed By: #### C D:[id number] #### [address] [address] Symptomatic as defined by CDC? No Normal [facility] Comment on above: Performed By: #### C D:[id number] #### [address] [address] .eGFRon 09-06-2021 eGFR AA >60 Normal >=60 [facility] Comment on above: Result Comment: See comment. Performed By: #### E GFR #### [address] [address] eGFR Non-AA >60 Normal >=60 [facility] Comment on above: Result Comment: Stag es [...] years Performed By: #### E GFR #### [address] [address] Basic Metabolic Profileon Anion gap [Moles/Vol] 12 mmol/L Normal 7-17 [facility] Comment on above: Performed By: #### C D:[id number] #### [address] [address] Calcium [Mass/Vol] 9.5 mg/dL Normal 8.5-10.3 [facility] Comment on above: Performed By: #### C D:[id number] #### [address] [address] Chloride [Moles/Vol] 100 mmol/L Normal 98-110 [facility] Comment on above: Performed By: #### C D:[id number] #### [address] [address] CO2 [Moles/Vol] 29 mmol/L Normal 22-32 [facility] Comment on above: Performed By: #### C D:[id number] #### [address] [address] Creatinine [Mass/Vol] 1.02 mg/dL Normal 0.61-1.24 [facility] Comment on above: Performed By: #### C D:[id number] #### [address] [address] Glucose [Mass/Vol] 104 mg/dL High 70-99 [facility] Comment on above: Performed By: #### C D:[id number] #### [address] [address] Potassium [Moles/Vol] 4.4 mmol/L Normal 3.4-4.8 [facility] Comment on above: Performed By: #### C D:[id number] #### [address] [address] Sodium [Moles/Vol] 137 mmol/L Normal 133-142 [facility] Comment on above: Performed By: #### C D:[id number] #### [address] [address] Urea nitrogen [Mass/Vol] 18 mg/dL Normal 8-26 [facility] Comment on above: Performed By: #### C D:[id number] #### [address] [address] Urea nitrogen/Creatinine [Mass ratio] 17.6 mg/mg Normal 10.0-20.0 [facility] Comment on above: Performed By: #### C D:[id number] #### [address] [address] CBC w/ Diffon 09-06-2021 Erythrocyte distribution width (RBC) [Ratio] 12.8 % Normal 11.6-14.8 [facility] Comment on above: Performed By: #### C BC #### [address] [address] Hematocrit (Bld) [Volume fraction] 49.3 % Normal 41.0-53.0 [facility] Comment on above: Performed By: #### C BC #### [address] [address] Hemoglobin (Bld) [Mass/Vol] 16.8 g/dL Normal 13.5-17.5 [facility] Comment on above: Performed By: #### C BC #### [address] [address] MCH (RBC) [Entitic mass] 31.3 pg Normal 27.0-35.0 [facility] Comment on above: Performed By: #### C BC #### [address] [address] MCHC 34.0 % Normal 31.0-37.0 [facility] Comment on above: Performed By: #### C BC #### [address] [address] MCV (RBC) [Entitic vol] 92.0 fL Normal 80.0-100.0 [facility] Comment on above: Performed By: #### C BC #### [address] [address] Platelet 203 x10*3/mcL Normal 150-350 [facility] Comment on above: Performed By: #### C BC #### [address] [address] Platelet mean volume (Bld) [Entitic vol] 7.9 fL Normal 6.7-10.6 [facility] Comment on above: Performed By: #### C BC #### [address] [address] RBC 5.36 x10*6/mcL Normal 4.30-5.80 [facility] Comment on above: Performed By: #### C BC #### [address] [address] WBC 4.7 x10*3/mcL Normal 4.5-11.0 [facility] Comment on above: Performed By: #### C BC #### [address] [address] Diff Autoon 09-06-2021 Baso Absolute 0.1 x10*3/mcL Normal 0.0-0.2 [facility] Comment on above: Performed By: #### . Automated Diff #### [address] [address] Basophils/100 WBC (Bld) 1.1 % Normal 0.0-1.2 [facility] Comment on above: Performed By: #### . Automated Diff #### [address] [address] Eos Absolute 0.1 x10*3/mcL Normal 0.0-0.4 [facility] Comment on above: Performed By: #### . Automated Diff #### [address] [address] Eosinophils/100 WBC (Bld) 3.0 % Normal 0.0-6.1 [facility] Comment on above: Performed By: #### . Automated Diff #### [address] [place] [address] Lymph Absolute 1.8 x10*3/mcL Normal 1.0-4.8 [facility] Comment on above: Performed By: #### . Automated Diff #### [address] [address] Lymphocytes/100 WBC (Bld) 38.6 % Normal 27.2-40.8 [facility] Comment on above: Performed By: #### . Automated Diff #### [place] [address] [place] Absolute 0.6 x10*3/mcL Normal 0.3-1.1 [facility] Comment on above: Performed By: #### . Automated Diff #### [address] [address] Monocytes/100 WBC (Bld) 12.2 % Normal 4.7-13.9 [facility] Comment on above: Performed By: #### . Automated Diff #### [address] [address] Neutro Absolute 2.1 x10*3/mcL Normal 1.8-7.7 [facility] Comment on above: Performed By: #### . Automated Diff #### [place] [address]40 Neutro Auto 45.1 % Low 47.2-70.8 [facility] Comment on above: Performed By: #### . Automated Diff #### [address] [address] MRSA, PCRon 09-06-2021 Methicillin Resistant Staph aurus(MRSA) Negative Normal [facility] Comment on above: Result Comment: The CepTamtron Xpert MRSA Assay is a qualitative in [...] to the clinician. Performed By: #### [facility] #### [facility] [address] [place] [address] No Panel Informationon 07-06 [facility] XR knee LT 2Von 06-05-2021 XR knee LT 2V [facility] [place] [address] [place] [address] XRay Report Signed Patient: Jose Cha MR#: [id number] 5 : 1965 Acct:[id number] Age/Sex: 56 / M ADM Date: 06/05/21 Loc: [facility] Room: Type: [facility] Attending Dr: Israel Arevalo MD Ordering Provider: [...] Wicho Martinez M.D.06/05/2021 4:13 PM Dictation Location: [place] [address] Transcribed By: [facility] 06/05/21 1613 Dictated By: Wicho Martinez DO 06/05/21 1608 Signed By: 06/05/21 1613 [facility] XR CHEST PORTABLEon 02-08-20 20 No acute abnormality. [facility] [place], [place] EXAMINATION: ONE XRA Y VIEW OF THE CHEST 02/08/2020 8:11 pm COMPARISON: 09/12/2014 HISTORY: ORDERING SYSTEM PROVIDED HISTORY: cough, fever TECHNOLOGIST PROVIDED HISTORY: cough, fever FINDINGS: Trachea is essentially midline. No lung infiltrate or consolidation. No pneumothorax or pleural effusion. Heart size is normal. [facility] Incoming R adiant Results From [facility]/Pacs - 02/08/2020 8:19 PM EDT EXAMINATION: ONE XRAY VIEW OF THE CHEST 02/08/2020 8:11 pm COMPARISON: 09/12/2014 HISTORY: ORDERING SYSTEM PROVIDED HISTORY: cough, fever TECHNOLOGIST PROVIDED HISTORY: cough, fever FINDINGS: Trachea is essentially midline. No lung infiltrate or consolidation. No pneumothorax or pleural effusion. Heart size is normal. IMPRESSION: No acute abnormality. [facility] VU AVENDANO ANES Veronica 03-17-2018 ANES POST HNO ID: [id number] thor: Charu Damonervice: AnesthesiologyAuthor Type: AnesthesiologistType: Anesthesia [...] 2018 : 2:33 PM PAGER/CONTACT #: [facility] ANEMarisol PREOPon 03-17-2018 ANES PREOP HNO ID: [id number] thor: Charu NiOrem Community Hospitalervice: AnesthesiologyAuthor Type: AnesthesiologistType: Anesthesia PreOpFiled: 03/17/2018 11:01 AMNote Text:REGIONAL ANESTHESIOLOGY DAY OF SURGERY NOTEPATIENT NAME: Jose MooreN: [id number]: 1965Procedure(s) (LRB):RELEASE TENDON EXTREMITY LOWER (Left)Surgeon(s):Rosemarie EidEstimated body mass index is 33.52 kg/m? as calculated from the following: Height as of 03/11/18: 175.3 cm (5' 9 ). Weight as of this encounter: 103 kg (227 lb).ASA Class: 2Adequate NPO status: YesAllergies:ALLERGIESAller gen Reactions- Qfykftk-Ejb-Qgt Red* MyalgiaAirway Assessment: MP 2; Neck ROM: [...] (Hcc)Gastroesophageal reflux diseaseEncounter for screening colonoscopy for gbm-ahwr-csrt patientPalpitationsChest PainPAST MEDICAL HISTORYDiagnosis Date- Arrhythmia SVT- [...] of Beer (12oz) per week Comment: socially; qutgxgng-5-0 cups per dayNo current facility-administered medications on [...] (1) tablet daily .Inpatient medications reviewed in [facility].I have interviewed and examined the patient. I have reviewed the medicalrecord and/or the pre-anesthesia evaluation, pertinent labs, and testresults.Significant changes in the patient's condition since the History andPhysical, not otherwise documented in primary service progress notes: [facility] contains updated information obtained within 48 hours ofSurgery/Procedure.SIGNATU RE: Charu Sin MD PATIENT NAME: Jose KhanTE: March 17, 2018 : 10:59 AM PAGER/CONTACT #: [facility] BRIEF OP NOTon 03-17-2018 BRIEF OP NOT HNO ID: [id number] thor: Rosemarie Damon: PodiatryAuthor Type: PhysicianType: Brief Op NoteFiled: 03/17/2018 1:52 PMNote Text:PODIATRIC SURGERYBRIEF OPERATIVE / PROCEDURE NOTELOG ID: [id number]/Procedure Date: 03/17/2018Incision/Procedure Start Time: 12:42 PMIncision Close/Procedure End Time: 1:33 PMSurgeon(s)/Proceduralist( s) and Form Designer(s):Surgeon(s) and Role: * Rosemarie Eid - Primary [...] March 17, 2018 : 1:51 PM PAGER/CONTACT #:[phone] (Auditor Internal Resident) [facility] HISTORY PHYSICALon 8 HISTORY PHYSICAL HNO ID: [id number] thor: Kodak Tenorio: PodiatryAuthor Type: ResidentType: HANDPFiled: [...] ChaDATE: March 17, 2018 : 11:30 AM [facility] NURSING PROGon 03-17-2018 NURSING PROG HNO ID: [id number] thor: Denia (Rn) DUNIA Coronaervice: NursingAuthor Type: Registered NurseType: Nursing Progress NoteFiled: 03/18/2018 12:45 PMNote Text:Nursing Progress Note Topic of Note:Post op phone callCharjose [id number] doing well. NWB LLE. Nerve block still working, starting to feel likefoot is falling asleep . Pt started taking pain meds.Pt states breathing feels good. Using incentive spirometry every hours upto 2000 now. Yesterday pt was only able to get to 1500 with a lot ofeffort.This note was completed by: Denia Corona RN [facility] INR Coag RelTime (Bld) HNO ID: [id number]: Kayla (Rn) DUNIA Myerservice: NursingAuthor Type: Registered [...] noting pain block care as well./ Normal [facility] OPERATIVE NOon 03-17-2018 OPERATIVE NO HNO ID: [id number] thor: Rosemarie Damon: PodiatryAuthor Type: PhysicianType: Operative ReportFiled: 03/18/2018 7:54 AMNote Text:PODIATRIC SURGERYOPERATIVE REPORTLOG ID: [id number]/Procedure Date: 03/17/2018Incision/Procedure Start Time: 12:42 PMIncision Close/Procedure End Time: 1:33 PMSurgeon(s)/Proceduralist( s) and Form Designer(s):Surgeon(s) and Role: * Rosemarie Eid - Primary [...] fibers of the Achillestendon and used per bindery assistant's guidelines for a total of five minutes.This [...] March 17, 2018 : 1:49 PM PAGER/CONTACT #:[phone] (Auditor Internal Resident) [facility] PROGRESSon 03-17-2018 PROGRESS HNO ID: [id number] thor: Kodak BatesService: PodiatryAuthor Type: ResidentType: Progress [...] YesCXR/EK/23 ECG, no CXRMedications/Preop Antibiotics: AncefALLERGIESAllergen Reactions- Uqnlvmp-Lje-Scy Red* MyalgiaSurgical site identified: YesNPO: YesIV Fluids: Per anesthesiaRisks and benefits, complications, treatment options, expected outcome andrehabilitation explained, patient understands. All questions wereentertained and answered. Patient wishes to proceed with aboveprocedure(s).SIGNATURE : Kodak Bates DPM PGY-II PATIENT NAME: Jose ChaDATE: March 17, 2018 : 11:30 AM [facility] NURSING PROGon 03-13-2018 NURSING PROG HNO ID: [id number] thor: Archana Sears, RNService: NeurosurgeryAuthor Type: Registered NurseType: Nursing Progress NoteFiled: 03/13/2018 10:06 AMNote Text:PACC Nurse Progress NoteHistory AND Physical:PACC Visit Date: 5-0-52Qmlvkwfz HANDP Date: N/AED visit Date: N/AOutside HANDP Scanned Date: N/ALabs Within Last 6 Months:N/AImaging Within Last 12 Months:N/ACardiac Testing:EKG in last 12 Months: Yes: Date: 12-03-17, Comment: epicBMI Percentile (PEDS):N/ARisk Assessment:N/AAnesthesia Review:N/ANarrative:N/APre- op Considerations:N/AChart Check:Gustavo Sears RNJunpablo 2017 10:05 AM [facility] HOSPon 03-05-2018 HOSP Patient:Shamir Cha WMRN: Height:5' [...] reflux disease [K21.9]Encounter for screening colonoscopy for tgg-oabf-vuin patient [Z12.11]Palpitations [R00.2]Chest pain [R07.9]Allergies:Statins-Hm g-Coa Reductase InhibitorsDate Verified: 03/17/18Lab ValuesNo results within the last 30 days for the following basenames: K,HCTProgress Notes ():Archana Sears, RN, RN 03/13/2018 10:06 AM SignedPACC Nurse Progress NoteHistory AND Physical:PACC Visit Date: 6-3-28Xzandrjn HANDP Date: N/AED visit Date: N/AOutside HANDP [...] YesCXR/EK/23 ECG, no CXRMedications/Preop Antibiotics: AncefALLERGIESAllergen Reactions- Tywpjvq-Swp-Ssx Red* MyalgiaSurgical site identified: YesNPO: YesIV Fluids: Per anesthesiaRisks and benefits, complications, treatment options, expected outcome andrehabilitation explained, patient understands. All questions were entertainedand answered. Patient wishes to proceed with above procedure(s).SIGNATURE: Kodak Bates DPM PGY-II PATIENT NAME: Jose ChaDATE: March 17, 2018 : 11:30 AMPrevious Luis Daniel Sin MD 03/17/2018 11:01 AM SignedREGIONAL ANESTHESIOLOGY DAY OF SURGERY NOTEPATIENT NAME: Jose GoodmanRN: [id number]: 1965Procedure(s) (LRB):RELEASE TENDON EXTREMITY LOWER (Left)Surgeon(s):Rosemarie Mohanated body mass index is 33.52 kg/m? as calculated from the following: Height as of 03/11/18: 175.3 cm (5' 9 ). Weight as of this encounter: 103 kg (227 lb).ASA Class: 2Adequate NPO status: YesAllergies:ALLERGIESAller gen Reactions- Wfckpds-Kso-Vkr Red* MyalgiaAirway Assessment: MP 2; Neck ROM: [...] (Hcc)Gastroesophageal reflux diseaseEncounter for screening colonoscopy for age-yrfo-zgba patientPalpitationsChest PainPAST MEDICAL HISTORYDiagnosis Date- Arrhythmia SVT- [...] of Beer (12oz) per week Comment: socially; yipzeixa-5-6 cups per dayNo current facility-administered medications on [...] (1) tablet daily .Inpatient medications reviewed in [facility].I have interviewed and examined the patient. I have reviewed the medical recordand/or the pre-anesthesia evaluation, pertinent labs, and test results.Significant changes in the patient's condition since the History and Physical,not otherwise documented in primary service progress notes: NoThis contains updated information obtained within 48 hours of Surgery/Procedure.SIGNATURE : Charu Sin MD PATIENT NAME: Jose ChaDATE: March 17, 2018 : 10:59 AM PAGER/CONTACT #: [facility] Vital Signs Date Time Vital Sign Value Performing Clinician Pascuali bhaskar 08-17-2024 14:50-0500 Body height 175.3 cm Israel Rocha MD Work Phone: [facility] 08-17-2024 14:50-0500 Body mass index (BMI) [Ratio] 35.15 kg/m2 Israel Rocha MD Work Phone: [facility] 08-17-2024 14:50-0500 Body weight 107.96 kg Israel Rocha MD Work Phone: [facility] 08-17-2024 14:50-0500 Diastolic blood pressure 84 mm[Hg] Israel Rocha MD Work Phone: [facility] 08-17-2024 14:50-0500 Heart rate 71 /min Israel Rocha MD Work Phone: [facility] 08-17-2024 14:50-0500 Systolic blood pressure 136 mm[Hg] Israel Rocha MD Work Phone: [facility] 09-02-2023 09:02-0500 Body height 175.3 cm Israel Rocha MD Work Phone: [facility] 09-02-2023 09:02-0500 Body weight 108.41 kg Israel Rocha MD Work Phone: [facility] 09-02-2023 09:02-0500 Diastolic blood pressure 76 mm[Hg] Israel Rocha MD Work Phone: [facility] 09-02-2023 09:02-0500 Heart rate 65 /min Israel Rocha MD Work Phone: [facility] 09-02-2023 09:02-0500 Systolic blood pressure 128 mm[Hg] Israel Rocha MD Work Phone: [facility] 10-26-2022 10:22-0500 Body height 175.3 cm Israel Rocha MD Work Phone: [facility] 10-26-2022 10:22-0500 Body weight 106.59 kg Israel Rocha MD Work Phone: [facility] 10-26-2022 10:22-0500 Diastolic blood pressure 78 mm[Hg] Israel Rocha MD Work Phone: [facility] 10-26-2022 10:22-0500 Heart rate 61 /min Israel Rocha MD Work Phone: [facility] 10-26-2022 10:22-0500 Systolic blood pressure 128 mm[Hg] Israel Rocha MD Work Phone: [facility] 01-31-2022 14:14-0400 Body height 175.3 cm Hanna Mickey DYE HOUSE WHEEL OPERATOR.ELEVATED WORK PLATFORM OPERATOR Work Phone: [facility] 01-31-2022 14:14-0400 Body weight 102.97 kg Hanna Mickey DYE HOUSE WHEEL OPERATOR.ELEVATED WORK PLATFORM OPERATOR Work Phone: [facility] 01-31-2022 14:14-0400 Diastolic blood pressure 98 mm[Hg] Hanna Mickey DYE HOUSE WHEEL OPERATOR.ELEVATED WORK PLATFORM OPERATOR Work Phone: [facility] 01-31-2022 14:14-0400 Heart rate 80 /min Hanna Mickey DYE HOUSE WHEEL OPERATOR.ELEVATED WORK PLATFORM OPERATOR Work Phone: [facility] 01-31-2022 14:14-0400 Systolic blood pressure 156 mm[Hg] Hanna Mickey APRN.CNP Work Phone: [facility] 02-08-2020 19:28-0400 Body Temperature 102 [degF] Rosemarie [email or web address] [facility] [place] [facility] [place] 02-08-2020 19:28-0400 BP Diastolic 73 mm[Hg] Rosemarie [email or web address] [facility] [place] , [place] 02-08-2020 19:28-0400 BP Systolic 124 mm[Hg] [facility] , [place] 02-08-2020 19:28-0400 Pulse (Heart Rate) 84 /min Rosemarie [employer] [facility], [place] 02-08-2020 19:28-0400 Pulse Oximetry 95 % Rosemarie [email or web address] [facility] , [place] 02-08-2020 19:28-0400 Respiratory Rate 16 /min Rosemarie [email or web address] [facility] Encounters Encounter Date Encounter Type Care [...] Start: 08-17-2024 End: 08-17-2024 ambulatory ISRAEL ROCHA Facility:[facility] Start: 06-16-2024 End: 06-16-2024 ambulatory DESTINY VELA Facility:[facility] Start: 06-16-2024 End: 06-16-2024 Subsequent hospital [...] vi sit 15 minutes Meryl Caldwell Other [facility] Office Start: 09-18-2023 End: 09-19-2023 ambulatory Cory STEWART Facility:CD:[id number] Start: 09-04-2023 End: 09-05-2023 ambulatory Cory STEWART Facility:[facility] Start: 09-02-2023 End: 09-02-2023 Patient encounter procedure Israel Rocha MD Work Phone: Cardiology Comment on above: Paroxysmal tachycard ia, unspecified (HCC) (Primary Dx); Obesity, Class II, BMI 35-39.9 Start: 08-08-2023 ambulatory Cory MADRIDL Facility:[facility] Start: 08-01-2023 ambulatory Cory STEWART Facility:[facility] Start: 06-11-2023 Office outpatient ne w 20 minutes Meryl Caldwell Other [facility] Office Start: 2023 End: 2023 Patient encounter [...] without abnormal findings DR DESTINY VELA [facility] Start: 10-30-2022 End: 10-31-[address] DESTINY VELA Facility:[facility] Start: 10-30-2022 End: 10-31-2022 Encounter for general adult medical examination without abnormal findings DR DESTINY VELA Facility:[facility] Start: 10-26-2022 End: 10-26-2022 Patient encounter procedure Israel Rocha MD Work Phone: Cardiology Comment on above: 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) (Primary Dx); Atrial tachycardia (HCC); Palpitations Start: 09-06-2022 Orders Only Hilda Motley nd DYE HOUSE WHEEL OPERATOR.ELEVATED WORK PLATFORM OPERATOR Work Phone: Cardiology Comment on above: SVT [...] Cardiology Comment on above: Received Outside [facility] Records Start: 06-29-2022 Telephone encounter Israel thao MD Work Phone: Cardiology Comment on above: Schedule Surgery (SV T RFA) Start: 06-26-2022 End: 06-26-2022 ambulatory Israel Rocha MD Work Phone: Cardiology Comment on above: SVT (supraventricula r tachycardia) (HCC) (Primary Dx) Start: 06-26-2022 End: 06-26-2022 Telemedicine consultation with patient Israel Rocha MD Work Phone: [facility] Start: 06-26-2022 Telephone encounter Israel [...] 05-14-2022 ambulatory Israel barfield MD Work Phone: [facility] Start: 05-14-2022 Patient encounter procedure Israel Rocha MD Work Phone: Cardiology Comment on above: Appointment Valentina Start: 05-12-2022 End: 05-12-[address] DESTINY VELA Facility:[facility] Start: 04-30-2022 End: 05-01-2022 ambulatory DESTINY VELA [facility] Start: 04-18-2022 Orders Only Israel barfield MD Work Phone: Cardiology Comment on above: SVT (supraventricula r tachycardia) (HCC) (Primary Dx) Start: 04-12-2022 ambulatory Israel barfield MD Work Phone: Cardiology Comment on above: Medication Interacti on Start: 02-19-2022 Orders Only Hilda Motley nd DYE HOUSE WHEEL OPERATOR.ELEVATED WORK PLATFORM OPERATOR Work Phone: Cardiology Comment on above: SVT [...] End: 01-31-2022 Patient encounter procedure Hanna Arevalo DYE HOUSE WHEEL OPERATOR.ELEVATED WORK PLATFORM OPERATOR Work Phone: Cardiology Comment on above: SVT (supraventricula r tachycardia) (HCC) (Primary Dx); Palpitations Start: 01-31-2022 ambulatory Emily Toussaint RN [facility] Comment on above: Patient Education Start: 12-15-[address] DESTINY VELA Facility : Start: 12-08-2021 End: 12-09-2021 ambulatory DESTINY VELA [facility] Start: 12-08-2021 End: 12-08-2021 Subsequent hospital visit by physician Destiny Vela MD Work Phone: [facility] Laboratory Start: 09-15-2021 End: 09-15-2021 ambulatory MD ATTILA ASTUDILLO SHAHIDA Facility:[facility] Start: 09-14-2021 End: 09-15-2021 ambulatory DESTINY VELA Facility:[facility] Start: 09-12-2021 Patient encounter status Emily Toussaint RN [facility] Work Phone: Start: 09-08-2021 End: 09-09-2021 ambulatory MD ATTILA ASTUDILLO SHAHIDA Facility:[facility] Start: 09-06-2021 End: 09-07-2021 ambulatory DESTINY VELA Facility:[facility] Start: 07-06-2021 End: 07-06-2021 Subsequent hospital visit by physician Xr [facility] Comment on above: Pain [R52] Start: 02-08-2020 End: 02-08-2020 Emergency department patient visit Rosemarie Vega Work Phone: [facility] ED Comment on above: Viral syndrome (Prim teo Dx) Start: 03-17-2018 Ambulatory ROSEMARIE PRATT [facility] Start: 07-01-2017 End: 07-02-2017 Ambulatory DEFAULT PHYSICIAN Facility:[facility] Procedures Date Procedure Procedure Detail Performing Clinician Start: 06-16-2024 Myocardial spect multiple studies Israel Rocha MD Work Phone: Start: 01-07-2024 Docrev cur meds by e lig clin Meryl Caldwell Start: 06-11-2023 Docrev cur meds by e lig clin [facility] Start: 10-30-[address] MANDI VELA Comment on above: Performed By: #### H STROPN, CMP #### [facility] [address] [address] [address] Adam Royal Start: 12-08-2021 Hepatic function [...] RSV Vaccine (1 - 1-dose 75+ series) [facility] Start: 10-30-2027 PROSTATE CANCER SCREENING DISCUSSION PROSTATE CANCER SCREENING DISCUSSION [facility] Start: 10-30-2027 Prostate specific antigen measurement Prostate Cancer Screening Discussion [facility] Start: 12-08-2026 Lipid 1996 panel - S sandrita or Plasma Lipid Screening [facility] Start: 12-08-2026 Lipid panel Lipid Screening [facility] Start: 11-30-2025 End: 11-30-2025 Patient encounter procedure 11/30/2025 9:15 AM EST Office Visit Cardiology [address] [place] [address] Leah Manjarrez MD [address] [place], [place] [id number] DX H/O AFIB ( SEES DR ROCHA) Cardiology Comment on above: DX H/O AFIB ( SEES Mirian ROCHA) Start: 11-30-2025 End: 11-30-2025 ambulatory 11/30/2025 8:15 AM EST Procedure Cardiology [address] [id number] DX CARDIAC EVALUATION Cardiology Comment on above: DX CARDIAC EVALUATIO N Start: 08-29-2025 DTaP/Tdap/Td vaccine (2 - Td or Tdap) DTaP/Tdap/Td vaccine (2 - Td or Tdap) [facility] Start: 08-29-2025 Urine microalbumin profile DTaP,Tdap,Td Vaccine (2 - Td or Tdap) [facility] Start: 08-20-2025 DIABETES SCREEN DIABETES SCREEN [facility] Start: 08-20-2025 Diabetes Screening Diabetes Screenin g [facility] Start: 08-18-2025 End: 08-18-2025 Patient encounter procedure 08/18/2025 9:00 AM EST Office Visit Cardiology [address] [place] [address] Hanna Arevalo APRN.ELEVATED WORK PLATFORM OPERATOR [address] [place] [address] established EPS patient- web appt req Cardiology Comment on above: established EPS bhupinder ent- web appt req Start: 08-18-2025 End: 08-18-2025 ambulatory 08/18/2025 8:30 AM EST Procedure Cardiology [address] [id number] established EPS patient- web appt req Cardiology Comment on above: established EPS bhupinder ent- web appt req Start: 06-07-2025 Influenza vaccination Influenza Vacc ine (#1) [facility] Start: 01-31-2025 DIABETES SCREEN DIABETES SCREEN [facility] Start: 08-17-2024 End: 08-17-2024 Patient encounter procedure 08/17/2024 2:15 PM EST Office Visit Cardiology [address] [id number] Israel Rocha MD [address] [place] [address] Dx: SVT (supraventricular tachycardia) Cardiology Comment on above: Dx: SVT (supraventri cular tachycardia) Start: 08-17-2024 End: 08-17-2024 ambulatory 08/17/2024 1:15 PM EST Results Only Cardiology [address] [place] [address] Dx: SVT (supraventricular tachycardia) Cardiology Comment on above: Dx: SVT (supraventri cular tachycardia) Start: 06-16-2024 End: 06-16-2024 Patient encounter procedure Molecular Imaging Comment on above: Dx: WILLETT (dyspnea on exertion) [R06.09] Start: 06-07-2024 Covid-19 Vaccine () Covid-19 Vaccine () [facility] Start: 06-07-2024 Covid-19 Vaccine () Covid-19 Vaccine () [facility] Start: 06-07-2024 Influenza vaccination Influenza Vacc ine (#1) [facility] Start: 06-07-2023 Covid-19 Vaccine () Covid-19 Vaccine () [facility] Start: 09-01-2023 Influenza vaccination [facility] Start: 10-07-2022 DEPRESSION ASSESSMENT DEPRESSION ASS ESSMENT [facility] Start: 06-07-2022 Influenza vaccination INFLUENZA (#1) [facility] Start: 12-18-2021 COVID-19 VACCINE (3 - Booster for Edwin series) COVID-19 VACCINE (3 - Booster for Edwin series) [facility] Start: 10-15-2021 COVID-19 VACCINE (3 - Booster for Edwin series) COVID-19 VACCINE (3 - Booster for Edwin series) [facility] Start: 10-07-2021 DEPRESSION ASS[facility]PRESSION [facility] Start: 06-07-2021 Influenza vaccination Flu vaccine (# 1) [facility] Start: 09-07-2020 Colonoscopy COLONOSCOPY [facility] Start: 09-07-2020 COLORECTAL CANCER SCREENING COLORECTAL CANCER SCREENING [facility] Start: 09-07-2020 Screening for malign ant neoplasm of colon [facility] Start: 06-07-2020 Influenza vaccination Flu vacc ine (Season Ended) [place] Start: 2020 PROSTATE CANCER SCREENING DISCUSSION PROSTATE CANCER SCREENING DISCUSSION [facility] Start: 05-14-2018 Lipid panel Lipid screen [facility] Start: 2015 Pneumococcal Vaccine : 50+ (1 of 1 - PCV) Pneumococcal Vaccine: 50+ (1 of 1 - PCV) [facility] Start: 2015 Screening for malign ant neoplasm of colon Colon cancer screen colonoscopy [place] Start: 2015 Shingles Vaccine (1 of 2) Shingles Vaccine (1 of 2) [facility] Start: 2015 SHINGRIX VACCINE (1 of 2) SHINGRIX VACCINE (1 of 2) [facility] Start: 2010 COLOGUARD (FIT-DNA) COLOGUARD (FIT-D NA) [facility] Start: [address] COLONOGRAPHY [facility] Start: 2010 FECAL OCCULT BLOOD FECAL OCCULT BLOO D [facility] Start: 2010 Screening for malign ant neoplasm of colon [facility] Start: 2010 SIGMOIDOSCOPY SIGMOIDOSCOPY [facility] Start: 2000 Lipid 1996 panel - S sandrita or Plasma Lipid Screening [facility] Start: 2000 LIPID SCREEN LIPID SCREEN [facility] Start: 1984 DTaP/Tdap/Td vaccine (1 - Tdap) DTaP/Tdap/Td vaccine (1 - Tdap) [place] Start: 1984 Urine microalbumin profile DTAP,TDAP,TD (1 - Tdap) [facility] Start: 1983 Anxiety Screening Anxiety Screening [facility] Start: 1983 Depression Screening Depression Scre ening [facility] Start: 1983 HIV SCREENING HIV SCREENING [facility] Start: 1983 HIV screening HIV Screening [facility] Start: 1980 HIV screening HIV screen [facility] Start: 1977 Adult depression screening assessment DEPRESSION SCREENING [facility] Start: 1977 Depression Screen Depression Screen [facility] Start: 1970 COVID-19 Vaccine (1) COVID-19 Vaccin e (1) [facility] Start: 1965 HEPATITIS B (1 of 3 - 3-dose series) HEPATITIS B (1 of 3 - 3-dose series) [facility] Start: 1965 Hepatitis B Vaccine (1 of 3 - 3-dose series) Hepatitis B Vaccine (1 of 3 - 3-dose series) [facility] Start: 1965 Hepatitis C screening Hepatitis C sc reen [facility] End: 02-08-2020 COVID-19 COVID-19 Lab Routine One Time for 1 Occurrences starting 02/08/2020 until 02/08/2020 [place] Comment on above: One Time for 1 Occur rences starting 02/08/2020 until 02/08/2020 COVID-19 COVID-19 Lab STA T 02/08/2020 8:36 PM EDT [place] End: 02-19-2023 ECG COMPLETE ECG COMPLETE ECG Routine SVT (supraventricular tachycardia) (HCC) 1 Occurrences starting 02/19/2022 until 02/19/2023 [facility] Work Phone: Comment on above: 1 Occurrences starti ng 02/19/2022 until 02/19/2023 End: 04-18-2023 ECG COMPLETE ECG COMPLETE ECG Routine SVT (supraventricular tachycardia) (HCC) 1 Occurrences starting 04/18/2022 until 04/18/2023 [facility] Work Phone: Comment on above: 1 Occurrences starti ng 04/18/2022 until 04/18/2023 End: 09-06-2023 ECG COMPLETE ECG COMPLETE ECG Routine SVT (supraventricular tachycardia) (HCC) 1 Occurrences starting 09/06/2022 until 09/06/2023 [facility] Work Phone: Comment on above: 1 Occurrences starti ng 09/06/2022 until 09/06/2023 End: 02-07-2024 ECG COMPLETE ECG COMPLETE ECG Routine SVT (supraventricular tachycardia) (HCC) 1 Occurrences starting 02/06/2023 until 02/07/2024 [facility] Work Phone: Comment on above: 1 Occurrences starti ng 02/06/2023 until 02/07/2024 End: 09-02-2024 ECG COMPLETE ECG COMPLETE ECG Routine Paroxysmal tachycardia, unspecified (HCC) Obesity, Class II, BMI 35-39.9 1 Occurrences starting 09/02/2023 until 09/02/2024 [facility] Work Phone: Comment on above: 1 Occurrences starti ng 09/02/2023 until 09/02/2024 End: 05-17-2026 ECG COMPLETE ECG COMPLETE ECG Routine Paroxysmal tachycardia, unspecified (HCC) 1 Occurrences starting 05/17/2025 until 05/17/2026 [facility] Work Phone: Comment on above: 1 Occurrences starti ng 05/17/2025 until 05/17/2026 End: 05-24-2026 ECG COMPLETE ECG COMPLETE ECG Routine Paroxysmal tachycardia, unspecified (HCC) Obesity, Class II, BMI 35-39.9 AVNRT (AV abahy re-entry tachycardia) (HCC) 1 Occurrences starting 05/24/2025 until 05/24/2026 [facility] Work Phone: Comment on above: 1 Occurrences starti ng 05/24/2025 until 05/24/2026 EKG 12 Lead EKG 12 Lead ECG Routine 02/08/2020 7:54 PM EDT [facility] [place], [place] End: 12-08-2021 Lipid panel [facility] Work Phone: Comment on above: Once for 1 Occurrenc es starting 12/08/2021 until 12/08/2021 End: 07-12-2025 NM Heart Perfusion W multiple states of exercise NM CARDIAC PERF STRESS/EXERCISE Radiology Routine WILLETT (dyspnea on exertion) 1 Occurrences starting 06/12/2024 until 07/12/2025 [facility] Work Phone: Comment on above: 1 Occurrences starti ng 06/12/2024 until 07/12/2025 SARS-CoV-2 (COVID-19 ) RNA [Presence] in Respiratory specimen by JOYCE with probe detection SELF CHECK COVID Microbiology Routine SVT (supraventricular tachycardia) (HCC) Ordered: 07/11/2022 [facility] Work Phone: Comment on above: Ordered: 07/11/2022 [facility] Immunizations Immunization Date Immunization Notes Care Provider [facility] 07-24-2024 influenza virus vacc ine, unspecified formulation Israel Rocha MD Work Phone: [facility] 08-06-2022 influenza virus vacc ine, unspecified formulation Xr Twin [facility] Payers Date Payer Category Payer [employer] [facility] BLUE ACCE SS PPO [id number] 2020 Unknown [place] BLUE ACCE SS PPO [id number] 2020-Present [phone] [address] [place] [address] PPO [id number] 2014 Unknown [employer] [address] xxxxxxxxxxxx 2014-Present [phone] [address] [place] [address] xxxxxxxxxxxx [id number] 2012 Unknown 1965 Unknown [id number] 2.16.840.1.605649.3.579.2. 196 1965 Unknown [id number] 2.16.840.1.389154.3.579.2. 196 1965 Unknown [id number] 2.16.840.1.857248.3.579.2. 196 1965 Unknown [id number] 2.16840.1.555635.3.579.2. 196 1965 Unknown [id number] 2.16.840.1.794627.3.579.2. 173 1965 Unknown [id number] 2.16.840.1.966062.3.579.2. 173 1965 Unknown [id number] 2.16.840.1.240371.3.579.2. 983 1965 Unknown [id number] 2.16.840.1.489445.3.579.2. 593 1965 Unknown [id number] 2.16.840.1.537799.3.579.2. 593 1965 Unknown [id number] 2.16.840.1.235127.3.579.2. 593 1965 Unknown [id number] 2.16.840.1.571907.3.579.2. 593 1965 Unknown [id number] 2.16.840.1.688742.3.579.2. 593 1965 Unknown [id number] 2.16.840.1.123237.3.579.2. 727 1965 Unknown [id number] 2.16.840.1.938344.3.579.2. 727 1965 Unknown [id number] 2.16.840.1.355832.3.579.2. 727 1965 Unknown [id number] 2.16.840.1.066752.3.579.2. 727 1959 Self-pay [id number] 1959 Unknown [id number]. [id number] Unknown [id number] Social History Date Type Detail Facility Start: 09-12-2014 End: 02-08-2020 Tobacco smoking status NHIS Never smoker [place] Start: 02-08-2020 End: 08-17-2024 Alcohol intake Current drinker of alcohol (finding) [place] Start: 09-12-2014 Alcohol Comment socially [place] Start: 1965 Sex Assigned At Not on file [place] Start: 01-30-2022 End: 04-18-2022 Exposure to SARS-CoV-2 (event) Unable to assess [place] Start: 09-12-2014 Tobacco use and exposure Smokeless tobacco non-user [facility] Work Phone: Start: 09-12-2021 History SDOH Alcohol Comment 2-3 drink per week [facility] Start: 1965 Sex Assigned At Male [facility] Start: 01-21-2022 End: 08-20-2022 Exposure to SARS-CoV-2 (event) Not sure [facility] Start: 09-11-2020 End: 10-26-2022 History of Social function [facility] Start: 09-11-2020 End: 10-26-2022 Tobacco use panel [facility] Start: 09-07-2012 National Score (1-100), lower number is lower risk Not on file [facility] Start: 09-06-2020 Gender identity Identifies as male gender (finding) [facility] Start: 09-06-2020 Sexual orientation Heterosexual (finding) [facility] Start: *Tobacco [employer] Start: 12-03-2017 Alcohol Comment socially; npyuavls-0-3 cups per day [facility] Goals Date Patient Goal Desired Activity /State Personal health goal Functional Status Date Assessment Result Facility 08-21-2022 Are you deaf, or do you have serious difficulty hearing No 08/21/2022 9:13 AM Yumi Mccoy RN No [facility] 08-21-2022 Are you blind, or do you have serious difficulty seeing, even when wearing glasses No 08/21/2022 9:13 AM Yumi Mccoy RN [facility] 08-21-2022 Do you have serious difficulty walking or climbing stairs No 08/21/2022 9:13 AM Yumi Mccoy RN [facility] 08-21-2022 Do you have difficul ty dressing or bathing No 08/21/2022 9:13 AM Yumi Mccoy RN [facility] 08-21-2022 Because of a physica l, mental, or emotional condition, do you have difficulty doing errands alone such as visiting a physician's office or shopping No 08/21/2022 9:13 AM Yumi Mccoy RN [facility] Mental Status Date Assessment Result Facility 08-21-2022 Because of a physica l, mental, or emotional condition, do you have serious difficulty concentrating, remembering, or making decisions No 08/21/2022 9:13 AM Yumi Mccoy RN No [facility] Clinical Notes 07-06-2021 to 08-17-2024 Israel Rocha MD - 08/17/2024 2:19 PM Mario Dyson RT(R) - 06/16/2024 8:00 AM Israel Nicole MD - 09/02/2023 8:43 AM Karthikeyan Worthy DO - 2023 8:32 AM EDT Note Date & Type Note Facility 08-17-2024 Note HNO ID: [id number] Author: ISRAEL ROCHA MD Service: ? Author Type: Physician Type: Progress Notes Filed: 08/19/2024 08:28 Note Text: [facility] Department of Cardiovascular Medicine SECTION [...] for this visit. ALLERGIES: ALLERGIES Allergen Reactions Wujidel-Rpi-Yrd Red* Myalgia Social History Tobacco Use Smoking [...] report. This note was created using computerized linotype operator software and may therefore include some linotype operator errors including errors in gender and inappropriate words or phrases. I reviewed old records, obtained relevant HPI and PMH from the pt, examined the patient and created the above report. Valentina Wilson RN August 17, 2024 Note to: Primary Care Physician: Destiny Vela [address] [place] [address] [facility] 08-17-2024 History of Present illness Narrative Images from the original note were not included. [facility] Department of Cardiovascular Medicine SECTION [...] for this visit. ALLERGIES: ALLERGIES Allergen Reactions Zldbksm-Peu-Cfs Red* Myalgia Social History Tobacco Use Smoking [...] report. This note was created using computerized linotype operator software and may therefore include some linotype operator errors including errors in gender and inappropriate words or phrases. I reviewed old records, obtained relevant HPI and PMH from the pt, examined the patient and created the above report. Valentina Wilson RN August 17, 2024 Note to: Primary Care Physician: Destiny Vela [facility] [place] [address] documented in this encounter [facility] 06-16-2024 History of Present illness Narrative RADIOLOGY [...] PATIENT PRESENTS WITH AN IMPLANTABLE OR ATTACHED BLOOD BANK LABORATORY TECHNICIAN: No CREATININE: Creatinine Date Value Ref Range [...] Discontinued PROCEDURE TYPE: NM Stress: 16.0 mCi [id number] was administered IV for Rest Imaging at 805 by ifrah. 50.2 mCi [id number] was administered IV for Stress Imaging at 0911 by woodrow. ADMINISTRATION TIME: 805 PATIENT DISCHARGED TO: Ambulatory patient, left [place] department area. A Diagnostic radioactive procedure has taken place, with no further precautions necessary other than routine body substance precautions. More information regarding radiation safety can be found using this link: [email or web address] SIGNATURE: RT Danny(Juliana) PATIENT NAME: Jose Cha DATE: June 16, 2024 TIME: 8:05 AM PAGER/CONTACT #: documented in this encounter [facility] 06-16-2024 Note HNO ID: [id number] Author: EMA, MARIO, RT(R) Service: ? Author [...] PATIENT PRESENTS WITH AN IMPLANTABLE OR ATTACHED BLOOD BANK LABORATORY TECHNICIAN: No CREATININE: Creatinine Date Value Ref Range [...] Discontinued PROCEDURE TYPE: NM Stress: 16.0 mCi [id number] was administered IV for Rest Imaging at 805 by ifrah. 50.2 mCi [id number] was administered IV for Stress Imaging at 0911 by woodrow. ADMINISTRATION TIME: 805 PATIENT DISCHARGED TO: Ambulatory patient, left [place] department area. A Diagnostic radioactive procedure has taken place, with no further precautions necessary other than routine body substance precautions. More information regarding radiation safety can be found using this link: [email or web address] [email or web address]%20Nuclear%20Medicine% 20Procedures.[email or web address] SIGNATURE: RT Danny(R) PATIENT NAME: Jose Cha DATE: June 16, 2024 TIME: 8:05 AM PAGER/CONTACT #: [facility] 09-04-2023 Note Chief Complaint consultation for colonoscopy [...] Recorded 2023-08-21: TPV50 (more content not included)... [facility] Comment on above: Result Comment: Elec tronically Signed By: PAT PONCE, Cory Cazares.donavan\Date and Time Signed: 09/04/23 15:00 EST 09-02-2023 History of Present illness Narrative Images from the original note were not included. [facility] Department of Cardiovascular Medicine SECTION OF CARDIAC PACING and ELECTROPHYSIOLOGY OUTPATIENT VISIT DATE September 02, 2023 OUTPATIENT VISIT TYPE ESTABLISHED PRIMARY CARE PHYSICIAN: Destiny Vela [address] [place] [phone] CHIEF COMPLAINT: follow up IMPRESSION/PLAN: Jose Cha [...] GERD. He was last seen 02/05/2023 by SAND SHOVELER, monitor was unrevealing. He has a preserved [...] labrum tear PAST SURGICAL HISTORY OF 2005 [facility] PAST SURGICAL HISTORY OF L leg vein [...] Known Problems Daughter ALLERGIES: ALLERGIES Allergen Reactions Wlrzcdt-Ddg-Cdx Red* Myalgia MEDICATIONS: metoprolol succinate ER (TOPROL [...] file. This note was created using computerized linotype operator software and may therefore include some linotype operator errors including errors in gender and inappropriate words or phrases. I reviewed old records, obtained relevant HPI and PMH from the pt, examined the patient and created the above report. Israel Rocha MD September 02, 2023 Note to: Primary Care Physician Destiny Vela [address] [place] [address] documented in this encounter [facility] 2023 History of Present illness Narrative CONSULT [...] replacement done by a local surgeon in [facility] due to travel times. The patient reports [...] labrum tear PAST SURGICAL HISTORY OF 2005 [facility] PAST SURGICAL HISTORY OF L leg vein [...] drink per week Drug use: No ALLERGIES: Ebxtgcv-Tpz-Qpm Reductase Inhibitors MEDICATIONS: metoprolol succinate ER (TOPROL [...] TIME: 8:45 AM documented in this encounter [facility] 02-05-2023 History of Present illness Narrative EVENT MONITOR DISPOSABLE PATCH INSTRUCTIONS Patient Name: Jose Cha Clinic Number: [id number] Skin prepped and cleansed with alcohol Patch secured to prepped area Monitor Activated Serial #: [id number] Patient Instructed: Prescribed order timeframe Bathing guidelines Usage of event button and diary documentation Return of monitor at the end of prescribed order Call with problems [phone] or [phone]. [phone] Patient expresses a good understanding of instructions HERNANDEZ BRIGGSG Tech documented in this encounter [facility] 10-26-2022 History of Present illness Narrative Images from the original note were not included. [facility] Department of Cardiovascular Medicine SECTION OF CARDIAC PACING and ELECTROPHYSIOLOGY OUTPATIENT VISIT DATE October 26, 2022 OUTPATIENT VISIT TYPE ESTABLISHED PRIMARY CARE PHYSICIAN: Destiny Vela MD [address] [place] [address] CHIEF COMPLAINT: follow up IMPRESSION/PLAN: Jose Cha [...] labrum tear PAST SURGICAL HISTORY OF 2006 [facility] PAST SURGICAL HISTORY OF L leg vein [...] Known Problems Daughter ALLERGIES: ALLERGIES Allergen Reactions Barqyss-Tpu-Fav Red* Myalgia MEDICATIONS: metoprolol succinate ER (TOPROL [...] file. This note was created using computerized linotype operator software and may therefore include some linotype operator errors including errors in gender and inappropriate words or phrases. I reviewed old records, obtained relevant HPI and PMH from the pt, examined the patient and created the above report. Israel Rocha MD November 01, 2022 Note to: Destiny Vela MD [address] [place] [address] documented in this encounter [facility] 08-17-2022 Nurse Note THE FOLLOWING WAS EVALUATED [...] discussed with Physician, nurse practitioner or Physician underwriting assistant upon discharge Instructions for transmitting EKG to Monitoring Center 3 month follow up instructions Contact number for information and questions Patient Evaluation: Verbalizes understanding Follow Up Plan: Follow up as directed by . Supplemental Material Given: Written Material Patient education regarding radiation exposure. Instructed By Emily Toussaint RN. In Department of CARDIOLOGY. documented in this encounter [facility] 07-02-2022 Miscellaneous Notes Received outside records - uploaded to ep shared drive Appointment on 10/26/2022 Last appointment with this provider 06/29/2022 Last OV in this dept 01/31/2022 Makayla Silva documented in this encounter [facility] 06-29-2022 Miscellaneous Notes The date of 08/20/[address] Rocha offered & accepted by patient's . Instructed to hold Metoprolol the night prior and morning of procedure. Pt will need Labs and Covid prior to procedure. Emily Toussaint RN ----- Message from Israel Rocha MD sent at 06/27/2022 7:29 PM EDT ----- Patient: Jose Cha EP Lab Procedure requested: Ablations SVT ablation CPT 42552 Anticoagulation Status: Not anticoagulated Requesting Physician: Israel [...] morning of procedure ASA: N/A Additional instructions:None Israel Rocha MD June 27, 2022 7:29 PM documented in this encounter [facility] 06-26-2022 History of Present illness Narrative [facility] [place] Department of Cardiovascular Medicine VIRTUAL VIDEO VISIT [...] week Drug use: No ALLERGIES Allergen Reactions Fdpunrt-Bpw-Oqt Red* Myalgia CURRENT MEDICATIONS metoprolol succinate ER [...] 2022 3:35 PM documented in this encounter [facility] 06-26-2022 Miscellaneous Notes Outside medical records received- uploaded in the [employer] shared drive. Appointment on 06/26/2022 Last appointment on 06/06/2022 Meg Elizondo documented in this encounter [facility] 05-17-2022 Miscellaneous Notes Images from the original note were not included. Israel Rocha MD You 2 days ago Let's have him try splitting the metop and taking bid. TC Please contact patient regarding MyChart message. documented in this encounter [facility] 02-06-2022 Miscellaneous Notes . documented in this encounter [facility] 02-02-2022 Miscellaneous Notes [facility] Contact Center Inbound Phone Encounter DATE of SERVICE: 02/02/2022 TIME of SERVICE: 6:11 PM Status: Non-urgent, needs attention Service/Provider: EP/ROSIO Rocha IV, M.D. Reason for call: Follow-up Appointment Contact information: [phone] Resolution: Sent to myseekit Comments: Pt wants to know when/if he needs to follow up with Dr Rocha? Please call to discuss. Cherelle Arzate RN Date of Resolution: 02/02/2022 Time of Resolution 6:11 PM documented in this encounter [facility] 01-31-2022 Nurse Note THE FOLLOWING WAS EVALUATED [...] discussed with Physician, nurse practitioner or Physician underwriting assistant upon discharge Instructions for transmitting EKG to Monitoring Center 3 month follow up instructions Contact number for information and questions Patient Evaluation: Verbalizes understanding Follow Up Plan: Follow up as directed by MD. Supplemental Material Given: Written Material Patient education regarding radiation exposure. Instructed By Emily Toussaint RN. In Department of CARDIOLOGY. documented in this encounter [facility] 01-31-2022 Instructions Hanna Arevalo APRN.JERRI - 01/31/2022 [...] into exercise program. documented in this encounter [facility] 01-31-2022 History of Present illness Narrative Images from the original note were not included. [facility] Department of Cardiovascular Medicine SECTION OF CARDIAC PACING and ELECTROPHYSIOLOGY OUTPATIENT VISIT DATE January 31, 2022 OUTPATIENT VISIT TYPE ESTABLISHED PRIMARY CARE PHYSICIAN: Destiny Vela MD [address] [place] [address] REFERRING PHYSICIAN: Israel Rocha [address] [place] [facility] [address] CHIEF COMPLAINT: Palpitations and SVT HISTORY OF [...] REPAIR HX PAST SURGICAL HISTORY OF 2005 [facility] PAST SURGICAL HISTORY OF L leg vein [...] Known Problems Daughter ALLERGIES: ALLERGIES Allergen Reactions Fhtjayb-Kpp-Lqb Red* Myalgia MEDICATIONS: VITAMIN A ORAL Take [...] Hanna Arevalo APRN.CNP documented in this encounter [facility] 07-06-2021 History of Present illness Narrative Radiology [...] 2021 9:07 AM documented in this encounter [facility] Evaluation note Diagnosis SVT (supraventricular tachycardia) (HCC)- Primary Other specified cardiac dysrhythmias Palpitations SVT (supraventricular tachycardia) (HCC) Other specified cardiac dysrhythmias [facility] Diagnosis SVT (supraventricular tachycardia) (HCC)- Primary Other specified cardiac dysrhythmias [facility] Diagnosis SVT (supraventricular tachycardia) (HCC)- Primary Other specified cardiac dysrhythmias [facility] Diagnosis SVT (supraventricular tachycardia) (HCC)- Primary Other specified cardiac dysrhythmias [facility] Diagnosis SVT (supraventricular tachycardia) (HCC)- Primary Other specified cardiac dysrhythmias [facility]T (supraventricular tachycardia) (HCC)- Primary Other specified cardiac dysrhythmias [facility] Diagnosis 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 Other specified cardiac dysrhythmias Atrial tachycardia (HCC) Other specified cardiac dysrhythmias Palpitations [facility] Diagnosis SVT (supraventricular tachycardia) (HCC)- Primary Other specified cardiac dysrhythmias [facility] Diagnosis SVT (supraventricular tachycardia) (HCC)- Primary Other specified cardiac dysrhythmias [facility] Diagnosis Left knee pain, unspecified chronicity- Primary Status post knee surgery Other postprocedural status Iliotibial band syndrome of left side Other disorder of muscle, ligament, and fascia [facility] Diagnosis Pain Generalized pain Left knee pain, unspecified chronicity [facility] Diagnosis Paroxysmal tachycardia, unspecified (HCC)- Primary Paroxysmal tachycardia, unspecified Obesity, Class II, BMI 35-39.9 Obesity, unspecified [facility] Diagnosis Atrial tachycardia (HCC)- Primary Other specified cardiac dysrhythmias Paroxysmal tachycardia, unspecified (HCC) Paroxysmal tachycardia, unspecified Chest pain, unspecified type documented in this encounter [facility] note* Diagnosis WILLETT (dyspnea on exertion)- Primary Other dyspnea and respiratory abnormality documented in this encounter [facility] note* Diagnosis WILLETT (dyspnea on exertion) Other dyspnea and respiratory abnormality documented in this encounter [facility] note* Diagnosis Paroxysmal tachycardia, unspecified (HCC)- Primary Paroxysmal tachycardia, unspecified AVNRT (AV abhay re-entry tachycardia) (HCC) Other specified cardiac dysrhythmias documented in this encounter [facility] note* Diagnosis Paroxysmal tachycardia, unspecified (HCC)- Primary Paroxysmal tachycardia, unspecified documented in this encounter [facility] note* Diagnosis Paroxysmal tachycardia, unspecified (HCC)- Primary Paroxysmal tachycardia, unspecified Obesity, Class II, BMI 35-39.9 Obesity, unspecified AVNRT (AV abhay re-entry tachycardia) (HCC) Other specified cardiac dysrhythmias documented in this encounter [facility] for referral (narrative)* Outpatient Procedure (Routine) - Pending Review Specialty Diagnoses / Procedures Referred By Contac t Referred To Contact [facility] Diagnoses SVT (supraventricular tachycardia) (HCC) Procedures ECG COMPLETE ECG ROUTINE ECG W/LEAST 12 LDS W/I&R Hilda Cano APRN.CNP [address] [facility] [address] [place] [address] [facility] [place] [address] [place] [address] Referral ID Status Reason Start Date Expiration Date Visits Requested Visits Authorized [id number] Pending Review Auto-Generat ed Referral 02/19/2022 02/19/2023 1 1 [facility] for referral (narrative)* Outpatient Procedure (Routine) - Authorized Specialty Diagnoses / Procedures Referred By Contac t Referred To Contact [facility] Diagnoses SVT (supraventricular tachycardia) (HCC) Procedures ECG COMPLETE ECG ROUTINE ECG W/LEAST 12 LDS W/I&R Israel Rocha MD [address] [place] [address] [facility] [address] [place] [address] Referral ID Status Reason Start Date Expiration Date Visits Requested Visits Authorized [id number] Authorized Auto-Generat ed Referral 04/18/2022 04/18/2023 1 1 [facility] for referral (narrative)* Outpatient Procedure (Routine) - Pending Review Specialty Diagnoses / Procedures Referred By Contac t Referred To Contact [facility] Diagnoses SVT (supraventricular tachycardia) (HCC) Procedures ECG COMPLETE ECG ROUTINE ECG W/LEAST 12 LDS W/I&R Hilda Cano APRN.CNP [address] [place] [address] [facility] [place] [address] [place] [address] Referral ID Status Reason Start Date Expiration Date Visits Requested Visits Authorized [id number] Pending Review Auto-Generat ed Referral 09/06/2022 09/06/2023 1 1 [facility] for referral (narrative)* Outpatient Procedure (Routine) - Authorized Specialty Diagnoses / Procedures Referred By Contac t Referred To Contact [facility] Diagnoses SVT (supraventricular tachycardia) (HCC) Procedures ECG COMPLETE ECG ROUTINE ECG W/LEAST 12 LDS W/I&R Israel Rocha MD [address] [place] [address] [facility] [address] [place] [address] Referral ID Status Reason Start Date Expiration Date Visits Requested Visits Authorized [id number] Authorized Auto-Generat ed Referral 02/06/2023 02/06/2024 1 1 [facility] for referral (narrative)* Diagnostic Procedure Only (Routine) - Closed Specialty Diagnoses / Procedures Referred By Contac t Referred To Contact XR IMAGING Diagnoses Left knee pain, unspecified chronicity Procedures XR LEG FRONTAL HIP TO ANKLE MECHANICAL AXIS BONE LENGTH STUDIES Karthikeyan Cano, DO [address] [place] [address] [place] [address] Referral ID Status Reason Start Date Expiration Date V isits Requested Visits Authorized [id number] Closed Auto-Generate d Referral 06/30/2021 07/30/2022 1 1 * Diagnostic Procedure Only (Routine) - Closed Specialty Diagnoses / Procedures Referred By Contac t Referred To Contact XR IMAGING Diagnoses Pain Procedures XR KNEE GENERAL 4V AP BOTH/PA BOTH/LAT/MERC LT KNEE AP-WGT/LAT/MERCHANT Karthikeyan Cano DO [address] [place] [address] [place] [address] Referral ID Status Reason Start Date Expiration Date V isits Requested Visits Authorized [id number] Closed Auto-Generate d Referral 06/29/2021 07/29/2022 1 1 [facility] for referral (narrative)* Outpatient Procedure (Routine) - Pending Review Specialty Diagnoses / Procedures Referred By Waltac t Referred To Contact [facility] Diagnoses Paroxysmal tachycardia, unspecified (HCC) Obesity, Class II, BMI 35-39.9 Procedures ECG COMPLETE ECG ROUTINE ECG W/LEAST 12 LDS W/I&R Israel Rocha MD [address] [place] [address] [facility] [place] [address] [place], [place] [id number] Referral ID Status Reason Start Date Expiration Date Visits Requested Visits Authorized [id number] Pending Review Auto-Generat ed Referral 3 09/01/2024 1 1 * Transition of Care (Routine) - Ref Not Required Specialty Diagnoses / Procedures Referred By Contac t Referred To Contact Procedures CARDIOVASCULAR MEDICINE OP FOLLOW UP APPT ORDER Israel Rocha MD [address] [place] [address] Referral ID Status Reason Start Date Expiration Date Visits Requested Visits Authorized [id number] Ref Not Required PCP Requested Referral 3 09/01/2024 1 1 [facility] for referral (narrative)* Diagnostic Procedure Only (Routine) - Authorized Specialty Diagnoses / Procedures Referred By Yaw la Referred To Contact MOLECULAR & FUNCTIONAL IMAGING Diagnoses WILLETT (dyspnea on exertion) Procedures NM CARDIAC PERF STRESS/EXERCISE MYOCARDIAL SPECT MULTIPLE STUDIES Israel Rocha MD [address] [phone] [facility] [address] [place] [address] Referral ID Status Reason Start Date Expiration Date Visits Requested Visits Authorized [id number] Authorized Auto-Generat ed Referral 06/16/2024 10/06/2024 2 2 [facility] for referral (narrative)* Diagnostic Procedure Only (Routine) - Closed Specialty Diagnoses / Procedures Referred By Yaw la Referred To Contact MOLECULAR & FUNCTIONAL IMAGING Diagnoses WILLETT (dyspnea on exertion) Procedures NM CARDIAC PERF STRESS/EXERCISE MYOCARDIAL SPECT MULTIPLE STUDIES Israel Rocha MD [address] [phone] [facility] [address] [place] [address] Referral ID Status Reason Start Date Expiration Date V isits Requested Visits Authorized [id number] Closed Auto-Generate d Referral 06/16/2024 10/06/2024 2 2 [facility] Summary Purpose Family History No Family History Records FoundNo Family History Records FoundNo Family History Records FoundNo Family History Records FoundNo Family History Records FoundNo Family History Records FoundNo Family History Records FoundNo Family History Records FoundNo Family History Records Found Advance Directives Documents on File Type Date Recorded Patient Oxyacetylene Cutter Expl anation Advance Directives and Living Will Power of [employer] Documents on File Type Date Recorded Patient Oxyacetylene Cutter Expl anation ACP-Advance Directive ACP-Power of [employer] Documents on File Type Date Recorded Patient Oxyacetylene Cutter Expl anation Advance Directive(s) 01/29/2022 9:41 AM JOYCE DOBSON WILL Documents on File Type Date Recorded Patient Oxyacetylene Cutter Expl anation Advance Directive(s) 01/29/2022 9:41 AM [...] clean your hands with an alcohol-based hand carton liner that contains at least 60% alcohol. Clean your hands often Wash your hands often with soap and water for at least 20 seconds, especially after blowing your nose, coughing, or sneezing; going to the bathroom; and before eating or preparing food. If soap and water are not readily available, use an alcohol-based hand carton liner with at least 60% alcohol, covering all [...] healthcare provider to call the local or [facility] health department. Persons who are placed underactive [...] isolation precautions should be made on a huzh-jb-uwyk basis, in consultation with healthcare providers and [facility] health departments. https://www.cdc.gov/coronavirus/2019-ncov/hcp/dtlpseak-yjpgjqs-ufnjgs.htmlMer[facility] departments: Luke [phone] Guthrie [phone] Uri [phone] Neisha [phone] Pacheco [phone] Albers [phone] Brayden [phone] Greg [phone] Willie [phone] Toole [phone] documented in this encounter Assessments Diagnosis Viral [...] HIGH COMPLEX 45 MINS Karthikeyan Cano, [address] [place] [address] [facility] [address] [address] Referral ID Status Reason Start Date Expiration Date Visits Requested Visits Authorized [id number] Pending Review Auto-Generat ed Referral 2023 04/24/2024 1 1 Specialty Diagnoses / Procedures Referred By Contac t Referred To Contact XR IMAGING Diagnoses Left knee pain, unspecified chronicity Procedures XR LEG FRONTAL HIP TO ANKLE MECHANICAL AXIS BONE LENGTH STUDIES Karthikeyan Cano, [address] [place] [address] Xr Imaging Referral ID Status Reason Start Date Expiration Date V isits Requested Visits Authorized [id number] Closed Auto-Generate d Referral 04/10/2023 05/09/2024 1 1 Specialty Diagnoses / Procedures Referred By Contac t Referred To Contact [facility] Procedures CARDIOVASCULAR MEDICINE OP FOLLOW UP APPT ORDER Israel Rocha MD [address] [place] [address] [facility] [address] [address] Referral ID Status Reason Start Date Expiration Date Visits Requested Visits Authorized [id number] Ref Not Required PCP Requested Referral 11/15/2025 1 1 Additional Source Comments (unrecognized sect ion and content) No Status Records FoundNo Status Records FoundNo Status Records FoundNo Status Records FoundNo Status Records FoundNo Status Records FoundNo Status Records FoundNo Status Records FoundNo Status Records Found INFORMATION SOURCE (unrecogn ized section and content) DATE CREATED AUTHOR 03/25/2018 [facility] DATE CREATED AUTHOR AUTHOR'S ORGANIZ ATION 04/02/2018 [facility] DATE CREATED AUTHOR AUTHOR'S ORGANIZ ATION 09/17/2021 [facility] DATE CREATED AUTHOR AUTHOR'S ORGANIZ ATION 10/30/2021 [facility] DATE CREATED AUTHOR AUTHOR'S ORGANIZ ATION 05/01/2022 [facility] DATE CREATED AUTHOR AUTHOR'S ORGANIZ ATION 08/24/2022 [facility] DATE CREATED AUTHOR AUTHOR'S ORGANIZ ATION 10/31/2022 [facility] DATE CREATED AUTHOR AUTHOR'S ORGANIZ ATION 09/24/2023 Vincent Nascimento [facility] DATE CREATED AUTHOR AUTHOR'S ORGANIZ ATION 09/19/2024 [facility] Reason for Visit (unrecogniz ed section and [...] KNEE AP-WGT/LAT/MERCHANT Karthikeyan Cano, DO [address] [place] [address] [place] [address] Referral ID Status Reason Start Date Expiration Date V isits Requested Visits Authorized [id number] Closed Auto-Generate d Referral 06/29/2021 07/29/2022 1 1 Reason Comments Radiology NM Specialty Diagnoses / Procedures Referred By Contac t Referred To Contact MOLECULAR & FUNCTIONAL IMAGING Diagnoses WILLETT (dyspnea on exertion) Procedures NM CARDIAC PERF STRESS/EXERCISE MYOCARDIAL SPECT MULTIPLE STUDIES Israel Rocha MD [address] [place] [address] Molecular [facility] Functional Imaging [address] [place] [address] Referral ID Status Reason Start Date Expiration Date V isits Requested Visits Authorized [id number] Closed Auto-Generate d Referral 06/16/2024 10/06/2024 2 2 Care Teams (unrecognized sec tion and content) Dairy Scientist Relationship Specialty Start Date End Date Destiny Vela MD [address] [phone] PCP - General 11/05/12 Dairy Scientist Relationship Specialty Start Date End Date Destiny Vela MD PCP - General Family Practice 08/07/11 No, Referral Referring 08/08/18 [place] [address] [place] [address] 24318 Primary Staff Physician Cardiology 12/23/18 [place] [address] [place] [address] 64653 Primary Staff Physician Cardiology 09/12/21 Dairy Scientist Relationship Specialty Start Date End Date Destiny Vela MD PCP - General Family Practice 08/07/11 No, Referral Referring 08/08/18 [place] [address] [place] [address] 82106 Primary Staff Physician Cardiology 12/23/18 Castillo Pereira MD [address] [place] [address] Primary Staff Physician Cardiology 09/12/21 Dairy Scientist Relationship Specialty Start Date End Date Destiny Vela MD PCP - General Family Practice 08/07/11 No, Referral Referring 08/08/18 [place] [address] [place] [address] 21640 Primary Staff Physician Cardiology 12/23/18 Castillo Pereira MD [address] [place] [address] Primary Staff Physician Cardiology 09/12/21 Dairy Scientist Relationship Specialty Start Date End Date Destiny Vela MD PCP - General Family Practice 08/07/11 No, Referral Referring 08/08/18 Israel Rocha MD [address] [place] [address] 72526 Primary Staff Physician Cardiology 12/23/18 Castillo Pereira MD [address] [place] [address] 20009 Primary Staff Physician Cardiology 09/12/21 Dairy Scientist Relationship Specialty Start Date End Date Destiny Vela MD PCP - General Family Practice 08/07/11 No, Referral Referring 08/08/18 Israel Rocha MD [address] [place] [address] 96970 Primary Staff Physician Cardiology 12/23/18 Castillo Pereira MD [address] [place] [address] 50972 Primary Staff Physician Cardiology 09/12/21 Dairy Scientist Relationship Specialty Start Date End Date Destiny Vela MD PCP - General Family Practice 08/07/11 No, Referral Referring 08/08/18 [place] [address] [place] [address] 66969 Primary Staff Physician Cardiology 12/23/18 [place] [address] [place] [address] 00876 Primary Staff Physician Cardiology 09/12/21 Dairy Scientist Relationship Specialty Start Date End Date Destiny Vela MD PCP - General Family Practice 08/07/11 No, Referral Referring 08/08/18 Israel Rocha MD [address] [place] [address] 50580 Primary Staff Physician Cardiology 12/23/18 Castillo Pereira MD [address] [place] [address] 47996 Primary Staff Physician Cardiology 09/12/21 Dairy Scientist Relationship Specialty Start Date End Date Destiny Vela MD PCP - General Family Practice 08/07/11 No, Referral Referring 08/08/18 Israel Rocha MD [address] [place] [address] 85746 Primary Staff Physician Cardiology 12/23/18 Castillo Pereira MD [address] [place] [address] 95509 Primary Staff Physician Cardiology 09/12/21 Dairy Scientist Relationship Specialty Start Date End Date Destiny Vela MD PCP - General Family Practice 08/07/11 No, Referral Referring 08/08/18 Israel Rocha MD [address] [place] [address] 51826 Primary Staff Physician Cardiology 12/23/18 [place] [address] [place] [address] 84634 Primary Staff Physician Cardiology 09/12/21 Dairy Scientist Relationship Specialty Start Date End Date Destiny Vela MD PCP - General Family Practice 08/07/11 No, Referral Referring 08/08/18 Israel Rocha MD [address] [place] [address] 92960 Primary Staff Physician Cardiology 12/23/18 Castillo Pereira MD [address] [place] [address] 19804 Primary Staff Physician Cardiology 09/12/21 Dairy Scientist Relationship Specialty Start Date End Date Destiny Vela MD PCP - General Family Practice 08/07/11 No, Referral Referring 08/08/18 Israel Rocha MD [address] [place] [address] 35499 Primary Staff Physician Cardiology 12/23/18 Castillo Pereira MD [address] [place] [address] 40902 Primary Staff Physician Cardiology 09/12/21 Dairy Scientist Relationship Specialty Start Date End Date Destiny Vela MD PCP - General Family Medicine 08/07/11 No, Referral Referring 08/08/18 Israel Rocha MD [address] [place] [address] 98739 Primary Staff Physician Cardiology 12/23/18 Castillo Pereira MD [address] [place] [address] 91328 Primary Staff Physician Cardiology 09/12/21 Dairy Scientist Relationship Specialty Start Date End Date Destiny Vela MD PCP - General Family Medicine 08/07/11 No, Referral Referring 08/08/18 [place] [address] [place] [address] 41691 Primary Staff Physician Cardiology 12/23/18 [place] [address] [place] [address] 67061 Primary Staff Physician Cardiology 09/12/21 Dairy Scientist Relationship Specialty Start Date End Date Destiny Vela MD PCP - General Family Medicine 08/07/11 No, Referral Referring 08/08/18 [place] [address] [place] [address] 60857 Primary Staff Physician Cardiology 12/23/18 Castillo Pereira MD [address] [place] [address] 68414 Primary Staff Physician Cardiology 09/12/21 Dairy Scientist Relationship Specialty Start Date End Date Destiny Vela MD PCP - General Family Medicine 08/07/11 No, Referral Referring 08/08/18 Israel Rocha MD [address] [place] [address] 19596 Primary Staff Physician Cardiology 12/23/18 Castillo Pereira MD [address] [place] [address] 63796 Primary Staff Physician Cardiology 09/12/21 Dairy Scientist Relationship Specialty Start Date End Date Destiny Vela MD PCP - General Family Medicine 08/07/11 No, Referral Referring 08/08/18 [place] [address] [place] [address] 36832 Primary Staff Physician Cardiology 12/23/18 [place] [address] [place] [address] 48765 Primary Staff Physician Cardiology 09/12/21 Dairy Scientist Relationship Specialty Start Date End Date Destiny Vela MD PCP - General Family Medicine 08/07/11 No, Referral Referring 08/08/18 [place] [address] [place] [address] 34091 Primary Staff Physician Cardiology 12/23/18 [place] [address] [place] [address] 81103 Primary Staff Physician Cardiology 09/12/21 Dairy Scientist Relationship Specialty Start Date End Date Destiny Vela MD PCP - General Family Medicine 08/07/11 No, Referral Referring 08/08/18 [place] [address] [place] [address] 47578 Primary Staff Physician Cardiology 12/23/18 [place] [address] [place] [address] 74953 Primary Staff Physician Cardiology 09/12/21 Dairy Scientist Relationship Specialty Start Date End Date Destiny Vela MD PCP - General Family Medicine 08/07/11 No, Referral Referring 08/08/18 [place] [address] [place] [address] 53725 Primary Staff Physician Cardiology 12/23/18 [place] [address] [place] [address] 99744 Primary Staff Physician Cardiology 09/12/21 Dairy Scientist Relationship Specialty Start Date End Date Destiny Vela MD PCP - General Family Medicine 08/07/11 No, Referral Referring 08/08/18 [place] [address] [place] [address] 20812 Primary Staff Physician Cardiology 12/23/18 [place] [address] [place] [address] 65393 Primary Staff Physician Cardiology 09/12/21 Dairy Scientist Relationship Specialty Start Date End Date Destiny Vela MD PCP - General Family Medicine 08/07/11 No, Referral Referring 08/08/18 Israel Rocha MD [address] [place] [address] Primary Staff Physician Cardiology 12/23/18 Castillo Pereira MD [address] [place] [address] Primary Staff Physician Cardiology 09/12/21 Dairy Scientist Relationship Specialty Start Date End Date Destiny Vela MD PCP - General Family Medicine 08/07/11 No, Referral Referring 08/08/18 Israel Rocha MD [address] [place] [address] Primary Staff Physician Cardiology 12/23/18 Castillo Pereira MD [address] [place] [address] Primary Staff Physician Cardiology 09/12/21 Dairy Scientist Relationship Specialty Start Date End Date Destiny Vela MD PCP - General Family Medicine 08/07/11 No, Referral Referring 08/08/18 Israel Rocha MD [address] [place] [address] Primary Staff Physician Cardiology 12/23/18 Dairy Scientist Relationship Specialty Start Date End Date Destiny Vela MD PCP - General Family Medicine 08/07/11 No, Referral Referring 08/08/18 Israel Rocha MD [address] [place] [address] Primary Staff Physician Cardiology 12/23/18 Castillo Pereira MD [address] [place] [address] Primary Staff Physician Cardiology 09/12/21 Dairy Scientist Relationship Specialty Start Date End Date Destiny Vela MD PCP - General Family Medicine 08/07/11 No, Referral Referring 08/08/18 Israel Rocha MD [address] [place] [address] Primary Staff Physician Cardiology 12/23/18 Castillo Pereira MD [address] [place] [address] Primary Staff Physician Cardiology 09/12/21 Dairy Scientist Relationship Specialty Start Date End Date Destiny Vela MD PCP - General Family Medicine 08/07/11 No, Referral Referring 08/08/18 Israel Rocha MD [address] [place] [address] Primary Staff Physician Cardiology 12/23/18 Castillo Pereira MD [address] [place] [address] Primary Staff Physician Cardiology 09/12/21 Dairy Scientist Relationship Specialty Start Date End Date Destiny Vela MD PCP - General Family Medicine 08/07/11 No, Referral Referring 08/08/18 Israel Rocha MD [address] [place] [address] Primary Staff Physician Cardiology 12/23/18 Castillo Pereira MD [address] [place] [address] Primary Staff Physician Cardiology 09/12/21 Dairy Scientist Relationship Specialty Start Date End Date Destiny Vela MD PCP - General Family Medicine 08/07/11 No, Referral Referring 08/08/18 Israel Rocha MD [address] [place] [address] Primary Staff Physician Cardiology 12/23/18 Castillo Pereira MD [address] [place] [address] Primary Staff Physician Cardiology 09/12/21 Source Comments (unrecognize d section and content) In the event this informatio n is protected by the Federal Confidentiality of Alcohol and Drug Abuse Patient Records regulations: The Federal rules restrict any use of the information to criminally investigate or prosecute any alcohol or drug abuse patient.[facility] the event this information is protected by the Federal Confidentiality of Alcohol and Drug Abuse Patient Records regulations: The Federal rules restrict any use of the information to criminally investigate or prosecute any alcohol or drug abuse patient.[facility]In the event this information is protected by the Federal Confidentiality of Alcohol and Drug Abuse Patient Records regulations: The Federal rules restrict any use of the information to criminally investigate or prosecute any alcohol or drug abuse patient.[facility]In the event this information is protected by the Federal Confidentiality of Alcohol and Drug Abuse Patient Records regulations: The Federal rules restrict any use of the information to criminally investigate or prosecute any alcohol or drug abuse patient.[facility]In the event this information is protected by the Federal Confidentiality of Alcohol and Drug Abuse Patient Records regulations: The Federal rules restrict any use of the information to criminally investigate or prosecute any alcohol or drug abuse patient.[facility]In the event this information is protected by the Federal Confidentiality of Alcohol and Drug Abuse Patient Records regulations: The Federal rules restrict any use of the information to criminally investigate or prosecute any alcohol or drug abuse patient.[facility] HospitalIn the event this information is protected by the Federal Confidentiality of Alcohol and Drug Abuse Patient Records regulations: The Federal rules restrict any use of the information to criminally investigate or prosecute any alcohol or drug abuse patient.[facility]In the event this information is protected by the Federal Confidentiality of Alcohol and Drug Abuse Patient Records regulations: The Federal rules restrict any use of the information to criminally investigate or prosecute any alcohol or drug abuse patient.[facility]In the event this information is protected by the Federal Confidentiality of Alcohol and Drug Abuse Patient Records regulations: The Federal rules restrict any use of the information to criminally investigate or prosecute any alcohol or drug abuse patient.[facility]In the event this information is protected by the Federal Confidentiality of Alcohol and Drug Abuse Patient Records regulations: The Federal rules restrict any use of the information to criminally investigate or prosecute any alcohol or drug abuse patient.[facility]In the event this information is protected by the Federal Confidentiality of Alcohol and Drug Abuse Patient Records regulations: The Federal rules restrict any use of the information to criminally investigate or prosecute any alcohol or drug abuse patient.[facility] HospitalIn the event this information is protected by the Federal Confidentiality of Alcohol and Drug Abuse Patient Records regulations: The Federal rules restrict any use of the information to criminally investigate or prosecute any alcohol or drug abuse patient.[facility]In the event this information is protected by the Federal Confidentiality of Alcohol and Drug Abuse Patient Records regulations: The Federal rules restrict any use of the information to criminally investigate or prosecute any alcohol or drug abuse patient.[facility] HospitalIn the event this information is protected by the Federal Confidentiality of Alcohol and Drug Abuse Patient Records regulations: The Federal rules restrict any use of the information to criminally investigate or prosecute any alcohol or drug abuse patient.[facility] HospitalIn the event this information is protected by the Federal Confidentiality of Alcohol and Drug Abuse Patient Records regulations: The Federal rules restrict any use of the information to criminally investigate or prosecute any alcohol or drug abuse patient.[facility] HospitalIn the event this information is protected by the Federal Confidentiality of Alcohol and Drug Abuse Patient Records regulations: The Federal rules restrict any use of the information to criminally investigate or prosecute any alcohol or drug abuse patient.[facility] HospitalIn the event this information is protected by the Federal Confidentiality of Alcohol and Drug Abuse Patient Records regulations: The Federal rules restrict any use of the information to criminally investigate or prosecute any alcohol or drug abuse patient.[facility] HospitalIn the event this information is protected by the Federal Confidentiality of Alcohol and Drug Abuse Patient Records regulations: The Federal rules restrict any use of the information to criminally investigate or prosecute any alcohol or drug abuse patient.[facility] HospitalIn the event this information is protected by the Federal Confidentiality of Alcohol and Drug Abuse Patient Records regulations: The Federal rules restrict any use of the information to criminally investigate or prosecute any alcohol or drug abuse patient.[facility] HospitalIn the event this information is protected by the Federal Confidentiality of Alcohol and Drug Abuse Patient Records regulations: The Federal rules restrict any use of the information to criminally investigate or prosecute any alcohol or drug abuse patient.[facility] HospitalIn the event this information is protected by the Federal Confidentiality of Alcohol and Drug Abuse Patient Records regulations: The Federal rules restrict any use of the information to criminally investigate or prosecute any alcohol or drug abuse patient.[facility] HospitalIn the event this information is protected by the Federal Confidentiality of Alcohol and Drug Abuse Patient Records regulations: The Federal rules restrict any use of the information to criminally investigate or prosecute any alcohol or drug abuse patient.[facility] HospitalIn the event this information is protected by the Federal Confidentiality of Alcohol and Drug Abuse Patient Records regulations: The Federal rules restrict any use of the information to criminally investigate or prosecute any alcohol or drug abuse patient.[facility] HospitalIn the event this information is protected by the Federal Confidentiality of Alcohol and Drug Abuse Patient Records regulations: The Federal rules restrict any use of the information to criminally investigate or prosecute any alcohol or drug abuse patient.[facility]In the event this information is protected by the Federal Confidentiality of Alcohol and Drug Abuse Patient Records regulations: The Federal rules restrict any use of the information to criminally investigate or prosecute any alcohol or drug abuse patient.[facility] HospitalIn the event this information is protected by the Federal Confidentiality of Alcohol and Drug Abuse Patient Records regulations: The Federal rules restrict any use of the information to criminally investigate or prosecute any alcohol or drug abuse patient.[facility] HospitalIn the event this information is protected by the Federal Confidentiality of Alcohol and Drug Abuse Patient Records regulations: The Federal rules restrict any use of the information to criminally investigate or prosecute any alcohol or drug abuse patient.[facility] HospitalIn the event this information is protected by the Federal Confidentiality of Alcohol and Drug Abuse Patient Records regulations: The Federal rules restrict any use of the information to criminally investigate or prosecute any alcohol or drug abuse patient.[facility] HospitalIn the event this information is protected by the Federal Confidentiality of Alcohol and Drug Abuse Patient Records regulations: The Federal rules restrict any use of the information to criminally investigate or prosecute any alcohol or drug abuse patient.[facility] HospitalIn the event this information is protected by the Federal Confidentiality of Alcohol and Drug Abuse Patient Records regulations: The Federal rules restrict any use of the information to criminally investigate or prosecute any alcohol or drug abuse patient.[facility] HospitalIn the event this information is protected by the Federal Confidentiality of Alcohol and Drug Abuse Patient Records regulations: The Federal rules restrict any use of the information to criminally investigate or prosecute any alcohol or drug abuse patient.[facility] HospitalIn the event this information is protected by the Federal Confidentiality of Alcohol and Drug Abuse Patient Records regulations: The Federal rules restrict any use of the information to criminally investigate or prosecute any alcohol or drug abuse patient.[facility] HospitalIn the event this information is protected by the Federal Confidentiality of Alcohol and Drug Abuse Patient Records regulations: The Federal rules restrict any use of the information to criminally investigate or prosecute any alcohol or drug abuse patient.[facility] HospitalIn the event this information is protected by the Federal Confidentiality of Alcohol and Drug Abuse Patient Records regulations: The Federal rules restrict any use of the information to criminally investigate or prosecute any alcohol or drug abuse patient.[facility] HospitalIn the event this information is protected by the Federal Confidentiality of Alcohol and Drug Abuse Patient Records regulations: The Federal rules restrict any use of the information to criminally investigate or prosecute any alcohol or drug abuse patient.[facility] HospitalIn the event this information is protected by the Federal Confidentiality of Alcohol and Drug Abuse Patient Records regulations: The Federal rules restrict any use of the information to criminally investigate or prosecute any alcohol or drug abuse patient.[facility] HospitalIn the event this information is protected by the Federal Confidentiality of Alcohol and Drug Abuse Patient Records regulations: The Federal rules restrict any use of the information to criminally investigate or prosecute any alcohol or drug abuse patient.[facility] HospitalIn the event this information is protected by the Federal Confidentiality of Alcohol and Drug Abuse Patient Records regulations: The Federal rules restrict any use of the information to criminally investigate or prosecute any alcohol or drug abuse patient.[facility] FOR RECORDS PERTAINING TO PATIENTS WHO ARE [...] BE BASED ON THE PRIMARY CLINICAL RECORDS. [facility] [employer] [facility]. provides no warranty or guarantee of the accuracy or completeness of information in this document.
--- OUTSIDE RECORDS SUMMARY | 2025-05-31 03:08 | XMS_ITS | Encounter Summary ---
Author Organization [facility] Address [address] [place] [address] Care Team Providers Care Electrical Apprentice Name Role Phone Martin Bell MD Primary Care Provider [phone] No, Referral Unavailable Unavailable Ayo Lovelace MD Unavailable [phone] Castillo Pereira MD Unavailable Source Comments In the event this information is protected by the Federal Confidentiality of Alcohol and Drug AbusePatient Records regulations: The Federal rules restrict any use of the information to criminally investigate or prosecute any alcohol or drug abuse patient.[facility] Encounter Details Date Type Department Care Team (Late st Contact Info) Description 06/20/2022 Get Medical Advice Cardiology [address] [place] [address] Ayo Lovelace MD [address] [place] [address] Valentina Social History Tobacco Use [...] N ot on file 09/11/2020 Data from: [email or web address] Last address used for calculation Not on [...] Assessment Author No 02/01/2022 8:42 PM Janine Franlkin RN * Do you have serious difficulty [...] 08/18/2025 8:30 AM EST Procedure Cardiology [address] [place] [address] established EPS patient- web appt req 08/18/2025 9:00 AM EST Office Visit Cardiology [address] [place] [address] Hanna Arevalo APRN.ON CALL PHARMACY TECHNICIAN [address] [place] [address] established EPS patient- web appt req 11/30/2025 8:15 AM EST Procedure Cardiology [address] [place] [id number] DX CARDIAC EVALUATION 11/30/2025 9:15 AM EST Office Visit Cardiology [address] [place] [id number] Laeh Manjarrez MD [address] [place] [address] DX H/O AFIB ( SEES DR LOVELACE) documented as of this encounter Visit Diagnoses Not on filedocumented in this encounter Care Teams Electrical Apprentice Relationship Specialty Start Date End Date Martin Bell MD PCP - General Family Medicine 08/07/11 No, Referral Referring 08/08/18 Ayo Lovelace MD [address] [place] [address] Primary Staff Physician Cardiology 12/23/18 Castillo Pereira MD [address] [place] [address] Primary Staff Physician Cardiology 09/12/21 documented as of this encounter
--- OUTSIDE RECORDS SUMMARY | 2025-05-31 03:08 | XMS_ITS | Encounter Summary ---
Author Organization [facility] Address [address] [place] [address] Care Team Providers Care Drilling And Production Superintendent Name Role Phone Martin Bell MD Primary Care Provider [phone], Referral Unavailable Unavailable Ayo Lovelace MD Unavailable [phone] Castillo Pereira MD Unavailable Source Comments In the event this information is protected by the Federal Confidentiality of Alcohol and Drug AbusePatient Records regulations: The Federal rules restrict any use of the information to criminally investigate or prosecute any alcohol or drug abuse patient.[facility] Encounter Details Date Type Department Care Team (Late st Contact Info) Description 05/12/2025 Get Medical Advice Cardiology [address] [place] [address] Ayo Lovelace MD [address] [place] [address] Appointment Social History Tobacco Use [...] N ot on file 09/11/2020 Data from: https://www.neighborhoodatlas.medicine.[facility]/. Last address used for calculation Not on [...] 08/18/2025 8:30 AM EST Procedure Cardiology [address] [place] [address] established EPS patient- web appt req 08/18/2025 9:00 AM EST Office Visit Cardiology [address] [place] [id number] Hanna Arevalo APRN.HIGH RISK CASE MANAGER [address] [place] [address] established EPS patient- web appt req 11/30/2025 8:15 AM EST Procedure Cardiology [address] [id number] DX CARDIAC EVALUATION 11/30/2025 9:15 AM EST Office Visit Cardiology [address] [id number] Leah Manjarrez MD [address] [place] [address] DX H/O AFIB ( SEES DR LOVELACE) documented as of this encounter Goals Goal Patient Goal Type Associated Problems Recent Progress Patient-Stated? Author Blood Pressure < 130/80 Blood Pressure 136/84( 024 2:50 PM EST) No Ayo Lovelace MD documented as of this encounter Visit Diagnoses Not on filedocumented in this encounter Care Teams Drilling And Production Superintendent Relationship Specialty Start Date End Date Martin Bell MD PCP - General Family Medicine 08/07/11 No, Referral Referring 08/08/18 Ayo Lovelace MD [address] [place] [address] Primary Staff Physician Cardiology 12/23/18 Castillo Pereira MD [address] [place] [address] Primary Staff Physician Cardiology 09/12/21 documented as of this encounter
--- OUTSIDE RECORDS SUMMARY | 2025-05-31 03:08 | XMS_ITS | Encounter Summary ---
Author Organization [facility] Address [address] [place] [address] Care Team Providers Care Pill Coater Name Role Phone Martin Bell MD Primary Care Provider [phone], Referral Unavailable Unavailable Ayo Lovelace MD Unavailable [phone] Castillo Pereira MD Unavailable Source Comments In the event this information is protected by the Federal Confidentiality of Alcohol and Drug AbusePatient Records regulations: The Federal rules restrict any use of the information to criminally investigate or prosecute any alcohol or drug abuse patient.[facility] Encounter Details Date Type Department Care Team (Late st Contact Info) Description 01/29/2023 Patient Msg Cardiology [address] [place] [address] Ayo Lovelace MD [address] [place] [address] Request an Appointment Social History [...] ot on file 09/11/2020 Data from: https://www.neighborhoodatlas.medicine.[facility]/. Last address used for calculation Not [...] 08/18/2025 8:30 AM EST Procedure Cardiology [address] [place] [address] established EPS patient- web appt req 08/18/2025 9:00 AM EST Office Visit Cardiology [address] [phone] Hanna Arevalo APRN.[facility] [address] [place] [address] established EPS patient- web appt req 11/30/2025 8:15 AM EST Procedure Cardiology [address] [place], [place] [phone] DX CARDIAC EVALUATION 11/30/2025 9:15 AM EST Office Visit Cardiology [address] [place], [place] [phone] Leah Manjarrez MD [address] [place] [address] DX H/O AFIB ( SEES DR LOVELACE) documented as of this encounter Visit Diagnoses Not on filedocumented in this encounter Care Teams Pill Coater Relationship Specialty Start Date End Date Martin Bell MD PCP - General Family Medicine 08/07/11 No, Referral Referring 08/08/18 Ayo Lovelace MD [address] [place] [address] Primary Staff Physician Cardiology 12/23/18 Castillo Pereira MD [facility] [id number] Primary Staff Physician Cardiology 09/12/21 documented as of this encounter
--- OUTSIDE RECORDS SUMMARY | 2025-05-31 03:08 | XMS_ITS | Encounter Summary ---
Author Organization [facility] Address [address] [place] [address] Care Team Providers Care Groundsman Name Role Phone Martin Bell MD Primary Care Provider [phone], Referral Unavailable Unavailable Ayo Lovelace MD Unavailable [phone] Castillo Pereira MD Unavailable Source Comments In the event this information is protected by the Federal Confidentiality of Alcohol and Drug AbusePatient Records regulations: The Federal rules restrict any use of the information to criminally investigate or prosecute any alcohol or drug abuse patient.[facility] Encounter Details Date Type Department Care Team (Late st Contact Info) Description 01/29/2023 Patient Msg Cardiology [address] [place] [address] Provider, Ccf Appointment Cancellation Request [...] N ot on file 09/11/2020 Data from: https://www.neighborhoodatlas.medicine.[facility]/. Last address used for calculation Not [...] 08/18/2025 8:30 AM EST Procedure Cardiology [address] [id number] established EPS patient- web appt req 08/18/2025 9:00 AM EST Office Visit Cardiology [address] [place] [address] Hanna Arevalo, RUBEN.PAD HAND [address] [place] [address] established EPS patient- web appt req 11/30/2025 8:15 AM EST Procedure Cardiology [address] [place] [address] DX CARDIAC EVALUATION 11/30/2025 9:15 AM EST Office Visit Cardiology [address] [phone] Leah Manjarrez MD [address] [place] [address] DX H/O AFIB ( SEES DR LOVELACE) documented as of this encounter Visit Diagnoses Not on filedocumented in this encounter Care Teams Groundsman Relationship Specialty Start Date End Date Martin Bell MD PCP - General Family Medicine 08/07/11 No, Referral Referring 08/08/18 Ayo Lovelace MD [address] [place] [address] Primary Staff Physician Cardiology 12/23/18 Castillo Pereira MD [address] [place] [address] Primary Staff Physician Cardiology 09/12/21 documented as of this encounter
--- OUTSIDE RECORDS SUMMARY | 2025-05-31 03:08 | XMS_ITS | Encounter Summary ---
Author Organization [facility] Address [address] [place] [address] Care Team Providers Care Plan Rep Name Role Phone Martin Bell MD Primary Care Provider [phone], Referral Unavailable Unavailable Ayo Lovelace MD Unavailable [phone] Castillo Pereira MD Unavailable Source Comments In the event this information is protected by the Federal Confidentiality of Alcohol and Drug AbusePatient Records regulations: The Federal rules restrict any use of the information to criminally investigate or prosecute any alcohol or drug abuse patient.[facility] Encounter Details Date Type Department Care Team (Late st Contact Info) Description 09/21/2020 Get Medical Advice Cardiology [address] [place] [address] Ayo Lovelace MD [address] [place] [address] RE: Visit Follow Up Question Social History Tobacco Use Types Packs/Day Years Used Date Smoking Tobacco: Never Smokeless Tobacco: Never Alcohol Use Standard Drinks/Week Comments Yes 1 (1 standard drink = 0.6 oz pure alcohol) socially; tydmtekd-4-5 cups per day Area Deprivation Index Answer Date Tucker rded National Score (1-100), lower number is lower ri sk Not on file 09/11/2020 State Score (1-10), lower number is lower risk N ot on file 09/11/2020 Data from: https://www.neighborhoodatlas.[facility]/. Last address used for calculation Not [...] 7:48 AM EST Please contact patient regarding Cy[employer] message. documented in this encounter Plan of Treatment Upcoming Encounters Date Type Department Care Team (Late st Contact Info) Description 08/18/2025 8:30 AM EST Procedure Cardiology [address] [place] [address] established EPS patient- web appt req 08/18/2025 9:00 AM EST Office Visit Cardiology [address] [place] [address] Hanna Arevalo APRN.TYPE CASTING MACHINE OPERATOR [address] [place], [place] [phone] established EPS patient- web appt req 11/30/2025 8:15 AM EST Procedure Cardiology [address] [place] [address] DX CARDIAC EVALUATION 11/30/2025 9:15 AM EST Office Visit Cardiology [address] [place] [address] Leah Manjarrez MD [address] [place] [address] DX H/O AFIB ( SEES DR LOVELACE) documented as of this encounter Visit Diagnoses Not on filedocumented in this encounter Care Teams Plan Rep Relationship Specialty Start Date End Date Martin Bell MD PCP - General Family Medicine 08/07/11 No, Referral Referring 08/08/18 Ayo Lovelace MD [address] [place], [place] [address] Primary Staff Physician Cardiology 12/23/18 Castillo Pereira MD [address] [place] [address] Primary Staff Physician Cardiology 09/12/21 documented as of this encounter
--- OUTSIDE RECORDS SUMMARY | 2025-05-31 03:08 | XMS_ITS | Encounter Summary ---
Author Organization [facility] Address [address] [place] [address] Care Team Providers Care Correctional Counselor Name Role Phone Martin Bell MD Primary Care Provider [phone], Referral Unavailable Unavailable Ayo Lovelace MD Unavailable [phone] Castillo Pereira MD Unavailable Source Comments [...] Info) Description 10/04/2020 Patient Msg Cardiology [address] [place] [address] Hilda Cano APRN.BOX MACHINE OPERATOR [address] [facility] [address] [place] [address] Echo and stress test results Social History Tobacco Use Types Packs/Day Years Used Date Smoking Tobacco: Never Smokeless Tobacco: Never Alcohol Use Standard Drinks/Week Comments Yes 1 (1 standard drink = 0.6 oz pure alcohol) socially; wkyrzwha-7-7 cups per day Area Deprivation Index Answer Date Tucker rded National Score (1-100), lower number is lower ri sk Not on file 09/11/2020 State Score (1-10), lower number is lower risk N ot on file 09/11/2020 Data from: https://www.neighborhoodatlas.[facility]/. Last address used for calculation [...] 08/18/2025 8:30 AM EST Procedure Cardiology [address] [place] [address] established EPS patient- web appt req 08/18/2025 9:00 AM EST Office Visit Cardiology [address] [place] [address] Hanna Arevalo APRN.BOX MACHINE OPERATOR [address] [place] [address] established EPS patient- web appt req 11/30/2025 8:15 AM EST Procedure Cardiology [address] [place] [address] DX CARDIAC EVALUATION 11/30/2025 9:15 AM EST Office Visit Cardiology [address] [place] [address] Leah Manjarrez MD [address] [place] [address] DX H/O AFIB ( SEES DR LOVELACE) documented as of this encounter Visit Diagnoses Not on filedocumented in this encounter Care Teams Correctional Counselor Relationship Specialty Start Date End Date Martin Bell MD PCP - General Family Medicine 08/07/11 No, Referral Referring 08/08/18 Ayo Lovelace MD [facility] [place] [address] Primary Staff Physician Cardiology 12/23/18 Castillo Pereira MD [facility] [place] [address] Primary Staff Physician Cardiology 09/12/21 documented as of this encounter
--- OUTSIDE RECORDS SUMMARY | 2025-05-31 03:08 | XMS_ITS | Encounter Summary ---
Author Organization [facility] Address [address] [place] [address] Care Team Providers Care Food Prep Worker Name Role Phone Martin Bell MD Primary Care Provider [phone] No, Referral Unavailable Unavailable Ayo Lovelace MD Unavailable [phone] Castillo Pereira MD Unavailable Source Comments In the event this information is protected by the Federal Confidentiality of Alcohol and Drug AbusePatient Records regulations: The Federal rules restrict any use of the information to criminally investigate or prosecute any alcohol or drug abuse patient.[facility] Encounter Details Date Type Department Care Team (Late st Contact Info) Description 01/29/2023 Patient Msg Cardiology [address] [place] [address] Ayo Lovelace MD [address] [place] [address] Request an Appointment Social History [...] N ot on file 09/11/2020 Data from: https://www.neighborhoodatlas.medicine.[facility]/. Last address used for calculation Not on [...] 08/18/2025 8:30 AM EST Procedure Cardiology [address] [place] [address] established EPS patient- web appt req 08/18/2025 9:00 AM EST Office Visit Cardiology [address] [phone] Hanna Arevalo APRN.[facility] [address] [place] [address] established EPS patient- web appt req 11/30/2025 8:15 AM EST Procedure Cardiology [address] [place], [place] [phone] DX CARDIAC EVALUATION 11/30/2025 9:15 AM EST Office Visit Cardiology [address] [place], [place] [phone] Leah Manjrarez MD [address] [place] [address] DX H/O AFIB ( SEES DR LOVELACE) documented as of this encounter Visit Diagnoses Not on filedocumented in this encounter Care Teams Food Prep Worker Relationship Specialty Start Date End Date Martin Bell MD PCP - General Family Medicine 08/07/11 No, Referral Referring 08/08/18 Ayo Lovelace MD [address] [place] [address] Primary Staff Physician Cardiology 12/23/18 Castillo Pereira MD [facility] [place] [id number] Primary Staff Physician Cardiology 09/12/21 documented as of this encounter
--- OUTSIDE RECORDS SUMMARY | 2025-05-31 03:08 | XMS_ITS | Encounter Summary ---
Author Organization [facility] Address [address] [place] [address] Care Team Providers Care Civil Transportation Engineer Name Role Phone Martin Bell MD Primary Care Provider [phone], Referral Unavailable Unavailable Ayo Lovelace MD Unavailable [phone] Castillo Pereira MD Unavailable Source Comments In the event this information is protected by the Federal Confidentiality of Alcohol and Drug AbusePatient Records regulations: The Federal rules restrict any use of the information to criminally investigate or prosecute any alcohol or drug abuse patient.[facility] Encounter Details Date Type Department Care Team (Late st Contact Info) Description 06/02/2024 Get Medical Advice Cardiology [address] [place] [address] Ayo Lovelace MD [address] [place] [address] Stress Test Social History Tobacco [...] N ot on file 09/11/2020 Data from: https://www.neighborhoodatlas.medicine.[facility]/. Last address used for calculation Not on [...] 08/18/2025 8:30 AM EST Procedure Cardiology [address] [place] [address] established EPS patient- web appt req 08/18/2025 9:00 AM EST Office Visit Cardiology [address] [phone] Hanna Arevalo APRN.[facility] [address] [place] [address] established EPS patient- web appt req 11/30/2025 8:15 AM EST Procedure Cardiology [address] [place], [place] [phone] DX CARDIAC EVALUATION 11/30/2025 9:15 AM EST Office Visit Cardiology [address] [place], [place] [phone] Leah Manjarrez MD [address] [place] [address] DX H/O AFIB ( SEES DR LOVELACE) documented as of this encounter Visit Diagnoses Not on filedocumented in this encounter Care Teams Civil Transportation Engineer Relationship Specialty Start Date End Date Martin Bell MD PCP - General Family Medicine 08/07/11 No, Referral Referring 08/08/18 Ayo Lovelace MD [facility] [place] [address] Primary Staff Physician Cardiology 12/23/18 Castillo Pereira MD [facility] [place] [address] Primary Staff Physician Cardiology 09/12/21 documented as of this encounter
--- OUTSIDE RECORDS SUMMARY | 2025-05-31 03:08 | XMS_ITS | Encounter Summary ---
Author Organization [facility] Address [facility] [place] [address] Care Team Providers Care Finish Saw Operator Name Role Phone Martin Bell MD Primary Care Provider [phone], Referral Unavailable Unavailable Ayo Lovelace MD Unavailable [phone] Castillo Pereira MD Unavailable Source Comments In the event this information is protected by the Federal Confidentiality of Alcohol and Drug AbusePatient Records regulations: The Federal rules restrict any use of the information to criminally investigate or prosecute any alcohol or drug abuse patient.[facility] Reason for Referral * Outpatient Procedure (Routine) - Authorized Specialty Diagnoses / Procedures Referred By Contac t Referred To [facility] Diagnoses Paroxysmal tachycardia, unspecified (HCC) Obesity, Class II, BMI 35-39.9 AVNRT (AV abhay re-entry tachycardia) (HCC) Procedures ECG COMPLETE ECG ROUTINE ECG W/LEAST 12 LDS W/I&R Leah Manjarrez MD [address] [place] [address] Phone: tel: fax: [facility] [address] [place] [address] [place] [address] Referral ID Status Reason Start Date Expiration Date Visits Requested Visits Authorized [id number] Authorized Auto-Generat ed Referral 05/24/2025 05/24/2026 1 1 Encounter Details Date Type Department Care Team (Late st Contact Info) Description 05/24/2025 Orders Only Cardiology [address] [phone] Leah Manjarrez MD [address] [place] [phone] Paroxysmal tachycardia, unspecified (HCC) (Primary Dx); Obesity, [...] N ot on file 09/11/2020 Data from: https://www.neighborhoodatlas.medicine.[facility].edu/. Last address used for calculation Not on [...] 08/18/2025 8:30 AM EST Procedure Cardiology [address] [place] [id number] established EPS patient- web appt req 08/18/2025 9:00 AM EST Office Visit Cardiology [address] [phone] Hanna Arevalo, RUBEN.TECHNICAL SUPPORT AGENT [address] [place] [address] established EPS patient- web appt req 11/30/2025 8:15 AM EST Procedure Cardiology [address] [place] [id number] DX CARDIAC EVALUATION 11/30/2025 9:15 AM EST Office Visit Cardiology [address] [place] [address] Leah Manjarrez MD [address] [place] [address] DX H/O AFIB ( SEES DR LOVELACE) [...] dysrhythmias documented in this encounter Care Teams Finish Saw Operator Relationship Specialty Start Date End Date Martin Bell MD PCP - General Family Medicine 08/07/11 No, Referral Referring 08/08/18 Ayo Lovelace MD [address] [place], [place] [phone] Primary Staff Physician Cardiology 12/23/18 Castillo Pereira MD [address] [place] [address] Primary Staff Physician Cardiology 09/12/21 documented as of this encounter
--- OUTSIDE RECORDS SUMMARY | 2025-05-31 03:09 | XMS_ITS | Encounter Summary ---
Author Organization [facility] Address [address] [place] [address] Care Team Providers Care Commercial Fisherman Name Role Phone Martin Bell MD Primary Care Provider [phone], Referral Unavailable Unavailable Ayo Lovelace MD Unavailable [phone] Castillo Pereira MD Unavailable Source Comments In the event this information is protected by the Federal Confidentiality of Alcohol and Drug AbusePatient Records regulations: The Federal rules restrict any use of the information to criminally investigate or prosecute any alcohol or drug abuse patient.[facility] Encounter Details Date Type Department Care Team (Late st Contact Info) Description 10/16/2021 Patient Msg Cardiology [address] [place] [address] Provider, Ccf Upcoming Pre-Op Appointment [...] ot on file 09/11/2020 Data from: https://www.neighborhoodatlas.medicine.[facility]/. Last address used for calculation Not [...] 08/18/2025 8:30 AM EST Procedure Cardiology [address] [place] [address] established EPS patient- web appt req 08/18/2025 9:00 AM EST Office Visit Cardiology [address] [place] [phone] Hanna Arevalo APRN.[facility] [address] [place] [address] established EPS patient- web appt req 11/30/2025 8:15 AM EST Procedure Cardiology [address] [place] [id number] DX CARDIAC EVALUATION 11/30/2025 9:15 AM EST Office Visit Cardiology [address] [phone] Leah Manjarrez MD [address] [place] [address] DX H/O AFIB ( SEES DR LOVELACE) documented as of this encounter Visit Diagnoses Not on filedocumented in this encounter Care Teams Commercial Fisherman Relationship Specialty Start Date End Date Martin Bell MD PCP - General Family Medicine 08/07/11 No, Referral Referring 08/08/18 Ayo Lovelace MD [address] [place] [address] Primary Staff Physician Cardiology 12/23/18 Castillo Pereira MD [address] [place] [phone] Primary Staff Physician Cardiology 09/12/21 documented as of this encounter
--- OUTSIDE RECORDS SUMMARY | 2025-05-31 03:09 | XMS_ITS | Clinical Summary ---
Author Organization [facility] Address [address] [facility], [address] [place] [address] Care Team Providers Care Driver Messenger Name Role Phone Martin Bell MD Primary Care Provider [phone] Allergies No known active allergies Medications Diltiazem [...] Insurance BCBS OUT OF STATE Care Teams Driver Messenger Relationship Specialty Start Date End Date Martin Bell MD [address] [place] [address] PCP - General 11/05/12
--- OUTSIDE RECORDS SUMMARY | 2025-05-31 03:09 | XMS_ITS | Patient Health Record ---
Author Organization [facility] in [place] Address [address] [place] [address] Care Team Providers Care Branch Retail Executive Name Role Phone Johnny Bell Primary Care Provider Allergies Allergen (clinical drug ingredient) Drug/Non Drug Allergy documented on EMR Reaction Allergy Type Onset Date Status Substance with 6-epdvdxi-2-methylgluta ryl-coenzyme A reductase inhibitor mechanism of action (substance) Statins Myalgia Drug Allergy Active Results Component Value Reference Range Notes Occult Blood* Reviewed date:06/11/2024 06:05:28 PM Interpretation: Performing Lab: Notes/Report: [facility] , Occult Blood Negative Performing Lab: see note ML - [facility] PROF 14(COMP METB) Reviewed date:06/11/2024 06:05:28 PM Interpretation: Performing Lab: Notes/Report: [facility] , Sodium 140 136-145 mmol/L Potassium 4.9 3.5-5.1 mmol/L Chloride 102 98-107 mmol/L Carbon Dioxide 29.9 21.0-32.0 mmol/L Anion Gap 13.0 Glucose 108 74-106 mg/dL Blood Urea Nitrogen 17.0 7.0-18.0 mg/dL Creatinine 1.06 0.70-1.30 mg/dL Estimated GFR ( Na >60 >=60 Estimated GFR (Non- Liss >60 >=60 BUN Creatinine Ratio 16.0 Calcium 9.5 8.5-10.1 mg/dL Bilirubin Total 0.8 0.2-1.0 mg/dL Aspartate Amino Transferase 53 15-37 U/L Alanine Aminotransferase 96 16-63 U/L Alkaline Phosphatase 57 46-116 U/L Total Protein 7.2 6.4-8.2 g/dL Albumin Level 4.1 3.4-5.0 g/dL Globulin 3.1 Albumin Globulin Ratio 1.3 Performing Lab: see note ML - [facility] TSH Reviewed date:05/28/2025 12:32:49 PM Interpretation: Performing Lab: Notes/Report: [facility] , Thyroid Stimulating Hormone 2.015 0.358-3.740 u IU/mL Performing Lab: see note ML - [facility] LB T4 Reviewed date:05/28/2025 12:32:49 PM Interpretation: Performing Lab: Notes/Report: [facility] , T4 Thyroxine 7.90 4.50-12.10 ug/dL Performing Lab: see note - [facility] LB PROF 14(COMP METB) Reviewed date:05/28/2025 12:32:49 PM Interpretation: Performing Lab: Notes/Report: [facility] , Sodium 139 136-145 mmol/L Potassium 5.0 3.5-5.1 mmol/L Chloride 103 98-107 mmol/L Carbon Dioxide 29.5 21.0-32.0 mmol/L Anion Gap 11.5 Glucose 106 74-106 mg/dL Blood Urea Nitrogen 22.0 7.0-18.0 mg/dL Creatinine 1.11 0.70-1.30 mg/dL Estimated GFR ( Na >60 >=60 mL/min/1.73m 2 Estimated GFR (Non- Liss >60 >=60 mL/min/1.73m 2 BUN Creatinine Ratio 19.8 Calcium 9.2 8.5-10.1 mg/dL Bilirubin Total 0.6 0.2-1.0 mg/dL Aspartate Amino Transferase 45 15-37 U/L Alanine Aminotransferase 98 16-63 U/L Alkaline Phosphatase 62 46-116 U/L Total Protein 8.0 6.4-8.2 g/dL Albumin Level 4.4 3.4-5.0 g/dL Globulin 3.6 Albumin Globulin Ratio 1.2 Performing Lab: see note ML - [facility] LIPID PROFILE Reviewed date:05/28/2025 12:32:49 PM Interpretation: Performing Lab: Notes/Report: [facility] , Triglycerides 192 <=150 mg/dL Cholesterol 221 <=200 mg/dL HDL Cholesterol 43 40-60 mg/dL > or =60 mg/dl - LOW CARDIOVASCULAR RISK <40 mg/dl - HIGH CARDIOVASCULAR RISK LDL Cholesterol Calculated 140.0 <100 mg/dl OPTIMAL 100-129 mg/dl NEAR OR ABOVE OPTIMAL 130-159 mg/dl BORDERLINE HIGH 160-189 mg/dl HIGH >190 mg/dl VERY HIGH VLDL CHOLESTEROL 38.4 Chol HDL Ratio 5.1 3.3 - 4.4 LOW RISK 4.4 - 7.1 AVERAGE RISK 7.1 - 11.0 MODERATE RISK >11.0 HIGH RISK Performing Lab: see note ML - [facility] LB FREE T3 Reviewed date:05/28/2025 12:32:49 PM Interpretation: Performing Lab: Notes/Report: [facility] , Free T3 2.35 2.18-3.98 pg/mL Performing Lab: see note ML - [facility] LB CBC AUTO DIFF Reviewed date:05/28/2025 12:32:58 PM Interpretation: Performing Lab: Notes/Report: [facility] , White Blood Count 4.8 4.0-11.0 10 3/uL Red Blood Count 5.32 4.70-6.10 10 6/uL Hemoglobin 16.8 14.0-18.0 g/dL Hematocrit 48.5 42.0-54.0 % Mean Corpuscular Volume 91.2 80.0-94.0 fL Mean Corpuscular Hemoglobin 31.6 25.9-34.0 pg Mean Corpuscular HGB Conc 34.6 29.9-35.2 g/dL Red Cell Distribution Width 12.3 11.0-15.0 % Platelet Count 206 150-450 10 3/uL Mean Platelet Volume 10.1 9.5-13.5 fL Neutrophils Percent Auto 45.9 43.0-75.0 % Lymphocytes Percent Auto 38.8 20.5-60.0 % Monocytes Percent Auto 10.8 1.7-12.0 % Eosinophils Percent Auto 2.7 0.9-7.0 % Basophils Percent Auto 1.0 0.2-2.0 % Immature Granulocytes Pct Auto 0.8 0.0-0.5 % Neutrophils Absolute Auto 2.2 1.4-6.5 10 3/uL Lymphocytes Absolute Auto 1.9 1.2-3.8 10 3/uL Monocytes Absolute Auto 0.5 0.3-0.8 10 3/uL Eosinophils Absolute Auto 0.1 0.0-0.7 10 3/uL Basophils Absolute Auto 0.1 0.0-0.1 10 3/uL Immature Granulocytes Abs Auto 0.04 0.00-0.03 10 3/uL Performing Lab: see note - [facility] PSA SCREENING Reviewed date:05/28/2025 02:07:21 PM Interpretation: Performing Lab: Notes/Report: [facility] , Prostate Specific Antigen Scrn 1.92 <=4.00 ng/mL Performing Lab: see note - [facility] GLYCOHEMOGLOBIN A1C Reviewed date:05/28/2025 12:32:49 PM Interpretation: Performing Lab: Notes/Report: [facility] , Glycohemoglobin A1C 5.4 4.5-6.2 % ADA RECOMMENDED LIMIT 4.0 - 6.0 ADA THERAPEUTIC TARGET < 7.0 ACTION SUGGESTED > 7.0 Estimated Average Glucose 108 Performing Lab: see note - [facility] Reason For Referral No Information Medications Medication SIG (Take, Route, Frequency, Duration) Notes Start Date End Date Status Esomeprazole Magnesium 20 MG 1 capsule Orally twice daily for 30 days Active Metoprolol Succinate ER 50 MG 1 tablet Orally tid for 90 days 1 in am and 2 at hs Active Diclofenac Sodium 75 MG 1 tablet as need ed Orally Twice a day for 30 days 09/10/2024 Active Praluent 150 MG/ML Inject 300mg Subcuta neous ever 4 weeks for 90 days 04/27/2025 Active ALPRAZolam 0.25 MG 1 tablet Orally Twic 05/28/2025 Active Cetirizine HCl 10 MG TAKE ONE TABLET BY MOUTH DAILY for 90 Active tiZANidine HCl 4 MG 2 tabs Orally qhs fo r 30 days 09/10/2024 Active Immunizations Vaccine Route Administration Date Status Comme nts Flu, Flucelvax (4719-5979) (07802) 6 mos +, single-dose syringe IM Intramuscular 07/31/2023 Administered Social History Tobacco Use: Social History Observation Description Date Details (start date - stop date) Never Smoker NA - NA Tobacco Use/Smoking Question Answer Notes Patient is a nonsmoker Alcohol Screen (Audit-C) Question Answer Notes Did you have a drink containing alcohol in the p ast year? No Points 0 Interpretation Negative AUDIT-C (Standard) Question Answer Notes Did you have a drink containing alcohol in the p ast year? No Points 0 Interpretation Negative Problems Problem Type SNOMED Code ICD Code Onset Dates Problem Status W/U Status Risk Notes Problem 217476447 Low back pain (724.5) Active confirmed Problem Supraventricular tachycardia (7584475) Supraventricular tachycardia (I47.1) Active confirmed Problem Osteoarthritis (767620216) Osteoarthritis (M19.90) Active confirmed Problem Gastroesophageal reflux disease (033756168) GERD (gastroesophageal reflux disease) (K21.9) Active confirmed Problem Eczema (52827754) Eczema (L30.9) Active confirm ed Problem Degeneration of lumb ar intervertebral disc (40606613) Degenerative disc disease, lumbar (M51.36) Active confirmed Problem Fatty liver (302102479) Fatty liver (K76.0) Active confirmed Problem Well adult (161413987) Well adult (Z00.00) Activ e confirmed Problem Varicose veins (410738870) Varicose veins (I86.8) Active confirmed Problem Overweight (950577781) Over weight (E66.3) Activ e confirmed Problem Claudication (42328042) Claudication (I73.9) Active confirmed Problem Neck sprain (030931416) Cervical strain, acute (S16.1XXA) Active confirmed Problem hypercholesterolemia (disorder) (49858721) Hypercholesteremia (E78.00) Active confirmed Vital Signs Blood pressure diastolic 96 mm Hg 05/28/2025 Height 69 in 05/28/2025 Blood pressure systolic 148 mm Hg 05/28/2025 Weight 240.0 lbs 05/28/2025 BMI 35.44 kg/m2 05/28/2025 Procedures Procedure Date Ordered Date Performed Result Body Sit e Sleep study - Diagnostic Polysonogram 05/28/2025 N/A CARDIO Stress Test - Cardiolite 05/28/2025 N/A Encounters Encounter Location Date Provider Diagnosis [facility] [address] [place] [address] 06/11/2024 Johnny Hoy Hypercholesteremia E 78.00 ; Fatty liver K76.0 and Low back pain 724.5 [facility] [address] [facility] [place] [address] 09/10/2024 Johnny Crawfordy Cervical strain, acu te S16.1XXA [facility] [address] [facility] [place] [address] 05/28/2025 Johnny Blel Well adult Z00.00 an d Fatigue R53.83 [facility] [address] [place] [facility] [place] [address] 08/03/2024 Johnny Crawfordy [facility] [address] [facility] [place] [address] 11/25/2024 Johnny y [facility] [address] [place] [facility] [place] [address] 04/26/2025 Johnny y [facility] [address] [place] [facility] [place] [address] 05/05/2025 Johnny preet [facility] [address] [place] [facility] [place] [address] 05/28/2025 Johnny Crawfordy Chest pain R07.9 and Diaphoresis R61 [facility] [address] [place] [facility] [place] [address] 05/28/2025 Johnny Bell Assessments Encounter Date Diagnosis (ICD Code) Assessment Notes Treatment Notes Treatment Clinical Notes Section Notes 06/11/2024 Fatty liver (ICD-10 - K76.0) 06/11/2024 Hypercholesteremia (ICD-10 - E78.00) lookinga t getting a stress test 09/10/2024 Cervical strain, acu te (ICD-10 - S16.1XXA) 05/28/2025 Fatigue (ICD-10 - R53.83) 05/28/2025 Well adult (ICD-10 - Z00.00) 05/28/2025 Chest pain (ICD-10 - R07.9) 05/28/2025 Diaphoresis (ICD-10 - R61) 06/11/2024 Low back pain (ICD9- CM - 724.5) 09/10/2024 Other Recommended to rest and use a heating pad on the area. Take NSAIDs for pain as needed Plan Of Treatment Pending Test Test Name Order Date CMP (COMPLETE METABOLIC PANEL) 3 CMP (COMPLETE METABOLIC PANEL) 4 HEMOGLOBIN A1C (GLYCO) 07/31/2023 HEMOGLOBIN A1C (GLYCO) 05/28/2025 INSULIN, TOTAL 07/31/2023 LIPID PANEL (CHOL/TRIG/HDL/LDL) 07/31/20 23 LIPID PANEL (CHOL/TRIG/HDL/LDL) 05/28/20 CBC WITH DIFF 07/31/2023 PSA, PROSTATE-SPECIFIC ANTIGEN 3 CARDIO Stress Test - Cardiolite 05/28/20 Sleep study - Diagnostic Polysonogram COMPREHENSIVE METABOLIC PROFILE WITH GFR 05/18/2024 COMPREHENSIVE METABOLIC PROFILE WITH GFR 05/24/2024 OCCULT BLOOD, FECAL, IMMUNOASSAY 024 CBC W/AUTO DIFF 05/18/2024 GLYCOHEMOGLOBIN A1C 05/18/2024 OCC BLD IMMUNO SCREEN 05/22/2024 TESTOSTERONE, TOTAL 07/31/2023 THYROID PANEL (T4/TSH/FREE T3) 3 THYROID PANEL (T4/TSH/FREE T3) 4 THYROID PANEL (T4/TSH/FREE T3) 5 THYROID PANEL (T4/TSH/FREE T3) 4 PSA, SCREENING 05/22/2024 PSA, SCREENING 05/28/2025 Lipid Panel 05/18/2024 CMP (COMP MET AYALA) w/eGFR CKD-EPI 2024 CBC WITH DIFF 05/28/2025 Insurance Providers Payer Name Payer Address Payer Phone Subscriber Number Group Number Insured Name Patient Relationship to Insured Coverage Start Date Coverage End Date [employer] PPO PLUS LOCAL PLAN [address] [place] [address] [id number] ReeseJose Self - patient is the insured 2 Medications Administered Medication Instructions Date of Administration Dosage Notes Dexamethasone, 4mg/mL 09/10/2024 12 mg 12 Ketorolac Tromethamine 09/10/2024 60 mg 60 Medical (General) History Medical History History ICD Code Osteoarthritis M19.90 Over weight E66.3 Hypercholesteremia E78.00 Fatty liver K76.0 Claudication I73.9 Low back pain 724.5 Supraventricular tachycardia I47.1 Varicose veins I86.8 GERD (gastroesophageal reflux disease) K 21.9 Degenerative disc disease, lumbar M51.36 Surgical History Surgery Date(Month/Year) Left TKA 09/2021 SVT Ablation 11/06/21
--- OUTSIDE RECORDS SUMMARY | 2025-05-31 03:09 | XMS_ITS | Clinical Summary ---
Author Organization [facility] Address [facility] [place] [address] Care Team Providers Care Head Wood Grinder Name Role Phone Martin Bell MD Primary Care Provider [phone] No, Referral Unavailable Unavailable Ayo Lovelace MD Unavailable [phone] Castillo Pereira MD Unavailable Allergies Active Allergy Reactions Criticality Noted Date Comments Fiulcic-Bhx-Rac Reductase Inhibitors Myalgia 12/03/2017 Medications ASPIRIN 81 [...] Team Description 05/27/2025 Get Medical Advice Cardiology [address] [place] [address] Ayo Lovelace MD Medication Question 05/24/2025 Orders Only Cardiology [address] [place] [address] Leah Manjarrez MD Paroxysmal tachycardia, unspecified (HCC) (Primary Dx); Obesity, Class II, BMI 35-39.9; AVNRT (AV abhay re-entry tachycardia) (HCC) 05/17/2025 Orders Only Cardiology [address] [place] [address] Ayo Lovelace MD Paroxysmal tachycardia, unspecified (HCC) (Primary Dx) 05/12/2025 Get Medical Advice Cardiology [address] [place] [address] Ayo Lovelace MD Appointment from Last 3 [...] N ot on file 09/11/2020 Data from: [email or web address] Last address used for calculation [...] 08/18/2025 8:30 AM EST Procedure Cardiology [address] [id number] established EPS patient- web appt req 08/18/2025 9:00 AM EST Office Visit Cardiology [address] [id number] Hanna Arevalo APRN.[employer] [address] [place] [address] established EPS patient- web appt req 11/30/2025 8:15 AM EST Procedure Cardiology [address] [place] [address] DX CARDIAC EVALUATION 11/30/2025 9:15 AM EST Office Visit Cardiology [address] [place] [address] Leah Manjarrez MD [address] [place] [address] DX H/O AFIB ( SEES DR LOVELACE) [...] Lovelace MD Medical Devices Implanted Type Area Internet Designer Device Identifier Shelf Expiration Date Model / Serial / Lot Joint - Knee Joint - Knee Bone - Patella Procedures Procedure Name Priority Date/Time Associated Diagnosis Comments BASIC METABOLIC PANEL STAT 08/20/2022 10:00 AM EST COLONOSCOPY SCRN NOT HIGH RISK Routine 09/07/2015 7:06 AM EST Encounter for screening colonoscopy for [id number] patient HEP C AB IA BLOOD Routine 08/10/2015 10: 23 AM EST Encounter for screening colonoscopy for [id number] patient from Last 3 Months or Most Recently Relevant to Health Maintenance Results * (ABNORMAL) BASIC METABOLIC PNL (08/20/2022 10:00 AM EST) [facility] Glucose 106(H) 74 - 99 mg/dL 08/20/2022 11:05 AM EST [facility] Comment: The [place] Diabetes Association (ADA) provides guidance for cutoff [...] Standards of Medical Care in Diabetes 2016, [place] Diabetes Association. Diabetes Care. 2016.39(Suppl 1). BUN 14 9 - 24 mg/dL 08/20/2022 11:05 AM [facility] Creatinine 0.92 0.73 - 1.22 mg/dL 08/20/2022 11:05 AM [facility] Sodium 140 136 - 144 mmol/L 08/20/2022 11:05 AM [facility] Potassium 08/20/2022 11:05 AM [facility] Comment:Unable to assay due to interference from hemolysis. Suggest reorder as clinically indicated. Chloride 105 97 - 105 mmol/L 08/20/2022 11:05 AM [facility] CO2 24 22 - 30 mmol/L 08/20/2022 11:05 AM [facility] Anion Gap 11 9 - 18 mmol/L 08/20/2022 11:05 AM [facility] Calcium, Total 9.4 8.5 - 10.2 mg/dL 08/20/2022 11:05 AM [facility] Estimated Glomerular Filtration Rate 97 >=60 mL/min/1.7 3m 08/20/2022 11:05 AM [facility] Comment:Estimated Glomerular Filtration Rate (eGFR) is [...] us Ayo Lovelace MD LABORATORY Final Result [facility] [address] [facility] [address] [place] [address], [place] * COLONOSCOPY SCRN NOT HIGH RISK (09/07/2015 7:06 AM EST) Service Station Attendant [facility] Gastrointestinal Endoscopy Patient Name: Jose Reese Procedure [...] Other 09/07/2015 7:06 AM EST Cherelle Smallwood [facility] DIGESTIVE DISEASE Final Result * HEP C AB IA BLOOD (08/10/2015 10:23 AM EST) Hep C Antibody IA Negative Negative 08/10/2015 11:57 PM EST [facility] Blood specimen (specimen) BLOOD SPECIMEN / Unknown 08/10/2015 10:23 AM EST 08/10/2015 10:25 AM EST us Cherelle Smallwood [facility] LABORATORY Final R esult [facility] [address] [place] [address] from Last 3 Months or Most Recently Relevant to Health Maintenance Insurance [employer] [facility] [facility] Member Subscriber Plan / Payer (Ef fective 2012-Present) Name:Jose Reese Relation to Subscriber:Self Name:Jose Reese Payer ID:Not on file Group ID:Not on file Type:O Address: [address] [place] [id number] Care Teams Head Wood Grinder Relationship Specialty Start Date End Date Martin Bell MD PCP - General Family Medicine 08/07/11 No, Referral Referring 08/08/18 Ayo Lovelace MD [address] [place] [address] Primary Staff Physician Cardiology 12/23/18 Castillo Pereira MD [address] [place] [address] Primary Staff Physician Cardiology 09/12/21
--- NOTE | 2025-05-31 03:11 | ED.CHESTPAI1 ---
HPI - Chest Pain General Chief Complaint: Chest Pain Stated Complaint: CHEST PAIN Time Seen by Provider: 05/31/25 03:02 Source: patient Mode of arrival: walk-in Limitations: no limitations History of Present Illness HPI narrative: past history of SVT s/p ablation. Complains of chest pressure on and off for a couple of weeks. Seen by his PCP Dr Bell 2 days ago and BP elevated and advised to increase dose of metoprolol. Again tonight not feeling well with chest pressure. Also believes he was short of breath but not certain if just anxious because he has not felt well in 2 weeks. Last GXT was one year ago at [facility] and normal. No past history of CAD or stents Related Data Home Medications ?Medication ?Instructions ?Recorded ?Confirmed aspirin 81 mg tablet,delayed 81 mg PO DAILY 09/10/23 05/31/25 release (Adult Aspirin Regimen) cetirizine 10 mg tablet (24Hour 10 mg PO DAILY PRN allergy symptoms 09/10/23 05/31/25 Allergy) esomeprazole magnesium 20 mg 20 mg PO DAILY 09/10/23 05/31/25 capsule,delayed release evolocumab 140 mg/mL subcutaneous 140 mg subcut .q 2 weeks 09/10/23 05/31/25 pen injector (Repatha SureClick) metoprolol succinate 50 mg 50 mg PO BID 09/10/23 05/31/25 tablet,extended release 24 hr multivitamin (Daily Multi-Vitamin 1 tab PO DAILY 09/10/23 05/31/25 tablet) omega 2-ame-min-fish oil 1,000 mg 1 cap PO DAILY 09/10/23 05/31/25 (120 mg-180 mg) capsule (Fish Oil) esomeprazole magnesium 20 mg 20 mg PO DAILY 05/31/25 05/31/25 capsule,delayed release (Nexium 24HR) Allergies Allergy/AdvReac Type Severity Reaction Status Date / Time Xirsjfd-[id number]-TcK Reductase AdvReac Intermediate aches Verified 05/31/25 02:51 Inhibitor Review of Systems ROS Status of ROS 10 or more systems reviewed and unremarkable except as noted in history and below [facility] Medical History (Updated 05/31/25 @ 05:40 by Kiko Ball MD) Normal esophagogastroduodenoscopy (EGD) ?Z01.89 - Encounter for other specified special examinations (ICD-10) Normal colonoscopy Closed fracture of left wrist ?S62.102A - Fracture of unspecified carpal bone, left wrist, initial encounter for closed fracture (ICD-10) Surgical History (Updated 09/10/23 @ 11:28 by Jaymie Stout) H/O cardiac radiofrequency ablation ?Z98.890 - Other specified postprocedural states (ICD-10) H/O arthroscopy of shoulder ?Z98.890 - Other specified postprocedural states (ICD-10) Hx of total knee arthroplasty ?Z96.659 - Presence of unspecified artificial knee joint (ICD-10) Social History (Updated 09/10/23 @ 14:02 by Jaymie Stout) Within the past year, how often did you have a drink containing alcohol: 2-3 times a week Smoking status: Never smoker Non-prescribed substance use: denies use Previous occupational history: law inforcement Highest level of school completed/degree received: Associate degree: academic program Little interest or pleasure in doing things: not at all Feeling down, depressed, or hopeless: not at all Exam Constitutional Vital Signs, click to edit/add: Last Vital Signs Temp 98.3 F 05/31/25 02:51 Pulse 62 05/31/25 04:20 Resp 20 05/31/25 04:20 BP 138/75 05/31/25 04:01 Pulse Ox 92 L 05/31/25 04:20 O2 Del Method Room Air 05/31/25 02:51 Common normals: no apparent distress, average body habitus, oriented x3, no limitations, healthy appearing, alert and well nourished [facility] Common normals: normocephalic and head/scalp atraumatic Eye Common normals: PERRL and EOMs intact bilaterally Respiratory Common normals: normal respiratory effort, no retractions, no use of accessory muscles and clear to auscultation bilaterally Cardio Common normals: regular rate, regular rhythm, S1 normal heart sound and S2 normal heart sound GI Common normals: Normal to inspection, nondistended, normoactive bowel sounds present and soft to palpation Extremity Common normals: normal to inspection and full ROM Neuro Common normals: oriented x3, CN's II-XII intact bilaterally, moves all extremities and no focal motor deficits Psych Appearance: grossly normal Course Vital Signs Vital signs: Vital Signs Temperature 98.3 F 05/31/25 02:51 Pulse Rate 74 05/31/25 02:51 Respiratory Rate 18 05/31/25 02:51 Blood Pressure 178/99 H 05/31/25 02:51 Pulse Oximetry 100 05/31/25 02:51 Oxygen Delivery Method Room Air 05/31/25 02:51 Temperature 98.3 F 05/31/25 02:51 Pulse Rate 62 05/31/25 04:20 Respiratory Rate 20 05/31/25 04:20 Blood Pressure 138/75 05/31/25 04:01 Pulse Oximetry 92 L 05/31/25 04:20 Oxygen Delivery Method Room Air 05/31/25 02:51 MDM - Chest Pain MDM Narrative Medical decision making narrative: presents with atypical chest pain. describes pressure in the chest for 2 weeks. can occur several times per day. Not sure if short of breath or not. Describes taking a deep breath and not feeling like it was complete. Normal stress test one year ago and cardiac heart score of 3. Serial troponin x 2 neg. Normal d-dimer and BNP and chest xray. Patient informed of his results and advised close follow up with his PCP for continued workup Lab Data Labs: Lab Results 05/31/25 05/31/25 Range/Units 02:55 05:07 WBC 6.1 (4.0-11.0) 10^3/uL RBC 5.34 (4.70-6.10) 10^6/uL Hgb 17.1 (14.0-18.0) g/dL Hct 48.4 (42.0-54.0) % MCV 90.6 (80.0-94.0) fL MCH 32.0 (25.9-34.0) pg MCHC 35.3 H (29.9-35.2) g/dL RDW 12.1 (11.0-15.0) % Plt Count 198 (150-450) 10^3/uL MPV 10.2 (9.5-13.5) fL Neut % (Auto) 34.9 L (43.0-75.0) % Lymph % (Auto) 51.0 (20.5-60.0) % Grant % (Auto) 9.5 (1.7-12.0) % Eos % (Auto) 3.1 (0.9-7.0) % Baso % (Auto) 1.0 (0.2-2.0) % Neut # (Auto) 2.1 (1.4-6.5) 10^3/uL Lymph # (Auto) 3.1 (1.2-3.8) 10^3/uL Grant # (Auto) 0.6 (0.3-0.8) 10^3/uL Eos # (Auto) 0.2 (0.0-0.7) 10^3/uL Baso # (Auto) 0.1 (0.0-0.1) 10^3/uL Abs Immat Gran (auto) 0.03 (0.00-0.03) 10^3/uL Imm/Tot Granulo (auto) 0.5 (0.0-0.5) % D-Dimer 0.41 (<=0.59) mg/L FEU Sodium 141 (136-145) mmol/L Potassium 4.2 (3.5-5.1) mmol/L Chloride 103 (98-107) mmol/L Carbon Dioxide 29.4 (21.0-32.0) mmol/L Anion Gap 12.8 BUN 23.0 H (7.0-18.0) mg/dL Creatinine 1.13 (0.70-1.30) mg/dL Est GFR ( Amer) >60 (>=60 mL/min/1.73m^2) Est GFR (Non-Af Amer) >60 (>=60 mL/min/1.73m^2) BUN/Creatinine Ratio 20.4 Glucose 110 H (74-106) mg/dL Calcium 9.6 (8.5-10.1) mg/dL Troponin I High Sens 17.0 15.8 (4.0-76.1) pg/mL NT-Pro-B Natriuret Pep 63.0 (<=900.0) pg/mL Discharge Plan Discharge Chief Complaint: Chest Pain Clinical Impression: Atypical chest pain Patient Disposition: Home, Self-Care Prescriptions / Home Meds: No Action aspirin [Adult Aspirin Regimen] 81 mg tablet,delayed release (DR/EC) 81 mg PO DAILY cetirizine [24Hour Allergy] 10 mg tablet 10 mg PO DAILY PRN (Reason: allergy symptoms) esomeprazole magnesium 20 mg capsule,delayed release(DR/EC) 20 mg PO DAILY omega 1-lri-uev-fish oil [Fish Oil] 1,000 mg (120 mg-180 mg) capsule 1 cap PO DAILY metoprolol succinate 50 mg tablet extended release 24 hr 50 mg PO BID multivitamin [Daily Multi-Vitamin] Tablet 1 tab PO DAILY Repatha SureClick 140 mg/mL pen injector 140 mg subcut .q 2 weeks esomeprazole magnesium [Nexium 24HR] 20 mg capsule,delayed release(DR/EC) 20 mg PO DAILY Print Language: Sen[place]e Instructions: Chest Pain (ED) Additional Instructions: follow up today with Dr Bell Referrals: Martin Bell MD [Primary Care Provider, Family Practice] - 1 week
[2025-05-31 03:38] LABS: Anion Gap 12.8; Blood Urea Nitrogen 23.0 mg/dL (7.0-18.0); Calcium 9.6 mg/dL (8.5-10.1); Carbon Dioxide 29.4 mmol/L (21.0-32.0); Chloride 103 mmol/L (98-107); Estimated GFR (African America >60 (>=60 mL/min/1.73m^2); Estimated GFR (Non-African Ame >60 (>=60 mL/min/1.73m^2); Glucose 110 mg/dL (74-106); NT Pro B Type Natriuretic Pept 63.0 pg/mL (<=900.0); Potassium 4.2 mmol/L (3.5-5.1); Sodium 141 mmol/L (136-145)
[2025-05-31 03:44] LABS: Hematocrit 48.4 % (42.0-54.0); Hemoglobin 17.1 g/dL (14.0-18.0); Immature Granulocytes Abs Auto 0.03 10^3/uL (0.00-0.03); Immature Granulocytes Pct Auto 0.5 % (0.0-0.5); Lymphocytes Absolute Auto 3.1 10^3/uL (1.2-3.8); Mean Corpuscular HGB Conc 35.3 g/dL (29.9-35.2); Mean Corpuscular Hemoglobin 32.0 pg (25.9-34.0); Mean Corpuscular Volume 90.6 fL (80.0-94.0); Platelet Count 198 10^3/uL (150-450); Red Blood Count 5.34 10^6/uL (4.70-6.10); White Blood Count 6.1 10^3/uL (4.0-11.0)
--- NOTE | 2025-05-31 05:51 | PC.NURSE ---
i gave this patient verbal and written discharge orders and this patient voices yes to understanding these. at time of discharge this patient voices no concerns, needs and shows no signs of distress
== END 2025-05-31 05:50 | disposition home or self-care (01) ==
PROVIDERS: Emergency Provider Internal Medicine; PCP Family Medicine
DX: R07.89 Other chest pain (principal); Z96.659 Presence of unspecified artificial knee joint; R06.02 Shortness of breath
CPT/HCPCS: 36415; 71046; 80048; 83880; 84484; 85025; 85378; 93005; 99285

== ENCOUNTER 2025-06-10 07:29 | Outpatient (OUT) | payer BC, SELFPAY ==
--- OUTSIDE RECORDS SUMMARY | 2025-06-10 07:33 | XMS_ITS | CCD ---
Author Organization [facility] CliniSynm Care Team Providers Care Vegetable Trimmer Name Role Phone EID, ROSEMARIE Unavailable Unavailable [...] Referral Unavailable Unavailable Israel Rocha MD Unavailable [phone] Castillo Pereira MD Unavailable DESTINY VELA [...] Physician UnavailDestiny Lim MD Primary Care Provider [phone] ISRAEL ROCHA Attending Unavailable DESTINY VELA Primary Care Unavailable DESTINY VELA M Primary Care Unavailable ISRAEL ROCHA Referring Unavailable DESTINY VELA Primary Care Unavailable DESTINY VELA Primary Care Unavailable ISRAEL ROCHA Referring Unavailable Allergies Allergy Classification Reported Allergen(s) Allergy Type Date of Onset Reaction(s) Facility (20 sources) Hmg-Coa Reductase Inhibitors (Statins); Translations: [FESTEAT-EOZ-RML REDUCTASE INHIBITORS] Propensity to adverse reactions to drug (disorder) 7 Myalgia [facility] Other [place] Repository (1 source) [address],00 Drug allergy (disorder) 9 [facility] Repository (2 sources) Hmg-Coa Reductase Inhibitors (Statins); Translations: [statins] Propensity to adverse reactions to drug (disorder) [facility] Repository (1 source) Erythromycin Drug Allergy [facility] Repository Medications Current Medications Medication Drug [...] Comment on above: Take 1 capsule by [facility] once daily. 24 hr metoprolol succinate 50 [...] Comment on above: Take 100 Units by [facility] once daily. Completed/Discontinued Medications Medication Drug Class(es) Dates Sig (Normalized) Sig (Original) amiodarone hydrochloride 200 mg oral tablet (9 sources) Antiarrhythmic Start: 06-21-2022 take 1 tablet by mouth twice daily amiodarone (PACERONE) 200 mg tablet Take 1 tablet by mouth twice daily. 0 06/21/2022 Active Comment on above: Take 1 tablet by [facility] twice daily. clobetasol propionate 0.5 mg/ml [...] mouth once daily. Take 1 capsule by [facility] once daily. ergocalciferol 1.25 mg oral capsule (19 sources) Provitamin D2 Compound Start: 02-02-20 End: 05-02-20 take 1 capsule by mouth two times weekly ergocalciferol 50,000 unit capsule (VITAMIN D2, DRISDOL) Take 1 capsule by mouth two times a week. 24 capsule 0 02/01/2022 Active Comment on above: Take 1 capsule by [facility] two times a week. Fish Oil-DHA-EPA (FISH OIL) 1,200-144-216 mg ORAL Cap (11 sources) Start: 08-07-20 11 Fish Oil-DHA-EPA (FISH OIL) 1,200-144-216 mg ORAL Cap Take 1 capsule by mouth once daily. 0 08/07/2011 Suspended Start: 08-07-2011 Fish Oil-DHA-E PA (FISH OIL) 1,200-144-216 mg ORAL Cap Take 1 capsule by mouth once daily. 0 08/07/2011 Active Comment on above: Take 1 capsule by [facility] once daily. meloxicam 15 mg oral tablet [...] Comment on above: Take 1 capsule by [facility] once daily. VITAMIN A ORAL (20 sources) [...] on above: Take 1,000 mcg by [facility] once daily. Problems Active Problems Problem Classification [...] Onset: 06-11-2023 Episodic Other aftercare (1 source) snf (current) use of aspirin; Translations: [MANAGER ER CURRENT USE OF ASPIRIN] Onset: 05-15-2022 Episodic Other aftercare (1 source) Other superintendent terminal (current) drug therapy; Translations: [OTH MANAGER ER CURRENT DRUG THERAPY] Onset: 05-15-2022 Episodic Other [...] [id number] astIllness_name_2 Unclassified (1 source) [id number] astIllness_name_2 Unclassified (1 source) [id number] astIllness_name_2 Results Test Name Value Interpretation Reference Range Facility CNOVon 08-17-2024 CNOV Office Visit (CARDMN ) JOSE CHA ([id number]) 1965 M Date Time Provider Department 08/17/24 2:15 PM ISRAEL ROCHA During your visit today, we recorded the following information about you: Pulse Blood pressure Weight Height 71/minute 136/84 108 kg 1.753 m Israel Rocha MD 08/19/2024 8:28 AM [facility] [place] [facility] Department of Cardiovascular Medicine SECTION [...] for this visit. ALLERGIES: ALLERGIES Allergen Reactions Cyufils-Ssu-Qut Red* Myalgia Social History Tobacco Use Smoking [...] report. This note was created using computerized male impersonator software and may therefore include some male impersonator errors including errors in gender and inappropriate words or phrases. I reviewed old records, obtained relevant HPI and PMH from the pt, examined the patient and created the above report. 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 Normal [facility] ECG COMPLETEon 08-17-2024 ECG COMPLETE Ventricular Rate : 7 1 BPM Atrial Rate : 71 BPM P-R Interval : 192 ms QRS Duration : 142 ms Q-T Interval : 434 ms QTC Calculation(Bazett) : 471 ms Calculated P [place] : 49 degrees Calculated R [place] : 17 degrees Calculated T [place] : 2 degrees NORMAL SINUS RHYTHM COMPLETE RIGHT BUNDLE BRANCH BLOCK ABNORMAL ECG Confirmed by MD MANJARREZ TAMANNA ([id number]) on 09/16/2024 12:02:44 PM NAME : JOSE CHA PID : [id number] : 1965 Gender : Male Race : ORD : [id number] Procedure Date : Aug 17 2024 13:17:58 Edit Date : Sep 16 2024 12:02:51 Diagnosis: NORMAL SINUS RHYTHM COMPLETE RIGHT BUNDLE BRANCH BLOCK ABNORMAL ECG Confirmed by MD MANJARREZ TAMANNA ([id number]) on 09/16/2024 12:02:44 PM Test Reason : Location : 314 : J14 Overread By : MD MANJARREZ TAMANNA Edited By : MD MANJARREZ TAMANNA Referred By : , Acquired by : RAMOS MUÑOZ [facility] CARDIAC PERF STRESS/EXERC ISEon 06-16-2024 [place] CARDIAC PERF STRESS/EXERCISE * * *Final Report* * * DATE OF EXAM: Jun 16 2024 9:41AM [facility] 0004 - [place] CARDIAC PERF STRESS/EXERCISE / PROCEDURE REASON: WILLETT (dyspnea on exertion) * * * * Physician Interpretation * * * * Stress Mineral Mixer Report: [facility] SHANNA-2 Date of service: 06/16/2024 [...] See administered radiotracer and doses below. Main [place] Date of service: 06/16/2024 8:18:51 AM Ordering [...] Final * * * NM CTAC Report: [facility] Date of service: 06/16/2024 8:18:51 AM CTAC interpreting physician: Scott Manjarrez MD PATIENT: Name: MR. JOSE CHA Age: 59 years Gender: M 1. Incidental Findings from limited non-diagnostic CTAC: - Coronary calcifications visualized. * * * Final * * * Stress ECG Report: [place] [id number] Date of service: 06/16/2024 8:18:51 AM Ordering physician: ISRAEL ROCHA digital specialist: Lia Nava Equipment Service Engineer: Serena Sun Fellow: Deon Mark MD Interpreting [...] 50th percent (more content not included)... Normal [facility] Heart Perfusion W multipl e states of exerciseon 06-16-2024 * * *Final Report* * * DATE OF EXAM: Jun 16 2024 9:41AM [facility] 0004 - [place] CARDIAC PERF STRESS/EXERCISE / PROCEDURE REASON: WILLETT (dyspnea on exertion) * * * * Physician Interpretation * * * * Stress Mineral Mixer Report: [facility] Date of service: 06/16/2024 8:18:51 [...] See administered radiotracer and doses below. Main [place] Date of service: 06/16/2024 8:18:51 AM Ordering [...] Final * * * [place] CTAC Report: [facility] Date of service: 06/16/2024 8:18:51 AM CTAC interpreting physician: Scott Manjarerz MD PATIENT: Name: MR. JOSE CHA Age: 59 years Gender: M 1. Incidental Findings from limited non-diagnostic CTAC: - Coronary calcifications visualized. * * * Final * * * Stress ECG Report: [facility] SHANNA-2 Date of service: 06/16/2024 8:18:51 AM Ordering physician: ISRAEL ROCHA digital specialist: Lia Nava Equipment Service Engineer: Serena Sun Fellow: Deon Mark MD Interpreting physician: Scott Manjarrez MD Patient name: MR. JOSE CHA Age: 59 years Gender: M Height: 175.26 cm BSA: 2.30 m Weight: 108.41 kg BMI: 35.3 kg/m Indication: Dyspnea on exertion, Chest pressure / Chest tightness and Fati (more content not included)... DIVISION OF RADIOLOGY Provider, [facility] - 06/16/2024 * * *Final Report* * * DATE OF EXAM: Jun 16 2024 9:41AM [facility] 0004 - [place] CARDIAC PERF STRESS/EXERCISE / PROCEDURE REASON: WILLETT (dyspnea on exertion) * * * * Physician Interpretation * * * * Stress Mineral Mixer Report: [facility] Date of service: 06/16/2024 8:18:51 AM Supervising [...] See administered radiotracer and doses below. Main [place] Date of service: 06/16/2024 8:18:51 AM Ordering [...] Final * * * NM CTAC Report: [facility] Date of service: 06/16/2024 8:18:51 AM CTAC interpreting physician: Scott Manjarrez MD PATIENT: Name: MR. JOSE CHA Age: 59 years Gender: M 1. Incidental Findings from limited non-diagnostic CTAC: - Coronary calcifications visualized. * * * Final * * * Stress ECG Report: [facility] Date of service: 06/16/2024 8:18:51 AM Ordering physician: ISRAEL ROCHA digital specialist: Lia Nava Equipment Service Engineer: Serena Sun Fellow: Deon Mark MD Interpreting [...] The patient e (more content not included)... [facility] Radiology Study observation (narrative) [facility] [place] Heart Perfusion W multipl e states of exerciseOrdered By: [facility]cf Provider on 06-16-2024 [facility] Outside Colonoscopyon 2022 Outside Colonoscopy [id number]#1.00TIFF Normal [facility] Reminderson 09-19-2023 Reminders - From: Viktoria Heart LPN To: N - Clinical; Sent: 09/19/2023 08:55:34 EST Show up: 08/19/2033 07:00:00 EST Subject: colonoscopy recall Due Date/Time: 09/18/2033 07:00:00 EST Reminder/Recall Patient due for screening colonoscopy 09/18/2033. Normal [facility] No Panel Informationon 09-18 Colonoscopy Invalid Interpretation Code [employer] Work Phone: Consent for Procedure/Surger yon 09-05-2023 Consent for Procedure/Surgery [id number]#1.00TIFF [facility] Facesheeton 09-05-2023 Facesheet [id number]#1.00TIFF [facility] Ambulatory Visit Summaryon 1 11-04-2022 Ambulatory [...] you for choosing us for your care. [facility] Insurance Correspondenceon 11-04-2022 Insurance Correspondence [id number]#1.00TIFF [facility] Consultation Noteon 08-07-20 23 Consultation Note [id number]#1.00TIFF [facility] Physician Referralon 023 Physician Referral [id number]#1.00TIFF [facility] No Panel Informationon 06-11 Tobacco smoking status Non-Smoker Invalid Interpretation Code [employer] Work Phone: - Invalid Interpretation Code [employer] Work Phone: [phone] Invalid Interpretation Code [employer] Work Phone: JOSE CHA Invalid Interpretation Code [facility] [employer] Work Phone: XR LEG FRONTAL HIP TO ANKLE MECHANICAL AXISon 2023 [facility] BILIRUBIN CONJUGATED (DIRECT )on 10-30-2022 BILI, CONJUGATED 0.1 mg/dL Normal 0.0-0.2 [facility] Comment on above: Performed By: #### D LEONARDO, FT3, LIPID, TSH, T4, CMP #### [facility] [address] [place] [address] Dr. Adam Royal CBC AUTO DIFFon 10-30-2022 BASO # 0.0 103/ul Normal 0.0-0.1 [facility] Comment on above: Performed By: #### H STROPN, CMP #### [facility] [address] [place] [address] Dr. Adam Royal Basophils/100 WBC (Bld) 0.3 % Normal 0.2-2.0 [facility] Comment on above: Performed By: #### H KARTHIKEYANPN, CMP #### [facility] [address] [place] [address] Dr. Adam Royal EO # 0.1 103/ul Normal 0.0-0.7 [facility] Comment on above: Performed By: #### H STROPN, CMP #### [facility] [address] [place] [address] Dr. Adam Royal Eosinophils/100 WBC (Bld) 1.4 % Normal 0.9-7.0 [facility] Comment on above: Performed By: #### H STROPN, CMP #### [facility] [address] [place] [address] Dr. Adam Royal Erythrocyte distribution width (RBC) [Ratio] 12.5 % Normal 11.0-15.0 [facility] Comment on above: Performed By: #### H STROPN, CMP #### [facility] [address] [place] [address] Dr. Adam Royal Hematocrit (Bld) [Volume fraction] 45.6 % Normal 42.0-54.0 [facility] Comment on above: Performed By: #### H STROPN, CMP #### [facility] [address] [address] [address] Adam Royal Hemoglobin (Bld) [Mass/Vol] 15.6 g/dL Normal 14.0-18.0 [facility] Comment on above: Performed By: #### H STROPN, CMP #### [facility] [address] [address] [address] Adam Royal IG # 0.06 10e3/ul Critically high 0.00-0.03 [facility] Comment on above: Performed By: #### H STROPN, CMP #### [facility] [address] [place] [address] Dr. Adam Royal IG % 0.7 % Critically high 0.0-0.5 [facility] Comment on above: Performed By: #### H STROPN, CMP #### [facility] [address] [place] [address] Dr. Adam Royal LYMPH # 1.6 103/ul Normal 1.2-3.8 [facility] Comment on above: Performed By: #### H STROPN, CMP #### [facility] [address] [place] [address] Dr. Adam Royal Lymphocytes/100 WBC (Bld) 17.9 % Critically low 20.5-60.0 [facility] Comment on above: Performed By: #### H STROPN, CMP #### [facility] [address] [place] [address] Dr. Adam Royal MANUAL DIFF REQ NO Normal [facility] Comment on above: Performed By: #### H STROPN, CMP #### [facility] [address] [place] [address] Dr. Adam Royal MCH (RBC) [Entitic mass] 30.1 pg Normal 25.9-34.0 [facility] Comment on above: Performed By: #### H STROPN, CMP #### [facility] [address] [place] [address] Dr. Adam Royal MCHC (RBC) [Mass/Vol] 34.2 g/dL Normal 29.9-35.2 [facility] Comment on above: Performed By: #### H STROPN, CMP #### [facility] [address] [address] [address] Adam Royal MCV (RBC) [Entitic vol] 87.9 fL Normal 80.0-94.0 [facility] Comment on above: Performed By: #### H STROPN, CMP #### [facility] [address] [address] [address] Adam Royal MONO # 0.5 103/ul Normal 0.3-0.8 [facility] Comment on above: Performed By: #### H STROPN, CMP #### [facility] [address] [address] [address] Adam Royal Monocytes/100 WBC (Bld) 5.7 % Normal 1.7-12.0 [facility] Comment on above: Performed By: #### H STROPN, CMP #### [facility] [address] [place] [address] Dr. Adam Royal NEUT # 6.5 103/ul Normal 1.4-6.5 [facility] Comment on above: Performed By: #### H STROPN, CMP #### [facility] [address] [place] [address] Dr. Adam Royal Neutrophils/100 WBC (Bld) 74.0 % Normal 43.0-75.0 [facility] Comment on above: Performed By: #### H STROPN, CMP #### [facility] [address] [place] [address] Dr. Adam Royal Platelet mean volume (Bld) [Entitic vol] 9.6 fL Normal 9.5-13.5 [facility] Comment on above: Performed By: #### H STROPN, CMP #### [facility] [address] [place] [address] Dr. Adam Royal PLT 269 103/ul Normal 150-450 [facility] Comment on above: Performed By: #### H STROPN, CMP #### [facility] [address] [place] [address] Dr. Adam Royal RBC 5.19 106/ul Normal 4.70-6.10 [facility] Comment on above: Performed By: #### H STROPN, CMP #### [facility] [address] [address] [address] Adam Royal WBC 8.8 103/ul Normal 4.0-11.0 [facility] Comment on above: Performed By: #### H STROPN, CMP #### [facility] [address] [address] [address] Adam Royal FREE T3on 10-30-2022 FREE T3 2.77 pg/mlL Normal 2.18-3.98 [facility] Comment on above: Performed By: #### D LEONARDO, FT3, LIPID, TSH, T4, CMP #### [facility] [address] [place] [address] Dr. Adam Royal GLYCOHEMOGLOBIN A1Con 2022 ADA RECOMMENDATION SEE BELOW Normal [facility] Comment on above: Result Comment: ADA RECOMMENDED LIMIT 4.0 - 6.0 ADA THERAPEUTIC TARGET < 7.0 ACTION SUGGESTED > 7.0 Performed By: #### A 1C #### [facility] [address] [place] [address] Dr. Adam Royal Glucose [Mass/Vol] 117 mg/dL Normal [facility] Comment on above: Performed By: #### A 1C #### [facility] [address] [place] [address] Dr. Adam Royal HbA1c (Bld) [Mass fraction] 5.7 % Normal 4.5-6.2 [facility] Comment on above: Performed By: #### A 1C #### [facility] [address] [place] [address] Dr. Adam Royal LIPID PROFILEon 10-30-2022 CHOL-HDL RATIO NORM SEE BELOW Normal [facility] Comment on above: Result Comment: 3.3 - 4.4 LOW RISK 4.4 - 7.1 AVERAGE RISK 7.1 - 11.0 MODERATE RISK >11.0 HIGH RISK Performed By: #### D LEONARDO, FT3, LIPID, TSH, T4, CMP #### [facility] [address] [place] [address] Dr. Adam Royal Cholesterol [Mass/Vol] 194 mg/dL Normal <=200 [facility] Comment on above: Performed By: #### D LEONARDO, FT3, LIPID, TSH, T4, CMP #### [facility] [address] [address] [address] Adam Royal Cholesterol in HDL [Mass/Vol] 49 mg/dL Normal 40-60 [facility] Comment on above: Performed By: #### D LEONARDO, FT3, LIPID, TSH, T4, CMP #### [facility] [address] [address] [address] Adam Royal Cholesterol in LDL [Mass/Vol] 122.6 mg/dL Normal [facility] Comment on above: Performed By: #### D LEONARDO, FT3, LIPID, TSH, T4, CMP #### [facility] [address] [place] [address] Dr. Adam Royal Cholesterol.total/C holesterol in HDL [Mass ratio] 4.0 {ratio} Normal [facility] Comment on above: Performed By: #### D LEONARDO, FT3, LIPID, TSH, T4, CMP #### [facility] [address] [address] [address] Adam Royal HDL NORMAL > or = 60 mg/dl - LO W CARDIOVASCULAR RISK <40 mg/dl - HIGH CARDIOVASCULAR RISK Normal [facility] Comment on above: Performed By: #### D LEONARDO, FT3, LIPID, TSH, T4, CMP #### [facility] [address] [address] [address] Adam Royal LDL CALC NORMAL SEE BELOW Normal [facility] Comment on above: Result Comment: <100 mg/dl OPTIMAL 100 - 129 mg/dl NEAR OR ABOVE OPTIMAL 130 - 159 mg/dl BORDERLINE HIGH 160 - 189 mg/dl HIGH >190 mg/dl VERY HIGH Performed By: #### D LEONARDO, FT3, LIPID, TSH, T4, CMP #### [facility] [address] [address] [address] Adam Royal Triglyceride [Mass/Vol] 112 mg/dL Normal <=150 [facility] Comment on above: Performed By: #### D LEONARDO, FT3, LIPID, TSH, T4, CMP #### [facility] [address] [place] [address] Dr. Adam Royal VLDL CALC 22.4 mg/dL Normal [facility] Comment on above: Performed By: #### D LEONARDO, FT3, LIPID, TSH, T4, CMP #### [facility] [address] [place] [address] Dr. Adam Royal PROF 14(COMP METB)on 023 Albumin [Mass/Vol] 3.9 g/dL Normal 3.4-5.0 [facility] Comment on above: Performed By: #### D LEONARDO, FT3, LIPID, TSH, T4, CMP #### [facility] [address] [place] [address] Dr. Adam Royal Albumin/Globulin [Mass ratio] 1.0 {ratio} Normal [facility] Comment on above: Performed By: #### D LEONARDO, FT3, LIPID, TSH, T4, CMP #### [facility] [address] [place] [address] Dr. Adam Royal ALP [Catalytic activity/Vol] 62 U/L Normal 46-116 [facility] Comment on above: Performed By: #### D LEONARDO, FT3, LIPID, TSH, T4, CMP #### [facility] [address] [place] [address] Dr. Adam Royal ALT [Catalytic activity/Vol] 43 U/L Normal 16-63 [facility] Comment on above: Performed By: #### D LEONARDO, FT3, LIPID, TSH, T4, CMP #### [facility] [address] [place] [address] Dr. Adam Royal Anion gap [Moles/Vol] 15.0 mmol/L Normal [facility] Comment on above: Performed By: #### D LEONARDO, FT3, LIPID, TSH, T4, CMP #### [facility] [address] [place] [address] Dr. Adam Royal AST [Catalytic activity/Vol] 33 U/L Normal 15-37 [facility] Comment on above: Performed By: #### D LEONARDO, FT3, LIPID, TSH, T4, CMP #### [facility] [address] [place] [address] Dr. Adam Royal Bilirubin [Mass/Vol] 0.4 mg/dL Normal 0.2-1.0 [facility] Comment on above: Performed By: #### D LEONARDO, FT3, LIPID, TSH, T4, CMP #### [facility] [address] [place] [address] Dr. Adam Royal Calcium [Mass/Vol] 9.8 mg/dL Normal 8.5-10.1 [facility] Comment on above: Performed By: #### D LEONARDO, FT3, LIPID, TSH, T4, CMP #### [facility] [address] [place] [address] Dr. Adam Royal Chloride [Moles/Vol] 101 mmol/L Normal 98-107 [facility] Comment on above: Performed By: #### D LEONARDO, FT3, LIPID, TSH, T4, CMP #### [facility] [address] [place] [address] Dr. Adam Royal CO2 [Moles/Vol] 26.8 mmol/L Normal 21.0-32.0 [facility] Comment on above: Performed By: #### D LEONARDO, FT3, LIPID, TSH, T4, CMP #### [facility] [address] [place] [address] Dr. Adam Royal Creatinine [Mass/Vol] 1.01 mg/dL Normal 0.70-1.30 [facility] Comment on above: Performed By: #### D LEONARDO, FT3, LIPID, TSH, T4, CMP #### [facility] [address] [place] [address] Dr. Adam Royal EGFR-AF ISRAELI >60 Normal >=60 [facility] Comment on above: Performed By: #### D LEONARDO, FT3, LIPID, TSH, T4, CMP #### [facility] [address] [place] [address] Dr. Adam Royal EGFR-NON AF ISRAELI >60 Normal >=60 [facility] Comment on above: Performed By: #### D LEONARDO, FT3, LIPID, TSH, T4, CMP #### [facility] [address] [place] [address] Dr. Adam Royal Globulin (S) [Mass/Vol] 3.9 g/dL Normal [facility] Comment on above: Performed By: #### D LEONARDO, FT3, LIPID, TSH, T4, CMP #### [facility] [address] [place] [address] Dr. Adam Royal Glucose [Mass/Vol] 119 mg/dL Critically high 74-106 T [facility] Comment on above: Performed By: #### D LEONARDO, FT3, LIPID, TSH, T4, CMP #### [facility] Laboratory [address] [place] [address] Dr. Adam Royal Potassium [Moles/Vol] 4.8 mmol/L Normal 3.5-5.1 [facility] Comment on above: Performed By: #### D LEONARDO, FT3, LIPID, TSH, T4, CMP #### [facility] [address] [place] [address] Dr. Adam Royal Protein [Mass/Vol] 7.8 g/dL Normal 6.4-8.2 [facility] Comment on above: Performed By: #### D LEONARDO, FT3, LIPID, TSH, T4, CMP #### [facility] [address] [place] [address] Dr. Adam Royal Sodium [Moles/Vol] 138 mmol/L Normal 136-145 [facility] Comment on above: Performed By: #### D LEONARDO, FT3, LIPID, TSH, T4, CMP #### [facility] [address] [place] [address] Dr. Adam Royal Urea nitrogen [Mass/Vol] 24.0 mg/dL Critically high 7.0-18.0 [facility] Comment on above: Performed By: #### D LEONARDO, FT3, LIPID, TSH, T4, CMP #### [facility] [address] [place] [address] Dr. Adam Royal Urea nitrogen/Creatinine [Mass ratio] 23.8 mg/mg Normal [facility] Comment on above: Performed By: #### D LEONARDO, FT3, LIPID, TSH, T4, CMP #### [facility] [address] [place], [place] [address] Dr. Adam Royal T4on 10-30-2022 T4 [Mass/Vol] 7.00 ug/dL Normal 4.50-12.10 [facility] Comment on above: Performed By: #### D LEONARDO, FT3, LIPID, TSH, T4, CMP #### [facility] [address] [place] [id number] Adam Royal TSHon 10-30-2022 TSH 1.140 uIU/mL Normal 0.358-3.740 [facility] Comment on above: Performed By: #### D LEONARDO, FT3, LIPID, TSH, T4, CMP #### [facility] [address] [address] [address] Adam Royal CBC(NO DIFF)on 06-20-2022 Erythrocyte distribution width (RBC) [Ratio] 13.0 % Normal 11.5-14.5 [facility] Hematocrit (Bld) [Volume fraction] 44.6 % Normal 42.0-52.0 [facility] Hemoglobin (Bld) [Mass/Vol] 15.2 g/dL Normal 14.0-18.0 [facility] MCH (RBC) [Entitic mass] 31.1 pg Normal 26.0-35.0 [facility] MCHC (RBC) [Mass/Vol] 34.2 g/dL Normal 27.0-37.0 [facility] MCV (RBC) [Entitic vol] 90.9 fL Normal 80.0-100.0 [facility] Platelet mean volume (Bld) [Entitic vol] 8.2 fL Normal 7.4-11.0 [facility] Platelets (Bld) [#/Vol] 162 10*3/uL Normal 130.0-400.0 [facility] RBC (Bld) [#/Vol] 4.90 10*6/uL Normal 4.0-6.1 [facility] WBC (Bld) [#/Vol] 6.7 10*3/uL Normal 3.6-11.0 [facility] FREE T4on 06-20-2022 Free T4 [Mass/Vol] 0.92 ng/dL Normal 0.78-2.19 [facility] MAGNESIUMon 06-20-2022 Magnesium [Mass/Vol] 2.1 mg/dL Normal 1.6-2.3 [facility] MRSA SCREENon 06-20-2022 MRSA DNA JOYCE+probe Ql (Unsp spec) Not detected Normal NOT DETECTED [facility] Comment on above: Performed By: #### M RSAST #### [place] [address] STAPH AUREUS SCREEN Not detected Normal NOT DETECTED [facility] Comment on above: Result Comment: Test ing performed at [place] [address] Performed By: #### M RSAST #### [place] [address] RENAL PANEL,FASTINGon 2021 ALBUMIN 4.1 G/dl Normal 3.5-5.0 [facility] Calcium [Mass/Vol] 8.6 mg/dL Normal 8.4-10.2 [facility] Chloride [Moles/Vol] 105 mmol/L Normal 98-107 [facility] Comment on above: Result Comment: Matias monroe note: Triglyceride levels of 600mg/dL or higher may positively bias chloride results by approximately 2.1 mmol CO2 [Moles/Vol] 27 mmol/L Normal 22-30 [facility] Creatinine [Mass/Vol] 1.07 mg/dL Normal 0.7-1.2 [facility] EST. GFR, 92 ml/min/1.73sq.m Normal [facility] EST. GFR,Non 76 ml/min/1.73sq.m [facility] GFR Information Average GFR for 50-5 9 years old = 93. Normal [facility] Comment on above: Result Comment: Clinical Data Manager jacky Kidney disease, GFR = <60. Kidney failure, GFR = <15. The GFR estimate is not adjusted for extreme body surface area or acute process, nor has it been validated for women or ethnic groups other than and . Glucose [Mass/Vol] 113 mg/dL High 70-100 [facility] Comment on above: Result Comment: NORMAL <100 mg/dL PREDIABETES 101-126 mg/dL DIABETES 126 mg/dL or higher PHOSPHOROUS 3.6 MG/DL Normal 2.5-4.5 [facility] Potassium [Moles/Vol] 5.0 mmol/L Normal 3.5-5.1 [facility] Sodium [Moles/Vol] 138 mmol/L Normal 137-145 [facility] Urea nitrogen [Mass/Vol] 17 mg/dL Normal 7-20 [facility] TROPONIN I, HIGH SENSITIVITY on 06-20-2022 TROPONIN I, HIGH SENSITIVITY 91 pg/mL High 0-20 [facility] Comment on above: Result Comment: Indeterminant: [...] 022 TSH,REFLEX FREE T4 <0.015 Low 0.46-4.68 [facility] CBCon 06-19-2022 ABSOLUTE BAS 0.0 10*3/uL Normal 0.0-0.2 [facility] Comment on above: Performed By: #### A CBC #### Testing performed at [address] [address] ABSOLUTE EOS 0.20 10*3/uL Normal 0.0-0.7 [facility] Comment on above: Performed By: #### A CBC #### Testing performed at [address] [address] ABSOLUTE NEUTROPHIL COUNT 2.7 10*3/uL Normal 1.4-6.5 [facility] Comment on above: Performed By: #### A CBC #### Testing performed at [address] [address] Basophils/100 WBC (Bld) 1.0 % Normal 0.0-2.0 [facility] Comment on above: Performed By: #### A CBC #### Testing performed at [address] [address] [place] [address] DTYPE AUTO DIFF Normal [facility] Comment on above: Performed By: #### A CBC #### Testing performed at [place] [address] [place] [address] Eosinophils/100 WBC (Bld) 3.5 % Normal 0.0-11.0 [facility] Comment on above: Performed By: #### A CBC #### Testing performed at [address] [address] Lymphocytes (Bld) [#/Vol] 1.40 10*3/uL Normal 1.2-3.4 [facility] Comment on above: Performed By: #### A CBC #### Testing performed at [address] [address] Lymphocytes/100 WBC (Bld) 29.2 % Normal 20.0-55.0 [facility] Comment on above: Performed By: #### A CBC #### Testing performed at [address] [address] Monocytes (Bld) [#/Vol] 0.4 10*3/uL Normal 0.0-0.7 [facility] Comment on above: Performed By: #### A CBC #### Testing performed at [address] [address] Monocytes/100 WBC (Bld) 8.3 % Normal 0.0-10.0 [facility] Comment on above: Performed By: #### A CBC #### Testing performed at [address] [address] Neutrophils/100 WBC (Bld) 58.0 % Normal 37.0-75.0 [facility] Comment on above: Performed By: #### A CBC #### Testing performed at [address] [address] Erythrocyte distribution width (RBC) [Ratio] 12.9 % Normal 11.5-14.5 [facility] Comment on above: Performed By: #### A CBC #### Testing performed at [address] [address] Hematocrit (Bld) [Volume fraction] 43.7 % Normal 42.0-52.0 [facility] Comment on above: Performed By: #### A CBC #### Testing performed at [address] [address] Hemoglobin (Bld) [Mass/Vol] 15.2 g/dL Normal 14.0-18.0 [facility] Comment on above: Performed By: #### A CBC #### Testing performed at [address] [address] MCH (RBC) [Entitic mass] 31.5 pg Normal 26.0-35.0 [facility] Comment on above: Performed By: #### A CBC #### Testing performed at [address] [address] MCHC (RBC) [Mass/Vol] 34.8 g/dL Normal 27.0-37.0 [facility] Comment on above: Performed By: #### A CBC #### Testing performed at [address] [address] MCV (RBC) [Entitic vol] 90.5 fL Normal 80.0-100.0 [facility] Comment on above: Performed By: #### A CBC #### Testing performed at [address] [address] Platelet mean volume (Bld) [Entitic vol] 8.2 fL Normal 7.4-11.0 [facility] Comment on above: Performed By: #### A CBC #### Testing performed at [address] [address] Platelets (Bld) [#/Vol] 165 10*3/uL Normal 130.0-400.0 [facility] Comment on above: Performed By: #### A CBC #### Testing performed at [address] [address] RBC (Bld) [#/Vol] 4.83 10*6/uL Normal 4.0-6.1 [facility] Comment on above: Performed By: #### A CBC #### Testing performed at [address] [address] WBC (Bld) [#/Vol] 4.7 10*3/uL Normal 3.6-11.0 [facility] Comment on above: Performed By: #### A CBC #### Testing performed at [address] [address] CHEM 7 FASTINGon 06-19-2022 Chloride [Moles/Vol] 103 mmol/L Normal 98-107 [facility] Comment on above: Result Comment: Matias monroe note: Triglyceride levels of 600mg/dL or higher may positively bias chloride results by approximately 2.1 mmol Performed By: #### A CBC #### Testing performed at [address] [address] CO2 [Moles/Vol] 28 mmol/L Normal 22-30 [facility] Comment on above: Performed By: #### A CBC #### Testing performed at [address] [address] Creatinine [Mass/Vol] 1.03 mg/dL Normal 0.7-1.2 [facility] Comment on above: Performed By: #### A CBC #### Testing performed at [address] [address] EST. GFR, 96 ml/min/1.73sq.m Normal [facility] Comment on above: Performed By: #### A CBC #### Testing performed at [address] [address] EST. GFR,Non 79 ml/min/1.73sq.m Normal [facility] Comment on above: Performed By: #### A CBC #### Testing performed at [address] [address] GFR Information Average GFR for 50-5 9 years old = 93. Normal [facility] Comment on above: Result Comment: Clinical Data Manager jacky Kidney disease, GFR = <60. Kidney failure, GFR = <15. The GFR estimate is not adjusted for extreme body surface area or acute process, nor has it been validated for women or ethnic groups other than and . Performed By: #### A CBC #### Testing performed at [place] [id number] Glucose [Mass/Vol] 116 mg/dL High 70-100 [facility] Comment on above: Result Comment: NORMAL <100 mg/dL PREDIABETES 101-126 mg/dL DIABETES 126 mg/dL or higher Performed By: #### A CBC #### Testing performed at [place] [id number] Potassium [Moles/Vol] 4.1 mmol/L Normal 3.5-5.1 [facility] Comment on above: Performed By: #### A CBC #### Testing performed at [place] [id number] Sodium [Moles/Vol] 139 mmol/L Normal 137-145 [facility] Comment on above: Performed By: #### A CBC #### Testing performed at [address] [address] Urea nitrogen [Mass/Vol] 18 mg/dL Normal 7-20 [facility] Comment on above: Performed By: #### A CBC #### Testing performed at [address] [address] MAGNESIUMon 06-19-2022 Magnesium [Mass/Vol] 1.7 mg/dL Normal 1.6-2.3 [facility] NOVEL CORONAVIRUSon 06-19-20 22 NARRATIVE This test was perfor med using isothermal JOYCE and has been approved as Emergency Use Authorization (EUA) for the qualitative detection [id number] nucleic acid. Normal [facility] SARS-CoV-2 (COVID-19) RNA JOYCE+probe Ql (Unsp spec) Not detected Normal NOT DETECTED [facility] Comment on above: Result Comment: Nega [...] I, HIGH SENSITIVITY 4 pg/mL Normal 0-20 [facility] Comment on above: Result Comment: Indeterminant: [...] definitely identifying any acute chest finding. Normal [facility] CBC AUTO DIFFon 05-12-2022 BASO # 0.1 103/ul Normal 0.0-0.1 [facility] Comment on above: Performed By: #### C BC #### [facility] [address] [place] [address] Dr. Adam Royal Basophils/100 WBC (Bld) 0.9 % Normal 0.2-2.0 [facility] Comment on above: Performed By: #### C BC #### [facility] [address] [place] [address] Dr. Adam Royal EO # 0.2 103/ul Normal 0.0-0.7 [facility] Comment on above: Performed By: #### C BC #### [facility] [address] [place] [address] Dr. Adam Royal Eosinophils/100 WBC (Bld) 2.7 % Normal 0.9-7.0 [facility] Comment on above: Performed By: #### C BC #### [facility] [address] [place] [address] Dr. Adam Royal Erythrocyte distribution width (RBC) [Ratio] 12.7 % Normal 11.0-15.0 [facility] Comment on above: Performed By: #### C BC #### [facility] [address] [place] [address] Dr. Adam Royal Hematocrit (Bld) [Volume fraction] 50.1 % Normal 42.0-54.0 [facility] Comment on above: Performed By: #### C BC #### [facility] [address] [place] [address] Dr. Adam Royal Hemoglobin (Bld) [Mass/Vol] 17.0 g/dL Normal 14.0-18.0 [facility] Comment on above: Performed By: #### C BC #### [facility] [address] [place] [address] Dr. Adam Royal IG # 0.01 10e3/ul Normal 0.00-0.03 [facility] Comment on above: Performed By: #### C BC #### [facility] [address] [place] [address] Dr. Adam Royal IG % 0.2 % Normal 0.0-0.5 [facility] Comment on above: Performed By: #### C BC #### [facility] [address] [place] [address] Dr. Adam Royal LYMPH # 3.2 103/ul Normal 1.2-3.8 [facility] Comment on above: Performed By: #### C BC #### [facility] [address] [place] [address] Dr. Adam Royal Lymphocytes/100 WBC (Bld) 47.3 % Normal 20.5-60.0 [facility] Comment on above: Performed By: #### C BC #### [facility] [address] [place] [address] Dr. Adam Royal MANUAL DIFF REQ NO Normal [facility] Comment on above: Performed By: #### C BC #### [facility] [address] [place] [address] Dr. Adam Royal MCH (RBC) [Entitic mass] 30.6 pg Normal 25.9-34.0 [facility] Comment on above: Performed By: #### C BC #### [facility] [address] [place] [address] Dr. Adam Royal MCHC (RBC) [Mass/Vol] 33.9 g/dL Normal 29.9-35.2 [facility] Comment on above: Performed By: #### C BC #### [facility] [address] [place] [address] Dr. Adam Royal MCV (RBC) [Entitic vol] 90.3 fL Normal 80.0-94.0 [facility] Comment on above: Performed By: #### C BC #### [facility] [address] [place] [address] Dr. Adam Royal MONO # 0.9 103/ul Critically high 0.3-0.8 [facility] Comment on above: Performed By: #### C BC #### [facility] [address] [place] [address] Dr. Adam Royal Monocytes/100 WBC (Bld) 14.1 % Critically high 1.7-12.0 [facility] Comment on above: Performed By: #### C BC #### [facility] [address] [place] [address] Dr. Adam Royal NEUT # 2.3 103/ul Normal 1.4-6.5 [facility] Comment on above: Performed By: #### C BC #### [facility] [address] [place] [address] Dr. Adam Royal Neutrophils/100 WBC (Bld) 34.8 % Critically low 43.0-75.0 [facility] Comment on above: Performed By: #### C BC #### [facility] [address] [place] [address] Dr. Adam Royal Platelet mean volume (Bld) [Entitic vol] 10.0 fL Normal 9.5-13.5 [facility] Comment on above: Performed By: #### C BC #### [facility] [address] [place] [address] Dr. Adam Royal PLT 214 103/ul Normal 150-450 [facility] Comment on above: Performed By: #### C BC #### [facility] [address] [place] [address] Dr. Adam Royal RBC 5.55 106/ul Normal 4.70-6.10 [facility] Comment on above: Performed By: #### C BC #### [facility] [address] [place] [address] Dr. Adam Royal WBC 6.7 103/ul Normal 4.0-11.0 [facility] Comment on above: Performed By: #### C BC #### [facility] [address] [place] [address] Dr. Adam Royal PROF 14(COMP METB)on 022 Albumin [Mass/Vol] 4.1 g/dL Normal 3.4-5.0 [facility] Comment on above: Performed By: #### H MARIE, CMP #### [facility] [address] [place] [address] Dr. Adam Royal Albumin/Globulin [Mass ratio] 1.2 {ratio} Normal [facility] Comment on above: Performed By: #### H MARIE, CMP #### [facility] [address] [place] [address] Dr. Adam Royal ALP [Catalytic activity/Vol] 76 U/L Normal 46-116 [facility] Comment on above: Performed By: #### H STROPN, CMP #### [facility] [address] [address] [address] Adam Royal ALT [Catalytic activity/Vol] 86 U/L Critically high 16-63 [facility] Comment on above: Performed By: #### H STROPN, CMP #### [facility] [address] [address] [address] Adam Royal Anion gap [Moles/Vol] 17.2 mmol/L Normal [facility] Comment on above: Performed By: #### H STROPN, CMP #### [facility] [address] [address] [address] Adam Royal AST [Catalytic activity/Vol] 51 U/L Critically high 15-37 [facility] Comment on above: Performed By: #### H STROPN, CMP #### [facility] [address] [address] [address] Adam Royal Bilirubin [Mass/Vol] 0.3 mg/dL Normal 0.2-1.0 [facility] Comment on above: Performed By: #### H STROPN, CMP #### [facility] [address] [place] [address] Dr. Adam Royal Calcium [Mass/Vol] 9.4 mg/dL Normal 8.5-10.1 [facility] Comment on above: Performed By: #### H STROPN, CMP #### [facility] [address] [address] [address] Adam Royal Chloride [Moles/Vol] 104 mmol/L Normal 98-107 [facility] Comment on above: Performed By: #### H STROPN, CMP #### [facility] [address] [address] [address] Adam Royal CO2 [Moles/Vol] 25.7 mmol/L Normal 21.0-32.0 [facility] Comment on above: Performed By: #### H STROPN, CMP #### [facility] [address] [address] [address] Adam Royal Creatinine [Mass/Vol] 1.03 mg/dL Normal 0.70-1.30 [facility] Comment on above: Performed By: #### H STROPN, CMP #### [facility] [address] [address] [address] Adam Royal EGFR-AF ISRAELI >60 Normal >=60 [facility] Comment on above: Performed By: #### H STROPN, CMP #### [facility] [address] [address] [address] Adam Royal EGFR-NON AF ISRAELI >60 Normal >=60 [facility] Comment on above: Performed By: #### H STROPN, CMP #### [facility] [address] [place] [address] Dr. Adam Royal Globulin (S) [Mass/Vol] 3.4 g/dL Normal [facility] Comment on above: Performed By: #### H STROPN, CMP #### [facility] [address] [address] [address] Adam Royal Glucose [Mass/Vol] 118 mg/dL Critically high 74-106 [facility] Comment on above: Performed By: #### H STROPN, CMP #### [facility] [address] [place] [address] Dr. Adam Royal Potassium [Moles/Vol] 3.9 mmol/L Normal 3.5-5.1 [facility] Comment on above: Performed By: #### H STROPN, CMP #### [facility] [address] [place] [address] Dr. Adam Royal Protein [Mass/Vol] 7.5 g/dL Normal 6.4-8.2 [facility] Comment on above: Performed By: #### H STROPN, CMP #### [facility] [address] [place] [address] Dr. Adam Royal Sodium [Moles/Vol] 143 mmol/L Normal 136-145 [facility] Comment on above: Performed By: #### H STROPN, CMP #### [facility] [address] [place] [address] Dr. Adam Royal Urea nitrogen [Mass/Vol] 18.0 mg/dL Normal 7.0-18.0 [facility] Comment on above: Performed By: #### H MARIE, CMP #### [facility] [address] [place] [address] Dr. Adam Royal Urea nitrogen/Creatinine [Mass ratio] 17.5 mg/mg Normal [facility] Comment on above: Performed By: #### H MARIE, CMP #### [facility] [address] [place] [address] Dr. Adam Royal TROPONIN, HIGH SENSITIVITYon 05-12-2022 HSTROP 22.3 pg/mL Normal 4.0-76.1 [facility] Comment on above: Result Comment: CUT- OFF POINTS HAVE BEEN ESTABLISHED BASED ON THE FOURTH UNIVERSAL DEFINITIONS OF MYOCARDIAL INFARCTION. THE UPPER REFERENCE LIMIT (URL) OF TROPONIN, DEFINED THE 99TH PERCENTILE OF cTnI DISTRIBUTION IN A REFERENCE POPULATION, HAS BEEN CONFIRMED THE DECISION THRESHOLD FOR CA DIAGNOSIS. Performed By: #### H MARIE, CMP #### [facility] [address] [place] [address] Dr. Adam Royal Stool PCR Batteryon 05-01-20 Campylobacter sp PCR NEGATIVE: No Campylobacter spp. (jejuni or coli) DNA Detected Normal [facility] Comment on above: Performed By: #### S TLPCR #### [address] [address] Wing Commander: Sandro Ortega MD [facility] [address] [place] [address] [place] [id number] Wing Commander: Андрей Conde MD E coli enterotox PCR NEGATIVE: No Enterotoxigenic E. coli (ETEC) Heat-labile and heat-stable (LT/ST) Normal [facility] Comment on above: Result Comment: DNA Detected Performed By: #### S TLPCR #### [address] [address] Wing Commander: Sandro Ortega MD [facility] [address] [place] [address] [place] [address] Wing Commander: Андрей Conde MD Plesiomonas sp PCR Negative [facility] Comment on above: Performed By: #### S TLPCR #### [facility] [address] [place] [address] Wing Commander: Sandro Ortega MD [facility] [address] [place] [address] Dr[address] [place], [place] [id number] Wing Commander: Андрей Conde MD Salmonella sp PCR Negative Normal [facility] Comment on above: Performed By: #### S TLPCR #### [address] [address] Wing Commander: Sandro Ortega MD [facility] [address] [place] [address] [place] [address] Wing Commander: Андрей Conde MD Shigatoxin gene PCR Negative [facility] Comment on above: Performed By: #### S TLPCR #### [address] [address] Wing Commander: Sandro Ortega MD [facility] [address] [place] [address] [place] [address] Wing Commander: Андрей Conde MD Shigella sp PCR Negative Normal [facility] Comment on above: Performed By: #### S TLPCR #### [address] [address] Wing Commander: Sandro Ortega MD [facility] [address] [place] [address] [place] [address] Wing Commander: Андрйе Conde MD Vibrio sp PCR NEGATIVE: No Vibrio (V. vulnificus, V, parahaemolyticus and V. cholerae) DNA Normal [facility] Comment on above: Result Comment: Dete cted Performed By: #### S TLPCR #### [address] [address] Wing Commander: Sandro Ortega MD [facility] [address] [place] [address] [address], [place] [id number] Wing Commander: Андрей Conde MD Yersinia gene PCR Negative Normal [facility] [facility] Comment on above: Performed By: #### S TLPCR #### [address] [address] Wing Commander: Sandro Ortega MD [address] [place], [place] [id number] Wing Commander: Андрей Conde MD Stool PCR [place] 04-30-20 Specimen Description .FECES Normal [facility] Comment on above: Performed By: #### S TLPCR #### [address] [address] Wing Commander: Sandro Ortega MD [address] [place], [place] [address] Wing Commander: Андрей Conde MD Lipid Profileon 12-09-2021 Cholesterol [Mass/Vol] 145 mg/dL Normal <200 [facility] Comment on above: Result Comment: Cholesterol Guidelines: <200 Desirable 200-240 Borderline >240 Undesirable Performed By: #### L IVP #### [address] [place], [place] [address]83 Wing Commander: Андрей Conde MD #### LIPR #### [address] [address] Wing Commander: Sandro Ortega MD Cholesterol in HDL [Mass/Vol] 44 mg/dL Normal >40 [facility] Comment on above: Result Comment: HDL Guidelines: <40 Undesirable 40-59 Borderline >59 Desirable Performed By: #### L IVP #### [address] [place], [place] [address] Wing Commander: Андрей Conde MD #### LIPR #### [address] [address] Wing Commander: Sandro Ortega MD Cholesterol in LDL [Mass/Vol] 70 mg/dL Normal 0-130 [facility] Comment on above: Result Comment: LDL Guidelines: <100 Desirable 100-129 Near to/above Desirable 130-159 Borderline >159 Undesirable Direct (measured) LDL and calculated LDL are not interchangeable tests. Performed By: #### L IVP #### [facility] [address] [place], [place] [address] Wing Commander: Андрей Conde MD #### LIPR #### [address] [place], [place] 9[address] Wing Commander: Sandro Ortega MD Cholesterol.total/C holesterol in HDL [Mass ratio] 3.3 {ratio} Normal <5 [facility] Comment on above: Performed By: #### L IVP #### [facility] [address] [place] [address] Wing Commander: Андрей Conde MD #### LIPR #### [address] [place], [place] [phone] Wing Commander: Sandro Ortega MD Triglyceride [Mass/Vol] 156 mg/dL High <150 [facility] Comment on above: Result Comment: Triglyceride Guidelines: <150 Desirable 150-199 Borderline 200-499 High >499 Very high Based on AHA Guidelines for fasting triglyceride, July 2012. Performed By: #### L IVP #### [facility] [address] [place] [address] [place] [address] Wing Commander: Андрей Conde MD #### LIPR #### [address] [place], [place] 15[address]408 Wing Commander: Sandro Ortega MD Hepatic Function Panelon Albumin [Mass/Vol] 4.7 g/dL 3.5 - 5.2 g/dL [facility] Albumin/Globulin [Mass ratio] 2.2 {ratio} [facility] ALP (Bld) [Catalytic activity/Vol] 66 U/L 40 - 129 U/L [facility] ALT [Catalytic activity/Vol] 44 U/L High 5 - 41 U/L [facility] AST [Catalytic activity/Vol] 31 U/L <40 [facility] Bilirubin [Mass/Vol] 0.56 mg/dL 0.3 - 1.2 mg/dL [facility] Bilirubin, Indirect Can not be calculated 0.00 - 1.00 mg/dL [facility] Bilirubin.indirect [Mass/Vol] mg/dL <0.31 mg/dL [facility] Free PSA/Total PSA [Mass fraction] 6.8 g/dL 6.4 - 8.3 g/dL [facility] Interpretation and review of laboratory results Abnormal [facility] Liver Profileon 12-08-2021 Albumin [Mass/Vol] 4.7 g/dL Normal 3.5-5.2 [facility] Comment on above: Performed By: #### L IVP #### [facility] [address] [place], [place] 277[address]383 Wing Commander: Андрей Conde MD #### LIPR #### [address] [place], [place] 59[address] Wing Commander: Sandro Ortega MD Albumin/Glob Ratio 2.2 Normal 1.0-2.5 [facility] Comment on above: Performed By: #### L IVP #### [facility] [address] [place], [place] 349[address]83 Wing Commander: Андрей Conde MD #### LIPR #### [facility] [address] [place] [address] Wing Commander: Sandro Ortega MD Alkaline Phos 66 U/L Normal 40-129 [facility] Comment on above: Performed By: #### L IVP #### [facility] [address] [place], [place] 36[address]83 Wing Commander: Андрей Conde MD #### LIPR #### [facility] [address] [place], [place] [phone] Wing Commander: Sandro Ortega MD ALT [Catalytic activity/Vol] 44 U/L High 5-41 [facility] Comment on above: Performed By: #### L IVP #### [facility] [address] [place], [place] 0[address]883 Wing Commander: Андрей Conde MD #### LIPR #### [address] [address] Wing Commander: Sandro Ortega MD AST [Catalytic activity/Vol] 31 U/L Normal <40 [facility] Comment on above: Performed By: #### L IVP #### [facility] [address] [place], [place] 2027[address] Wing Commander: Андрей Conde MD #### LIPR #### [address] [address] Wing Commander: Sandro Ortega MD Bilirubin [Mass/Vol] 0.56 mg/dL Normal 0.3-1.2 [facility] Comment on above: Performed By: #### L IVP #### [facility] [address] [place] [address] Wing Commander: Андрей Conde MD #### LIPR #### [address] [address] Wing Commander: Sandro Ortega MD Bilirubin, Indirect Can not be calculated Normal 0.00- 1.00 [facility] Comment on above: Performed By: #### L IVP #### [facility] [address] [place] [address] Wing Commander: Андрей Conde MD #### LIPR #### [address] [address] Wing Commander: Sandro Ortega MD Bilirubin.indirect [Mass/Vol] mg/dL Normal <0.31 [facility] Comment on above: Performed By: #### L IVP #### [facility] [address] [place], [place] 97[address]83 Wing Commander: Андрей Conde MD #### LIPR #### [facility] [address] [place] [address] Wing Commander: Sandro Ortega MD Protein [Mass/Vol] 6.8 g/dL Normal 6.4-8.3 [facility] Comment on above: Performed By: #### L IVP #### [facility] [address] [place], [place] [address]3983 Wing Commander: Андрей Conde MD #### LIPR #### [facility] [address] [place], [place] [phone] Wing Commander: Sandro Ortega MD XR Knee 1 or [...] Signed, Electronically Signed in Other Vendor System) [facility] Comment on above: Order Comment: AP & Lateral, Portable in PACU Operative Reporton Operative Report DATE OF SURGERY: 07/27 PRE-OP DIAGNOSIS: Left knee primary osteoarthritis POST-OP DIAGNOSIS: Same PROCEDURE: Left total knee arthroplasty SURGEON: Attila Pinedo M.D. VP SOFTWARE ENGINEERING: Last Robert (Equipment Service Engineer was needed for help with positioning of [...] to the proximal tibia matching the patient's chilkoot slope and perpendicular to the longitudinal axis [...] flexion gap was balanced using soft-tissue tension, Edson's line and the transepicondylar axis as references. [...] irrigated. T (more content not included)... Normal [facility] CoV2 Agon 09-14-2021 Employed in healthcare? Unknown [facility] Comment on above: Performed By: #### C D:[id number] #### [place] [address] Group care resident? Unknown [facility] Comment on above: Performed By: #### C D:[id number] #### [place] [address] In ICU? No Normal [facility] Comment on above: Performed By: #### C D:[id number] #### [address] [address] status? Not Applicable Normal [facility] Comment on above: Performed By: #### C D:[id number] #### [address] [address] SARS-CoV-2 (COVID-19) RNA JOYCE+probe Ql (Unsp spec) Negative Normal Negative [facility] Comment on above: Result Comment: [...] COVID-19. ADDITIONAL INFORMATION: Testing performed on the Yout[employer] 3600 using the SARS-CoV-2 Antigen test. Results [...] Administration?s Emergency Use Authorization. HCP Fact Sheet: https://www.fda.gov/media/510899/download Patient Fact Sheet: https://www.fda.gov/media/680154/download Performed By: #### C D:[id number] #### [address] [place] [address] SARS-CoV-2 (COVID-19) RNA JOYCE+probe Ql (Unsp spec) No Normal [facility] Comment on above: Performed By: #### C D:[id number] #### [address] [address] SARS-CoV-2 (COVID-19) RNA JOYCE+probe Ql (Unsp spec) Unknown Normal [facility] Comment on above: Performed By: #### C D:[id number] #### [address] [address] Symptomatic as defined by CDC? No Normal [facility] Comment on above: Performed By: #### C D:[id number] #### [address] [address] .eGFRon 09-06-2021 eGFR AA >60 Normal >=60 [facility] Comment on above: Result Comment: See comment. Performed By: #### E GFR #### [address] [address] eGFR Non-AA >60 Normal >=60 [facility] Comment on above: Result Comment: Stag es [...] years Performed By: #### E GFR #### [address] [address] Basic Metabolic Profileon Anion gap [Moles/Vol] 12 mmol/L Normal 7-17 [facility] Comment on above: Performed By: #### C D:[id number] #### [address] [address] Calcium [Mass/Vol] 9.5 mg/dL Normal 8.5-10.3 [facility] Comment on above: Performed By: #### C D:[id number] #### [address] [address] Chloride [Moles/Vol] 100 mmol/L Normal 98-110 [facility] Comment on above: Performed By: #### C D:[id number] #### [address] [address] CO2 [Moles/Vol] 29 mmol/L Normal 22-32 [facility] Comment on above: Performed By: #### C D:[id number] #### [address] [address] Creatinine [Mass/Vol] 1.02 mg/dL Normal 0.61-1.24 [facility] Comment on above: Performed By: #### C D:[id number] #### [address] [address] Glucose [Mass/Vol] 104 mg/dL High 70-99 [facility] Comment on above: Performed By: #### C D:[id number] #### [address] [address] Potassium [Moles/Vol] 4.4 mmol/L Normal 3.4-4.8 [facility] Comment on above: Performed By: #### C D:[id number] #### [address] [address] Sodium [Moles/Vol] 137 mmol/L Normal 133-142 [facility] Comment on above: Performed By: #### C D:[id number] #### [address] [address] Urea nitrogen [Mass/Vol] 18 mg/dL Normal 8-26 [facility] Comment on above: Performed By: #### C D:[id number] #### [address] [address] Urea nitrogen/Creatinine [Mass ratio] 17.6 mg/mg Normal 10.0-20.0 [facility] Comment on above: Performed By: #### C D:[id number] #### [address] [address] CBC w/ Diffon 09-06-2021 Erythrocyte distribution width (RBC) [Ratio] 12.8 % Normal 11.6-14.8 [facility] Comment on above: Performed By: #### C BC #### [address] [address] Hematocrit (Bld) [Volume fraction] 49.3 % Normal 41.0-53.0 [facility] Comment on above: Performed By: #### C BC #### [address] [address] Hemoglobin (Bld) [Mass/Vol] 16.8 g/dL Normal 13.5-17.5 [facility] Comment on above: Performed By: #### C BC #### [address] [address] MCH (RBC) [Entitic mass] 31.3 pg Normal 27.0-35.0 [facility] Comment on above: Performed By: #### C BC #### [address] [address] MCHC 34.0 % Normal 31.0-37.0 [facility] Comment on above: Performed By: #### C BC #### [address] [address] MCV (RBC) [Entitic vol] 92.0 fL Normal 80.0-100.0 [facility] Comment on above: Performed By: #### C BC #### [address] [address] Platelet 203 x10*3/mcL Normal 150-350 [facility] Comment on above: Performed By: #### C BC #### [address] [address] Platelet mean volume (Bld) [Entitic vol] 7.9 fL Normal 6.7-10.6 [facility] Comment on above: Performed By: #### C BC #### [address] [address] RBC 5.36 x10*6/mcL Normal 4.30-5.80 [facility] Comment on above: Performed By: #### C BC #### [address] [address] WBC 4.7 x10*3/mcL Normal 4.5-11.0 [facility] Comment on above: Performed By: #### C BC #### [address] [address] Diff Autoon 09-06-2021 Baso Absolute 0.1 x10*3/mcL Normal 0.0-0.[address] [facility] Comment on above: Performed By: #### . Automated Diff #### [address] [address] Basophils/100 WBC (Bld) 1.1 % Normal 0.0-1.2 [facility] Comment on above: Performed By: #### . Automated Diff #### [address] [address] Eos Absolute 0.1 x10*3/mcL Normal 0.0-0.4 [facility] Comment on above: Performed By: #### . Automated Diff #### [address] [address] Eosinophils/100 WBC (Bld) 3.0 % Normal 0.0-6.1 [facility] Comment on above: Performed By: #### . Automated Diff #### [address] [place] [address] Lymph Absolute 1.8 x10*3/mcL Normal 1.0-4.8 [facility] Comment on above: Performed By: #### . Automated Diff #### [address] [address] Lymphocytes/100 WBC (Bld) 38.6 % Normal 27.2-40.8 [facility] Comment on above: Performed By: #### . Automated Diff #### [place] [address] [place] Absolute 0.6 x10*3/mcL Normal 0.3-1.[address] [facility] Comment on above: Performed By: #### . Automated Diff #### [address] [address] Monocytes/100 WBC (Bld) 12.2 % Normal 4.7-13.9 [facility] Comment on above: Performed By: #### . Automated Diff #### [address] [address] Neutro Absolute 2.1 x10*3/mcL Normal 1.8-7.7 [facility] Comment on above: Performed By: #### . Automated Diff #### [place] [address] Neutro Auto 45.1 % Low 47.2-70.8 [facility] Comment on above: Performed By: #### . Automated Diff #### [address] [address] MRSA, PCRon 09-06-2021 Methicillin Resistant Staph aurus(MRSA) Negative Normal [facility] Comment on above: Result Comment: The [employer] Xpert MRSA Assay is a qualitative in [...] #### M [facility] #### [facility] [address] [place] [address] No Panel Informationon 07-06 [facility] XR knee LT 2Von 06-05-2021 XR knee LT 2V [facility] [place] [address] [place] [address] XRay Report Signed Patient: Jose Cha MR#: [id number] 5 : 1965 Acct:[id number] Age/Sex: 56 / M ADM Date: 06/05/21 Loc: [facility] Room: Type: [facility] Attending Dr: Israel Arevalo MD Ordering Provider: [...] Wicho Martinez M.D.06/05/2021 4:13 PM Dictation Location: [place] [address] Transcribed By: [facility] 06/05/21 1613 Dictated By: Wicho Martinez DO 06/05/21 1608 Signed By: 06/05/21 1613 [facility] XR CHEST PORTABLEon 02-08-20 20 No acute abnormality. [facility]- [place], [place] EXAMINATION: ONE XRA Y VIEW OF THE CHEST 02/08/2020 8:11 pm COMPARISON: 09/12/2014 HISTORY: ORDERING SYSTEM PROVIDED HISTORY: cough, fever TECHNOLOGIST PROVIDED HISTORY: cough, fever FINDINGS: Trachea is essentially midline. No lung infiltrate or consolidation. No pneumothorax or pleural effusion. Heart size is normal. [facility] Incoming R adiant Results From [facility]Pacs - 02/08/2020 8:19 PM EDT EXAMINATION: ONE XRAY VIEW OF THE CHEST 02/08/2020 8:11 pm COMPARISON: 09/12/2014 HISTORY: ORDERING SYSTEM PROVIDED HISTORY: cough, fever TECHNOLOGIST PROVIDED HISTORY: cough, fever FINDINGS: Trachea is essentially midline. No lung infiltrate or consolidation. No pneumothorax or pleural effusion. Heart size is normal. IMPRESSION: No acute abnormality. [facility]U AVENDANO ANES Veronica 03-17-2018 ANES POST HNO ID: [id number] thor: Charu Damonervice: AnesthesiologyAuthor Type: AnesthesiologistType: Anesthesia [...] 2018 : 2:33 PM PAGER/CONTACT #: Chelsi [facility] ANEMarisol PREOPon 03-17-2018 ANES PREOP HNO ID: [id number] thor: Charu NiSt. George Regional Hospitalervice: AnesthesiologyAuthor Type: AnesthesiologistType: Anesthesia PreOpFiled: 03/17/2018 11:01 AMNote Text:REGIONAL ANESTHESIOLOGY DAY OF SURGERY NOTEPATIENT NAME: Jose MooreN: [id number]: 1965Procedure(s) (LRB):RELEASE TENDON EXTREMITY LOWER (Left)Surgeon(s):Rosemarie EidEstimated body mass index is 33.52 kg/m? as calculated from the following: Height as of 03/11/18: 175.3 cm (5' 9 ). Weight as of this encounter: 103 kg (227 lb).ASA Class: 2Adequate NPO status: YesAllergies:ALLERGIESAller gen Reactions- Gilkchz-Wvb-Nbi Red* MyalgiaAirway Assessment: MP 2; Neck ROM: [...] (Hcc)Gastroesophageal reflux diseaseEncounter for screening colonoscopy for mcp-ulgz-lhmw patientPalpitationsChest PainPAST MEDICAL HISTORYDiagnosis Date- Arrhythmia SVT- [...] of Beer (12oz) per week Comment: socially; qcyerfqw-8-2 cups per dayNo current facility-administered medications on [...] (1) tablet daily .[facility]I have interviewed and examined the patient. I have reviewed the medicalrecord and/or the pre-anesthesia evaluation, pertinent labs, and testresults.Significant changes in the patient's condition since the History andPhysical, not otherwise documented in primary service progress notes: [facility] updated information obtained within 48 hours ofSurgery/Procedure.SIGNATU RE: Charu Sin MD PATIENT NAME: Jose KhanTE: March 17, 2018 : 10:59 AM PAGER/CONTACT #: [facility] BRIEF OP NOTon 03-17-2018 BRIEF OP NOT HNO ID: [id number] thor: Rosemarie Damon: PodiatryAuthor Type: PhysicianType: Brief Op NoteFiled: 03/17/2018 1:52 PMNote Text:PODIATRIC SURGERYBRIEF OPERATIVE / PROCEDURE NOTELOG ID: [id number]/Procedure Date: 03/17/2018Incision/Procedure Start Time: 12:42 PMIncision Close/Procedure End Time: 1:33 PMSurgeon(s)/Proceduralist( s) and Equipment Service Engineer(s):Surgeon(s) and Role: * Rosemarie Eid - Primary [...] March 17, 2018 : 1:51 PM PAGER/CONTACT #:[phone] (Clinical Research Tech Resident) [facility] HISTORY PHYSICALon 8 HISTORY PHYSICAL HNO ID: [id number] thor: Kodak Tenorio: PodiatryAuthor Type: ResidentType: HANDPFiled: [...] ChaDATE: March 17, 2018 : 11:30 AM [facility] NURSING PROGon 03-17-2018 NURSING PROG HNO ID: [id number] thor: Denia (Rn) DUNIA Coronaervice: NursingAuthor Type: Registered NurseType: Nursing Progress NoteFiled: 03/18/2018 12:45 PMNote Text:Nursing Progress Note Topic of Note:Post op phone callCharjose [id number] doing well. NWB LLE. Nerve block still working, starting to feel likefoot is falling asleep . Pt started taking pain meds.Pt states breathing feels good. Using incentive spirometry every hours upto 2000 now. Yesterday pt was only able to get to 1500 with a lot ofeffort.This note was completed by: Denia Corona RN [facility] INR Coag RelTime (Bld) HNO ID: [id number]: Kayla (Rn) DUNIA Myerservice: NursingAuthor Type: Registered [...] noting pain block care as well./ Normal [facility] OPERATIVE NOon 03-17-2018 OPERATIVE NO HNO ID: [id number] thor: Rosemarie Damon: PodiatryAuthor Type: PhysicianType: Operative ReportFiled: 03/18/2018 7:54 AMNote Text:PODIATRIC SURGERYOPERATIVE REPORTLOG ID: [id number]/Procedure Date: 03/17/2018Incision/Procedure Start Time: 12:42 PMIncision Close/Procedure End Time: 1:33 PMSurgeon(s)/Proceduralist( s) and Equipment Service Engineer(s):Surgeon(s) and Role: * Rosemarie Eid - Primary [...] fibers of the Achillestendon and used per brim molder's guidelines for a total of five minutes.This [...] March 17, 2018 : 1:49 PM PAGER/CONTACT #:[phone] (Clinical Research Tech Resident) [facility] PROGRESSon 03-17-2018 PROGRESS HNO ID: [id number] thor: Kodak BatesService: PodiatryAuthor Type: ResidentType: Progress [...] YesCXR/EK/23 ECG, no CXRMedications/Preop Antibiotics: AncefALLERGIESAllergen Reactions- Qbfjwvc-Rwg-Hds Red* MyalgiaSurgical site identified: YesNPO: YesIV Fluids: Per anesthesiaRisks and benefits, complications, treatment options, expected outcome andrehabilitation explained, patient understands. All questions wereentertained and answered. Patient wishes to proceed with aboveprocedure(s).SIGNATURE : Kodak Bates DPM PGY-II PATIENT NAME: Jose ChaDATE: March 17, 2018 : 11:30 AM [facility] NURSING PROGon 03-13-2018 NURSING PROG HNO ID: [id number] thor: Archana Sears, RNService: NeurosurgeryAuthor Type: Registered NurseType: Nursing Progress NoteFiled: 03/13/2018 10:06 AMNote Text:PACC Nurse Progress NoteHistory AND Physical:PACC Visit Date: 0-7-39Czgdafco HANDP Date: N/AED visit Date: N/AOutside HANDP Scanned Date: N/ALabs Within Last 6 Months:N/AImaging Within Last 12 Months:N/ACardiac Testing:EKG in last 12 Months: Yes: Date: 12-03-17, Comment: epicBMI Percentile (PEDS):N/ARisk Assessment:N/AAnesthesia Review:N/ANarrative:N/APre- op Considerations:N/AChart Check:Gustavo Sears RNJunpablo 2017 10:05 AM [facility] HOSPon 03-05-2018 HOSP Patient:Shamir Cha WMRN: [...] reflux disease [K21.9]Encounter for screening colonoscopy for bnt-nbfv-rrke patient [Z12.11]Palpitations [R00.2]Chest pain [R07.9]Allergies:Statins-Hm g-Coa Reductase InhibitorsDate Verified: 03/17/18Lab ValuesNo results within the last 30 days for the following basenames: K,HCTProgress Notes ():Archana Sears, RN, RN 03/13/2018 10:06 AM SignedPACC Nurse Progress NoteHistory AND Physical:PACC Visit Date: 8-0-25Gzlglsoh HANDP Date: N/AED visit Date: N/AOutside HANDP [...] YesCXR/EK/23 ECG, no CXRMedications/Preop Antibiotics: AncefALLERGIESAllergen Reactions- Qlujtwz-Rmi-Ghd Red* MyalgiaSurgical site identified: YesNPO: YesIV Fluids: Per anesthesiaRisks and benefits, complications, treatment options, expected outcome andrehabilitation explained, patient understands. All questions were entertainedand answered. Patient wishes to proceed with above procedure(s).SIGNATURE: Kodak Bates DPM PGY-II PATIENT NAME: Jose ChaDATE: March 17, 2018 : 11:30 AMPrevious Luis Daniel Sin MD 03/17/2018 11:01 AM SignedREGIONAL ANESTHESIOLOGY DAY OF SURGERY NOTEPATIENT NAME: Jose GoodmanRN: [id number]: 1965Procedure(s) (LRB):RELEASE TENDON EXTREMITY LOWER (Left)Surgeon(s):Rosemarie Mohanated body mass index is 33.52 kg/m? as calculated from the following: Height as of 03/11/18: 175.3 cm (5' 9 ). Weight as of this encounter: 103 kg (227 lb).ASA Class: 2Adequate NPO status: YesAllergies:ALLERGIESAller gen Reactions- Olevvfr-Cyu-Xpe Red* MyalgiaAirway Assessment: MP 2; Neck ROM: [...] (Hcc)Gastroesophageal reflux diseaseEncounter for screening colonoscopy for kgl-clxq-dnkr patientPalpitationsChest PainPAST MEDICAL HISTORYDiagnosis Date- Arrhythmia SVT- [...] of Beer (12oz) per week Comment: socially; enhqxjwm-2-9 cups per dayNo current facility-administered medications on [...] (1) tablet daily .[facility]patient medications [facility].I have interviewed and examined the patient. I have reviewed the medical recordand/or the pre-anesthesia evaluation, pertinent labs, and test results.Significant changes in the patient's condition since the History and Physical,not otherwise documented in primary service progress notes: NoThis contains updated information obtained within 48 hours of Surgery/Procedure.SIGNATURE : Charu Sin MD PATIENT NAME: Jose ChaDATE: March 17, 2018 : 10:59 AM PAGER/CONTACT #: [facility] Vital Signs Date Time Vital Sign Value Performing Clinician Pascuali bhaskar 08-17-2024 14:50-0500 Body height 175.3 cm Israel Rocha MD Work Phone: [facility] 08-17-2024 14:50-0500 Body mass index (BMI) [Ratio] 35.15 kg/m2 Israel Rocha MD Work Phone: [facility] [facility] 08-17-2024 14:50-0500 Body weight 107.96 kg Israel Rocha MD Work Phone: [facility] 08-17-2024 14:50-0500 Diastolic blood pressure 84 mm[Hg] Israel Rocha MD Work Phone: [facility] 08-17-2024 14:50-0500 Heart rate 71 /min Israel Rocha MD Work Phone: [facility] 08-17-2024 14:50-0500 Systolic blood pressure 136 mm[Hg] Israel Rocha MD Work Phone: [facility] 09-02-2023 09:02-0500 Body height 175.3 cm Israel Rocha MD Work Phone: [facility] 09-02-2023 09:02-0500 Body weight 108.41 kg Israel Rocha MD Work Phone: [facility] 09-02-2023 09:02-0500 Diastolic blood pressure 76 mm[Hg] Israel Rocha MD Work Phone: [facility] 09-02-2023 09:02-0500 Heart rate 65 /min Israel Rocha MD Work Phone: [facility] 09-02-2023 09:02-0500 Systolic blood pressure 128 mm[Hg] Israel Rocha MD Work Phone: [facility] 10-26-2022 10:22-0500 Body height 175.3 cm Israel Rocha MD Work Phone: [facility] 10-26-2022 10:22-0500 Body weight 106.59 kg Israel Rocha MD Work Phone: [facility] 10-26-2022 10:22-0500 Diastolic blood pressure 78 mm[Hg] Israel Rocha MD Work Phone: [facility] 10-26-2022 10:22-0500 Heart rate 61 /min Israel Rocha MD Work Phone: [facility] 10-26-2022 10:22-0500 Systolic blood pressure 128 mm[Hg] Israel Rocha MD Work Phone: [facility] 01-31-2022 14:14-0400 Body height 175.3 cm Hanna Mickey [employer] Work Phone: [facility] 01-31-2022 14:14-0400 Body weight 102.97 kg Hanna Mickey [employer] Work Phone: [facility] 01-31-2022 14:14-0400 Diastolic blood pressure 98 mm[Hg] Hanna Mickey [employer] Work Phone: [facility] 01-31-2022 14:14-0400 Heart rate 80 /min Hanna Mickey [employer] Work Phone: [facility] 01-31-2022 14:14-0400 Systolic blood pressure 156 mm[Hg] Hanna Mickey APRN.CNP Work Phone: [facility] 02-08-2020 19:28-0400 Body Temperature 102 [degF] [facility] [place] 02-08-2020 19:28-0400 BP Diastolic 73 mm[Hg] Rosemarie [employer] [facility] [place] , [place] 02-08-2020 19:28-0400 BP Systolic 124 mm[Hg] Rosemarie [facility]ega [facility] [employer] [facility] , [place] 02-08-2020 19:28-0400 Pulse (Heart Rate) 84 /min Rosemarie [employer] [facility], [place] 02-08-2020 19:28-0400 Pulse Oximetry 95 % Rosemarie [employer] [facility] , [place] 02-08-2020 19:28-0400 Respiratory Rate 16 /min Rosemarie [employer] [facility] Encounters Encounter Date Encounter Type Care [...] Start: 08-17-2024 End: 08-17-2024 ambulatory ISRAEL ROCHA Facility:[facility] Start: 06-16-2024 End: 06-16-2024 ambulatory DESTINY VELA Facility:[facility] Start: 06-16-2024 End: 06-16-2024 Subsequent hospital visit [...] vi sit 15 minutes Meryl Caldwell Other [facility] Office Start: 09-18-2023 End: 09-19-2023 ambulatory Cory STEWART Facility:CD:[id number] Start: 09-04-2023 End: 09-05-2023 ambulatory Cory STEWART Facility:[facility] Start: 09-02-2023 End: 09-02-2023 Patient encounter procedure Israel Rocha MD Work Phone: Cardiology Comment on above: Paroxysmal tachycard ia, unspecified (HCC) (Primary Dx); Obesity, Class II, BMI 35-39.9 Start: 08-08-2023 ambulatory Cory MADRIDL Facility:[facility] Start: 08-01-2023 ambulatory Cory STEWART Facility:[facility] Start: 06-11-2023 Office outpatient ne w 20 minutes Meryl Caldwell Other [facility] Office Start: 2023 End: 2023 [...] without abnormal findings DR DESTINY VELA [facility] Start: 10-30-2022 End: 10-31-[address] DESTINY VELA Facility:[facility] Start: 10-30-2022 End: 10-31-2022 Encounter for general adult medical examination without abnormal findings DR DESTINY VELA Facility:[facility] Start: 10-26-2022 End: 10-26-2022 Patient encounter procedure Israel Rocha MD Work Phone: Cardiology Comment on above: 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) (Primary Dx); Atrial tachycardia (HCC); Palpitations Start: 09-06-2022 Orders Only Hilda Motley nd [employer] Work Phone: Cardiology Comment on above: SVT [...] Cardiology Comment on above: Received Outside Med [facility] Records Start: 06-29-2022 Telephone encounter Israel thao MD Work Phone: Cardiology Comment on above: Schedule Surgery (SV T RFA) Start: 06-26-2022 End: 06-26-2022 ambulatory Israel Rocha MD Work Phone: Cardiology Comment on above: SVT (supraventricula r tachycardia) (HCC) (Primary Dx) Start: 06-26-2022 End: 06-26-2022 Telemedicine consultation with patient Israel Rocha MD Work Phone: [facility] Start: 06-26-2022 Telephone [...] 05-14-2022 ambulatory Israel barfield MD Work Phone: [facility] Start: 05-14-2022 Patient encounter procedure Israel Rocha MD Work Phone: Cardiology Comment on above: Appointment Valentina Start: 05-12-2022 End: 05-12-[address] DESTINY VELA Facility:[facility] Start: 04-30-2022 End: 05-01-2022 ambulatory DESTINY VELA [facility] Start: 04-18-2022 Orders Only Israel barfield MD Work Phone: Cardiology Comment on above: SVT (supraventricula r tachycardia) (HCC) (Primary Dx) Start: 04-12-2022 ambulatory Israel barfield MD Work Phone: Cardiology Comment on above: Medication Interacti on Start: 02-19-2022 Orders Only Hilda Motley nd [employer] Work Phone: Cardiology Comment on above: SVT [...] End: 01-31-2022 Patient encounter procedure Hanna Arevalo [employer] Work Phone: Cardiology Comment on above: SVT (supraventricula r tachycardia) (HCC) (Primary Dx); Palpitations Start: 01-31-2022 ambulatory Emily Toussaint RN [facility] Comment on above: Patient Education Start: 12-15-[address] DESTINY VELA Facility : Start: 12-08-2021 End: 12-09-2021 ambulatory DESTINY VELA [facility] Start: 12-08-2021 End: 12-08-2021 Subsequent hospital visit by physician Destiny Vela MD Work Phone: [facility] Start: 09-15-2021 End: 09-15-2021 ambulatory MD ATTILA ASTUDILLO SHAHIDA Facility:[facility] Start: 09-14-2021 End: 09-15-2021 ambulatory DESTINY VELA Facility:[facility] Start: 09-12-2021 Patient encounter status Emily Toussaint RN [facility] Work Phone: Start: 09-08-2021 End: 09-09-2021 ambulatory MD ATTILA ASTUDILLO SHAHIDA Facility:[facility] Start: 09-06-2021 End: 09-07-2021 ambulatory DESTINY VELA Facility:[facility] Start: 07-06-2021 End: 07-06-2021 Subsequent hospital visit by physician Xr [facility] Comment on above: Pain [R52] Start: 02-08-2020 End: 02-08-2020 Emergency department patient visit Rosemarie Vega Work Phone: [facility] Comment on above: Viral syndrome (Prim teo Dx) Start: 03-17-2018 Ambulatory ROSEMARIE PRATT [facility] Start: 07-01-2017 End: 07-02-2017 Ambulatory DEFAULT PHYSICIAN Facility:[facility] Procedures Date Procedure Procedure Detail Performing Clinician Start: 06-16-2024 Myocardial spect multiple studies Israel Rocha MD Work Phone: Start: 01-07-2024 Docrev cur meds by e lig clin Meryl Caldwell Start: 06-11-2023 Docrev cur med[facility] lig [facility] Start: 10-30-[address] MANDI VELA Comment on above: Performed By: #### H STROPN, CMP #### [facility] [address] [address] [address] Adam Royal Start: 12-08-2021 Hepatic function [...] RSV Vaccine (1 - 1-dose 75+ series) [facility] Start: 10-30-2027 PROSTATE CANCER SCREENING DISCUSSION PROSTATE CANCER SCREENING DISCUSSION [facility] Start: 10-30-2027 Prostate specific antigen measurement Prostate Cancer Screening Discussion [facility] Start: 12-08-2026 Lipid 1996 panel - S sandrita or Plasma Lipid Screening [facility] Start: 12-08-2026 Lipid panel Lipid Screening [facility] Start: 11-30-2025 End: 11-30-2025 Patient encounter procedure 11/30/2025 9:15 AM EST Office Visit Cardiology [address] [place] [address] Leah Manjarrez MD [address] [place], [place] [id number] DX H/O AFIB ( SEES DR ROCHA) Cardiology Comment on above: DX H/O AFIB ( SEES Mirian ROCHA) Start: 11-30-2025 End: 11-30-2025 ambulatory 11/30/2025 8:15 AM EST Procedure Cardiology [address] [id number] DX CARDIAC EVALUATION Cardiology Comment on above: DX CARDIAC EVALUATIO N Start: 08-29-2025 DTaP/Tdap/Td vaccine (2 - Td or Tdap) DTaP/Tdap/Td vaccine (2 - Td or Tdap) [facility] Start: 08-29-2025 Urine microalbumin profile DTaP,Tdap,Td Vaccine (2 - Td or Tdap) [facility] Start: 08-20-2025 DIABETES SCREEN DIABETES SCREEN [facility] Start: 08-20-2025 Diabetes Screening Diabetes Screenin g [facility] Start: 08-18-2025 End: 08-18-2025 Patient encounter procedure 08/18/2025 9:00 AM EST Office Visit Cardiology [address] [place] [address] Hanna Arevalo APRN.[employer]N [employer] [address] [place] [address] established EPS patient- web appt req Cardiology Comment on above: established EPS bhupinder ent- web appt req Start: 08-18-2025 End: 08-18-2025 ambulatory 08/18/2025 8:30 AM EST Procedure Cardiology [address] [id number] established EPS patient- web appt req Cardiology Comment on above: established EPS bhupinder ent- web appt req Start: 06-07-2025 Influenza vaccination Influenza Vacc ine (#1) [facility] Start: 01-31-2025 DIABETES SCREEN DIABETES SCREEN [facility] Start: 08-17-2024 End: 08-17-2024 Patient encounter procedure 08/17/2024 2:15 PM EST Office Visit Cardiology [address] [id number] Israel Rocha MD [address] [place] [address] Dx: SVT (supraventricular tachycardia) Cardiology Comment on above: Dx: SVT (supraventri cular tachycardia) Start: 08-17-2024 End: 08-17-2024 ambulatory 08/17/2024 1:15 PM EST Results Only Cardiology [address] [place] [address] Dx: SVT (supraventricular tachycardia) Cardiology Comment on above: Dx: SVT (supraventri cular tachycardia) Start: 06-16-2024 End: 06-16-2024 Patient encounter procedure Molecular Imaging Comment on above: Dx: WILLETT (dyspnea on exertion) [R06.09] Start: 06-07-2024 Covid-19 Vaccine () Covid-19 Vaccine () [facility] Start: 06-07-2024 Covid-19 Vaccine () Covid-19 Vaccine () [facility] Start: 06-07-2024 Influenza vaccination Influenza Vacc ine (#1) [facility] Start: 06-07-2023 Covid-19 Vaccine () Covid-19 Vaccine () [facility] Start: 09-01-2023 Influenza vaccination C [facility] Start: 10-07-2022 DEPRESSION ASSESSMENT DEPRESSION ASS ESSMENT [facility] Start: 06-07-2022 Influenza vaccination INFLUENZA (#1) [facility] Start: 12-18-2021 COVID-19 VACCINE (3 - Booster for Edwin series) COVID-19 VACCINE (3 - Booster for Edwin series) [facility] Start: 10-15-2021 COVID-19 VACCINE (3 - Booster for Edwin series) COVID-19 VACCINE (3 - Booster for Edwin series) [facility] Start: 10-07-2021 DEPRESSION ASSESSMENT [facility] Start: 06-07-2021 Influenza vaccination Flu vaccine (# 1) [facility] Start: 09-07-2020 Colonoscopy COLONOSCOPY [facility] Start: 09-07-2020 COLORECTAL CANCER SCREENING COLORECTAL CANCER SCREENING [facility] Start: 09-07-2020 Screening for malign ant neoplasm of colon [facility] Start: 06-07-2020 Influenza vaccination Flu vacc ine (Season Ended) [place] Start: 2020 PROSTATE CANCER SCREENING DISCUSSION PROSTATE CANCER SCREENING DISCUSSION [facility] Start: 05-14-2018 Lipid panel Lipid screen [facility] Start: 2015 Pneumococcal Vaccine : 50+ (1 of 1 - PCV) Pneumococcal Vaccine: 50+ (1 of 1 - PCV) [facility] Start: 2015 Screening for malign ant neoplasm of colon Colon cancer screen colonoscopy [place], [place] Start: 2015 Shingles Vaccine (1 of 2) Shingles Vaccine (1 of 2) [facility] Start: 2015 SHINGRIX VACCINE (1 of 2) SHINGRIX VACCINE (1 of 2) [facility] Start: 2010 COLOGUARD (FIT-DNA) COLOGUARD (FIT-D NA) [facility] Start: [address] COLONOGRAPHY [facility] Start: 2010 FECAL OCCULT BLOOD FECAL OCCULT BLOO D [facility] Start: 2010 Screening for malign ant neoplasm of colon [facility] Start: 2010 SIGMOIDOSCOPY SIGMOIDOSCOPY [facility] Start: 2000 Lipid 1996 panel - S sandrita or Plasma Lipid Screening [facility] Start: 2000 LIPID SCREEN LIPID SCREEN [facility] Start: 1984 DTaP/Tdap/Td vaccine (1 - Tdap) DTaP/Tdap/Td vaccine (1 - Tdap) [place] Start: 1984 Urine microalbumin profile DTAP,TDAP,TD (1 - Tdap) [facility] Start: 1983 Anxiety Screening Anxiety Screening [facility] Start: 1983 Depression Screening Depression Scre ening [facility] Start: 1983 HIV SCREENING HIV SCREENING [facility] Start: 1983 HIV screening HIV Screening [facility] Start: 1980 HIV screening HIV screen [facility] Start: 1977 Adult depression screening assessment DEPRESSION SCREENING [facility] Start: 1977 Depression Screen Depression Screen [facility] Start: 1970 COVID-19 Vaccine (1) COVID-19 Vaccin e (1) [facility] Start: 1965 HEPATITIS B (1 of 3 - 3-dose series) HEPATITIS B (1 of 3 - 3-dose series) [facility] Start: 1965 Hepatitis B Vaccine (1 of 3 - 3-dose series) Hepatitis B Vaccine (1 of 3 - 3-dose series) [facility] Start: 1965 Hepatitis C screening Hepatitis C sc reen [facility] End: 02-08-2020 COVID-19 COVID-19 Lab Routine One Time for 1 Occurrences starting 02/08/2020 until 02/08/2020 [place] Comment on above: One Time for 1 Occur rences starting 02/08/2020 until 02/08/2020 COVID-19 COVID-19 Lab STA T 02/08/2020 8:36 PM EDT [place] End: 02-19-2023 ECG COMPLETE ECG COMPLETE ECG Routine SVT (supraventricular tachycardia) (HCC) 1 Occurrences starting 02/19/2022 until 02/19/2023 [facility] Work Phone: Comment on above: 1 Occurrences starti ng 02/19/2022 until 02/19/2023 End: 04-18-2023 ECG COMPLETE ECG COMPLETE ECG Routine SVT (supraventricular tachycardia) (HCC) 1 Occurrences starting 04/18/2022 until 04/18/2023 [facility] Work Phone: Comment on above: 1 Occurrences starti ng 04/18/2022 until 04/18/2023 End: 09-06-2023 ECG COMPLETE ECG COMPLETE ECG Routine SVT (supraventricular tachycardia) (HCC) 1 Occurrences starting 09/06/2022 until 09/06/2023 [facility] Work Phone: Comment on above: 1 Occurrences starti ng 09/06/2022 until 09/06/2023 End: 02-07-2024 ECG COMPLETE ECG COMPLETE ECG Routine SVT (supraventricular tachycardia) (HCC) 1 Occurrences starting 02/06/2023 until 02/07/2024 [facility] Work Phone: Comment on above: 1 Occurrences starti ng 02/06/2023 until 02/07/2024 End: 09-02-2024 ECG COMPLETE ECG COMPLETE ECG Routine Paroxysmal tachycardia, unspecified (HCC) Obesity, Class II, BMI 35-39.9 1 Occurrences starting 09/02/2023 until 09/02/2024 [facility] Work Phone: Comment on above: 1 Occurrences starti ng 09/02/2023 until 09/02/2024 End: 05-17-2026 ECG COMPLETE ECG COMPLETE ECG Routine Paroxysmal tachycardia, unspecified (HCC) 1 Occurrences starting 05/17/2025 until 05/17/2026 [facility] Work Phone: Comment on above: 1 Occurrences starti ng 05/17/2025 until 05/17/2026 End: 05-24-2026 ECG COMPLETE ECG COMPLETE ECG Routine Paroxysmal tachycardia, unspecified (HCC) Obesity, Class II, BMI 35-39.9 AVNRT (AV abhay re-entry tachycardia) (HCC) 1 Occurrences starting 05/24/2025 until 05/24/2026 [facility] Work Phone: Comment on above: 1 Occurrences starti ng 05/24/2025 until 05/24/2026 EKG 12 Lead EKG 12 Lead ECG Routine 02/08/2020 7:54 PM EDT [facility] [place] End: 12-08-2021 Lipid panel [facility] Work Phone: Comment on above: Once for 1 Occurrenc es starting 12/08/2021 until 12/08/2021 End: 07-12-2025 NM Heart Perfusion W multiple states of exercise NM CARDIAC PERF STRESS/EXERCISE Radiology Routine WILLETT (dyspnea on exertion) 1 Occurrences starting 06/12/2024 until 07/12/2025 [facility] Work Phone: Comment on above: 1 Occurrences starti ng 06/12/2024 until 07/12/2025 SARS-CoV-2 (COVID-19 ) RNA [Presence] in Respiratory specimen by JOYCE with probe detection SELF CHECK COVID Microbiology Routine SVT (supraventricular tachycardia) (HCC) Ordered: 07/11/2022 [facility] Work Phone: Comment on above: Ordered: 07/11/2022 [facility] Immunizations Immunization Date Immunization Notes Care Provider [facility] 07-24-2024 influenza virus vacc ine, unspecified formulation Israel Rocha MD Work Phone: [facility] 08-06-2022 influenza virus vacc ine, unspecified formulation Xr [facility] Payers Date Payer Category Payer [employer] [facility] BLUE ACCE SS PPO [id number] 2020 Unknown [place] BLUE ACCE SS PPO [id number] 2020-Present [phone] [address] [place] [address] PPO [id number] 2014 Unknown [employer] [address] xxxxxxxxxxxx 2014-Present [phone] [address] [place] [address] xxxxxxxxxxxx [id number] 2012 Unknown 1965 Unknown [id number] 2.16.840.1.371355.3.579.2. 196 1965 Unknown [id number] 2.16.840.1.659514.3.579.2. 196 1965 Unknown [id number] 2.16.840.1.646218.3.579.2. 196 1965 Unknown [id number] 2.16840.1.440298.3.579.2. 196 1965 Unknown [id number] 2.16.840.1.709435.3.579.2. 173 1965 Unknown [id number] 2.16.840.1.057830.3.579.2. 173 1965 Unknown [id number] 2.16.840.1.107638.3.579.2. 983 1965 Unknown [id number] 2.16.840.1.811837.3.579.2. 593 1965 Unknown [id number] 2.16.840.1.577357.3.579.2. 593 1965 Unknown [id number] 2.16.840.1.178088.3.579.2. 593 1965 Unknown [id number] 2.16.840.1.997956.3.579.2. 593 1965 Unknown [id number] 2.16.840.1.864939.3.579.2. 593 1965 Unknown [id number] 2.16.840.1.876105.3.579.2. 727 1965 Unknown [id number] 2.16.840.1.770294.3.579.2. 727 1965 Unknown [id number] 2.16.840.1.947776.3.579.2. 727 1965 Unknown [id number] 2.16.840.1.029799.3.579.2. 727 1959 Self-pay [id number] 1959 Unknown [id number]. [id number] Unknown [id number] Social History Date Type Detail Facility Start: 09-12-2014 End: 02-08-2020 Tobacco smoking status NHIS Never smoker [place] Start: 02-08-2020 End: 08-17-2024 Alcohol intake Current drinker of alcohol (finding) [place] Start: 09-12-2014 Alcohol Comment socially [place] Start: 1965 Sex Assigned At Not on file [place] Start: 01-30-2022 End: 04-18-2022 Exposure to SARS-CoV-2 (event) Unable to assess [place] Start: 09-12-2014 Tobacco use and exposure Smokeless tobacco non-user [facility] Work Phone: Start: 09-12-2021 History SDOH Alcohol Comment 2-3 drink per week [facility] Start: 1965 Sex Assigned At Male [facility] Start: 01-21-2022 End: 08-20-2022 Exposure to SARS-CoV-2 (event) Not sure [facility] Start: 09-11-2020 End: 10-26-2022 History of Social function [facility] Start: 09-11-2020 End: 10-26-2022 Tobacco use panel [facility] Start: 09-07-2012 National Score (1-100), lower number is lower risk Not on file [facility] Start: 09-06-2020 Gender identity Identifies as male gender (finding) [facility] Start: 09-06-2020 Sexual orientation Heterosexual (finding) [facility] Start: *Tobacco [employer] Start: 12-03-2017 Alcohol Comment socially; strdepuk-8-8 cups per day [facility] Goals Date Patient Goal Desired Activity /State Personal health goal Functional Status Date Assessment Result Facility 08-21-2022 Are you deaf, or do you have serious difficulty hearing No 08/21/2022 9:13 AM Yumi Mccoy RN No [facility] 08-21-2022 Are you blind, or do you have serious difficulty seeing, even when wearing glasses No 08/21/2022 9:13 AM Yumi Mccoy RN [facility] 08-21-2022 Do you have serious difficulty walking or climbing stairs No 08/21/2022 9:13 AM Yumi Mccoy RN [facility] 08-21-2022 Do you have difficul ty dressing or bathing No 08/21/2022 9:13 AM Yumi Mccoy RN [facility] 08-21-2022 Because of a physica l, mental, or emotional condition, do you have difficulty doing errands alone such as visiting a physician's office or shopping No 08/21/2022 9:13 AM Yumi Mccoy RN [facility] Mental Status Date Assessment Result Facility 08-21-2022 Because of a physica l, mental, or emotional condition, do you have serious difficulty concentrating, remembering, or making decisions No 08/21/2022 9:13 AM Yumi Mccoy RN No [facility] Clinical Notes 07-06-2021 to 08-17-2024 Israel Rocha MD - 08/17/2024 2:19 PM Mario Dyson RT(R) - 06/16/2024 8:00 AM Israel Nicole MD - 09/02/2023 8:43 AM Karthikeyan Worthy DO - 2023 8:32 AM EDT Note Date & Type Note Facility 08-17-2024 Note HNO ID: [id number] Author: ISRAEL ROCHA MD Service: ? Author Type: Physician Type: Progress Notes Filed: 08/19/2024 08:28 Note Text: [facility] Department of Cardiovascular Medicine SECTION [...] for this visit. ALLERGIES: ALLERGIES Allergen Reactions Ctwmiyx-Ftj-Ver Red* Myalgia Social History Tobacco Use Smoking [...] report. This note was created using computerized male impersonator software and may therefore include some male impersonator errors including errors in gender and inappropriate words or phrases. I reviewed old records, obtained relevant HPI and PMH from the pt, examined the patient and created the above report. Valentina Wilson RN August 17, 2024 Note to: Primary Care Physician: Destiny Vela [address] [place] [address] [facility] 08-17-2024 History of Present illness Narrative Images from the original note were not included. [facility] Department of Cardiovascular Medicine SECTION [...] for this visit. ALLERGIES: ALLERGIES Allergen Reactions Woeebfi-Pww-Fjj Red* Myalgia Social History Tobacco Use Smoking [...] report. This note was created using computerized male impersonator software and may therefore include some male impersonator errors including errors in gender and inappropriate words or phrases. I reviewed old records, obtained relevant HPI and PMH from the pt, examined the patient and created the above report. Valentina Wilson RN August 17, 2024 Note to: Primary Care Physician: Destiny Vela [facility] [place] [address] documented in this encounter [facility] 06-16-2024 History of Present illness Narrative [...] PATIENT PRESENTS WITH AN IMPLANTABLE OR ATTACHED LARGE ANIMAL HUSBANDRY TECHNICIAN: No CREATININE: Creatinine Date Value Ref [...] Discontinued PROCEDURE TYPE: NM Stress: 16.0 mCi Jf68p-Kfolkwq was administered IV for Rest Imaging at 805 by ifrah. 50.2 mCi Zm41n-Oevzthe was administered IV for Stress Imaging at 0911 by woodrow. ADMINISTRATION TIME: 805 PATIENT DISCHARGED TO: Ambulatory patient, left [place] department area. A Diagnostic radioactive procedure has taken place, with no further precautions necessary other than routine body substance precautions. More information regarding radiation safety can be found using this link: [email or web address] [email or web address]-%20Diagnostic%20Nuclear %20Medicine%20Procedures.pdf SIGNATURE: RT Danny(Juliana) PATIENT NAME: Jose Cha DATE: June 16, 2024 TIME: 8:05 AM PAGER/CONTACT #: documented in this encounter [facility] 06-16-2024 Note HNO ID: [id number] Author: EMA, MARIO, RT(R) Service: ? Author [...] PATIENT PRESENTS WITH AN IMPLANTABLE OR ATTACHED LARGE ANIMAL HUSBANDRY TECHNICIAN: No CREATININE: Creatinine Date Value Ref [...] Discontinued PROCEDURE TYPE: NM Stress: 16.0 mCi Le54e-Ahxmfdd was administered IV for Rest Imaging at 805 by ifrah. 50.2 mCi Hz77d-Egcledm was administered IV for Stress Imaging at 0911 by woodrow. ADMINISTRATION TIME: 805 PATIENT DISCHARGED TO: Ambulatory patient, left [place] department area. A Diagnostic radioactive procedure has taken place, with no further precautions necessary other than routine body substance precautions. More information regarding radiation safety can be found using this link: [email or web address]%20Pro tection%20-% 20Diagnostic%20Nuclear%20Medicine% 20Procedures.pdf SIGNATURE: RT Danny(R) PATIENT NAME: Jose Cha DATE: June 16, 2024 TIME: 8:05 AM PAGER/CONTACT #: [facility] 09-04-2023 Note Chief Complaint consultation for [...] Recorded 2023-08-21: [id number] (more content not included)... [facility] Comment on above: Result Comment: Elec tronically Signed By: PAT PONCE, Cory Cazares.donavan\Date and Time Signed: 09/04/23 15:00 EST 09-02-2023 History of Present illness Narrative Images from the original note were not included. [facility] [place] [facility] Department of Cardiovascular Medicine SECTION OF CARDIAC PACING and ELECTROPHYSIOLOGY OUTPATIENT VISIT DATE September 02, 2023 OUTPATIENT VISIT TYPE ESTABLISHED PRIMARY CARE PHYSICIAN: Destiny Vela [address] [place] [phone] CHIEF COMPLAINT: follow up IMPRESSION/PLAN: Jose Cha [...] GERD. He was last seen 02/05/2023 by VOICER, monitor was unrevealing. He has a preserved [...] labrum tear PAST SURGICAL HISTORY OF 2005 [facility] PAST SURGICAL HISTORY OF L [...] Known Problems Daughter ALLERGIES: ALLERGIES Allergen Reactions Uyomzgf-Itw-Ohk Red* Myalgia MEDICATIONS: metoprolol succinate ER (TOPROL [...] file. This note was created using computerized male impersonator software and may therefore include some male impersonator errors including errors in gender and inappropriate words or phrases. I reviewed old records, obtained relevant HPI and PMH from the pt, examined the patient and created the above report. Israel Rocha MD September 02, 2023 Note to: Primary Care Physician Destiny Vela [address] [place] [address] documented in this encounter [facility] 2023 History of Present illness Narrative [...] replacement done by a local surgeon in [facility] due to travel times. The patient reports [...] labrum tear PAST SURGICAL HISTORY OF 2005 [facility] PAST SURGICAL HISTORY OF L [...] drink per week Drug use: No ALLERGIES: Qbqendx-Aog-Rrk Reductase Inhibitors MEDICATIONS: metoprolol succinate ER (TOPROL [...] TIME: 8:45 AM documented in this encounter [facility] 02-05-2023 History of Present illness Narrative EVENT MONITOR DISPOSABLE PATCH INSTRUCTIONS Patient Name: Jose Cha Clinic Number: [id number] Skin prepped and cleansed with alcohol Patch secured to prepped area Monitor Activated Serial #: [id number] Patient Instructed: Prescribed order timeframe Bathing guidelines Usage of event button and diary documentation Return of monitor at the end of prescribed order Call with problems [phone] or [phone]. [phone] Patient expresses a good understanding of instructions HERNANDEZ BRIGGSG Tech documented in this encounter [facility] 10-26-2022 History of Present illness Narrative Images from the original note were not included. [facility] [place] [facility] Department of Cardiovascular Medicine SECTION OF CARDIAC PACING and ELECTROPHYSIOLOGY OUTPATIENT VISIT DATE October 26, 2022 OUTPATIENT VISIT TYPE ESTABLISHED PRIMARY CARE PHYSICIAN: Destiny Vela MD [address] [place] [address] CHIEF COMPLAINT: follow up IMPRESSION/PLAN: Jose Cha [...] labrum tear PAST SURGICAL HISTORY OF 2006 [facility] PAST SURGICAL HISTORY OF L [...] Known Problems Daughter ALLERGIES: ALLERGIES Allergen Reactions Htxnbmq-Lpu-Qtc Red* Myalgia MEDICATIONS: metoprolol succinate ER (TOPROL [...] file. This note was created using computerized male impersonator software and may therefore include some male impersonator errors including errors in gender and inappropriate words or phrases. I reviewed old records, obtained relevant HPI and PMH from the pt, examined the patient and created the above report. Israel Rocha MD November 01, 2022 Note to: Destiny Vela MD [address] [place] [address] documented in this encounter [facility] 08-17-2022 Nurse Note THE FOLLOWING WAS [...] discussed with Physician, nurse practitioner or Physician medical assistant float upon discharge Instructions for transmitting EKG to Monitoring Center 3 month follow up instructions Contact number for information and questions Patient Evaluation: Verbalizes understanding Follow Up Plan: Follow up as directed by . Supplemental Material Given: Written Material Patient education regarding radiation exposure. Instructed By Emily Toussaint RN. In Department of CARDIOLOGY. documented in this encounter [facility] 07-02-2022 Miscellaneous Notes Received outside records - uploaded to ep shared drive Appointment on 10/26/2022 Last appointment with this provider 06/29/2022 Last OV in this dept 01/31/2022 Makayla Silva documented in this encounter [facility] 06-29-2022 Miscellaneous Notes The date of [...] Lab Procedure requested: Ablations SVT ablation CPT 18944 Anticoagulation Status: Not anticoagulated Requesting Physician: Israel [...] 2022 7:29 PM documented in this encounter [facility] 06-26-2022 History of Present illness Narrative [facility] [place] Department of Cardiovascular Medicine VIRTUAL VIDEO VISIT [...] week Drug use: No ALLERGIES Allergen Reactions Wpympri-Jds-Ozv Red* Myalgia CURRENT MEDICATIONS metoprolol succinate ER [...] 2022 3:35 PM documented in this encounter [facility] 06-26-2022 Miscellaneous Notes Outside medical records received- uploaded in the [email or web address] shared drive. Appointment on 06/26/2022 Last appointment on 06/06/2022 Meg Elizondo documented in this encounter [facility] 05-17-2022 Miscellaneous Notes Images from the original note were not included. Israel Rocha MD You 2 days ago Let's have him try splitting the metop and taking bid. TC Please contact patient regarding MyChart message. documented in this encounter [facility] 02-06-2022 Miscellaneous Notes . documented in this encounter [facility] 02-02-2022 Miscellaneous Notes [facility] Contact Center Inbound Phone Encounter DATE of SERVICE: 02/02/2022 TIME of SERVICE: 6:11 PM Status: Non-urgent, needs attention Service/Provider: EP/ROSIO Rocha IV, M.D. Reason for call: Follow-up Appointment Contact information: [phone] Resolution: Sent to [employer] Comments: Pt wants to know when/if he needs to follow up with Dr Rocha? Please call to discuss. Cherelle Arzate RN Date of Resolution: 02/02/2022 Time of Resolution 6:11 PM documented in this encounter [facility] 01-31-2022 Nurse Note THE FOLLOWING WAS [...] discussed with Physician, nurse practitioner or Physician medical assistant float upon discharge Instructions for transmitting EKG to Monitoring Center 3 month follow up instructions Contact number for information and questions Patient Evaluation: Verbalizes understanding Follow Up Plan: Follow up as directed by MD. Supplemental Material Given: Written Material Patient education regarding radiation exposure. Instructed By Emily Toussaint RN. In Department of CARDIOLOGY. documented in this encounter [facility] 01-31-2022 Instructions Hanna Arevalo APRN.JERRI - [...] into exercise program. documented in this encounter [facility] 01-31-2022 History of Present illness Narrative Images from the original note were not included. [facility] [place] [facility] Department of Cardiovascular Medicine SECTION OF CARDIAC PACING and ELECTROPHYSIOLOGY OUTPATIENT VISIT DATE January 31, 2022 OUTPATIENT VISIT TYPE ESTABLISHED PRIMARY CARE PHYSICIAN: Destiny Vela MD [address] [place] [address] REFERRING PHYSICIAN: Israel Rocha [address] [facility] [address] CHIEF COMPLAINT: Palpitations and SVT HISTORY OF [...] REPAIR HX PAST SURGICAL HISTORY OF 2005 [facility] PAST SURGICAL HISTORY OF L [...] Known Problems Daughter ALLERGIES: ALLERGIES Allergen Reactions Chjpulh-Nsb-Zmr Red* Myalgia MEDICATIONS: VITAMIN A ORAL Take [...] Hanna Arevalo APRN.CNP documented in this encounter [facility] 07-06-2021 History of Present illness Narrative [...] 2021 9:07 AM documented in this encounter [facility] Evaluation note Diagnosis SVT (supraventricular tachycardia) (HCC)- Primary Other specified cardiac dysrhythmias Palpitations SVT (supraventricular tachycardia) (HCC) Other specified cardiac dysrhythmias [facility] Diagnosis SVT (supraventricular tachycardia) (HCC)- Primary Other specified cardiac dysrhythmias [facility] Diagnosis SVT (supraventricular tachycardia) (HCC)- Primary Other specified cardiac dysrhythmias [facility] Diagnosis SVT (supraventricular tachycardia) (HCC)- Primary Other specified cardiac dysrhythmias [facility] Diagnosis SVT (supraventricular tachycardia) (HCC)- Primary Other specified cardiac dysrhythmias [facility] Diagnosis SVT (supraventricular tachycardia) (HCC)- Primary Other specified cardiac dysrhythmias [facility] Diagnosis 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 Other specified cardiac dysrhythmias Atrial tachycardia (HCC) Other specified cardiac dysrhythmias Palpitations [facility] Diagnosis SVT (supraventricular tachycardia) (HCC)- Primary Other specified cardiac dysrhythmias [facility]* Diagnosis SVT (supraventricular tachycardia) (HCC)- Primary Other specified cardiac dysrhythmias [facility]* Diagnosis Left knee pain, unspecified chronicity- Primary Status post knee surgery Other postprocedural status Iliotibial band syndrome of left side Other disorder of muscle, ligament, and fascia [facility]* Diagnosis Pain Generalized pain Left knee pain, unspecified chronicity [facility] Diagnosis Paroxysmal tachycardia, unspecified (HCC)- Primary Paroxysmal tachycardia, unspecified Obesity, Class II, BMI 35-39.9 Obesity, unspecified [facility] Diagnosis Atrial tachycardia (HCC)- Primary Other specified cardiac dysrhythmias Paroxysmal tachycardia, unspecified (HCC) Paroxysmal tachycardia, unspecified Chest pain, unspecified type documented in this encounter [facility] note* Diagnosis WILLETT (dyspnea on exertion)- Primary Other dyspnea and respiratory abnormality documented in this encounter [facility] note* Diagnosis WILLETT (dyspnea on exertion) Other dyspnea and respiratory abnormality documented in this encounter [facility] note* Diagnosis Paroxysmal tachycardia, unspecified (HCC)- Primary Paroxysmal tachycardia, unspecified AVNRT (AV abhay re-entry tachycardia) (HCC) Other specified cardiac dysrhythmias documented in this encounter [facility] note* Diagnosis Paroxysmal tachycardia, unspecified (HCC)- Primary Paroxysmal tachycardia, unspecified documented in this encounter [facility] note* Diagnosis Paroxysmal tachycardia, unspecified (HCC)- Primary Paroxysmal tachycardia, unspecified Obesity, Class II, BMI 35-39.9 Obesity, unspecified AVNRT (AV abhay re-entry tachycardia) (HCC) Other specified cardiac dysrhythmias documented in this encounter [facility] for referral (narrative)* Outpatient Procedure (Routine) - Pending Review Specialty Diagnoses / Procedures Referred By Contac t Referred To Contact [facility] Diagnoses SVT (supraventricular tachycardia) (HCC) Procedures ECG COMPLETE ECG ROUTINE ECG W/LEAST 12 LDS W/I&R Hilda Cano APRN.CNP [address] [facility] [address] [place] [address] [facility] [place] [address] [place] [address] Referral ID Status Reason Start Date Expiration Date Visits Requested Visits Authorized [id number] Pending Review Auto-Generat ed Referral 02/19/2022 02/19/2023 1 1 [facility] for referral (narrative)* Outpatient Procedure (Routine) - Authorized Specialty Diagnoses / Procedures Referred By Contac t Referred To Contact [facility] Diagnoses SVT (supraventricular tachycardia) (HCC) Procedures ECG COMPLETE ECG ROUTINE ECG W/LEAST 12 LDS W/I&R Israel Rocha MD [address] [place] [address] [facility] [address] [place] [address] Referral ID Status Reason Start Date Expiration Date Visits Requested Visits Authorized [id number] Authorized Auto-Generat ed Referral 04/18/2022 04/18/2023 1 1 [facility] for referral (narrative)* Outpatient Procedure (Routine) - Pending Review Specialty Diagnoses / Procedures Referred By Contac t Referred To Contact [facility] Diagnoses SVT (supraventricular tachycardia) (HCC) Procedures ECG COMPLETE ECG ROUTINE ECG W/LEAST 12 LDS W/I&R Hilda Cano APRN.CNP [address] [place] [address] [facility] [place] [address] [place] [address] Referral ID Status Reason Start Date Expiration Date Visits Requested Visits Authorized [id number] Pending Review Auto-Generat ed Referral 09/06/2022 09/06/2023 1 1 [facility] for referral (narrative)* Outpatient Procedure (Routine) - Authorized Specialty Diagnoses / Procedures Referred By Contac t Referred To Contact [facility] Diagnoses SVT (supraventricular tachycardia) (HCC) Procedures ECG COMPLETE ECG ROUTINE ECG W/LEAST 12 LDS W/I&R Israel Rocha MD [address] [place] [address] [facility] [address] [place] [address] Referral ID Status Reason Start Date Expiration Date Visits Requested Visits Authorized [id number] Authorized Auto-Generat ed Referral 02/06/2023 02/06/2024 1 1 [facility] for referral (narrative)* Diagnostic Procedure Only (Routine) - Closed Specialty Diagnoses / Procedures Referred By Contac t Referred To Contact XR IMAGING Diagnoses Left knee pain, unspecified chronicity Procedures XR LEG FRONTAL HIP TO ANKLE MECHANICAL AXIS BONE LENGTH STUDIES Karthikeyan Cano, DO [address] [place] [address] [place] [address] Referral ID Status Reason Start Date Expiration Date V isits Requested Visits Authorized [id number] Closed Auto-Generate d Referral 06/30/2021 07/30/2022 1 1 * Diagnostic Procedure Only (Routine) - Closed Specialty Diagnoses / Procedures Referred By Contac t Referred To Contact XR IMAGING Diagnoses Pain Procedures XR KNEE GENERAL 4V AP BOTH/PA BOTH/LAT/MERC LT KNEE AP-WGT/LAT/MERCHANT Krathikeyan Caon DO [address] [place] [address] [place] [address] Referral ID Status Reason Start Date Expiration Date V isits Requested Visits Authorized [id number] Closed Auto-Generate d Referral 06/29/2021 07/29/2022 1 1 [facility] for referral (narrative)* Outpatient Procedure (Routine) - Pending Review Specialty Diagnoses / Procedures Referred By Waltac t Referred To Contact [facility] Diagnoses Paroxysmal tachycardia, unspecified (HCC) Obesity, Class II, BMI 35-39.9 Procedures ECG COMPLETE ECG ROUTINE ECG W/LEAST 12 LDS W/I&R Israel Rocha MD [address] [place] [address] [facility] [place] [address] [place], [place] [id number] Referral ID Status Reason Start Date Expiration Date Visits Requested Visits Authorized [id number] Pending Review Auto-Generat ed Referral 3 09/01/2024 1 1 * Transition of Care (Routine) - Ref Not Required Specialty Diagnoses / Procedures Referred By Contac t Referred To Contact Procedures CARDIOVASCULAR MEDICINE OP FOLLOW UP APPT ORDER Israel Rocha MD [address] [place] [address] Referral ID Status Reason Start Date Expiration Date Visits Requested Visits Authorized [id number] Ref Not Required PCP Requested Referral 3 09/01/2024 1 1 [facility] for referral (narrative)* Diagnostic Procedure Only (Routine) - Authorized Specialty Diagnoses / Procedures Referred By Yaw la Referred To Contact [facility]AL [facility] Diagnoses WILLETT (dyspnea on exertion) Procedures NM CARDIAC PERF STRESS/EXERCISE MYOCARDIAL SPECT MULTIPLE STUDIES Israel Rocha MD [address] [place] [id number] [facility] [address] [place] [address] Referral ID Status Reason Start Date Expiration Date Visits Requested Visits Authorized [id number] Authorized Auto-Generat ed Referral 06/16/2024 10/06/2024 2 2 [facility] for referral (narrative)* Diagnostic Procedure Only (Routine) - Closed Specialty Diagnoses / Procedures Referred By Yaw la Referred To Contact [facility] Diagnoses WILLETT (dyspnea on exertion) Procedures NM CARDIAC PERF STRESS/EXERCISE MYOCARDIAL SPECT MULTIPLE STUDIES Israel Rocha MD [address] [id number] [facility] [address] [place] [address] Referral ID Status Reason Start Date Expiration Date V isits Requested Visits Authorized [id number] Closed Auto-Generate d Referral 06/16/2024 10/06/2024 2 2 [facility] Summary Purpose Family History No Family History Records FoundNo Family History Records FoundNo Family History Records FoundNo Family History Records FoundNo Family History Records FoundNo Family History Records FoundNo Family History Records FoundNo Family History Records FoundNo Family History Records Found Advance Directives Documents on File Type Date Recorded Patient Editor Index Expl anation Advance Directives and Living Will Power of Park Guard Documents on File Type Date Recorded Patient Editor Index Expl anation ACP-Advance Directive ACP-Power of Park Guard Documents on File Type Date Recorded Patient Editor Index Expl anation Advance Directive(s) 01/29/2022 9:41 AM JOYCE DOBSON WILL Documents on File Type Date Recorded Patient Editor Index Expl anation Advance Directive(s) 01/29/2022 9:41 AM [...] clean your hands with an alcohol-based hand photography intern that contains at least 60% alcohol. Clean your hands often Wash your hands often with soap and water for at least 20 seconds, especially after blowing your nose, coughing, or sneezing; going to the bathroom; and before eating or preparing food. If soap and water are not readily available, use an alcohol-based hand photography intern with at least 60% alcohol, covering all [...] healthcare provider to call the local or [facility] health department. Persons who are [...] isolation precautions should be made on a ygbd-xl-herl basis, in consultation with healthcare providers and [facility]. [email or web address].cdc.gov/coronavirus/2019-ncov/hcp/ayvtmvkv-ztdehea-pdzand.htmlAdena Pike Medical Center departments: Luke [phone] [place] [phone] Uri [phone] Neisha [phone] P[place] [phone] Nikolai [phone] Brayden [phone] Greg [phone] Willie [phone] [place] [phone] documented in this encounter Assessments Diagnosis Viral [...] 45 MINS Karthikeyan Cano, [address] [place] [address] [facility] [address] [address] Referral ID Status Reason Start Date Expiration Date Visits Requested Visits Authorized [id number] Pending Review Auto-Generat ed Referral 2023 04/24/2024 1 1 Specialty Diagnoses / Procedures Referred By Contac t Referred To Contact XR IMAGING Diagnoses Left knee pain, unspecified chronicity Procedures XR LEG FRONTAL HIP TO ANKLE MECHANICAL AXIS BONE LENGTH STUDIES Karthikeyan Cano, [address] [place] [address] Xr Imaging Referral ID Status Reason Start Date Expiration Date V isits Requested Visits Authorized [id number] Closed Auto-Generate d Referral 04/10/2023 05/09/2024 1 1 Specialty Diagnoses / Procedures Referred By Contac t Referred To Contact [facility] [place] Procedures CARDIOVASCULAR MEDICINE OP FOLLOW UP APPT ORDER Israel Rocha MD [address] [place] [address] [facility] [address] [address] Referral ID Status Reason Start Date Expiration Date Visits Requested Visits Authorized [id number] Ref Not Required PCP Requested Referral 11/15/2025 1 1 Additional Source Comments (unrecognized sect ion and content) No Status Records FoundNo Status Records FoundNo Status Records FoundNo Status Records FoundNo Status Records FoundNo Status Records FoundNo Status Records FoundNo Status Records FoundNo Status Records Found INFORMATION SOURCE (unrecogn ized section and content) DATE CREATED AUTHOR 03/25/2018 [facility] DATE CREATED AUTHOR AUTHOR'S ORGANIZ ATION 04/02/2018 [facility] DATE CREATED AUTHOR AUTHOR'S ORGANIZ ATION 09/17/2021 [facility] DATE CREATED AUTHOR AUTHOR'S ORGANIZ ATION 10/30/2021 [facility] DATE CREATED AUTHOR AUTHOR'S ORGANIZ ATION 05/01/2022 [facility] DATE CREATED AUTHOR AUTHOR'S ORGANIZ ATION 08/24/2022 [facility] DATE CREATED AUTHOR AUTHOR'S ORGANIZ ATION 10/31/2022 [facility] DATE CREATED AUTHOR AUTHOR'S ORGANIZ ATION 09/24/2023 [facility]asc[facility] DATE CREATED AUTHOR AUTHOR'S ORGANIZ ATION 09/19/2024 [facility] Reason for Visit (unrecogniz ed section [...] KNEE AP-WGT/LAT/MERCHANT Karthikeyan Cano, DO [address] [place] [address] [place] [address] Referral ID Status Reason Start Date Expiration Date V isits Requested Visits Authorized [id number] Closed Auto-Generate d Referral 06/29/2021 07/29/2022 1 1 Reason Comments Radiology NM Specialty Diagnoses / Procedures Referred By Contac t Referred To Contact [facility]CULAR [facility] FUNCTIONAL [facility] Diagnoses WILLETT (dyspnea on exertion) Procedures NM CARDIAC PERF STRESS/EXERCISE MYOCARDIAL SPECT MULTIPLE STUDIES Israel oRcha MD [address] [place] [address] Molecular & [facility] [address] [place] [address] Referral ID Status Reason Start Date Expiration Date V isits Requested Visits Authorized [id number] Closed Auto-Generate d Referral 06/16/2024 10/06/2024 2 2 Care Teams (unrecognized sec tion and content) Vegetable Trimmer Relationship Specialty Start Date End Date Destiny Vela MD [address] [id number] PCP - General 11/05/12 Vegetable Trimmer Relationship Specialty Start Date End Date Destiny Vela MD PCP - General Family Practice 08/07/11 No, Referral Referring 08/08/18 [place] [address] [place] [address] 80836 Primary Staff Physician Cardiology 12/23/18 [place] [address] [place] [address] 18022 Primary Staff Physician Cardiology 09/12/21 Vegetable Trimmer Relationship Specialty Start Date End Date Destiny Vela MD PCP - General Family Practice 08/07/11 No, Referral Referring 08/08/18 [place] [address] [place] [address] 31342 Primary Staff Physician Cardiology 12/23/18 Castillo Pereira MD [address] [place] [address] Primary Staff Physician Cardiology 09/12/21 Vegetable Trimmer Relationship Specialty Start Date End Date Destiny Vela MD PCP - General Family Practice 08/07/11 No, Referral Referring 08/08/18 [place] [address] [place] [address] 71745 Primary Staff Physician Cardiology 12/23/18 Castillo Pereira MD [address] [place] [address] Primary Staff Physician Cardiology 09/12/21 Vegetable Trimmer Relationship Specialty Start Date End Date Destiny Vela MD PCP - General Family Practice 08/07/11 No, Referral Referring 08/08/18 Israel Rocha MD [address] [place] [address] 04407 Primary Staff Physician Cardiology 12/23/18 Castillo Pereira MD [address] [place] [address] 08862 Primary Staff Physician Cardiology 09/12/21 Vegetable Trimmer Relationship Specialty Start Date End Date Destiny Vela MD PCP - General Family Practice 08/07/11 No, Referral Referring 08/08/18 Israel Rocha MD [address] [place] [address] 70760 Primary Staff Physician Cardiology 12/23/18 Castillo Pereira MD [address] [place] [address] 34391 Primary Staff Physician Cardiology 09/12/21 Vegetable Trimmer Relationship Specialty Start Date End Date Destiny Vela MD PCP - General Family Practice 08/07/11 No, Referral Referring 08/08/18 [place] [address] [place] [address] 09823 Primary Staff Physician Cardiology 12/23/18 [place] [address] [place] [address] 17624 Primary Staff Physician Cardiology 09/12/21 Vegetable Trimmer Relationship Specialty Start Date End Date Destiny Vela MD PCP - General Family Practice 08/07/11 No, Referral Referring 08/08/18 Israel Rocha MD [address] [place] [address] 39839 Primary Staff Physician Cardiology 12/23/18 Castillo Pereira MD [address] [place] [address] 06936 Primary Staff Physician Cardiology 09/12/21 Vegetable Trimmer Relationship Specialty Start Date End Date Destiny Vela MD PCP - General Family Practice 08/07/11 No, Referral Referring 08/08/18 Israel Rocha MD [address] [place] [address] [phone] Primary Staff Physician Cardiology 12/23/18 Castillo Pereira MD [address] [place] [address] 89123 Primary Staff Physician Cardiology 09/12/21 Vegetable Trimmer Relationship Specialty Start Date End Date Destiny Vela MD PCP - General Family Practice 08/07/11 No, Referral Referring 08/08/18 Israel Rocha MD [address] [place] [address] 52261 Primary Staff Physician Cardiology 12/23/18 [place] [address] [place] [address] 35849 Primary Staff Physician Cardiology 09/12/21 Vegetable Trimmer Relationship Specialty Start Date End Date Destiny Vela MD PCP - General Family Practice 08/07/11 No, Referral Referring 08/08/18 Israel Rocha MD [address] [place] [address] 16404 Primary Staff Physician Cardiology 12/23/18 Castillo Pereira MD [address] [place] [address] 55376 Primary Staff Physician Cardiology 09/12/21 Vegetable Trimmer Relationship Specialty Start Date End Date Destiny Vela MD PCP - General Family Practice 08/07/11 No, Referral Referring 08/08/18 Israel Rocha MD [address] [place] [address] 61172 Primary Staff Physician Cardiology 12/23/18 Castillo Pereira MD [address] [place] [address] 82394 Primary Staff Physician Cardiology 09/12/21 Vegetable Trimmer Relationship Specialty Start Date End Date Destiny Vela MD PCP - General Family Medicine 08/07/11 No, Referral Referring 08/08/18 Israel Rocha MD [address] [place] [address] 01548 Primary Staff Physician Cardiology 12/23/18 Castillo Pereira MD [address] [place] [address] 25714 Primary Staff Physician Cardiology 09/12/21 Vegetable Trimmer Relationship Specialty Start Date End Date Destiny Vela MD PCP - General Family Medicine 08/07/11 No, Referral Referring 08/08/18 [place] [address] [place] [address] 19739 Primary Staff Physician Cardiology 12/23/18 [place] [address] [place] [address] 47913 Primary Staff Physician Cardiology 09/12/21 Vegetable Trimmer Relationship Specialty Start Date End Date Destiny Vela MD PCP - General Family Medicine 08/07/11 No, Referral Referring 08/08/18 [place] [address] [place] [address] 39386 Primary Staff Physician Cardiology 12/23/18 Castillo Pereira MD [address] [place] [address] 61730 Primary Staff Physician Cardiology 09/12/21 Vegetable Trimmer Relationship Specialty Start Date End Date Destiny Vela MD PCP - General Family Medicine 08/07/11 No, Referral Referring 08/08/18 Israel Rocha MD [address] [place] [address] 66698 Primary Staff Physician Cardiology 12/23/18 Castillo Pereira MD [address] [place] [address] 55015 Primary Staff Physician Cardiology 09/12/21 Vegetable Trimmer Relationship Specialty Start Date End Date Destiny Vela MD PCP - General Family Medicine 08/07/11 No, Referral Referring 08/08/18 [place] [address] [place] [address] 01506 Primary Staff Physician Cardiology 12/23/18 [place] [address] [place] [address] 06861 Primary Staff Physician Cardiology 09/12/21 Vegetable Trimmer Relationship Specialty Start Date End Date Destiny Vela MD PCP - General Family Medicine 08/07/11 No, Referral Referring 08/08/18 [place] [address] [place] [address] 36227 Primary Staff Physician Cardiology 12/23/18 [place] [address] [place] [address] 83457 Primary Staff Physician Cardiology 09/12/21 Vegetable Trimmer Relationship Specialty Start Date End Date Destiny Vela MD PCP - General Family Medicine 08/07/11 No, Referral Referring 08/08/18 [place] [address] [place] [address] 09927 Primary Staff Physician Cardiology 12/23/18 [place] [address] [place] [address] 00205 Primary Staff Physician Cardiology 09/12/21 Vegetable Trimmer Relationship Specialty Start Date End Date Destiny Vela MD PCP - General Family Medicine 08/07/11 No, Referral Referring 08/08/18 [place] [address] [place] [address] 52952 Primary Staff Physician Cardiology 12/23/18 [place] [address] [place] [address] 19357 Primary Staff Physician Cardiology 09/12/21 Vegetable Trimmer Relationship Specialty Start Date End Date Destiny Vela MD PCP - General Family Medicine 08/07/11 No, Referral Referring 08/08/18 [place] [address] [place] [address] 49412 Primary Staff Physician Cardiology 12/23/18 [place] [address] [place] [address] 34609 Primary Staff Physician Cardiology 09/12/21 Vegetable Trimmer Relationship Specialty Start Date End Date Destiny Vela MD PCP - General Family Medicine 08/07/11 No, Referral Referring 08/08/18 Israel Rocha MD [address] [place] [address] Primary Staff Physician Cardiology 12/23/18 Castillo Pereira MD [address] [place] [address] Primary Staff Physician Cardiology 09/12/21 Vegetable Trimmer Relationship Specialty Start Date End Date Destiny Vela MD PCP - General Family Medicine 08/07/11 No, Referral Referring 08/08/18 Israel Rocha MD [address] [place] [address] Primary Staff Physician Cardiology 12/23/18 Castillo Pereira MD [address] [place] [address] Primary Staff Physician Cardiology 09/12/21 Vegetable Trimmer Relationship Specialty Start Date End Date Destiny Vela MD PCP - General Family Medicine 08/07/11 No, Referral Referring 08/08/18 Israel Rocha MD [address] [place] [address] Primary Staff Physician Cardiology 12/23/18 Vegetable Trimmer Relationship Specialty Start Date End Date Destiny Vela MD PCP - General Family Medicine 08/07/11 No, Referral Referring 08/08/18 Israel Rocha MD [address] [place] [address] Primary Staff Physician Cardiology 12/23/18 Castillo Pereira MD [address] [place] [address] Primary Staff Physician Cardiology 09/12/21 Vegetable Trimmer Relationship Specialty Start Date End Date Destiny Vela MD PCP - General Family Medicine 08/07/11 No, Referral Referring 08/08/18 Israel Rocha MD [address] [place] [address] Primary Staff Physician Cardiology 12/23/18 Castillo Pereira MD [address] [place] [address] Primary Staff Physician Cardiology 09/12/21 Vegetable Trimmer Relationship Specialty Start Date End Date Destiny Vela MD PCP - General Family Medicine 08/07/11 No, Referral Referring 08/08/18 Israel Rocha MD [address] [place] [address] Primary Staff Physician Cardiology 12/23/18 Castillo Pereira MD [address] [place] [address] Primary Staff Physician Cardiology 09/12/21 Vegetable Trimmer Relationship Specialty Start Date End Date Destiny Vela MD PCP - General Family Medicine 08/07/11 No, Referral Referring 08/08/18 Israel Rocha MD [address] [place] [address] Primary Staff Physician Cardiology 12/23/18 Castillo Pereira MD [address] [place] [address] Primary Staff Physician Cardiology 09/12/21 Vegetable Trimmer Relationship Specialty Start Date End Date Destiny Vela MD PCP - General Family Medicine 08/07/11 No, Referral Referring 08/08/18 Israel Rocha MD [address] [place] [address] Primary Staff Physician Cardiology 12/23/18 Castillo Pereira MD [address] [place] [address] Primary Staff Physician Cardiology 09/12/21 Source Comments (unrecognize d section and content) In the event this informatio n is protected by the Federal Confidentiality of Alcohol and Drug Abuse Patient Records regulations: The Federal rules restrict any use of the information to criminally investigate or prosecute any alcohol or drug abuse patient.[facility] the event this information is protected by the Federal Confidentiality of Alcohol and Drug Abuse Patient Records regulations: The Federal rules restrict any use of the information to criminally investigate or prosecute any alcohol or drug abuse patient.[facility] the event this information is protected by the Federal Confidentiality of Alcohol and Drug Abuse Patient Records regulations: The Federal rules restrict any use of the information to criminally investigate or prosecute any alcohol or drug abuse patient.[facility] the event this information is protected by the Federal Confidentiality of Alcohol and Drug Abuse Patient Records regulations: The Federal rules restrict any use of the information to criminally investigate or prosecute any alcohol or drug abuse patient.[facility] the event this information is protected by the Federal Confidentiality of Alcohol and Drug Abuse Patient Records regulations: The Federal rules restrict any use of the information to criminally investigate or prosecute any alcohol or drug abuse patient.[facility] the event this information is protected by the Federal Confidentiality of Alcohol and Drug Abuse Patient Records regulations: The Federal rules restrict any use of the information to criminally investigate or prosecute any alcohol or drug abuse patient.[facility] the event this information is protected by the Federal Confidentiality of Alcohol and Drug Abuse Patient Records regulations: The Federal rules restrict any use of the information to criminally investigate or prosecute any alcohol or drug abuse patient.[facility] the event this information is protected by the Federal Confidentiality of Alcohol and Drug Abuse Patient Records regulations: The Federal rules restrict any use of the information to criminally investigate or prosecute any alcohol or drug abuse patient.[facility] the event this information is protected by the Federal Confidentiality of Alcohol and Drug Abuse Patient Records regulations: The Federal rules restrict any use of the information to criminally investigate or prosecute any alcohol or drug abuse patient.[facility] the event this information is protected by the Federal Confidentiality of Alcohol and Drug Abuse Patient Records regulations: The Federal rules restrict any use of the information to criminally investigate or prosecute any alcohol or drug abuse patient.[facility] the event this information is protected by the Federal Confidentiality of Alcohol and Drug Abuse Patient Records regulations: The Federal rules restrict any use of the information to criminally investigate or prosecute any alcohol or drug abuse patient.[facility] the event this information is protected by the Federal Confidentiality of Alcohol and Drug Abuse Patient Records regulations: The Federal rules restrict any use of the information to criminally investigate or prosecute any alcohol or drug abuse patient.[facility] the event this information is protected by the Federal Confidentiality of Alcohol and Drug Abuse Patient Records regulations: The Federal rules restrict any use of the information to criminally investigate or prosecute any alcohol or drug abuse patient.[facility] the event this information is protected by the Federal Confidentiality of Alcohol and Drug Abuse Patient Records regulations: The Federal rules restrict any use of the information to criminally investigate or prosecute any alcohol or drug abuse patient.[facility] the event this information is protected by the Federal Confidentiality of Alcohol and Drug Abuse Patient Records regulations: The Federal rules restrict any use of the information to criminally investigate or prosecute any alcohol or drug abuse patient.[facility] the event this information is protected by the Federal Confidentiality of Alcohol and Drug Abuse Patient Records regulations: The Federal rules restrict any use of the information to criminally investigate or prosecute any alcohol or drug abuse patient.[facility] the event this information is protected by the Federal Confidentiality of Alcohol and Drug Abuse Patient Records regulations: The Federal rules restrict any use of the information to criminally investigate or prosecute any alcohol or drug abuse patient.[facility] the event this information is protected by the Federal Confidentiality of Alcohol and Drug Abuse Patient Records regulations: The Federal rules restrict any use of the information to criminally investigate or prosecute any alcohol or drug abuse patient.[facility] the event this information is protected by the Federal Confidentiality of Alcohol and Drug Abuse Patient Records regulations: The Federal rules restrict any use of the information to criminally investigate or prosecute any alcohol or drug abuse patient.[facility] the event this information is protected by the Federal Confidentiality of Alcohol and Drug Abuse Patient Records regulations: The Federal rules restrict any use of the information to criminally investigate or prosecute any alcohol or drug abuse patient.[facility] the event this information is protected by the Federal Confidentiality of Alcohol and Drug Abuse Patient Records regulations: The Federal rules restrict any use of the information to criminally investigate or prosecute any alcohol or drug abuse patient.[facility] the event this information is protected by the Federal Confidentiality of Alcohol and Drug Abuse Patient Records regulations: The Federal rules restrict any use of the information to criminally investigate or prosecute any alcohol or drug abuse patient.[facility] the event this information is protected by the Federal Confidentiality of Alcohol and Drug Abuse Patient Records regulations: The Federal rules restrict any use of the information to criminally investigate or prosecute any alcohol or drug abuse patient.[facility] the event this information is protected by the Federal Confidentiality of Alcohol and Drug Abuse Patient Records regulations: The Federal rules restrict any use of the information to criminally investigate or prosecute any alcohol or drug abuse patient.[facility] the event this information is protected by the Federal Confidentiality of Alcohol and Drug Abuse Patient Records regulations: The Federal rules restrict any use of the information to criminally investigate or prosecute any alcohol or drug abuse patient.[facility]In the event this information is protected by the Federal Confidentiality of Alcohol and Drug Abuse Patient Records regulations: The Federal rules restrict any use of the information to criminally investigate or prosecute any alcohol or drug abuse patient.[facility] the event this information is protected by the Federal Confidentiality of Alcohol and Drug Abuse Patient Records regulations: The Federal rules restrict any use of the information to criminally investigate or prosecute any alcohol or drug abuse patient.[facility]In the event this information is protected by the Federal Confidentiality of Alcohol and Drug Abuse Patient Records regulations: The Federal rules restrict any use of the information to criminally investigate or prosecute any alcohol or drug abuse patient.[facility]In the event this information is protected by the Federal Confidentiality of Alcohol and Drug Abuse Patient Records regulations: The Federal rules restrict any use of the information to criminally investigate or prosecute any alcohol or drug abuse patient.[facility]In the event this information is protected by the Federal Confidentiality of Alcohol and Drug Abuse Patient Records regulations: The Federal rules restrict any use of the information to criminally investigate or prosecute any alcohol or drug abuse patient.[facility]In the event this information is protected by the Federal Confidentiality of Alcohol and Drug Abuse Patient Records regulations: The Federal rules restrict any use of the information to criminally investigate or prosecute any alcohol or drug abuse patient.[facility]In the event this information is protected by the Federal Confidentiality of Alcohol and Drug Abuse Patient Records regulations: The Federal rules restrict any use of the information to criminally investigate or prosecute any alcohol or drug abuse patient.[facility]In the event this information is protected by the Federal Confidentiality of Alcohol and Drug Abuse Patient Records regulations: The Federal rules restrict any use of the information to criminally investigate or prosecute any alcohol or drug abuse patient.[facility]In the event this information is protected by the Federal Confidentiality of Alcohol and Drug Abuse Patient Records regulations: The Federal rules restrict any use of the information to criminally investigate or prosecute any alcohol or drug abuse patient.[facility]In the event this information is protected by the Federal Confidentiality of Alcohol and Drug Abuse Patient Records regulations: The Federal rules restrict any use of the information to criminally investigate or prosecute any alcohol or drug abuse patient.[facility]In the event this information is protected by the Federal Confidentiality of Alcohol and Drug Abuse Patient Records regulations: The Federal rules restrict any use of the information to criminally investigate or prosecute any alcohol or drug abuse patient.[facility]In the event this information is protected by the Federal Confidentiality of Alcohol and Drug Abuse Patient Records regulations: The Federal rules restrict any use of the information to criminally investigate or prosecute any alcohol or drug abuse patient.[facility]In the event this information is protected by the Federal Confidentiality of Alcohol and Drug Abuse Patient Records regulations: The Federal rules restrict any use of the information to criminally investigate or prosecute any alcohol or drug abuse patient.[facility] FOR RECORDS PERTAINING TO PATIENTS WHO [...] BE BASED ON THE PRIMARY CLINICAL RECORDS. [facility]. provides no warranty or guarantee of the accuracy or completeness of information in this document.
--- NOTE | 2025-06-10 07:45 | NM_ITS ---
Patient Name: NIMESH CHA MR#: [id number] : 1965 Exam Date: 06/10/2025 Ordering Doctor: DR DESTINY VELA . RADIOLOGY REPORT PROCEDURE: NM EDSON PERF SPECT REST STR COMPARISON: None. INDICATIONS: CHEST PAIN, DIAPHORESIS TECHNIQUE: Exam Description: Stress/Rest one day protocol gated SPECT Rest Imagin.8 mCi Tc-99m Cardiolite IV on 06/10/2025 Stress Imaging 30.0 mCi Tc-99m Cardiolite IV on 06/10/2025 Exercise Protocol: Luis Heart Rate (bpm): Rest: 77 Max: 136 PMHR: 85 Blood Pressure: Rest: 152/94 Max: 172/100 Exercise Time: Minutes: 8 Seconds: 35 Stage Reached: Stage: 3 Mets 10.1 Symptoms: Rest and peak stress ECG findings were pending, and the exercise portion of the study was pending per attending physician [facility]. For more details, please see separate cardiac stress test report. FINDINGS: QUALITY OF STUDY: Good PERFUSION DEFECT: LOCATION: N/A SIZE: N/A SEVERITY: N/A TYPE: N/A WALL MOTION: Normal wall motion LV SIZE: 108 mL. TID / TCD: 0.9 LVEF: Calculated EF 68%. SUMMARY: Myocardial perfusion imaging study is normal CONCLUSION: 1. Myocardial perfusion is normal with soft tissue attenuation 2. Global left ventricular systolic function is normal 3. No significant transient ischemic dilatation Dictated by: Karen Mae M.D. on 06/10/2025 at 15:49 Approved by: Karen Mae M.D. on 06/10/2025 at 15:50
--- NOTE | 2025-06-10 09:49 | PC.NURSE ---
Nursing Note Cardiac Stress Test Reviewed: Medication, allergies and patient history reviewed. Stress Test: [x ] Patient tolerated stress test well. [ ] Patient unable to tolerate walking on treadmill. Switched to Lexiscan stress test. [x ] No chest pain noted per patient [ ] Chest pain that resolved prior to leaving stress lab. [ ] No dyspnea noted. [x ] Dyspnea that resolved prior to leaving stress lab. [x ] Patient left stress lab asymptomatic and hemodynamically stable. [ ] Patient taken to the Emergency Room due to non-resolving symptoms following stress test. [x ] Patient achieved target heart rate. [ ] Patient unable to achieve target heart rate. [ ] Aminophylline administered as reversal agent to Lexiscan (Regadenoson). [ ] Nitro administered. Nursing Comments:Pt had Cardio Lite test done. Tolerated well. No CP noted but did have SOB which he states is normal with activity for him. Pt recovered within 3 minutes rest and ambulated to cafeteria for breakfast prior to second set of images.
--- NOTE | 2025-06-11 16:50 | P.STRESS_ITS ---
Stress Test Stress Test Allergies Allergy/AdvReac Type Severity Reaction Status Date / Time [id number] Reductase AdvReac Intermediate aches Verified 05/31/25 02:51 Inhibitor Requesting physician: Martin Bell Procedure: Treadmill Nuclear Stress Test General Information: Reason for Stress Test: [Chest pain] Cardiac History and Risk Factors: [HTN, prior ablations] Resting 12 - Lead Electrocardiogram: Sinus rhythm Right bundle branch block Abnormal ECG Stress Test: Protocol: [Luis protocol; he exercised for 8.35 minutes, reached stage 3 of the protocol and achieved 10.10 METs. Resting HR was 77 bpm reaching a maximum of 136 bpm which is 85% of MPHR, resting BP was 152/94 with a maximum of 172/100. The test was terminated to achievement of target HR and fatigue] Exercise Capacity: [Good] Blood Pressure Response: [Resting hypertension with appropriate response] Rhythm: [Sinus, PVCs] ST - Response: [No significant ST T wave changes] Patient Response: [No chest pain] Interpretation: 1. No ischemic EKG changes on treadmill exercise stress test. 2. Normal blood pressure and heart rate response to exercise. 3. Infrequent premature ventricular contractions. 4. Torres Treadmill Score: 10.1. Estimated 1-Year Mortality:0.3-0.9 %. Risk Catego ry: Low Risk. Angiography: Usually not indicated. 5. Nuclear images to be read, interpreted and reported seperately.
== END 2025-06-10 07:30 | disposition home or self-care (01) ==
LOC: NM 07:29
PROVIDERS: PCP Family Medicine; Visit Provider Family Medicine
DX: R07.9 Chest pain, unspecified (principal); R61 Generalized hyperhidrosis
CPT/HCPCS: 78452; 93017; A9500